=== PATIENT | male | born 1970 | race African-American/Black ===

== ENCOUNTER → 2021-05-16 08:42 | Outpatient (BNVA) | payer OTHER, SELFPAY | PROVIDERS: Visit Provider Physician Assistant ==

== ENCOUNTER → 2021-06-08 08:05 | Outpatient (BNVA) | payer OTHER, SELFPAY | PROVIDERS: Visit Provider Dietitian, Registered | DX: E66.9 Obesity, unspecified (principal) | CPT/HCPCS: 97802 ==

== ENCOUNTER → 2021-06-27 08:33 | Outpatient (BNVA) | payer OTHER, SELFPAY | PROVIDERS: Visit Provider Dietitian, Registered | DX: E66.01 Morbid (severe) obesity due to excess calories (principal); Z68.37 Body mass index [BMI] 37.0-37.9, adult | CPT/HCPCS: 97803 ==

== ENCOUNTER 2021-07-03 11:31 | Outpatient (REF) | payer OTHER, SELFPAY ==
[2021-07-03 12:24] LABS: MANUAL DIFF FLAG NO
[2021-07-03 12:33] LABS: Basophils Percent Auto 0.8 % (0-2); Eosinophils Absolute Auto 0.1 X10*3/uL (0.0-0.4); Eosinophils Percent Auto 2.8 % (0-4); Hematocrit 41.5 % (42-52); Hemoglobin 14.3 g/dl (14.0-18.0); Imm Gran Abs Auto 0.02 X10*3/uL (0.00-0.03); Imm Gran Pct Auto 0.4 % (0.0-0.4); Lymphocytes Absolute Auto 1.4 X10*3/uL (1.2-4.9); Lymphocytes Percent Auto 28.7 % (20-40); Mean Corpuscular HGB Conc 34.5 g/dl (31.0-36.0); Mean Corpuscular Hemoglobin 31.8 pg (27.0-33.0); Mean Corpuscular Volume 92.2 fL (80-98); Mean Platelet Volume 9.4 fL (9.4-12.4); Monocytes Absolute Auto 0.4 X10*3/uL (0.1-1.2); Monocytes Percent Auto 8.1 % (2-11); Neutrophils Absolute Auto 2.9 X10*3/uL (2.0-8.3); Neutrophils Percent Auto 59.2 % (45-73); Platelet Count 299 X10*3/uL (160-400); Red Cell Distribution Width 13.9 % (11.0-16.0)
[2021-07-03 12:45] LABS: Alanine Aminotransferase 36 U/L (0-40); Albumin Level 4.5 g/dL (3.5-5.0); Alkaline Phosphatase 56 U/L (39-117); Anion Gap 12 (12-20); Aspartate Amino Transferase 29 U/L (5-37); Bilirubin Total 0.4 mg/dL (0.0-1.0); Blood Urea Nitrogen 14 mg/dL (9-16); C Reactive Protein 0.46 mg/dL (< or = 0.50); Calcium 9.9 mg/dL (8.4-10.2); Carbon Dioxide 28 mmol/L (22-29); Chloride 106 mmol/L (96-108); Cholesterol 235 mg/dL; Estimated Glomerular Filt Rate > 60; Glucose Random 103 mg/dL (60-115); HDL Cholesterol 46 mg/dL; Iron 76 mcg/dL (45-160); LDL Cholesterol Calculated 164 mg/dl; Percent Iron Saturation 23 % (15-50); Potassium 4.2 mmol/L (3.3-5.1); Sodium 142 mmol/L (135-145); Total Iron Binding Capacity 331 mcg/dL (228-428); Total Protein 7.3 g/dL (6.5-8.0); Triglycerides 125 mg/dL; Unsaturated Iron Binding 255 ug/dL
[2021-07-03 13:08] LABS: Ferritin 82 ng/mL (20-250); TSH reflex Free T4 2.16 uIU/mL (0.32-4.0); Vitamin D 25-OH Total 44.5 ng/mL (>30)
[2021-07-03 13:18] LABS: Folate 13.8 ng/mL (> or = 4.0); Vitamin B12 1470 pg/mL (200-900)
[2021-07-03 13:33] LABS: Estimated Average Glucose 114 mg/dL; Hemoglobin A1c % 5.6 %
[2021-07-05 16:27] LABS: Zinc 70 mcg/dL (60-130)
[2021-07-06 10:31] LABS: Insulin Level Total 17.6 uIU/mL
[2021-07-07 10:06] LABS: Vitamin B1 9 nmol/L (8-30)
[2021-07-08 06:31] LABS: PTHI 32 pg/mL (14-64)
[2021-07-10 20:22] LABS: Vitamin A 55 mcg/dL (38-98)
== END 2021-07-03 11:32 | disposition home or self-care (01) ==
LOC: HO.LAB 11:31
PROVIDERS: PCP Nurse Practitioner Family; Visit Provider Physician Assistant
DX: Z01.818 Encounter for other preprocedural examination (principal)
CPT/HCPCS: 36415; 80053; 80061; 82306; 82607; 82728; 82746; 83036; 83525; 83540; 83970; 84425; 84443; 84590; 84630; 85025; 86140

== ENCOUNTER → 2021-07-11 08:04 | Outpatient (BNVA) | payer OTHER, SELFPAY | PROVIDERS: PCP Nurse Practitioner Family; Visit Provider Surgery ==

== ENCOUNTER → 2021-07-13 14:33 | Outpatient (BNVA) | payer OTHER, SELFPAY | PROVIDERS: PCP Nurse Practitioner Family; Referring Provider Nurse Practitioner Family; Visit Provider Surgery ==

== ENCOUNTER 2021-07-16 16:53 | Outpatient (REF) | payer OTHER, SELFPAY ==
[2021-07-17 11:53] LABS: H Pylori Breath Test Negative (Negative)
== END 2021-07-16 16:54 | disposition home or self-care (01) ==
LOC: HO.LNP 16:53
PROVIDERS: Visit Provider Physician Assistant
DX: Z01.818 Encounter for other preprocedural examination (principal); Z11.0 Encounter for screening for intestinal infectious diseases
CPT/HCPCS: 83013

== ENCOUNTER → 2021-07-18 08:03 | Outpatient (BNVA) | payer OTHER, SELFPAY | PROVIDERS: PCP Nurse Practitioner Family; Visit Provider Physician Assistant ==

== ENCOUNTER → 2021-07-31 15:35 | Outpatient (BNVA) | payer OTHER, SELFPAY | PROVIDERS: PCP Nurse Practitioner Family; Referring Provider Nurse Practitioner Family; Visit Provider Dietitian, Registered | DX: E66.9 Obesity, unspecified (principal); Z68.37 Body mass index [BMI] 37.0-37.9, adult | CPT/HCPCS: 97803 ==

== ENCOUNTER → 2021-08-17 08:12 | Outpatient (BNVA) | payer OTHER, SELFPAY | PROVIDERS: PCP Nurse Practitioner Family; Visit Provider Physician Assistant | DX: E66.9 Obesity, unspecified (principal) ==

== ENCOUNTER 2021-08-21 14:33 | Outpatient (REF) | payer OTHER, SELFPAY ==
--- NOTE | ~2021-08-21 | XR_ITS ---
EXAMINATION: XR CHEST 2 VIEWS CLINICAL INFORMATION: Obesity. COMPARISON: Chest radiographs dated 12/14/2019. TECHNIQUE: Frontal and lateral views of the chest were obtained. FINDINGS: The heart, great vessels, pulmonary vasculature and mediastinum are normal. The lungs show no focal infiltrate, effusion or pneumothorax. There is no acute osseous abnormality. XR/XR chest 2V IMPRESSION: No active cardiopulmonary disease.
--- NOTE | 2021-08-21 14:37 | ECG_ITS ---
Test Reason : obesity Blood Pressure : / mmHG Vent. Rate : 086 BPM Atrial Rate : 086 BPM P-R Int : 192 ms QRS Dur : 080 ms QT Int : 356 ms P-R-T Axes : 076 058 037 degrees QTc Int : 426 ms Normal sinus rhythm Normal ECG No previous ECGs available Referred By: Elli Diehl Electronically Signed By:ALEXA VILLEGAS MD
== END 2021-08-21 14:34 | disposition home or self-care (01) ==
LOC: HO.XRAY 14:33
PROVIDERS: PCP Nurse Practitioner Family; Visit Provider Physician Assistant
DX: Z01.818 Encounter for other preprocedural examination (principal); E66.9 Obesity, unspecified
CPT/HCPCS: 71046; 93005

== ENCOUNTER → 2021-08-24 14:35 | Outpatient (BNVA) | payer MEDICAID, SELFPAY | PROVIDERS: PCP Nurse Practitioner Family; Referring Provider Nurse Practitioner Family; Visit Provider Physician Assistant Surgical ==

== ENCOUNTER → 2021-08-31 14:33 | Outpatient (BNVA) | payer OTHER, SELFPAY | PROVIDERS: PCP Nurse Practitioner Family; Referring Provider Nurse Practitioner Family; Visit Provider Physician Assistant ==

== ENCOUNTER → 2021-09-03 16:02 | Outpatient (BNVA) | payer OTHER, SELFPAY | PROVIDERS: PCP Nurse Practitioner Family; Referring Provider Physician Assistant; Visit Provider Dietitian, Registered | DX: E66.9 Obesity, unspecified (principal); Z68.36 Body mass index [BMI] 36.0-36.9, adult | CPT/HCPCS: 97803 ==

== ENCOUNTER → 2021-09-10 08:06 | Outpatient (BNVA) | payer OTHER, SELFPAY | PROVIDERS: PCP Nurse Practitioner Family; Visit Provider Physician Assistant | DX: E66.9 Obesity, unspecified (principal); Z01.818 Encounter for other preprocedural examination ==

== ENCOUNTER → 2021-09-14 14:23 | Outpatient (BNVA) | payer OTHER, SELFPAY | PROVIDERS: PCP Nurse Practitioner Family; Referring Provider Nurse Practitioner Family; Visit Provider Physician Assistant ==

== ENCOUNTER 2021-09-18 08:25 | Outpatient (REF) | payer OTHER, SELFPAY ==
--- NOTE | ~2021-09-18 | FL_ITS ---
EXAMINATION: XR GI SERIES CLINICAL INFORMATION: Obesity COMPARISON: None TECHNIQUE: Upper GI was performed using thin and thick barium and effervescent granules FINDINGS: Esophageal motility is normal. There is gastroesophageal reflux. No hernia is seen. The stomach and duodenum are normal-appearing. No fold thickening, mass, ulcer or stricture is seen. FLUOROSCOPY TIME: 0.5 minutes DOSE AREA PRODUCT: 6 dao per centimeter squared. 19 saved fluoroscopic images. FL/FL upper GI series IMPRESSION: Gastroesophageal reflux otherwise unremarkable exam.
== END 2021-09-18 08:26 | disposition home or self-care (01) ==
LOC: HO.XRAY 08:25
PROVIDERS: Visit Provider Physician Assistant
DX: Z01.818 Encounter for other preprocedural examination (principal); E66.9 Obesity, unspecified; K21.9 Gastro-esophageal reflux disease without esophagitis
CPT/HCPCS: 74240

== ENCOUNTER → 2021-10-10 08:22 | Outpatient (BNVA) | payer OTHER, SELFPAY | PROVIDERS: PCP Nurse Practitioner Family; Visit Provider Surgery | DX: E66.9 Obesity, unspecified (principal); Z68.35 Body mass index [BMI] 35.0-35.9, adult | CPT/HCPCS: 99212 ==

== ENCOUNTER → 2021-10-29 14:27 | Outpatient (BNVA) | payer OTHER, SELFPAY | PROVIDERS: PCP Nurse Practitioner Family; Referring Provider Nurse Practitioner Family; Visit Provider Physician Assistant Surgical ==

== ENCOUNTER → 2021-11-14 14:40 | Outpatient (BNVA) | payer OTHER, SELFPAY | PROVIDERS: PCP Nurse Practitioner Family; Referring Provider Nurse Practitioner Family; Visit Provider Physician Assistant Surgical ==

== ENCOUNTER → 2021-12-05 08:32 | Outpatient (BNVA) | payer OTHER, SELFPAY | PROVIDERS: PCP Nurse Practitioner Family; Visit Provider Surgery ==

== ENCOUNTER → 2021-12-07 13:35 | Outpatient (BNVA) | payer OTHER, SELFPAY | PROVIDERS: PCP Nurse Practitioner Family; Referring Provider Nurse Practitioner Family; Visit Provider Physician Assistant ==

== ENCOUNTER → 2021-12-12 14:19 | Outpatient (BNVA) | payer OTHER, SELFPAY | PROVIDERS: PCP Nurse Practitioner Family; Referring Provider Nurse Practitioner Family; Visit Provider Physician Assistant Surgical ==

== ENCOUNTER 2021-12-13 06:26 | Day surgery (SDC) | payer OTHER, SELFPAY ==
[2021-12-07 13:34] LABS: MANUAL DIFF FLAG NO
[2021-12-07 14:39] LABS: Basophils Absolute Auto 0.1 X10*3/uL (0.0-0.2); Basophils Percent Auto 0.8 % (0-2); Eosinophils Absolute Auto 0.1 X10*3/uL (0.0-0.4); Eosinophils Percent Auto 2.2 % (0-4); Hematocrit 43.8 % (42.0-52.0); Imm Gran Abs Auto 0.01 X10*3/uL (0.00-0.03); Imm Gran Pct Auto 0.2 % (0.0-0.4); Lymphocytes Absolute Auto 1.7 X10*3/uL (1.2-4.9); Lymphocytes Percent Auto 28.8 % (20-40); Mean Corpuscular HGB Conc 34.2 g/dl (31.0-36.0); Mean Corpuscular Hemoglobin 31.1 pg (27.0-33.0); Mean Corpuscular Volume 90.9 fL (80.0-98.0); Mean Platelet Volume 9.9 fL (9.4-12.4); Monocytes Absolute Auto 0.4 X10*3/uL (0.1-1.2); Monocytes Percent Auto 7.4 % (2-11); Neutrophils Absolute Auto 3.6 x10*3/uL (2.0-8.3); Neutrophils Percent Auto 60.6 % (45-73); Platelet Count 317 X10*3/uL (160-400); Red Blood Count 4.82 X10*6/uL (4.60-5.80); Red Cell Distribution Width 13.9 % (11.0-16.0)
[2021-12-07 14:44] LABS: INTERNATIONAL NORM RATIO 1.1 (0.9-1.1); Prothrombin Time 12.9 SEC (9.9-13.0)
[2021-12-07 14:48] LABS: Estimated Average Glucose 111 mg/dL; Hemoglobin A1C 140.8467 umol/L; Hemoglobin A1c % 5.5 %
[2021-12-07 15:18] LABS: Alanine Aminotransferase 34 U/L (0-40); Albumin Level 4.7 g/dL (3.5-5.0); Alkaline Phosphatase 58 U/L (39-117); Anion Gap 14 (12-20); Aspartate Amino Transferase 37 U/L (5-37); Bilirubin Total 0.5 mg/dL (0.0-1.0); Blood Urea Nitrogen 20 mg/dL (9-16); C Reactive Protein 0.39 mg/dL (< or = 0.50); Carbon Dioxide 26 mmol/L (22-29); Chloride 104 mmol/L (96-108); Cholesterol 221 mg/dL; Estimated Glomerular Filt Rate > 60; Glucose Random 98 mg/dL (60-115); HDL Cholesterol 50 mg/dL; LDL Cholesterol Calculated 154 mg/dl; Potassium 4.5 mmol/L (3.3-5.1); Sodium 139 mmol/L (135-145); Total Protein 7.9 g/dL (6.5-8.0); Triglycerides 87 mg/dL
[2021-12-07 15:25] VITALS: BMI 35.2
[2021-12-07 15:38] LABS: Insulin 12 uU/mL (2-29); TSH reflex Free T4 1.48 uIU/mL (0.32-4.0)
--- NOTE | 2021-12-07 20:38 | MHC.SHP ---
Pre-Procedural Eval Section A Date of Service: 12/07/21 The patient is an INPATIENT: No The History & Physical has been completed within 30 days and I have reviewed it.: Yes Section B Chief Complaint: obesity Relevant Family History (Specify if Yes): Yes Relevant Social History: None Present Medications: None Medical History: No relevant PMH History of Previous Operations: No relevant previous surgery Allergies: Allergies Allergy/AdvReac Type Severity Reaction Status Date / Time cat dander Allergy Intermediate Hives Verified 12/07/21 15:22 dog dander Allergy Intermediate sneezing Verified 12/07/21 15:22 shell fish Allergy Severe swelling, Uncoded 12/07/21 15:21 hives enviromental Allergy Unknown sneezing Uncoded 12/05/21 14:45 Review of Systems Sugical H&P ROS: Negative: Constitution, Cardiovascular, Respiratory, Neurological, Psychiatric, Hem-Onc, Allergic/Immunologic, Gastrointestinal, Genitourinary, Musculoskeletal, Integumentary, Endocrine and Eyes/Ears/Nose/Throat Exam Surgical H&P Exam: Normal: HEENT, Normal: Heart, Normal: Lungs, Normal: Extremities, Normal: Abdomen, Normal: Skin and Normal: Neurological Plan Diagnosis/Plan: Unchanged I have reviewed the history and physical and performed a pertinent physical examination on my patient. No changes have occurred unless specified.
--- NOTE | 2021-12-12 10:29 | P.CONAN_ITS ---
Documented by User: Hali Shetty NP 12/12/21 10:30 HPI - Anesthesia Eval Consult details Narrative: 51yo M for Gastrectomy Sleeve,EGD,poss diaphragmatic hernia,poss ventral hernia,poss open PMFSH Active Problems Active Problems: All Active Problems (Updated 12/07/21 @ 15:28 by Marline Tracey RN) Obesity (Acute) MDD (major depressive disorder) (Acute) ADHD (Acute) Complex posttraumatic stress disorder (Acute) Pre-op evaluation (Acute) BMI 35.0-35.9,adult (Acute) History of hypothyroidism (Acute) Hx of sleep apnea (Acute) History of high cholesterol (Acute) Past Medical History Medical History Arthritis History of asthma History of depression History of herniated intervertebral disc History of high cholesterol History of hypothyroidism Hx of acute eczema Hx of sleep apnea PTSD (post-traumatic stress disorder) Family History Family History Mother Hx of glaucoma Hx of heat stroke Hypertension Father Hx of heat stroke Sister Obese Sister No problems noted. Sister Depression Thyroid condition Brother No problems noted. Brother Diabetes Brother History of hip replacement Brother Family history of prostate problems Brother No problems noted. Surgical History Surgical History History of anal fissures History of left hip replacement History of lumbar discectomy History of prostate surgery Hx of adenoidectomy Hx of cystoscopy Social History Social History Are you a primary career development manager to a significant other at home: No Do you presently have visiting nurse or other home services: No Alcohol intake: current Alcohol intake frequency: does not drink Patient Tobacco Use Status: Never used Tobacco Meds Allergies Allergy/AdvReac Type Severity Reaction Status Date / Time cat dander Allergy Intermediate Hives Verified 12/13/21 06:21 dog dander Allergy Intermediate sneezing Verified 12/13/21 06:21 shell fish Allergy Severe swelling, Uncoded 12/07/21 15:21 hives enviromental Allergy Unknown sneezing Uncoded 12/05/21 14:45 Home Medications Medication Instructions Recorded Confirmed Last Taken Type acetaminophen 500 mg tablet mg PO 05/16/21 12/05/21 Unknown History clobetasol 0.05 % topical ointment g TOPICAL BID 05/16/21 12/05/21 Unknown History dupilumab 300 mg/2 mL subcutaneous mg SUBCUT 05/16/21 12/05/21 11/12/21 History syringe escitalopram oxalate 20 mg tablet 20 mg PO DAILY 05/16/21 12/13/21 12/12/21 History pramipexole 0.125 mg tablet 0.125 mg PO DAILY 05/16/21 12/13/21 12/11/21 History albuterol sulfate 90 mcg/actuation 2 puff INHALATION Q6H PRN 12/05/21 12/13/21 Unknown History aerosol inhaler fexofenadine 180 mg tablet 180 mg PO DAILY 12/05/21 12/13/21 12/12/21 History (Mayela Allergy) fluticasone propionate 50 1 spray INTRANASAL DAILY 12/05/21 12/13/21 12/12/21 History mcg/actuation nasal spray,suspension (Flonase Allergy Relief) ketotifen fumarate 0.025 % (0.035 1 drp OPHTHALMIC (EYE) BID 12/05/21 12/13/21 12/11/21 History %) eye drops levothyroxine 100 mcg tablet 100 mcg PO DAILY 12/05/21 12/13/21 12/12/21 History (Synthroid) methylphenidate HCl 36 mg 36 mg PO DAILY 12/05/21 12/13/21 12/12/21 History tablet,extended release 24 hr (Concerta) Exam Exam Date and Time: December 12, 2021 1029 Height,Weight and Vital Signs: Height 5 ft 5 in Weight 96.162 kg Pertinent Lab Results Pertinent Lab Results: Laboratory Tests 12/07/21 12/07/21 12/07/21 13:30 13:30 13:30 WBC 6.0 RBC 4.82 Hgb 15.0 Hct 43.8 MCV 90.9 MCH 31.1 MCHC 34.2 RDW 13.9 Plt Count 317 MPV 9.9 Immature Gran % (Auto) 0.2 Neut % (Auto) 60.6 Lymph % (Auto) 28.8 [place] % (Auto) 7.4 Eos % (Auto) 2.2 Baso % (Auto) 0.8 Lymph # (Auto) 1.7 [place] # (Auto) 0.4 Eos # (Auto) 0.1 Baso # (Auto) 0.1 Abs Immat Gran (auto) 0.01 Absolute Neuts (auto) 3.6 Absolute Nucleated RBC 0.000 Nucleated RBC % (auto) 0.0 PT 12.9 INR 1.1 APTT 39.0 H Sodium 139 Potassium 4.5 Chloride 104 Carbon Dioxide 26 Anion Gap 14 BUN 20 H Creatinine 1.19 Estim Creat Clear Calc TNP Estimated GFR > 60 Random Glucose 98 Estimat Average Glucose Hemoglobin A1c % Insulin Level 12 Calcium 10.0 Total Bilirubin 0.5 AST 37 ALT 34 Alkaline Phosphatase 58 C-Reactive Protein 0.39 Total Protein 7.9 Albumin 4.7 Triglycerides 87 Cholesterol 221 LDL Cholesterol, Calc 154 HDL Cholesterol 50 TSH 1.48 Blood Type Antibody Screen 12/07/21 12/07/21 13:30 13:30 WBC RBC Hgb Hct MCV MCH MCHC RDW Plt Count MPV Immature Gran % (Auto) Neut % (Auto) Lymph % (Auto) [place] % (Auto) Eos % (Auto) Baso % (Auto) Lymph # (Auto) [place] # (Auto) Eos # (Auto) Baso # (Auto) Abs Immat Gran (auto) Absolute Neuts (auto) Absolute Nucleated RBC Nucleated RBC % (auto) PT INR APTT Sodium Potassium Chloride Carbon Dioxide Anion Gap BUN Creatinine Estim Creat Clear Calc Estimated GFR Random Glucose Estimat Average Glucose 111 Hemoglobin A1c % 5.5 Insulin Level Calcium Total Bilirubin AST ALT Alkaline Phosphatase C-Reactive Protein Total Protein Albumin Triglycerides Cholesterol LDL Cholesterol, Calc HDL Cholesterol TSH Blood Type O Positive Antibody Screen NEGATIVE Narrative Narrative: EKG 07/2021 Vent. Rate : 086 BPM ? ? Atrial Rate : 086 BPM ?? P-R Int : 192 ms? QRS Dur : 080 ms ? ? QT Int : 356 ms ? ? ? P-R-T Axes : 076 058 037 degrees ?? QTc Int : 426 ms ? Normal sinus rhythm Normal ECG No previous ECGs available Assessment and Plan Assessment Anesthesia Assessment: Chart Reviewed Documented by User: Rachel Munoz MD 12/13/21 07:30 [facility] Active Problems Active Problems: All Active Problems (Updated 12/07/21 @ 15:28 by Marline Tracey, JENNIFER) Obesity (Acute) MDD (major depressive disorder) (Acute) ADHD (Acute) Complex posttraumatic stress disorder (Acute) Pre-op evaluation (Acute) BMI 35.0-35.9,adult (Acute) History of hypothyroidism (Acute) Hx of sleep apnea (Acute). Uses CPAP machine History of high cholesterol (Acute) TMJ syndrome Past Medical History Medical History Arthritis History of asthma History of depression History of herniated intervertebral disc History of high cholesterol History of hypothyroidism Hx of acute eczema Hx of sleep apnea PTSD (post-traumatic stress disorder) Family History Family History Mother Hx of glaucoma Hx of heat stroke Hypertension Father Hx of heat stroke Sister Obese Sister No problems noted. Sister Depression Thyroid condition Brother No problems noted. Brother Diabetes Brother History of hip replacement Brother Family history of prostate problems Brother No problems noted. Family history of problems with anesthesia: No Surgical History Surgical History History of anal fissures History of left hip replacement History of lumbar discectomy History of prostate surgery Hx of adenoidectomy Hx of cystoscopy History of Problems with Anesthesia: No Social History Social History Are you a primary career development manager to a significant other at home: No Do you presently have visiting nurse or other home services: No Alcohol intake: current Alcohol intake frequency: does not drink Patient Tobacco Use Status: Never used Tobacco Meds Allergies Allergy/AdvReac Type Severity Reaction Status Date / Time cat dander Allergy Intermediate Hives Verified 12/13/21 06:21 dog dander Allergy Intermediate sneezing Verified 12/13/21 06:21 shell fish Allergy Severe swelling, Uncoded 12/07/21 15:21 hives enviromental Allergy Unknown sneezing Uncoded 12/05/21 14:45 Home Medications Medication Instructions Recorded Confirmed Last Taken Type acetaminophen 500 mg tablet mg PO 05/16/21 12/05/21 Unknown History clobetasol 0.05 % topical ointment g TOPICAL BID 05/16/21 12/05/21 Unknown History dupilumab 300 mg/2 mL subcutaneous mg SUBCUT 05/16/21 12/05/21 11/12/21 History syringe escitalopram oxalate 20 mg tablet 20 mg PO DAILY 05/16/21 12/13/21 12/12/21 History pramipexole 0.125 mg tablet 0.125 mg PO DAILY 05/16/21 12/13/21 12/11/21 History albuterol sulfate 90 mcg/actuation 2 puff INHALATION Q6H PRN 12/05/21 12/13/21 Unknown History aerosol inhaler fexofenadine 180 mg tablet 180 mg PO DAILY 12/05/21 12/13/21 12/12/21 History (Mayela Allergy) fluticasone propionate 50 1 spray INTRANASAL DAILY 12/05/21 12/13/21 12/12/21 History mcg/actuation nasal spray,suspension (Flonase Allergy Relief) ketotifen fumarate 0.025 % (0.035 1 drp OPHTHALMIC (EYE) BID 12/05/21 12/13/21 12/11/21 History %) eye drops levothyroxine 100 mcg tablet 100 mcg PO DAILY 12/05/21 12/13/21 12/12/21 History (Synthroid) methylphenidate HCl 36 mg 36 mg PO DAILY 12/05/21 12/13/21 12/12/21 History tablet,extended release 24 hr (Concerta) Exam Height,Weight and Vital Signs: Height 5 ft 5 in Weight 96.162 kg Vital Signs Temp Pulse Resp BP Pulse Ox 12/13/21 06:28 97.8 F 55 16 119/70 98 Pertinent Lab Results Pertinent Lab Results: Laboratory Tests 12/07/21 12/07/21 12/07/21 13:30 13:30 13:30 WBC 6.0 RBC 4.82 Hgb 15.0 Hct 43.8 MCV 90.9 MCH 31.1 MCHC 34.2 RDW 13.9 Plt Count 317 MPV 9.9 Immature Gran % (Auto) 0.2 Neut % (Auto) 60.6 Lymph % (Auto) 28.8 [place] % (Auto) 7.4 Eos % (Auto) 2.2 Baso % (Auto) 0.8 Lymph # (Auto) 1.7 [place] # (Auto) 0.4 Eos # (Auto) 0.1 Baso # (Auto) 0.1 Abs Immat Gran (auto) 0.01 Absolute Neuts (auto) 3.6 Absolute Nucleated RBC 0.000 Nucleated RBC % (auto) 0.0 PT 12.9 INR 1.1 APTT 39.0 H Sodium 139 Potassium 4.5 Chloride 104 Carbon Dioxide 26 Anion Gap 14 BUN 20 H Creatinine 1.19 Estim Creat Clear Calc TNP Estimated GFR > 60 Random Glucose 98 Estimat Average Glucose Hemoglobin A1c % Insulin Level 12 Calcium 10.0 Total Bilirubin 0.5 AST 37 ALT 34 Alkaline Phosphatase 58 C-Reactive Protein 0.39 Total Protein 7.9 Albumin 4.7 Triglycerides 87 Cholesterol 221 LDL Cholesterol, Calc 154 HDL Cholesterol 50 TSH 1.48 Blood Type Antibody Screen 12/07/21 12/07/21 13:30 13:30 WBC RBC Hgb Hct MCV MCH MCHC RDW Plt Count MPV Immature Gran % (Auto) Neut % (Auto) Lymph % (Auto) [place] % (Auto) Eos % (Auto) Baso % (Auto) Lymph # (Auto) [place] # (Auto) Eos # (Auto) Baso # (Auto) Abs Immat Gran (auto) Absolute Neuts (auto) Absolute Nucleated RBC Nucleated RBC % (auto) PT INR APTT Sodium Potassium Chloride Carbon Dioxide Anion Gap BUN Creatinine Estim Creat Clear Calc Estimated GFR Random Glucose Estimat Average Glucose 111 Hemoglobin A1c % 5.5 Insulin Level Calcium Total Bilirubin AST ALT Alkaline Phosphatase C-Reactive Protein Total Protein Albumin Triglycerides Cholesterol LDL Cholesterol, Calc HDL Cholesterol TSH Blood Type O Positive Antibody Screen NEGATIVE Laboratory Results - last 24 hr 12/12/21 14:05 COVID-19 ([facility]) Negative COVID-19 Clin Com See Note Airway Mallampati Class: III TM Dist: >3cm Neck ROM: Full Loose/Missing/Broken Teeth: No Heart: RRR Lungs: CTAB Other: TMJ Syndrome Assessment and Plan Assessment Anesthesia Assessment: Anesthesia Plan Discussed Final Anesthetic Review Family History of Problems with Anesthesia: No History of Problems with Anesthesia: No NPO: Yes ASA Class: III Final Preanesthetic Review: No Changes in Pt Med Stat, Meds/Allgs Chart Reviewed, Consent Obtained/Reviewed and Anes Risks/Benef Reviewed Patient Risk: Intermediate Procedure Risk: Intermediate Assessment/Block/Sedation in SS: Assess/Block/Sedation-SS Anesthetic Plan Anesthetic Plan: GA Disposition: Standard PACU and Inp. Admit - Standard Bed
[2021-12-12 14:27] LABS: COVID-19 Test Negative (Negative)
[2021-12-13] VITALS (19 sets, daily range): BP systolic 119–168; BP diastolic 70–91; PULSE 55–84; RESP 12–18; TEMP 36.1–36.7; O2SAT 91–99
[2021-12-13] MEDS: Lactated Ringers 1,000 ML 999 ML IV (07:22)
[2021-12-13] MEDS: Lactated Ringers 1,000 ML 100 ML IVCONT ×3 (07:22→20:59)
--- NOTE | 2021-12-13 08:05 | P.BOP_ITS ---
Brief Operative Note Date of Service: 12/13/21 Pre-op diagnosis: Severe obesity and comorbidities (see below) Post-op diagnosis: same Procedure: INITIAL PATIENT BMI ON PRESENTATION AT OUR OFFICE: 39.3 kg/m2 LAST BMI BEFORE SURGERY: 35 kg/m2 COMORBIDITIES: sleep apnea on CPAP, depression, anxiety, hyperlipidemia, GERD, restless leg syndrome, BPH, eczema, asthma, liver steatosis ?The patient presented to the Weight Management Program with significant obesity that was negatively impacting the patient's comorbidities as listed above.? The program is a phased program with a special focus on preoperative medical weight management to promote substantial weight loss and prepare the patients for the second phase of the program: bariatric surgery. The patient participated in an intensive weekly lifestyle ?intervention and exercise program during which the patient ?has lost between the initial office visit and the last preoperative visit 24.6lbs, or 11.27% of initial actual body weight. It was deemed appropriate for the patient to now have bariatric surgery. In light of the current Covid-19 pandemic and the well documented strong association of obesity and increased risk of worse outcomes if infected with Covid-19 (REFERENCES: https://pubmed.ncbi.nlm.nih.gov/27656788/ ,? https://pubmed.ncbi.nlm.nih.gov/11592743/ ), any delay in undergoing bariatric surgery may lead to the patient's worsening health condition and increased?risk of more severe Covid-19 disease if infected. In addition a recent?study from [facility] published in [employer] on 10/22/2021 ([email or web address]) found that, among patients with obesity, substantial weight loss achieved with surgery was associated with improved outcomes of COVID-19 infection. The findings suggest that obesity can be a modifiable risk factor for the severity of COVID- 19 infection. In addition, the patient met the BMI-criteria for bariatric surgery based on the BMI on initial presentation. The patient should not be penalized for achieving such weight loss because ?it is not sustainable long-term without surgical intervention and it was achieved in preparation for bariatric surgery ?under my direction and based on my published research ([email or web address]).[email or web address] and? https://www.soard.org/article/[email or web address](73)84608-X/pdf ) ?that a 10% preoperative weight loss improves long-term weight loss after surgery and reduces perioperative complications.? Insurance carriers such as [facility] have endorsed my recommendations ?and have included in their policies criteria to include a 10% preoperative weight loss requirement. PROCEDURE: Esophago-gastroscopy, laparoscopic sleeve gastrectomy and laparosco pic gastropexy INDICATIONS: This is a 51 year-old male who was electively scheduled for laparoscopic, possibly open sleeve gastrectomy. The risks and complications of the procedure were discussed with the patient in advance, particularly the possibility of ; pulmonary embolism; staple line leak; bleeding; GERD; cardiac, pulmonary, or renal complications; as well as long-term problems such as insufficient weight loss, vitamin deficiency, strictures, or ulcers. The patient understood all the risks, and was in agreement to proceed with surgery. DESCRIPTION OF PROCEDURE: After informed consent was obtained from the patient, the patient was given preoperative antibiotics, and was transferred to the operating room. After successful induction of general anesthesia, pneumatic compression devices were placed on both lower extremities. An upper endoscopy was performed next. The oropharynx and esophagus appeared to be within normal limits. There was no diaphragmatic hernia present consistent with the findings of the preoperative upper GI. The stomach was entered. Then after all fluid and air were suctioned and the stomach was fully decompressed, the scope was withdrawn and secured in the mid esophagus. The patient was then prepped and draped in the usual sterile manner, and abdominal access was established at the right upper quadrant with the Cameron technique. A 12 mm blunt port was inserted, and the abdomen was insufflated with CO2 to a pressure of 15 mmHg. Under direct visualization, additional ports were placed, specifically two 5 mm Versi-step ports to the left upper quadrant, and a 5 mm Versi-Step port to the right upper quadrant. 1% lidocaine plain was used to infiltrate all port sites as well as all fascia defects. There were adhesions in the abdomen involving the omentum and the left anterior abdominal wall. Those were not lysed as they did not interfere with our procedure. Following that, the patient was placed in a steep reverse Trendelenburg position. An additional 5 mm port was placed to the right flank for the Mediflex retractor that was used to retract the left lobe of the liver. The gastro-esophageal fat pad was opened with the ultrasonic device (Thunderbeat, Olympus) and the anterior esophagus and hiatus were exposed. The angle of His was opened with the ultrasonic device the fundus of the stomach from any diaphragmatic and splenic attachments. I then opened the gastrocolic ligament between the transverse colon and the greater curvature of the stomach with the ultrasonic device to enter the lesser sac and facilitate the ligation of the short gastric vessels. I started at a mid-point along the greater curvature and using the Thunderbeat, all short gastric vessels were divided all the way to the angle of His until the left adela was completely dissected at its entirety. I then divided the gastro-colic ligament distally to a distance of about 3-4 cm proximal to the esophagus. The stomach was then divided transversely with one Endo CATHI-45 purple, three CATHI-45 orange loads and three CATHI-60 articulating orange loads using the AEON stapler and loads. Every effort was made that the gastric sleeve had a tubular shape and an even caliber throughout. Once the sleeve resection was completed, the staple line of the gastric sleeve was reinforced with Hemoclips. The resected stomach was retrieved without difficulty from the Cameron port. A gastropexy was then performed in order to prevent postoperative GERD and partial gastric volvulus. Several interrupted 2.0 Surgidac sutures were placed between the sleeve's staple line and the previously divided greater omentum and gastro-colic ligament using the Endo-Stitch device. ?An upper endoscopy was performed. There was no narrowing at the GE junction. The scope was easily advanced all the way to the pylorus which was clearly visualized. There was no narrowing anywhere and the sleeve's caliber was even throughout. The sleeve's staple line was inspected and there was no evidence of ischemia, bleeding or dehiscence. At that point the gastroscope was withdrawn from the patient?s mouth while we were decompressing the bowel and the stomach from any remaining air. I looked into the lesser sac to see how the sleeve was situating and it was situating well. There was no bleeding from the staple line, spleen, or short gastric vessels. The Mediflex retractor was removed, and the undersurface of the liver was inspected and there was no bleeding. The patient was placed in supine position. I closed the fascial defect of the 12 mm port site with a figure of eight #1 Meño ysorb suture. Then 100 cc 0.25 % Marcaine plain with 10 mg of Dexamethasone were used to infiltrate the fascial closure as well as all skin incisions. At this point, the abdomen was deflated, all ports were removed under direct vision, and no bleeding was noted from any of the port sites. The skin incisions were irrigated with saline and were closed with 4-0 absorbable monofilament sutures. Steri-Strips and OpSites were used to cover all incisions. The patient was extubated and was transferred in stable condition to the recovery room for further care. I was present and performed all acevedo parts of the procedure. Ms. Diehl was the cutting table operator first. There were no residents to assist with this case. Miguel Angel Lovell MD, PhD, FACS Surgeon: Steve Lovell MD Anesthesia: GETA, local and other (TAP block) Was an Hot Mix Operator used for this Procedure?: Yes Hot Mix Operator: Elli Diehl Estimated blood loss (mL): 10 IV fluids (mL): 2,500 Urine output (mL): 0 (No Mart to record) Pathology: other (Stomach) Condition: stable Disposition: PACU
--- NOTE | 2021-12-13 08:05 | PM.PNGS ---
Subjective Subjective Date of Service: 12/14/21 Interval history: Patient has mild incisional pain, but was able to ambulate and use the incentive spirometer. He is tolerating phase 1 bariatric diet Physical Exam Vital Signs: Vital Signs: Last Vital Signs Temp 97.8 F 12/13/21 06:28 Pulse 55 12/13/21 06:28 Resp 16 12/13/21 06:28 BP 119/70 12/13/21 06:28 Pulse Ox 98 12/13/21 06:28 BMI result Body Mass Index 35.2 GI: Inspection: Yes normal to inspection, Yes incision (clean, dry and intact) and Yes obesity Extrem: Right lower extremity: normal to inspection (no calf tenderness) Left lower extremity: normal to inspection (no calf tenderness) Objective Data Active Medications Albuterol Sulfate (Albuterol Sulfate (0.083%) 2.5 Mg/3 Ml Vial.Neb) 2.5 mg INHALE ONCE PRN PRN Reason: Shortness of Breath/Wheezing Fentanyl (Fentanyl Citrate/Pf 100 Mcg/2 Ml Vial) 25 mcg IVPUSH Q5M PRN; Protocol PRN Reason: Pain, Moderate (Pain Scale 4-6 Hydromorphone HCl (Hydromorphone Hcl 0.5 Mg/0.5 Ml Syringe) 0.25 mg IVPUSH Q5M PRN; Protocol PRN Reason: Pain, Severe (Pain Scale 7-10) Lactated Ringer's (Lr) 1,000 mls @ 100 mls/hr IVCONT .Q10H ELVIS Last Admin: 12/13/21 07:22 Dose: 100 mls/hr Documented by: TK Promethazine HCl 6.25 mg/ (Sodium Chloride) 50.25 mls @ 201 mls/hr IV ONCE PRN PRN Reason: Nausea and Vomiting Ondansetron HCl (Ondansetron Hcl 4 Mg/2 Ml Vial) 4 mg IVPUSH ONCE PRN PRN Reason: Nausea and Vomiting Labs CBC & Chem 7: 12/14/21 05:43 12/14/21 05:43 Labs: Laboratory Results - last 24 hr 12/12/21 14:05 COVID-19 ([facility]) Negative COVID-19 Clin Com See Note Procedures Date of Service Date of Service: 12/14/21 Progress Note: A&P Assessment and plan (1) Obesity: Status: Acute Assessment and Plan: s/p laparoscopic sleeve gastrectomy and gastropexy Doing well Check am labs. If OK, will discharge home? (2) BMI 35.0-35.9,adult: Status: Acute (3) Hx of sleep apnea: Status: Acute (4) History of hypothyroidism: Status: Acute (5) Status post sleeve gastrectomy: Status: Acute (6) Intra-abdominal adhesions: Status: Acute (7) Steatosis, liver: Status: Acute (8) ADHD: Status: Acute (9) History of depression: Status: Acute (10) History of asthma: Status: Acute (11) Arthritis: Status: Acute (12) Hx of acute eczema: Status: Acute Fall Risk Details Current Medications: Current Medications Albuterol Sulfate (Albuterol Sulfate (0.083%) 2.5 Mg/3 Ml Vial.Neb) 2.5 mg INHALE ONCE PRN PRN Reason: Shortness of Breath/Wheezing Fentanyl (Fentanyl Citrate/Pf 100 Mcg/2 Ml Vial) 25 mcg IVPUSH Q5M PRN; Protocol PRN Reason: Pain, Moderate (Pain Scale 4-6 Hydromorphone HCl (Hydromorphone Hcl 0.5 Mg/0.5 Ml Syringe) 0.25 mg IVPUSH Q5M PRN; Protocol PRN Reason: Pain, Severe (Pain Scale 7-10) Lactated Ringer's (Lr) 1,000 mls @ 100 mls/hr IVCONT .Q10H ELVIS Last Admin: 12/13/21 07:22 Dose: 100 mls/hr Documented by: Promethazine HCl 6.25 mg/ (Sodium Chloride) 50.25 mls @ 201 mls/hr IV ONCE PRN PRN Reason: Nausea and Vomiting Ondansetron HCl (Ondansetron Hcl 4 Mg/2 Ml Vial) 4 mg IVPUSH ONCE PRN PRN Reason: Nausea and Vomiting Time Spent With Patient Time: Total time spent is greater than 50% in coordination of care (as documented) at patient's floor/unit and/or counseling patient: Time with patient: less than 15 minutes Quality Stroke Does the patient have a stroke diagnosis?: No VTE Prior VTE?: No VTE Risk Level:: Surgical - moderate VTE Device Contraindication: N/A - Device Ordered VTE Drug Contraindication: Treatment Not Indicated
--- NOTE | 2021-12-13 10:31 | P.DS_ITS ---
DS: Providers Provider Date of Service: 12/14/21 Primary care physician: Homero Stevens NP DS: Diagnosis Discharge Diagnosis (1) Obesity: Status: Acute (2) BMI 35.0-35.9,adult: Status: Acute (3) Hx of sleep apnea: Status: Acute (4) History of hypothyroidism: Status: Acute (5) Status post sleeve gastrectomy: Status: Acute (6) Intra-abdominal adhesions: Status: Acute (7) Steatosis, liver: Status: Acute (8) ADHD: Status: Acute (9) History of depression: Status: Acute (10) History of asthma: Status: Acute (11) Arthritis: Status: Acute (12) Hx of acute eczema: Status: Acute DS: Summary Hospital Course Hospital Course: ADMITTING DIAGNOSIS: morbid obesity, Hypothyroid, hyperlipidemia, sleep apnea, asthma DISCHARGE DIAGNOSIS: same, s/p laparoscopic sleeve gastrectomy PAST SURGICAL HISTORY: Left hip replacement PROCEDURE: upper endoscopy, laparoscopic sleeve gastrectomy with gastropexy DISCHARGE SUMMARY: History of Present Illness: The patient is a 51 year-old woman with a BMI of 39.26 kg/m2 and associated co- morbidities as described above. The patient had extensive work-up,lost 24.6 lbs preoperatively and was electively scheduled for laparoscopic, possible open sleeve gastrectomy and gastropexy. Risks and complications of the surgery were discussed with the patient in advance, particularly the possibility of , pulmonary embolism, anastomotic leak, bleeding, bowel injury, GERD, cardiac, renal or pulmonary complications. The patient understood all the risks and was in agreement with the surgical plan. Hospital Course: The patient underwent an uneventful laparoscopic sleeve gastrectomy with gastropexy on the day of admission. Postoperatively, the patient was transferred to the surgical floor. The patient received IV Acetaminophen and IV dilaudid for pain control. Patient was started on bariatric phase 1 diet POD #0. On postoperative day one, the patient was feeling well without nausea, vomiting, fevers, or tachycardia. The patient had some mild incisional pain and the abdomen was soft. On the morning of postoperative day one, the patient was continued on 1 ounce of water or ice every half hour. During the day, the patient did fairly well, having some incisional pain, but able to ambulate adequately and to tolerate liquids well. Since the patient is doing well, we decided that the patient was ready to be discharged. The patient was given instructions to follow-up with me next week and to call my office for any fever over 101, persistent abdominal pain, nausea, vomiting, GERD, symptoms of DVT such as calf tenderness, or leg swelling, or pulmonary embolism such as chest pain or shortness of breath. The patient was also instructed to drink 40-60 ounces of liquids per day using the 1-ounce cups. The patient had been given prescriptions for Tylenol for pain, Zofran prn for nausea, and pantoprazole and carafate previously. The patient was encouraged to ambulate and use the incentive spirometer. The patient was allowed to shower, but no baths, and encouraged to stay active at home. All of these instructions were given to the patient personally. All questions were answered and the patient understood all instructions, the instructions were also given to the patient in print. Time Spent with Patient Time attestation: Total time spent providing and/or coordinating discharge services: Discharge coordination time: Less than 30 minutes Quality: Stroke Does the patient have a stroke diagnosis?: No Physical Exam Vital Signs: Vital Signs: Last Vital Signs Temp 98.1 F 12/13/21 10:20 Pulse 65 12/13/21 10:20 Resp 12 12/13/21 10:20 BP 156/76 H 12/13/21 10:20 Pulse Ox 96 12/13/21 10:20 BMI result Body Mass Index 35.2 DS: Data Data Completed and Pending Pending studies at discharge: Pending at discharge 12/13/21 09:12 Surgical [PTH] Routine Labs on day of discharge: Laboratory Results - last 24 hr 12/12/21 14:05 COVID-19 ([facility]) Negative COVID-19 Clin Com See Note Discharge Plan Discharge Patient Disposition: Home, Self-Care Referrals: Homero Stevens NP [Primary Care Provider] - 1 Week Discharge Medications: Continued escitalopram oxalate 20 mg tablet 20 mg PO DAILY 0RF pramipexole 0.125 mg tablet 0.125 mg PO DAILY 0RF pantoprazole 40 mg tablet,delayed release (DR/EC) 40 mg PO DAILY Qty: 30 2RF sucralfate 100 mg/mL suspension 10 ml PO BID Qty: 400 2RF ondansetron HCl 4 mg tablet 4 mg PO Q12H Qty: 20 0RF fexofenadine [Mayela Allergy] 180 mg tablet 180 mg PO DAILY 0RF methylphenidate HCl [Concerta] 36 mg tablet extended release 24hr 36 mg PO DAILY 0RF albuterol sulfate 90 mcg/actuation HFA aerosol inhaler 2 puff inhalation Q6H PRN (Reason: Shortness Of Breath Or Wheezing) 0RF fluticasone propionate [Flonase Allergy Relief] 50 mcg/actuation spray,suspension 1 spray intranasal DAILY 0RF Rx Instructions: administer into each nostril ketotifen fumarate 0.025 % (0.035 %) drops 1 drp ophthalmic (eye) BID 0RF Rx Instructions: administer at least 8 hours apart Held Dupixent Syringe 300 mg/2 mL syringe subcut 0RF Hold Instructions: Discuss dosing with Dr Liliya Avelar polyethylene glycol 3350 [Miralax] 17 gram powder in packet 17 g PO DAILY Qty: 14 0RF Rx Instructions: Mix each packet with 8oz of water and do 7 packets on 12/11/21 and another 7 packets on 12/12/21 No Action levothyroxine 50 mcg tablet 1 tab PO DAILY 0RF Discharge Orders: Discharge Order (Routine); Ordered 12/14/21 Ordered By: Steve Lovell Stand Alone Forms: Patient Portal Discharge page Activity Restrictions/Additional Instructions: Take medications as instructed by MD. Last given Lexapro and Mirapex at 0915 on 12/14/2021 Discharge Date/Time: 12/14/21 13:54
[2021-12-13] MEDS: Famotidine/PF 20 MG/2 ML VIAL IVPUSH ×2 (10:50→20:59)
[2021-12-13 11:08] LABS: Hematocrit 41.4 % (42.0-52.0); Hemoglobin 13.8 g/dl (14.0-18.0)
[2021-12-13 11:39] LABS: Anion Gap 12 (12-20); Blood Urea Nitrogen 18 mg/dL (9-16); Calcium 8.6 mg/dL (8.4-10.2); Carbon Dioxide 28 mmol/L (22-29); Chloride 102 mmol/L (96-108); Creatinine Clr Calc Pharmacy 76.3; Estimated Glomerular Filt Rate > 60; Glucose Random 111 mg/dL (60-115); Potassium 4.4 mmol/L (3.3-5.1); Sodium 138 mmol/L (135-145)
[2021-12-13] MEDS: Metoclopramide HCl 10 MG/2 ML VIAL IVPUSH (13:31)
[2021-12-13] MEDS: ceFAZolin Sodium/Dextrose,Iso 2 GM/50 ML PIGGYBACK IV (13:32)
[2021-12-13] MEDS: ondansetron HCL 4 MG/2 ML VIAL IVPUSH (20:59)
[2021-12-13] MEDS: 0.9 % Sodium Chloride Flush 3 ML SYRINGE IVFLUSH (20:59)
[2021-12-14 04:00] VITALS: BP 147/71; PULSE 76; RESP 16; TEMP 36.6; O2SAT 97
[2021-12-14] MEDS: Lactated Ringers 1,000 ML 100 ML IVCONT (05:55)
[2021-12-14] MEDS: Levothyroxine Sodium 50 MCG TABLET PO (05:55)
[2021-12-14] MEDS: ondansetron HCL 4 MG/2 ML VIAL IVPUSH (05:55)
[2021-12-14 06:05] LABS: MANUAL DIFF FLAG NO
[2021-12-14 06:11] LABS: Basophils Percent Auto 0.2 % (0-2); Hematocrit 31.5 % (42.0-52.0); Hemoglobin 10.7 g/dl (14.0-18.0); Imm Gran Abs Auto 0.02 X10*3/uL (0.00-0.03); Imm Gran Pct Auto 0.2 % (0.0-0.4); Lymphocytes Absolute Auto 1.4 X10*3/uL (1.2-4.9); Mean Corpuscular Hemoglobin 30.9 pg (27.0-33.0); Mean Platelet Volume 10.1 fL (9.4-12.4); Monocytes Percent Auto 11.6 % (2-11); Neutrophils Absolute Auto 6.3 x10*3/uL (2.0-8.3); Platelet Count 272 X10*3/uL (160-400); Red Blood Count 3.46 X10*6/uL (4.60-5.80); Red Cell Distribution Width 13.8 % (11.0-16.0); White Blood Count 8.7 X10*3/uL (4.8-10.8)
[2021-12-14 06:30] LABS: Anion Gap 11 (12-20); Blood Urea Nitrogen 15 mg/dL (9-16); Carbon Dioxide 31 mmol/L (22-29); Chloride 101 mmol/L (96-108); Creatinine Clr Calc Pharmacy 83.1; Estimated Glomerular Filt Rate > 60; Glucose Random 112 mg/dL (60-115); Potassium 4.9 mmol/L (3.3-5.1); Sodium 138 mmol/L (135-145)
[2021-12-14 07:16] VITALS: BP 150/75; PULSE 84; RESP 18; TEMP 36.1; O2SAT 100
[2021-12-14] MEDS: 0.9 % Sodium Chloride Flush 3 ML SYRINGE IVFLUSH (07:25)
[2021-12-14 07:33] VITALS: O2SAT 100
--- NOTE | 2021-12-14 08:24 | MHC.CM.PN ---
EMR REVIEWED, PT ADMITTED S/P LAP SLEEVE GASTRECTOMY AND HERNIA REPAIR, CM MET W/PT WHO REPORTS HE LIVES W/ AND TWO DTRS, PT IS INDEPENDENTW/ALL CARE, PT DENIES USE OF DME AND HAS NO HOME SERVICES, PT VERIFIES PCP IS JEIMY PEREA AND HAS COMPLETED A HCP W/CM WHO NAMES HIS NEIL [phone] HIS HCA AND DTR [facility] [place] [phone], PT PROVIDED W/EDUCATION, ORIGINAL AND 2 COPIES, COPY UPLOADED TO [employer] AND PLACED IN CHART. D/C PLAN: HOME LATER TODAY NO SERVICES W/FAMILY FOR TRANSPORT [employer] X3, PT UNSURE OF DATES.
[2021-12-14] MEDS: Pramipexole Di-HCL 0.125 MG TABLET PO (09:21)
[2021-12-14] MEDS: Escitalopram Oxalate 20 MG TABLET PO (09:21)
[2021-12-14] MEDS: Famotidine/PF 20 MG/2 ML VIAL IVPUSH (09:21)
--- NOTE | 2021-12-14 13:28 | HO.POSTANES ---
Post Anesthesia Evaluation Post Anesthesia Evaluation Vital Signs: Vital Signs Temp Pulse Resp BP Pulse Ox 12/14/21 07:33 100 12/14/21 07:16 97 F 84 18 150/75 H 100 12/14/21 04:00 97.9 F 76 16 147/71 H 97 Anesthesia: General Endotracheal-GETA Mental Status: Awake Pain Control: Satisfactory Nausea/Vomiting: None Hydration: Adequate Anesthesia-Related Issues: No Anes. Related Issues
== END 2021-12-14 13:54 | disposition home or self-care (01) ==
LOC: HO.SSS 11:08 → HO.S3 14:11
PROVIDERS: Nurse Practitioner; Physician Assistant; PCP Nurse Practitioner Family; Visit Provider Surgery
PROC: (CPT 43845; principal; 2021-12-13 07:30)
DX: E66.01 Morbid (severe) obesity due to excess calories (principal); Z68.35 Body mass index [BMI] 35.0-35.9, adult; K66.0 Peritoneal adhesions (postprocedural) (postinfection); K76.0 Fatty (change of) liver, not elsewhere classified; E78.5 Hyperlipidemia, unspecified; L30.9 Dermatitis, unspecified; F32.9 Major depressive disorder, single episode, unspecified; F41.1 Generalized anxiety disorder; F90.9 Attention-deficit hyperactivity disorder, unspecified type; F43.10 Post-traumatic stress disorder, unspecified; G47.33 Obstructive sleep apnea (adult) (pediatric); G25.81 Restless legs syndrome; J45.909 Unspecified asthma, uncomplicated; M19.90 Unspecified osteoarthritis, unspecified site; N40.0 Benign prostatic hyperplasia without lower urinary tract symptoms; Z99.89 Dependence on other enabling machines and devices; Z79.51 Long term (current) use of inhaled steroids; Z79.899 Other long term (current) drug therapy; Z96.642 Presence of left artificial hip joint
CPT/HCPCS: 43775; 43659; 36415; 80048; 80053; 80061; 83036; 83525; 84443; 85014; 85018; 85025; 85610; 85730; 86140; 86850; 86900; 86901; 87635; 88307; 88342; 99024; A4649; J0131; J0690; J1100; J1170; J2250; J2405; J2550; J2765; J3010

== ENCOUNTER → 2021-12-18 14:34 | Outpatient (BNVA) | payer OTHER, SELFPAY | PROVIDERS: PCP Nurse Practitioner Family; Referring Provider Nurse Practitioner Family; Visit Provider Surgery | DX: E66.9 Obesity, unspecified (principal); Z68.33 Body mass index [BMI] 33.0-33.9, adult | CPT/HCPCS: 99212 ==

== ENCOUNTER → 2022-01-08 15:01 | Outpatient (BNVA) | payer OTHER, SELFPAY | PROVIDERS: PCP Nurse Practitioner Family; Visit Provider Physician Assistant Surgical | DX: Z13.89 Encounter for screening for other disorder (principal) ==

== ENCOUNTER → 2022-01-17 14:31 | Outpatient (BNVA) | payer OTHER, SELFPAY | PROVIDERS: PCP Nurse Practitioner Family; Referring Provider Nurse Practitioner Family; Visit Provider Physician Assistant Surgical | DX: Z13.89 Encounter for screening for other disorder (principal) ==

== ENCOUNTER → 2022-01-22 08:14 | Outpatient (BNVA) | payer OTHER, SELFPAY | PROVIDERS: PCP Nurse Practitioner Family; Visit Provider Physician Assistant Surgical | DX: E66.3 Overweight (principal); Z68.29 Body mass index [BMI] 29.0-29.9, adult | CPT/HCPCS: 99212 ==

== ENCOUNTER → 2022-01-24 14:32 | Outpatient (BNVA) | payer OTHER, SELFPAY | PROVIDERS: PCP Nurse Practitioner Family; Visit Provider Physician Assistant Surgical | DX: Z13.89 Encounter for screening for other disorder (principal) ==

== ENCOUNTER → 2022-02-06 14:47 | Outpatient (BNVA) | payer OTHER, SELFPAY | PROVIDERS: PCP Nurse Practitioner Family; Visit Provider Physician Assistant Surgical | DX: Z13.89 Encounter for screening for other disorder (principal) ==

== ENCOUNTER → 2022-02-20 14:31 | Outpatient (BNVA) | payer OTHER, SELFPAY | PROVIDERS: PCP Nurse Practitioner Family; Referring Provider Nurse Practitioner Family; Visit Provider Physician Assistant Surgical | DX: E66.3 Overweight (principal); K59.00 Constipation, unspecified; Z68.26 Body mass index [BMI] 26.0-26.9, adult | CPT/HCPCS: 99212 ==

== ENCOUNTER → 2022-03-06 15:43 | Outpatient (BNVA) | payer OTHER, SELFPAY | PROVIDERS: PCP Nurse Practitioner Family; Referring Provider Nurse Practitioner Family; Visit Provider Physician Assistant Surgical | DX: E66.3 Overweight (principal); Z68.26 Body mass index [BMI] 26.0-26.9, adult | CPT/HCPCS: 99212 ==

== ENCOUNTER → 2022-04-03 14:31 | Outpatient (BNVA) | payer OTHER, SELFPAY | PROVIDERS: PCP Nurse Practitioner Family; Visit Provider Counselor Mental Health | DX: F33.1 Major depressive disorder, recurrent, moderate (principal); F90.9 Attention-deficit hyperactivity disorder, unspecified type; Z98.84 Bariatric surgery status | CPT/HCPCS: 90791 ==

== ENCOUNTER → 2022-04-15 11:08 | Outpatient (BNVA) | payer OTHER, SELFPAY | PROVIDERS: PCP Nurse Practitioner Family; Visit Provider Counselor Mental Health | DX: F90.9 Attention-deficit hyperactivity disorder, unspecified type (principal); F33.1 Major depressive disorder, recurrent, moderate; Z98.84 Bariatric surgery status | CPT/HCPCS: 90834 ==

== ENCOUNTER → 2022-04-22 13:17 | Outpatient (BNVA) | payer OTHER, SELFPAY | PROVIDERS: PCP Nurse Practitioner Family; Visit Provider Counselor Mental Health | DX: F90.9 Attention-deficit hyperactivity disorder, unspecified type (principal); F33.1 Major depressive disorder, recurrent, moderate; Z98.84 Bariatric surgery status | CPT/HCPCS: 90834 ==

== ENCOUNTER → 2022-04-24 14:47 | Outpatient (BNVA) | payer OTHER, SELFPAY | PROVIDERS: PCP Nurse Practitioner Family; Visit Provider Physician Assistant Surgical | DX: Z98.84 Bariatric surgery status (principal) | CPT/HCPCS: 99212 ==

== ENCOUNTER → 2022-05-09 11:15 | Outpatient (BNVA) | payer OTHER, SELFPAY | PROVIDERS: PCP Nurse Practitioner Family; Visit Provider Counselor Mental Health | DX: F33.1 Major depressive disorder, recurrent, moderate (principal); F90.9 Attention-deficit hyperactivity disorder, unspecified type; Z98.84 Bariatric surgery status | CPT/HCPCS: 90834 ==

== ENCOUNTER → 2022-05-20 14:13 | Outpatient (BNVA) | payer OTHER, MEDICAID, SELFPAY | PROVIDERS: PCP Nurse Practitioner Family; Visit Provider Counselor Mental Health | DX: F90.9 Attention-deficit hyperactivity disorder, unspecified type (principal); F33.1 Major depressive disorder, recurrent, moderate; Z98.84 Bariatric surgery status | CPT/HCPCS: 90834 ==

== ENCOUNTER → 2022-06-06 13:06 | Outpatient (BNVA) | payer MEDICAID, SELFPAY | PROVIDERS: PCP Nurse Practitioner Family; Referring Provider Surgery; Visit Provider Physician Assistant Surgical | DX: E66.3 Overweight (principal); Z98.84 Bariatric surgery status | CPT/HCPCS: 99212 ==

== ENCOUNTER → 2022-06-19 12:36 | Outpatient (BNVA) | payer OTHER, SELFPAY | PROVIDERS: PCP Nurse Practitioner Family; Visit Provider Counselor Mental Health | DX: F90.9 Attention-deficit hyperactivity disorder, unspecified type (principal); F33.1 Major depressive disorder, recurrent, moderate; Z98.84 Bariatric surgery status | CPT/HCPCS: 90834 ==

== ENCOUNTER → 2022-06-26 15:52 | Outpatient (BNVA) | payer OTHER, SELFPAY | PROVIDERS: PCP Nurse Practitioner Family; Visit Provider Counselor Mental Health | DX: F90.9 Attention-deficit hyperactivity disorder, unspecified type (principal); F33.1 Major depressive disorder, recurrent, moderate; E78.00 Pure hypercholesterolemia, unspecified; Z68.35 Body mass index [BMI] 35.0-35.9, adult; Z98.84 Bariatric surgery status | CPT/HCPCS: 90834 ==

== ENCOUNTER → 2022-07-25 16:01 | Outpatient (BNVA) | payer OTHER, MEDICAID, SELFPAY | PROVIDERS: PCP Nurse Practitioner Family; Visit Provider Counselor Mental Health ==

== ENCOUNTER → 2022-07-30 14:29 | Outpatient (BNVA) | payer MEDICAID, SELFPAY | PROVIDERS: PCP Nurse Practitioner Family; Visit Provider Physician Assistant Surgical | DX: E66.3 Overweight (principal); Z98.84 Bariatric surgery status; Z68.27 Body mass index [BMI] 27.0-27.9, adult | CPT/HCPCS: 99212 ==

== ENCOUNTER 2022-08-19 10:05 | Outpatient (REF) | payer MEDICAID, SELFPAY ==
[2022-08-19 10:25] LABS: MANUAL DIFF FLAG NO
[2022-08-19 11:42] LABS: Basophils Percent Auto 0.9 % (0-2); Eosinophils Absolute Auto 0.1 X10*3/uL (0.0-0.4); Eosinophils Percent Auto 2.9 % (0-4); Hematocrit 41.1 % (42.0-52.0); Hemoglobin 13.9 g/dl (14.0-18.0); Imm Gran Abs Auto 0.01 X10*3/uL (0.00-0.03); Imm Gran Pct Auto 0.3 % (0.0-0.4); Lymphocytes Absolute Auto 1.3 X10*3/uL (1.2-4.9); Lymphocytes Percent Auto 36.2 % (20-40); Mean Corpuscular HGB Conc 33.8 g/dl (31.0-36.0); Mean Corpuscular Hemoglobin 31.2 pg (27.0-33.0); Mean Corpuscular Volume 92.4 fL (80.0-98.0); Mean Platelet Volume 9.5 fL (9.4-12.4); Monocytes Absolute Auto 0.3 X10*3/uL (0.1-1.2); Monocytes Percent Auto 8.9 % (2-11); Neutrophils Absolute Auto 1.8 x10*3/uL (2.0-8.3); Neutrophils Percent Auto 50.8 % (45-73); Platelet Count 276 X10*3/uL (160-400); Red Blood Count 4.45 X10*6/uL (4.60-5.80); Red Cell Distribution Width 13.8 % (11.0-16.0); White Blood Count 3.5 X10*3/uL (4.8-10.8)
[2022-08-19 11:53] LABS: Estimated Average Glucose 100 mg/dL; Hemoglobin A1c % 5.1 %
[2022-08-19 12:38] LABS: Ferritin 109 ng/mL (20-250); Insulin 9 uU/mL (2-29); TSH reflex Free T4 2.32 uIU/mL (0.32-4.0); Vitamin D 25-OH Total 49.2 ng/mL (>30)
[2022-08-19 12:41] LABS: Folate 13.3 ng/mL (> or = 4.0); Vitamin B12 649 pg/mL (200-900)
[2022-08-19 12:51] LABS: Alanine Aminotransferase 27 U/L (0-40); Albumin Level 4.4 g/dL (3.5-5.0); Alkaline Phosphatase 43 U/L (39-117); Anion Gap 16 (12-20); Aspartate Amino Transferase 31 U/L (5-37); Bilirubin Total 0.3 mg/dL (0.0-1.0); Blood Urea Nitrogen 17 mg/dL (9-16); C Reactive Protein 0.08 mg/dL (< or = 0.50); Calcium 9.4 mg/dL (8.4-10.2); Carbon Dioxide 25 mmol/L (22-29); Chloride 105 mmol/L (96-108); Cholesterol 203 mg/dL; Estimated Glomerular Filt Rate > 60; Glucose Random 93 mg/dL (60-115); HDL Cholesterol 61 mg/dL; Iron 66 mcg/dL (45-160); LDL Cholesterol Calculated 128 mg/dl; Percent Iron Saturation 22 % (15-50); Potassium 4.2 mmol/L (3.3-5.1); Sodium 142 mmol/L (135-145); Total Iron Binding Capacity 303 mcg/dL (228-428); Total Protein 7.1 g/dL (6.5-8.0); Triglycerides 72 mg/dL; Unsaturated Iron Binding 237 ug/dL
[2022-08-20 13:06] LABS: Calcium (PTHI) 9.6 mg/dL (8.6-10.3); PTHI 40 pg/mL (16-77)
[2022-08-22 06:04] LABS: Zinc 90 mcg/dL (60-130)
[2022-08-23 15:37] LABS: Vitamin A 54 mcg/dL (38-98)
[2022-08-26 13:33] LABS: Vitamin B1 31 nmol/L (8-30)
== END 2022-08-19 10:06 | disposition home or self-care (01) ==
LOC: HO.LAB 10:05
PROVIDERS: Visit Provider Physician Assistant Surgical
DX: E66.3 Overweight (principal); Z98.84 Bariatric surgery status
CPT/HCPCS: 36415; 80053; 80061; 82306; 82607; 82728; 82746; 83036; 83525; 83540; 83970; 84425; 84443; 84590; 84630; 85025; 86140

== ENCOUNTER → 2022-09-10 14:38 | Outpatient (BNVA) | payer MEDICAID, SELFPAY | PROVIDERS: PCP Nurse Practitioner Family; Referring Provider Nurse Practitioner Family; Visit Provider Physician Assistant Surgical | DX: E66.3 Overweight (principal); Z98.84 Bariatric surgery status; Z68.27 Body mass index [BMI] 27.0-27.9, adult | CPT/HCPCS: 99212 ==

== ENCOUNTER → 2022-09-25 14:29 | Outpatient (BNVA) | payer OTHER, MEDICAID, SELFPAY | PROVIDERS: PCP Nurse Practitioner Family; Visit Provider Counselor Mental Health | DX: F90.9 Attention-deficit hyperactivity disorder, unspecified type (principal); F33.1 Major depressive disorder, recurrent, moderate; Z98.84 Bariatric surgery status | CPT/HCPCS: 90834 ==

== ENCOUNTER → 2022-10-15 15:48 | Outpatient (BNVA) | payer OTHER, MEDICAID, SELFPAY | PROVIDERS: PCP Nurse Practitioner Family; Visit Provider Counselor Mental Health | DX: F33.1 Major depressive disorder, recurrent, moderate (principal); F90.9 Attention-deficit hyperactivity disorder, unspecified type; Z98.84 Bariatric surgery status | CPT/HCPCS: 90834 ==

== ENCOUNTER → 2022-10-30 14:59 | Outpatient (BNVA) | payer OTHER, MEDICAID, SELFPAY | PROVIDERS: PCP Nurse Practitioner Family; Visit Provider Counselor Mental Health | DX: Z13.89 Encounter for screening for other disorder (principal) ==

== ENCOUNTER → 2022-11-04 14:31 | Outpatient (BNVA) | payer MEDICAID, SELFPAY | PROVIDERS: PCP Nurse Practitioner Family; Visit Provider Physician Assistant Surgical | DX: E66.3 Overweight (principal); Z68.28 Body mass index [BMI] 28.0-28.9, adult; Z98.84 Bariatric surgery status | CPT/HCPCS: 99212 ==

== ENCOUNTER → 2022-11-13 15:25 | Outpatient (BNVA) | payer MEDICAID, SELFPAY | PROVIDERS: PCP Nurse Practitioner Family; Visit Provider Counselor Mental Health | DX: F33.1 Major depressive disorder, recurrent, moderate (principal); F90.9 Attention-deficit hyperactivity disorder, unspecified type; Z98.84 Bariatric surgery status | CPT/HCPCS: 90834 ==

== ENCOUNTER → 2022-11-27 15:29 | Outpatient (BNVA) | payer OTHER, SELFPAY | PROVIDERS: PCP Nurse Practitioner Family; Visit Provider Counselor Mental Health | DX: F90.9 Attention-deficit hyperactivity disorder, unspecified type (principal); F33.1 Major depressive disorder, recurrent, moderate; Z98.84 Bariatric surgery status | CPT/HCPCS: 90834 ==

== ENCOUNTER → 2022-12-05 14:00 | Outpatient (BNVA) | payer OTHER, SELFPAY | PROVIDERS: PCP Nurse Practitioner Family; Visit Provider Counselor Mental Health | DX: F90.9 Attention-deficit hyperactivity disorder, unspecified type (principal); F33.1 Major depressive disorder, recurrent, moderate; E66.9 Obesity, unspecified; Z68.35 Body mass index [BMI] 35.0-35.9, adult; Z86.39 Personal history of other endocrine, nutritional and metabolic disease; Z86.69 Personal history of other diseases of the nervous system and sense organs; Z90.3 Acquired absence of stomach [part of] | CPT/HCPCS: 90834 ==

== ENCOUNTER → 2022-12-20 09:51 | Outpatient (BNVA) | payer OTHER, MEDICAID, SELFPAY | PROVIDERS: PCP Nurse Practitioner Family; Visit Provider Counselor Mental Health | DX: F33.1 Major depressive disorder, recurrent, moderate (principal); F90.9 Attention-deficit hyperactivity disorder, unspecified type; Z98.84 Bariatric surgery status | CPT/HCPCS: 90834 ==

== ENCOUNTER → 2022-12-25 16:06 | Outpatient (BNVA) | payer OTHER, MEDICAID, SELFPAY | PROVIDERS: PCP Nurse Practitioner Family; Visit Provider Counselor Mental Health | DX: F33.1 Major depressive disorder, recurrent, moderate (principal); Z98.84 Bariatric surgery status | CPT/HCPCS: 90834 ==

== ENCOUNTER → 2023-01-01 15:23 | Outpatient (BNVA) | payer OTHER, MEDICAID, SELFPAY | PROVIDERS: PCP Nurse Practitioner Family; Visit Provider Counselor Mental Health | DX: F90.9 Attention-deficit hyperactivity disorder, unspecified type (principal); F33.1 Major depressive disorder, recurrent, moderate; Z98.84 Bariatric surgery status | CPT/HCPCS: 90834 ==

== ENCOUNTER → 2023-01-08 17:00 | Outpatient (BNVA) | payer OTHER, MEDICAID, SELFPAY | PROVIDERS: PCP Nurse Practitioner Family; Visit Provider Counselor Mental Health ==

== ENCOUNTER → 2023-01-15 15:19 | Outpatient (BNVA) | payer OTHER, MEDICAID, SELFPAY | PROVIDERS: PCP Nurse Practitioner Family; Visit Provider Counselor Mental Health ==

== ENCOUNTER → 2023-01-22 15:30 | Outpatient (BNVA) | payer OTHER, SELFPAY | PROVIDERS: PCP Nurse Practitioner Family; Visit Provider Counselor Mental Health ==

== ENCOUNTER → 2023-01-29 15:18 | Outpatient (BNVA) | payer OTHER, SELFPAY | PROVIDERS: PCP Nurse Practitioner Family; Referring Provider Nurse Practitioner Family; Visit Provider Counselor Mental Health ==

== ENCOUNTER → 2023-02-05 15:15 | Outpatient (BNVA) | payer OTHER, SELFPAY | PROVIDERS: PCP Nurse Practitioner Family; Visit Provider Counselor Mental Health ==

== ENCOUNTER → 2023-02-06 15:02 | Outpatient (BNVA) | payer OTHER, SELFPAY | PROVIDERS: PCP Nurse Practitioner Family; Visit Provider Physician Assistant Surgical | DX: E66.3 Overweight (principal); Z68.28 Body mass index [BMI] 28.0-28.9, adult; Z98.84 Bariatric surgery status | CPT/HCPCS: 99212 ==

== ENCOUNTER → 2023-02-19 15:17 | Outpatient (BNVA) | payer OTHER, SELFPAY | PROVIDERS: PCP Nurse Practitioner Family; Visit Provider Counselor Mental Health ==

== ENCOUNTER → 2023-02-26 15:22 | Outpatient (BNVA) | payer OTHER, SELFPAY | PROVIDERS: PCP Nurse Practitioner Family; Visit Provider Counselor Mental Health ==

== ENCOUNTER → 2023-03-13 15:40 | Outpatient (BNVA) | payer OTHER, SELFPAY | PROVIDERS: PCP Nurse Practitioner Family; Visit Provider Counselor Mental Health ==

== ENCOUNTER → 2023-04-02 15:17 | Outpatient (BNVA) | payer OTHER, SELFPAY | PROVIDERS: PCP Nurse Practitioner Family; Visit Provider Counselor Mental Health ==

== ENCOUNTER → 2023-05-13 13:02 | Outpatient (BNVA) | payer OTHER, SELFPAY | PROVIDERS: PCP Nurse Practitioner Family; Visit Provider Physician Assistant ==

== ENCOUNTER → 2023-05-16 13:00 | Outpatient (BNV) | payer OTHER, SELFPAY | PROVIDERS: Visit Provider Clinical Nurse Specialist Psychiatric/Mental Health | DX: F33.1 Major depressive disorder, recurrent, moderate (principal) | CPT/HCPCS: 90792; 99213 ==

== ENCOUNTER 2023-05-21 10:59 | Outpatient (REF) | payer OTHER, SELFPAY ==
[2023-05-21 11:18] LABS: MANUAL DIFF FLAG NO
[2023-05-21 11:56] LABS: Basophils Absolute Auto 0.1 X10*3/uL (0.0-0.2); Basophils Percent Auto 0.7 % (0-2); Eosinophils Absolute Auto 0.1 X10*3/uL (0.0-0.4); Eosinophils Percent Auto 0.7 % (0-4); Hematocrit 42.1 % (42.0-52.0); Hemoglobin 14.1 g/dl (14.0-18.0); Imm Gran Abs Auto 0.02 X10*3/uL (0.00-0.03); Imm Gran Pct Auto 0.3 % (0.0-0.4); Lymphocytes Absolute Auto 1.6 X10*3/uL (1.2-4.9); Mean Corpuscular HGB Conc 33.5 g/dl (31.0-36.0); Mean Corpuscular Hemoglobin 31.6 pg (27.0-33.0); Mean Corpuscular Volume 94.4 fL (80.0-98.0); Mean Platelet Volume 9.5 fL (9.4-12.4); Monocytes Absolute Auto 0.5 X10*3/uL (0.1-1.2); Monocytes Percent Auto 7.9 % (2-11); Neutrophils Absolute Auto 4.5 x10*3/uL (2.0-8.3); Neutrophils Percent Auto 66.4 % (45-73); Platelet Count 286 X10*3/uL (160-400); Red Blood Count 4.46 X10*6/uL (4.60-5.80); Red Cell Distribution Width 13.6 % (11.0-16.0); White Blood Count 6.7 X10*3/uL (4.8-10.8)
[2023-05-21 12:29] LABS: Alanine Aminotransferase 28 U/L (0-40); Albumin Level 4.4 g/dL (3.5-5.0); Alkaline Phosphatase 43 U/L (39-117); Anion Gap 10 (12-20); Aspartate Amino Transferase 28 U/L (5-37); Bilirubin Total 0.5 mg/dL (0.0-1.0); Blood Urea Nitrogen 12 mg/dL (9-16); Calcium 9.7 mg/dL (8.4-10.2); Carbon Dioxide 32 mmol/L (22-29); Chloride 102 mmol/L (96-108); Estimated Glomerular Filt Rate > 60; Glucose Fasting 89 mg/dL (60-99); Potassium 4.4 mmol/L (3.3-5.1); Sodium 140 mmol/L (135-145); Total Protein 7.4 g/dL (6.5-8.0)
[2023-05-21 12:45] LABS: Free T4 (Free Thyroxine) 0.97 ng/dL (0.71-1.85); Thyroid Stimulating Hormone 1.73 uIU/mL (0.32-4.0)
[2023-05-21 12:58] LABS: Folate 10.7 ng/mL (> or = 4.0); Vitamin B12 496 pg/mL (200-900)
== END 2023-05-21 11:00 | disposition home or self-care (01) ==
LOC: HO.LAB 10:59
PROVIDERS: PCP Nurse Practitioner Family; Visit Provider Clinical Nurse Specialist Psychiatric/Mental Health
DX: F33.1 Major depressive disorder, recurrent, moderate (principal)
CPT/HCPCS: 36415; 80053; 82607; 82746; 84439; 84443; 85025

== ENCOUNTER 2023-05-28 12:45 | Outpatient (RCR) | payer OTHER, SELFPAY ==
[2023-05-14 10:52] VITALS: BP 120/70; PULSE 54; TEMP 36.7
[2023-05-14 10:57] VITALS: BMI 28.3
--- NOTE | 2023-05-14 12:08 | PC.ADMIT ---
Patient is a 53 year old male who was referred to [facility] by his prescriber d/t increased sxs of depression, ADHD, and PTSD sxs. He reports marital problems and family stresses with his adult children. Patient has a history of one inpatient level of care according to Intergrative Assessment. He is alert and oriented x4. Calm and cooperative. reports passive SI, questioning why her is here and what is the purpose. Denied any plan or intent to kill himself. Reports family as his protective factor as he could never do that to them. He was given a copy of his safety plan and I reviewed his safety plan with him. Reports using marijuana daily taking a hit a day or less and drinking 1-2 beers or 1-2 Tequilla's a few times a week. Medications reconciled with patient and patient's pharmacy. Reports he was taking Focalin medication intermittently at one point however is taking daily currently.
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
--- NOTE | 2023-05-15 17:48 | HO.PHP ---
Clients case was reviewed and opened today in treatment team.
--- NOTE | 2023-05-21 14:59 | HO.PHP ---
[facility] staff contacted Gt's OP therapist, Nicolette Zarco to inform her when Gt began the program and when his discharge date is. [facility] staff stated that Gt has been actively engaged and has been processing what he needs to, to the best of his ability. [facility] staff left this in a VM and encouraged her to call back with any questions.
--- NOTE | 2023-05-23 09:20 | HO.PHP ---
PHP staff reached out to Gt due to him not showing up to program or calling. Gt did not answer the phone and a VM was left. [facility] staff is going to allow 15 minutes to see if Gt returns the call.
--- NOTE | 2023-05-23 09:35 | HO.PHP ---
[facility] staff reached out to Gt's Emergency Contact due to Gt not calling within the 15 minute window. Gt's emergency contact is his partner. Gt's partner disclosed that Gt was sleeping when she left the house this morning and voiced that she will have him call the program to let them know he is safe. [facility] staff was receptive.
--- NOTE | 2023-05-23 09:40 | HO.PHP ---
PHP staff member received a call from Gt apologizing stating that he took a tylenol PM last night and had overslept. PHP staff was receptive and assessed for any safety concerns. Gt mentioned he is safe and will be coming to the program Friday. PHP staff was receptive.
--- NOTE | 2023-05-28 13:59 | HO.PHPPROGNO ---
Subjective Subjective Date of Service: 05/28/23 Reason For Visit: PTSD Medical Problems Affecting Mental Status: No Interim History: Met with patient. Discussed with nursing. Reviewed chart. No concerns regarding labs. Patient is discharging today. Has been out of Focalin consistent with [facility]. Does notice a significant difference off Focalin. There is follow-up with community prescriber. Thankful regarding partial hospital program. Discussed stressors that led to admission to partial hospital program primarily marriage. Reports this is now in a good place and comfortable with the decision to divorce. Describes now feeling less overwhelmed, less anxious, more hopeful and has learned tools to help and move forward. Happy with current medication regimen. We will send 5-day prescription of Focalin and patient will follow-up with already established community prescriber. Medication Compliance: Yes Side effects from medications: No Attending Groups: Yes Review of Systems Acute medical concerns: No Medical Review of Systems: unchanged Review of Systems Review of Systems Yes all other systems are reviewed and are negative Mental Status Exam Mental Status Exam Narrative: Pleasant. Engaged. Well presented. Organized. Euthymic. No SI. No HI. No agitation. No psychosis. Insight and judgment fair Diagnostics Vital Signs (24Hr): BMI result Body Mass Index 28.3 Assessment & Plan Assessment & Plan (1) Major depressive disorder, recurrent, moderate: Status: Acute Code(s): F33.1 - Major depressive disorder, recurrent, moderate Assessment and Plan: Stable and ready for discharge. Benefit from partial hospital programming. Already has established community providers Patient educated on: therapeutic strategies Informed Consent: understands Reason for contiued partial hosp. stay Substantial Risk for: stable for discharge Certification I certify that partial hospital treatment is medically necessary due to the symptoms and problems resulting from the patient's mental illness and the failure to treat the patient at the partial hospital level of care would likely result in the patient requiring inpatient psychiatric care which could not be prevented at a less intensive level of care. Total time managing care of this patient today 20 minutes. Discharge Plan Discharge Attending provider: Roman Pro Additional Instructions: Gt has the same OP therapist and med provider, Weston Zarco. Gt's next scheduled appointment is on May 29, 2023 at 12 PM. Gt also has an upcoming weight management appointment on June 04, 2023. Gt lastly has a PCP appointment June 24, 2023 at 3:45 PM. Medications: Continued dexmethylphenidate 30 mg capsule,ER biphasic 50-50 30 mg PO QAM 5 Days Qty: 5 0RF levothyroxine 50 mcg tablet 50 mcg PO DAILY escitalopram oxalate 20 mg tablet 20 mg PO DAILY fexofenadine [Mayela Allergy] 180 mg tablet 180 mg PO DAILY albuterol sulfate 90 mcg/actuation HFA aerosol inhaler 2 puff inhalation Q6H PRN (Reason: Shortness Of Breath Or Wheezing) Stand Alone Forms: Patient Portal Discharge page Patient Education: ADHD in Adults (ED), Depression (ED), Post Traumatic Stress Disorder (ED) Telehealth Telehealth Location of provider rendering services: other ([place], [place]) Location of patient: other ([facility]) Patient Identification confirmed using: Name, : Yes Telehealth method: video Patient verbally consented to treatment: Yes Minutes spent on Phone/Video with Pt.: 15
--- NOTE | 2023-05-28 15:03 | HO.PHP ---
PHP staff contacted Weston Zarco and left a message asking her to call back to provide clarification around a medication Gt is stating he is out of but is aware they were working on filling it together the other day. PHP staff encouraged her to call back to provide clarification regarding if the medication was refilled.
--- NOTE | 2023-05-29 09:19 | PC.NURSE ---
Dr Victor Manuel Murrell reviewed patient's Labs on 05/28/23 completed on 05/21/23 including RBC 4.46CO2 32, GAP 10. No new orders.
== END 2023-05-28 23:59 | disposition home or self-care (01) ==
LOC: HO.PHPA 12:45
PROVIDERS: Visit Provider Psychiatry & Neurology Psychiatry
DX: F33.1 Major depressive disorder, recurrent, moderate (principal); F43.10 Post-traumatic stress disorder, unspecified; F90.9 Attention-deficit hyperactivity disorder, unspecified type
CPT/HCPCS: 90791; 90853

== ENCOUNTER → 2023-06-11 17:00 | Outpatient (BNVA) | payer OTHER, SELFPAY | PROVIDERS: PCP Nurse Practitioner Family; Visit Provider Counselor Mental Health ==

== ENCOUNTER → 2023-06-11 17:00 | Outpatient (BNVA) | payer OTHER, SELFPAY | PROVIDERS: PCP Nurse Practitioner Family; Visit Provider Counselor Mental Health ==

== ENCOUNTER 2023-06-20 11:16 | Outpatient (REF) | payer OTHER, SELFPAY ==
[2023-06-20 13:33] LABS: MANUAL DIFF FLAG NO
[2023-06-20 13:40] LABS: Eosinophils Absolute Auto 0.1 X10*3/uL (0.0-0.4); Eosinophils Percent Auto 1.5 % (0-4); Hematocrit 39.9 % (42.0-52.0); Hemoglobin 13.7 g/dl (14.0-18.0); Imm Gran Abs Auto 0.01 X10*3/uL (0.00-0.03); Imm Gran Pct Auto 0.2 % (0.0-0.4); Lymphocytes Absolute Auto 1.4 X10*3/uL (1.2-4.9); Lymphocytes Percent Auto 34.6 % (20-40); Mean Corpuscular HGB Conc 34.3 g/dl (31.0-36.0); Mean Corpuscular Hemoglobin 32.1 pg (27.0-33.0); Mean Corpuscular Volume 93.4 fL (80.0-98.0); Mean Platelet Volume 9.7 fL (9.4-12.4); Monocytes Absolute Auto 0.3 X10*3/uL (0.1-1.2); Monocytes Percent Auto 8.2 % (2-11); Neutrophils Absolute Auto 2.3 x10*3/uL (2.0-8.3); Neutrophils Percent Auto 54.5 % (45-73); Platelet Count 288 X10*3/uL (160-400); Red Blood Count 4.27 X10*6/uL (4.60-5.80); Red Cell Distribution Width 13.8 % (11.0-16.0); White Blood Count 4.1 X10*3/uL (4.8-10.8)
[2023-06-20 13:48] LABS: Appearance Urine Clear; Color Urine Yellow; Glucose Urine UA Negative (Negative); Leukocyte Esterase Urine Negative (Negative); Nitrite Urine Negative (Negative); PH 5.5 (5.0-9.0); Specific Gravity - Urine 1.025 (1.005-1.025); Urine Blood Negative (Negative); Urine Ketones Negative (Negative); Urine Protein Negative (Neg-Trace)
[2023-06-20 14:17] LABS: Alanine Aminotransferase 29 U/L (0-40); Albumin Level 4.3 g/dL (3.5-5.0); Alkaline Phosphatase 44 U/L (39-117); Anion Gap 12 (12-20); Aspartate Amino Transferase 27 U/L (5-37); Bilirubin Total 0.4 mg/dL (0.0-1.0); Blood Urea Nitrogen 21 mg/dL (9-16); Calcium 9.6 mg/dL (8.4-10.2); Carbon Dioxide 28 mmol/L (22-29); Chloride 105 mmol/L (96-108); Cholesterol 248 mg/dL (<200); Estimated Glomerular Filt Rate > 60; Glucose Fasting 92 mg/dL (60-99); HDL Cholesterol 68 mg/dL (>40); LDL Cholesterol Calculated 164 mg/dL (<100); Potassium 3.9 mmol/L (3.3-5.1); Sodium 141 mmol/L (135-145); Total Protein 7.3 g/dL (6.5-8.0); Triglycerides 81 mg/dL (<150)
[2023-06-20 14:29] LABS: Prostate Specific Antigen Scr 3.09 ng/mL (<0.05-4.0)
== END 2023-06-20 11:17 | disposition home or self-care (01) ==
LOC: HO.HMGCLDS 11:16
PROVIDERS: PCP Nurse Practitioner Family; Visit Provider Nurse Practitioner Family
DX: Z00.00 Encounter for general adult medical examination without abnormal findings (principal); Z12.5 Encounter for screening for malignant neoplasm of prostate
CPT/HCPCS: 36415; 80053; 80061; 81003; 84153; 84443; 85025

== ENCOUNTER 2023-08-07 13:38 | Outpatient (REF) | payer OTHER, SELFPAY ==
[2023-08-07 16:19] LABS: Estimated Average Glucose 97 mg/dL
[2023-08-07 16:31] LABS: C Reactive Protein < 0.10 mg/dL (< or = 0.50)
[2023-08-07 16:44] LABS: Insulin 8 uU/mL (2-29); Vitamin D 25-OH Total 49.9 ng/mL (>30)
[2023-08-11 15:08] LABS: Zinc 72 mcg/dL (60-130)
[2023-08-12 15:48] LABS: Calcium (PTHI) 9.8 mg/dL (8.6-10.3); PTHI 37 pg/mL (16-77)
[2023-08-12 23:19] LABS: Vitamin B1 15 nmol/L (8-30)
[2023-08-13 01:48] LABS: Vitamin A 59 mcg/dL (38-98)
== END 2023-08-07 13:39 | disposition home or self-care (01) ==
LOC: HO.LAB 13:38
PROVIDERS: PCP Nurse Practitioner Family; Visit Provider Physician Assistant Surgical
DX: E66.3 Overweight (principal); Z71.3 Dietary counseling and surveillance; Z98.84 Bariatric surgery status; Z79.899 Other long term (current) drug therapy
CPT/HCPCS: 36415; 82306; 83036; 83525; 83970; 84425; 84590; 84630; 86140; 99212

== ENCOUNTER 2023-08-07 13:38 | Outpatient (AMB) | payer OTHER, SELFPAY ==
--- NOTE | 2023-08-07 13:43 | A.OFFVIS_ITS ---
Intake VS Expanded 08/07/23 13:53 BP 137/82 Blood Pressure Location Rt brachial Blood Pressure Position Sitting Pulse 98 Pulse Source Pulse Oximeter Temp 97.4 F Temperature Source Tympanic Pulse Oximetry 96 Oxygen Delivery Method Room Air Height 5 ft 5.5 in Weight 175 lb BMI 28.7 Body Fat % 23.3 Body Fat Mass 40.8 Fat Free Mass 134.0 Visceral Fat Rating 12.0 Body Water % 54.9 Body Water Mass 40.8 Muscle Mass/Score 127.4 Basal Metabolic Rate/Score 1,759 Intake Visit Reasons: (OV) PO LSG 12/13/21 Allergies cat dander Allergy (Intermediate, Verified 08/07/23 13:58) Hives dog dander Allergy (Intermediate, Verified 08/07/23 13:58) sneezing shell fish Allergy (Severe, Uncoded 08/07/23 13:58) swelling, hives enviromental Allergy (Unknown, Uncoded 08/07/23 13:58) sneezing Medication List - Last Reconciled 08/07/23 by CANDIDO Castillo albuterol sulfate 90 mcg/actuation 2 puffs inhalation Q6H PRN dexmethylphenidate ER 30 mg PO QAM 5 days escitalopram oxalate 20 mg PO DAILY fexofenadine (Mayela Allergy) 180 mg PO DAILY levothyroxine 50 mcg PO DAILY HPI HPI Comments History of Present Illness Details This?is a?53?yo male who is s/p LSG 12/13/2021. Presents for 1 year 8 month post op visit. Weight at last visit on 02/06/2023 was 171.6 pounds with a BMI of 28, weight today is 175 pounds, representing a 3.4 pound weight gain with a BMI today of 28.7.? No complaints of nausea, emesis, abdominal pain or reflux, or constipation. Pt reports his mental health was not great over the summer, eating/snacking more at night. Went in for partial hospitalization. Feels okay now, better than before. Still struggles with consistent good sleep. Continues to see community therapist, would like to see Dyan again also. Present meal plan includes: 2 Celebrate 4:1 shakes per day?with 2 sc oops each in 8oz almond milk, 50 gm; - , 2-4. May substitute eggs for AM meal on weekends. 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 [facility] Medical History (Updated 05/15/23 @ 13:19 by Marline Cifunetes APRN) Restless leg syndrome Steatosis, liver PTSD (post-traumatic stress disorder) Arthritis BMI 35.0-35.9,adult Pre-op evaluation Complex posttraumatic stress disorder MDD (major depressive disorder) History of herniated intervertebral disc History of high cholesterol History of hypothyroidism History of depression Hx of acute eczema History of asthma Hx of sleep apnea Surgical History Status post sleeve gastrectomy History of anal fissures History of prostate surgery Hx of cystoscopy Hx of adenoidectomy History of lumbar discectomy History of left hip replacement Family History Mother Hx of glaucoma Hx of heat stroke Hypertension Father Hx of heat stroke Sister Obese Substance use disorder Sister No problems noted. Sister Depression Thyroid condition Brother Substance use disorder Brother Diabetes Substance use disorder Brother History of hip replacement Brother Family history of prostate problems Brother No problems noted. Social History Household Members: Spouse and Children Housing: House Are you a primary animal caregiver to a significant other at home: No Do you presently have visiting nurse or other home services: No Alcohol intake: current Alcohol intake frequency: does not drink Patient Tobacco Use Status: Never used Tobacco e-Cigarette/Vaping Use: Currently Using (sometimes ) service: No Current occupational status: employed Cognitive needs: No Hearing needs: No Vision needs: No Assessment & Plan Assessment & Plan (1) S/P laparoscopic sleeve gastrectomy: Code(s): Z98.84 - Bariatric surgery status (2) Overweight: Code(s): E66.3 - Overweight Plan Discussed that nighttime snacking is likely contributing to slow weight gain; pt knows he needs to improve this. He again discussed the difficulties in his marriage including his coming to bed late at night which wakes him up and results in nighttime eating. Pt recently had some labs done, will check vitamin levels not recently measured. Will schedule appt with [facility], pt is considering restarting EMDR again. RTC in Nov for 2 year appt. Patient is overweight and is not considered stable at this time. I spent a total of 30 minutes reviewing/updating records, examining the patient and counseling the patient on weight management as detailed above. Coding Level of Care Code Est Pt Level 4 (73225) Diagnoses S/P laparoscopic sleeve gastrectomy Z98.84 Overweight E66.3
[2023-08-07 13:53] VITALS: BP 137/82; PULSE 98; TEMP 36.3; O2SAT 96; BMI 28.7
== END 2023-08-07 14:05 | disposition home or self-care (01) ==
PROVIDERS: PCP Nurse Practitioner Family; Visit Provider Physician Assistant Surgical
DX: E66.3 Overweight (principal); Z68.28 Body mass index [BMI] 28.0-28.9, adult; Z90.3 Acquired absence of stomach [part of]; Z98.84 Bariatric surgery status
CPT/HCPCS: 99214

== ENCOUNTER → 2023-08-13 17:00 | Outpatient (BNVA) | payer OTHER, SELFPAY | PROVIDERS: PCP Nurse Practitioner Family; Visit Provider Counselor Mental Health ==

== ENCOUNTER 2023-08-27 15:31 | Outpatient (AMB) | payer OTHER, SELFPAY ==
--- NOTE | 2023-08-27 15:34 | A.OFFPC_ITS ---
Vital Signs 08/27/23 15:36 Height 5 ft 5.5 in Weight 174 lb BMI 28.5 BP 120/86 Blood Pressure Location Rt brachial Position Sitting Pulse 73 Pulse Source Pulse Oximeter Pulse Oximetry (%) 97 Oxygen Delivery Method Room Air Intake Visit Reasons: 3m follow up Allergies cat dander Allergy (Intermediate, Verified 08/27/23 15:36) Hives dog dander Allergy (Intermediate, Verified 08/27/23 15:36) sneezing shell fish Allergy (Severe, Uncoded 08/27/23 15:36) swelling, hives enviromental Allergy (Unknown, Uncoded 08/27/23 15:36) sneezing Medication List - Last Reconciled 08/27/23 by KRISTA Mccann-FELY albuterol sulfate 90 mcg/actuation 2 puffs inhalation Q6H PRN dexmethylphenidate ER 30 mg PO QAM 5 days escitalopram oxalate 20 mg PO DAILY fexofenadine (Mayela Allergy) 180 mg PO DAILY levothyroxine 50 mcg PO DAILY melatonin 5 mg PO BEDTIME venlafaxine 50 mg PO DAILY Tobacco use date assessed: 03/25/23 HPI 3m follow up HPI Details pt reports that he has a therapist, family stressors at home. Denies any SI or HI. Pt did go to a partial program, reports doing better overall. dyslipidemia: will repeat. Pt had a gastric sleeve in the past. [facility] Medical History (Updated 08/27/23 @ 16:58 by KRISTA Mccann-FELY) Restless leg syndrome Steatosis, liver PTSD (post-traumatic stress disorder) Arthritis BMI 35.0-35.9,adult Pre-op evaluation Complex posttraumatic stress disorder MDD (major depressive disorder) History of herniated intervertebral disc History of high cholesterol History of hypothyroidism History of depression Hx of acute eczema History of asthma Hx of sleep apnea Surgical History Status post sleeve gastrectomy History of anal fissures History of prostate surgery Hx of cystoscopy Hx of adenoidectomy History of lumbar discectomy History of left hip replacement Family History Mother Hx of glaucoma Hx of heat stroke Hypertension Father Hx of heat stroke Sister Obese Substance use disorder Sister No problems noted. Sister Depression Thyroid condition Brother Substance use disorder Brother Diabetes Substance use disorder Brother History of hip replacement Brother Family history of prostate problems Brother No problems noted. Social History Household Members: Spouse and Children Housing: House Are you a primary property caretaker to a significant other at home: No Do you presently have visiting nurse or other home services: No Alcohol intake: current Alcohol intake frequency: does not drink Patient Tobacco Use Status: Never used Tobacco e-Cigarette/Vaping Use: Currently Using (sometimes ) service: No Current occupational status: employed Cognitive needs: No Hearing needs: No Vision needs: No Physical exam (Primary Care) Vital Signs: Last Vital Signs Pulse 73 08/27/23 15:36 BP 120/86 08/27/23 15:36 Pulse Ox 97 08/27/23 15:36 Oxygen Delivery Method Room Air 08/27/23 15:36 BMI result Body Mass Index 28.5 Tobacco/Smoking Status: Tobacco use Status Tobacco use date assessed 03/25/23 08/27/23 15:35 Patient Tobacco Use Status Never used Tobacco 08/27/23 15:35 e-Cigarette/Vaping Use Currently Using (sometimes ) 08/27/23 15:35 Const General: cooperative Orientation/consciousness: patient oriented x3 Resp Effort & Inspection: normal respiratory effort Auscultation: clear to auscultation bilaterally Cardio Rate: regular rate Rhythm: regular rhythm Heart sounds: S1 normal heart sound present Neuro General: patient oriented x3 Psych Appearance: grossly normal Assessment and Plan Assessment & Plan (1) Dyslipidemia: Code(s): E78.5 - Hyperlipidemia, unspecified (2) Anxiety as acute reaction to exceptional stress: Code(s): F41.1 - Generalized anxiety disorder; F43.0 - Acute stress reaction Orders: Orders Complete Blood Count Auto Diff Today E78.5 - Hyperlipidemia, unspecified Comprehensive [place]. Panel Fast Today E78.5 - Hyperlipidemia, unspecified Lipid Panel Today E78.5 - Hyperlipidemia, unspecified TSH reflex Free T4 Today E78.5 - Hyperlipidemia, unspecified Coding Level of Care Code Est Pt Level 3 (28932) Diagnoses Dyslipidemia E78.5 Anxiety as acute reaction to exceptional stress F41.1; F43.0
[2023-08-27 15:36] VITALS: BP 120/86; PULSE 73; O2SAT 97; BMI 28.5
== END 2023-08-27 16:32 | disposition home or self-care (01) ==
PROVIDERS: PCP Nurse Practitioner Family; Visit Provider Nurse Practitioner Family
DX: E78.5 Hyperlipidemia, unspecified (principal); F41.1 Generalized anxiety disorder; F43.0 Acute stress reaction
CPT/HCPCS: 99213

== ENCOUNTER 2023-09-02 15:01 | Outpatient (REF) | payer OTHER, SELFPAY ==
--- NOTE | ~2023-09-02 | XR_ITS ---
EXAMINATION: XR HIP, RIGHT , AP pelvis CLINICAL INFORMATION: Pain COMPARISON: None available at the time of this dictation. TECHNIQUE: Frontal and lateral views of the hip acquired. 2 views FINDINGS: There is no evidence of acute fracture or dislocation. There are mild degenerative arthritic changes of the hip evident by sclerotic changes of the acetabular roof and narrowing of the joint space. Mild degenerative changes of the symphysis pubis. Mild degenerative changes of the SI joints. Adjacent pubic rami are intact. Surrounding soft tissues are unremarkable. XR/XR hip RT min 2V IMPRESSION: Mild degenerative arthritis. .
== END 2023-09-02 15:02 | disposition home or self-care (01) ==
LOC: HO.HMGCX 15:01
PROVIDERS: PCP Nurse Practitioner Family; Visit Provider Nurse Practitioner Family
DX: M25.551 Pain in right hip (principal)
CPT/HCPCS: 73502

== ENCOUNTER 2023-12-18 13:40 | Outpatient (AMB) | payer OTHER, SELFPAY ==
--- NOTE | 2023-12-18 13:42 | A.OFFVIS_ITS ---
Intake VS Expanded 12/18/23 13:51 BP 132/82 Blood Pressure Location Rt brachial Blood Pressure Position Sitting Pulse 87 Pulse Source Pulse Oximeter Temp 98 F Temperature Source Temporal Artery Scan Pulse Oximetry 98 Oxygen Delivery Method Room Air Height 5 ft 5.5 in Weight 182 lb 12.8 oz BMI 30.0 Body Fat % 25.6 Body Fat Mass 46.8 Fat Free Mass 136.0 Visceral Fat Rating 13.0 Body Water % 53.2 Body Water Mass 97.2 Muscle Mass/Score 129.2 Basal Metabolic Rate/Score 1,795 Intake Visit Reasons: (OV) PO LSG 12/13/21 Allergies cat dander Allergy (Intermediate, Verified 12/18/23 13:45) Hives dog dander Allergy (Intermediate, Verified 12/18/23 13:45) sneezing shell fish Allergy (Severe, Uncoded 08/27/23 15:36) swelling, hives enviromental Allergy (Unknown, Uncoded 08/27/23 15:36) sneezing Medication List - Last Reconciled 12/18/23 by CANDIDO Castillo albuterol sulfate 90 mcg/actuation 2 puffs inhalation Q6H PRN cyclobenzaprine 10 mg PO TID dexmethylphenidate ER 30 mg PO QAM 5 days escitalopram oxalate 20 mg PO DAILY fexofenadine (Mayela Allergy) 180 mg PO DAILY levothyroxine 50 mcg PO DAILY melatonin 5 mg PO BEDTIME tramadol 50 mg PO Q4-6H PRN venlafaxine 50 mg PO DAILY HPI HPI Comments History of Present Illness Details This?is a?53?yo male who is s/p LSG 12/13/2021. Presents for 2 year post op visit. Weight at last visit on 07/28/2023 was 175 pounds with a BMI of 28.7, weight today is 182.8 pounds, representing a 7.8 pound weight gain with a BMI today of 30.? No complaints of nausea, emesis, abdominal pain or reflux, or constipation. Sees a community therapist. Walking with a cane today, having right hip replacement surgery next week at [facility]. Having a lot of pain due to hip, missing a lot of days of work. Going to be out of work until probably January. Present meal plan includes: 2 Celebrate 4:1 shakes per day?with 2 sc oops each in 8oz almond milk, 50 gm -May substitute eggs for AM meal, on a w rap protein bar or yogurt around 4pm- sometimes Dinner 7 pm, 4 forks fish/4 forks cooked veg feels he is getting enough protein struggles with snacking at nighttime- chips, flaxseed cereal, ice cream bar- trying to find better choices like yogurt bars Exercise routine includes: Moving is difficult, sometimes I'm in bed all day will be doing PT postop, does have a bike at home [facility] Medical History (Updated 09/01/23 @ 16:06 by Artemio Arambula, [facility]) Restless leg syndrome Steatosis, liver PTSD (post-traumatic stress disorder) Arthritis BMI 35.0-35.9,adult Pre-op evaluation Complex posttraumatic stress disorder MDD (major depressive disorder) History of herniated intervertebral disc History of high cholesterol History of hypothyroidism History of depression Hx of acute eczema History of asthma Hx of sleep apnea Surgical History Status post total hip replacement, right Status post sleeve gastrectomy History of anal fissures History of prostate surgery Hx of cystoscopy Hx of adenoidectomy History of lumbar discectomy History of left hip replacement Family History Mother Hx of glaucoma Hx of heat stroke Hypertension Father Hx of heat stroke Sister Obese Substance use disorder Sister No problems noted. Sister Depression Thyroid condition Brother Substance use disorder Brother Diabetes Substance use disorder Brother History of hip replacement Brother Family history of prostate problems Brother No problems noted. Social History Household Members: Spouse and Children Housing: House Are you a primary cattle care worker to a significant other at home: No Do you presently have visiting nurse or other home services: No Alcohol intake: current Alcohol intake frequency: does not drink Patient Tobacco Use Status: Never used Tobacco e-Cigarette/Vaping Use: Currently Using (sometimes ) service: No Current occupational status: employed Cognitive needs: No Hearing needs: No Vision needs: No Assessment & Plan Assessment & Plan (1) Obesity: Code(s): E66.9 - Obesity, unspecified (2) S/P laparoscopic sleeve gastrectomy: Code(s): Z98.84 - Bariatric surgery status Plan No changes made to meal plan today. We discussed prioritizing getting enough protein each day to help with adequate nutrition for recovery after hip surgery. Knows he needs to cut down on snacking, especially since he will not be able to exercise to full capacity in the near future and will likely continue to gain weight if unable to change this habit. RTC 6 months. Patient is obese and is not considered stable at this time. I spent a total of 30 minutes reviewing/updating records, examining the patient and counseling the patient on weight management as detailed above. Coding Level of Care Code Est Pt Level 4 (39290) Diagnoses Obesity E66.9 S/P laparoscopic sleeve gastrectomy Z98.84
[2023-12-18 13:51] VITALS: BP 132/82; PULSE 87; TEMP 36.6; O2SAT 98
== END 2023-12-18 14:11 | disposition home or self-care (01) ==
PROVIDERS: PCP Nurse Practitioner Family; Visit Provider Physician Assistant Surgical
DX: E66.9 Obesity, unspecified (principal); Z98.84 Bariatric surgery status
CPT/HCPCS: 99214

== ENCOUNTER → 2023-12-18 13:40 | Outpatient (BNVA) | payer OTHER, SELFPAY | PROVIDERS: PCP Nurse Practitioner Family; Visit Provider Physician Assistant Surgical | DX: E66.9 Obesity, unspecified (principal); Z98.84 Bariatric surgery status; Z68.30 Body mass index [BMI] 30.0-30.9, adult | CPT/HCPCS: 99212 ==

== ENCOUNTER 2024-02-26 15:18 | Outpatient (AMB) | payer OTHER, SELFPAY ==
--- NOTE | 2024-02-26 15:21 | MHC.PC.OV ---
Vital Signs 02/26/24 15:25 Height 5 ft 5.5 in Weight 184 lb BMI 30.2 BP 136/80 Blood Pressure Location Lt brachial Position Sitting Pulse 88 Pulse Source Pulse Oximeter Pulse Oximetry (%) 98 Oxygen Delivery Method Room Air Intake Visit Reasons: 6 month fu Intake Note: enlarged prostate symptoms Allergies cat dander Allergy (Intermediate, Verified 02/26/24 15:36) Hives dog dander Allergy (Intermediate, Verified 02/26/24 15:36) sneezing shell fish Allergy (Severe, Uncoded 02/26/24 15:36) swelling, hives enviromental Allergy (Unknown, Uncoded 02/26/24 15:36) sneezing Medication List - Last Reconciled 02/26/24 by PATY Mccann albuterol sulfate 90 mcg/actuation 2 puffs inhalation Q6H PRN cyclobenzaprine 10 mg PO TID dexmethylphenidate ER 30 mg PO QAM 5 days escitalopram oxalate 20 mg PO DAILY fexofenadine (Mayela Allergy) 180 mg PO DAILY levothyroxine 50 mcg PO DAILY melatonin 5 mg PO BEDTIME venlafaxine 50 mg PO DAILY Tobacco use date assessed: 02/26/24 Dental Screening Dental Screen Date: 02/26/24 Did you have a dental visit in the last 12 months?: Yes Did you have a dental problem in the last 6 months where you did not have access to dental care?: No Was dental information given to patient?: Patient has dentist HPI 6 month fu HPI Details Hx of enlarged prostate: Pt will be seeing a urologist in the near future for this. He needs a new script for tamsulosin, which helps, will send. He reports some dribbling with urination and incomplete bladder emptying. Denies weak stream, nocturia, fevers, chills, CVA tenderness . [facility] Medical History Restless leg syndrome Steatosis, liver PTSD (post-traumatic stress disorder) Arthritis BMI 35.0-35.9,adult Pre-op evaluation Complex posttraumatic stress disorder MDD (major depressive disorder) History of herniated intervertebral disc History of high cholesterol History of hypothyroidism History of depression Hx of acute eczema History of asthma Hx of sleep apnea Surgical History Status post total hip replacement, right Status post sleeve gastrectomy History of anal fissures History of prostate surgery Hx of cystoscopy Hx of adenoidectomy History of lumbar discectomy History of left hip replacement Family History Mother Hx of glaucoma Hx of heat stroke Hypertension Father Hx of heat stroke Sister Obese Substance use disorder Sister No problems noted. Sister Depression Thyroid condition Brother Substance use disorder Brother Diabetes Substance use disorder Brother History of hip replacement Brother Family history of prostate problems Brother No problems noted. Social History Household Members: Spouse and Children Housing: House Are you a primary animal care supervisor to a significant other at home: No Do you presently have visiting nurse or other home services: No Alcohol intake: current Alcohol intake frequency: does not drink Patient Tobacco Use Status: Never used Tobacco e-Cigarette/Vaping Use: Currently Using (sometimes ) service: No Current occupational status: employed Cognitive needs: No Hearing needs: No Vision needs: No Questionnaire AUDIT C Alcohol Use Questionnaire (AUDIT-C) 1. How often do you have a drink containing alcohol?: Never 3. How often do you have six or more drinks on one occasion?: Never Total Score: 0 Score Reviewed/Action Taken: No Review of Systems Const Reports as per HPI Physical exam (Primary Care) Vital Signs: Last Vital Signs Pulse 88 02/26/24 15:25 BP 136/80 02/26/24 15:25 Pulse Ox 98 02/26/24 15:25 Oxygen Delivery Method Room Air 02/26/24 15:25 BMI result Body Mass Index 30.2 Tobacco/Smoking Status: Tobacco use Status Tobacco use date assessed 02/26/24 02/26/24 15:35 Patient Tobacco Use Status Never used Tobacco 02/26/24 15:24 e-Cigarette/Vaping Use Currently Using (sometimes ) 02/26/24 15:24 Const General: cooperative Orientation/consciousness: patient oriented x3 Resp Effort & Inspection: normal respiratory effort Auscultation: clear to auscultation bilaterally Cardio Rate: regular rate Rhythm: regular rhythm Heart sounds: S1 normal heart sound present, S2 normal heart sound present and no murmurs General: No CVA tenderness and Yes no CVA tenderness Back/Spine/Pelvis Back: no CVA tenderness and No CVA tenderness Neuro General: patient oriented x3 Psych Appearance: grossly normal Mental Status: mental status grossly normal Speech and movement: Normal speech and movement present Affect: normal affect Attitude: cooperative Thought process: Normal thought process present Thought content: Normal thought content present Insight: Good insight present (Psych) Judgement: Good judgement present (Psych) Assessment and Plan Assessment & Plan (1) Enlarged prostate: Code(s): N40.0 - Benign prostatic hyperplasia without lower urinary tract symptoms Plan: Tamsulosin sent, pt will follow up with urology Plan The patient agreed to the use of a chief medical director for this encounter. Scribed for PATY Ellison by Mee Hope chief medical director, on 02/26/2024 at 15:40 EST. Medications: New tamsulosin 0.4 mg PO BEDTIME 30 days 30 caps 2RF Coding Level of Care Code Est Pt Level 3 (10662) Diagnoses Enlarged prostate N40.0
[2024-02-26 15:25] VITALS: BP 136/80; PULSE 88; O2SAT 98; BMI 30.2
== END 2024-02-26 15:58 | disposition home or self-care (01) ==
PROVIDERS: PCP Nurse Practitioner Family; Visit Provider Nurse Practitioner Family
DX: N40.0 Benign prostatic hyperplasia without lower urinary tract symptoms (principal)
CPT/HCPCS: 99213

== ENCOUNTER → 2024-04-19 09:30 | Outpatient (BNV) | payer OTHER, SELFPAY | PROVIDERS: Visit Provider Psychiatry & Neurology Psychiatry | DX: F43.10 Post-traumatic stress disorder, unspecified (principal); F33.1 Major depressive disorder, recurrent, moderate; F41.1 Generalized anxiety disorder; F90.9 Attention-deficit hyperactivity disorder, unspecified type | CPT/HCPCS: 90792; 99213; 99214 ==

== ENCOUNTER 2024-04-27 13:08 | Outpatient (REF) | payer OTHER, SELFPAY ==
[2024-04-27 13:24] LABS: MANUAL DIFF FLAG NO
[2024-04-27 13:39] LABS: Basophils Absolute Auto 0.1 X10*3/uL (0.0-0.2); Basophils Percent Auto 0.9 % (0-2); Eosinophils Absolute Auto 0.1 X10*3/uL (0.0-0.4); Eosinophils Percent Auto 0.9 % (0-4); Hematocrit 42.5 % (42.0-52.0); Hemoglobin 14.3 g/dl (14.0-18.0); Imm Gran Abs Auto 0.02 X10*3/uL (0.00-0.03); Imm Gran Pct Auto 0.4 % (0.0-0.4); Lymphocytes Percent Auto 17.4 % (20-40); Mean Corpuscular HGB Conc 33.6 g/dl (31.0-36.0); Mean Corpuscular Hemoglobin 31.1 pg (27.0-33.0); Mean Corpuscular Volume 92.4 fL (80.0-98.0); Mean Platelet Volume 9.3 fL (9.4-12.4); Monocytes Absolute Auto 0.4 X10*3/uL (0.1-1.2); Monocytes Percent Auto 7.5 % (2-11); Neutrophils Absolute Auto 4.1 x10*3/uL (2.0-8.3); Neutrophils Percent Auto 72.9 % (45-73); Platelet Count 286 X10*3/uL (160-400); Red Cell Distribution Width 13.8 % (11.0-16.0); White Blood Count 5.6 X10*3/uL (4.8-10.8)
[2024-04-27 14:26] LABS: Alanine Aminotransferase 33 U/L (0-40); Albumin Level 4.6 g/dL (3.5-5.0); Alkaline Phosphatase 48 U/L (39-117); Anion Gap 11 (12-20); Aspartate Amino Transferase 35 U/L (5-37); Bilirubin Total 0.3 mg/dL (0.0-1.0); Blood Urea Nitrogen 17 mg/dL (9-16); Calcium 9.5 mg/dL (8.4-10.2); Carbon Dioxide 29 mmol/L (22-29); Chloride 107 mmol/L (96-108); Cholesterol 233 mg/dL (<200); Estimated Glomerular Filt Rate > 60; Glucose Fasting 108 mg/dL (60-99); HDL Cholesterol 66 mg/dL (>40); LDL Cholesterol Calculated 151 mg/dL (<100); Potassium 3.7 mmol/L (3.3-5.1); Sodium 143 mmol/L (135-145); Total Protein 7.6 g/dL (6.5-8.0); Triglycerides 82 mg/dL (<150)
[2024-04-27 14:34] LABS: Estimated Average Glucose 105 mg/dL; Hemoglobin A1c % 5.3 % (<6.0)
[2024-04-27 14:42] LABS: TSH reflex Free T4 0.91 uIU/mL (0.32-4.0); Vitamin D 25-OH Total 40.6 ng/mL (>30)
[2024-04-27 14:48] LABS: Vitamin B12 438 pg/mL (200-900)
== END 2024-04-27 13:09 | disposition home or self-care (01) ==
LOC: HO.LAB 13:08
PROVIDERS: Absent Provider Psychiatry & Neurology Psychiatry; PCP Nurse Practitioner Family; Visit Provider Physician Assistant Surgical
DX: F33.9 Major depressive disorder, recurrent, unspecified (principal)
CPT/HCPCS: 36415; 80053; 80061; 82306; 82607; 83036; 84153; 84443; 85025

== ENCOUNTER 2024-05-03 08:15 | Outpatient (RCR) | payer OTHER, SELFPAY ==
[2024-04-19 12:30] VITALS: BP 144/82; PULSE 78; RESP 12; TEMP 36.2
--- NOTE | 2024-04-19 12:32 | PC.NURSE ---
Patient is a 53 year old male. Referred by his psychiatric provider Nicolette Zarco NP for symptoms of depression, emotional dysregulation, ADHD and PTSD. 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 Patient states he wants to leave [employer] and move away from his current situation. Patient reports decreased appetite during the day but will snack during the night, denies any weight changes. Patient has a gastric sleeve from 2021 and tries to follow a strict diet. Patient reports drinking 1-2 times per week usually 1 glass of mixed drink and use of marijuana edible honey in his tea for sleep weekly. VS BP 144/82, P 78, RR 12, T-97.1. Patient has been to [facility] in past and felt it has helped and is hoping the provider can adjust medications. Patient's current mood is good , I'm glad to be here and reports has had fleeting passive SI, denies SI currently. Safety plan reviewed and copy provided. Medications reconciled with patient and reports medication compliance.
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
--- NOTE | 2024-04-22 15:10 | HO.PHP ---
Client's case has been opened and reviewed in treatment team.
--- NOTE | 2024-04-26 09:43 | HO.PHP ---
Gt called [facility] adminAlexia at about 9:40 to let staff know he was camping this weekend, and he is not home yet. He will not be in attendance to program today. He will be be here tomorrow. No safety concerns.
--- NOTE | 2024-04-27 12:51 | HO.PHPPROGNO ---
Subjective Subjective Date of Service: 04/27/24 Reason For Visit: depression Interim History: pt reports improvement in anxiety and reactivity with the buspar. tolerating the increase to 15mg bid. no sedation; struggling with issues brought up in group; has stress at [employer]; being remindeed of past trauma; no SI or Hi pt will talk to group therapists and in group about difficulties. Medication Compliance: Yes Side effects from medications: No Attending Groups: Yes Mental Status Exam Mental Status Exam Patient Appearance: Well Grooomed and Appropriate Patient Orientation: Person, Place, Time and Situation Level of Consciousness: Awake and Alert Patient Behavior: Appropriate and Talkative Mood Description: Anxious Affect Description: Anxious Patient Cognition Impaired: Yes Ability to Follow Directions: Good Speech Pattern: Rambling and Excessive Memory Description: Intact Hallucinations: None Delusions: Not Present Thought Process: Intact and Distracted Thought Content: positive for Preoccupation and positive for Loose Associations Judgement: Fair Assessment & Plan Assessment & Plan (1) PTSD (post-traumatic stress disorder): Status: Acute Code(s): F43.10 - Post-traumatic stress disorder, unspecified (2) MDD (major depressive disorder), recurrent episode: Qualifiers: Major depression episode severity: moderate Qualified Code(s): F33.1 - Major depressive disorder, recurrent, moderate Status: Acute Code(s): F33.9 - Major depressive disorder, recurrent, unspecified (3) Generalized anxiety disorder: Status: Acute Code(s): F41.1 - Generalized anxiety disorder (4) ADHD: Status: Acute Code(s): F90.9 - Attention-deficit hyperactivity disorder, unspecified type Plan contine buspar 15 mg bid - new rx sent in continue group treatment Patient educated on: diagnosis, medication risk/benefits and therapeutic strategies Informed Consent: understands and further education needed Reason for contiued partial hosp. stay Substantial Risk for: harm to self and inability to function Certification I certify that partial hospital treatment is medically necessary due to the symptoms and problems resulting from the patient's mental illness and the failure to treat the patient at the partial hospital level of care would likely result in the patient requiring inpatient psychiatric care which could not be prevented at a less intensive level of care. Total time managing care of this patient today ____ minutes. Discharge Plan Discharge Attending provider: Mena Merchant Medications: New buspirone 15 mg tablet 15 mg PO BID Qty: 30 0RF No Action levothyroxine 50 mcg tablet 50 mcg PO DAILY Qty: 90 1RF dexmethylphenidate 20 mg Capsule,Er Biphasic 50-50 20 mg PO QAM tamsulosin [Flomax] 0.4 mg capsule 0.4 mg PO BEDTIME venlafaxine 50 mg tablet 50 mg PO DAILY escitalopram oxalate 20 mg tablet 20 mg PO DAILY albuterol sulfate 90 mcg/actuation HFA aerosol inhaler 2 puff inhalation Q6H PRN (Reason: Shortness Of Breath Or Wheezing) cyclobenzaprine 10 mg tablet 10 mg PO NEEDED PRN (Reason: Pain) Stand Alone Forms: Patient Portal Discharge page Print Language: Belarusian
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
--- NOTE | 2024-04-30 09:21 | HO.PHP ---
Gt called [facility] admin, Alexia's number to say he is not coming in to program today. He will return on Friday. He stated he is safe, no safety concerns.
--- NOTE | 2024-05-03 22:43 | HO.PHPPROGNO ---
Subjective Subjective Date of Service: 05/03/24 Reason For Visit: depression Interim History: Patient seen for follow-up, anticipating discharge at the end of program today.? Reports no acute issues or concerns. Medication compliant, medications well-tolerated. Denies any adverse effects. 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 Still feeling marginalized at home by and daughters. Has been managing the stress better, Feels Buspar has been beneficial, the missing piece has been better able to get out of ruminative cycle break that loop of misery . Has been more motivated, and planning next steps He will be seeing his provider Nicolette Zarco in 2 weeks. Mood is stable.? Denies any hopelessness or SI. Denies thoughts of harming self or others at this time. Denies any aggressive ideation or HI. Denies any paranoia or AH or VH. Sleep, appetite, energy stable. Medication Compliance: Yes Side effects from medications: No Attending Groups: Yes Review of Systems Acute medical concerns: No Mental Status Exam Mental Status Exam Narrative: Alert, oriented, in no acute distress. Calm, cooperative, engaged. No psychomotor agitation or neurovegetative retardation. Eye contact maintained. Mood stable, less anxious, affect appropriate. Speech abundant, with normal rate, rhythm, volume, no latency or pressured speech. Thought process more goal-directed, coherent. Thought content related to stressors, denies helplessness and hopelessness, denies SI, intention or plan. Denies any aggressive ideation. No paranoia or delusional content elicited. No evidence of psychosis. Insight and judgment fair but adequate. Assessment & Plan Assessment & Plan (1) PTSD (post-traumatic stress disorder): Status: Acute Code(s): F43.10 - Post-traumatic stress disorder, unspecified (2) MDD (major depressive disorder), recurrent episode: Qualifiers: Major depression episode severity: moderate Qualified Code(s): F33.1 - Major depressive disorder, recurrent, moderate Status: Acute Code(s): F33.9 - Major depressive disorder, recurrent, unspecified (3) Generalized anxiety disorder: Status: Acute Code(s): F41.1 - Generalized anxiety disorder (4) ADHD: Status: Acute Code(s): F90.9 - Attention-deficit hyperactivity disorder, unspecified type Plan [facility]charge from [facility] continue Buspar 15 mg tid Continue other regular medications including Effexor,, Lexapro, dexmethylphenidate ER, melatonin, Refills sent to pharmacy Will defer further medication management to outpatient provider *Safety plan reviewed *Discharge diagnoses, treatment course, discharge plan have been reviewed with patient (including medication regime, medication management, potential side effects) as well as treatment rationale were also revisited *Discharge paperwork signed and given to patient, copy sent for scanning to chart Patient educated on: diagnosis and medication risk/benefits Certification I certify that partial hospital treatment is medically necessary due to the symptoms and problems resulting from the patient's mental illness and the failure to treat the patient at the partial hospital level of care would likely result in the patient requiring inpatient psychiatric care which could not be prevented at a less intensive level of care. Total time managing care of this patient today _30___ minutes. Discharge Plan Discharge Attending provider: Mnea Merchant Medications: Continued levothyroxine 50 mcg tablet 50 mcg PO DAILY Qty: 90 1RF tamsulosin [Flomax] 0.4 mg capsule 0.4 mg PO BEDTIME dexmethylphenidate 20 mg Capsule,Er Biphasic 50-50 20 mg PO QAM Qty: 30 0RF venlafaxine 50 mg tablet 50 mg PO DAILY escitalopram oxalate 20 mg tablet 20 mg PO DAILY albuterol sulfate 90 mcg/actuation HFA aerosol inhaler 2 puff inhalation Q6H PRN (Reason: Shortness Of Breath Or Wheezing) Changed buspirone 15 mg tablet 15 mg PO TID Qty: 45 0RF Discontinued cyclobenzaprine 10 mg tablet 10 mg PO NEEDED PRN (Reason: Pain) No Action melatonin 5 mg capsule PO .prn fexofenadine 180 mg tablet 180 mg PO Q24H Stand Alone Forms: Patient Portal Discharge page Patient Education: Depression (DC), Post Traumatic Stress Disorder (DC) Print Language: Haitian
== END 2024-05-03 23:59 | disposition home or self-care (01) ==
LOC: HO.PHPA 08:15
PROVIDERS: Visit Provider Psychiatry & Neurology Psychiatry
DX: F33.9 Major depressive disorder, recurrent, unspecified (principal); F90.9 Attention-deficit hyperactivity disorder, unspecified type; F43.10 Post-traumatic stress disorder, unspecified
CPT/HCPCS: 90791; 90853

== ENCOUNTER → 2024-05-05 17:00 | Outpatient (BNVA) | payer OTHER, SELFPAY | PROVIDERS: PCP Nurse Practitioner Family; Visit Provider Counselor Mental Health ==

== ENCOUNTER 2024-05-07 15:43 | Outpatient (AMB) | payer OTHER, SELFPAY ==
--- OUTSIDE RECORDS SUMMARY | 2024-05-07 15:44 | XMS_ITS | Continuity of Care Document ---
Author Organization [facility] ter Address [address] [place] [id number]- Care Team Providers Care Abrasive Worker Name Role Phone Ralf MICHAELS, Artemio Torres Primary Care Physician Encounter [facility] Date(s): 12/23/23 - 01/22/[address] [address] Attending Physician: Not on Staff, Attending MD Admitting Physician: Not on Staff, Admitting MD Referring Physician: Not on Staff, Referring MD Allergies, Adverse Reactions, Alerts Substance Reaction Severity Status shellfish hives breathing difficulty A ctive Bee Stings allergy tested positive Acti ve Cats sneezing itchy Active Dogs sneezing itchy Active Dust sneezing Active Grass sneezing Active Mites sneezing Active Mold sneezing Active Pollen sneezing Active Other Environmental Allergy sneezing pine tree Active Immunizations Given and Recorded Vaccine Date Status Refusal Reason influenza virus vaccine, inactivated 10/02/22 Give n influenza virus vaccine, inactivated 10/16/21 Juwan rded influenza virus vaccine, inactivated 1 10/16/20 Gi jayne influenza virus vaccine, inactivated 08/16/16 Give n influenza virus vaccine, inactivated 08/16/15 Give n influenza virus vaccine, inactivated 07/09/13 Give n influenza virus vaccine, inactivated 11/23/09 Juwan rded SARS-CoV-2 (COVID-19) mRNA BNT-162b2 vac 10/16/21 Recorded SARS-CoV-2 (COVID-19) mRNA BNT-162b2 vac 03/29/21 Recorded SARS-CoV-2 (COVID-19) mRNA BNT-162b2 vac 03/04/21 Recorded pneumococcal 23-valent vaccine 06/24/17 Recorded tetanus/diphtheria/pertussis, acel(Tdap) 05/25/14 Given tetanus/diphtheria/pertussis, acel(Tdap) 11/10/08 Recorded 1Result Comment: [facility] 10857-212-20 Medications acetaminophen 325 mg oral tablet 650 mg, By Mouth, Every 6 hours, May take OTC not to exceed 3000 mg/day, Refills 0, Maintenance, 12/24/23 7:49:00 EST, Partial fill upon patient request if the prescription is for a schedule II opioid drug. Start Date: 12/24/23 Status: Ordered Mayela 180 mg oral tablet 1 tablet = 180 mg, By Mouth, Daily, # 30 tablet, 0 Refills, Maintenance, Tablet Start Date: 07/05/12 Status: Ordered celecoxib 200 mg oral capsule = 200 mg, By Mouth, Daily, 0 Refills, Maintenance, 12/24/23 7:49:00 EST, Capsule, Partial fill uponpatient request if the prescription is for a schedule II opioid drug. Start Date: 12/24/23 Status: Ordered Clobetasol (Eqv-Temovate) 0.05% topical cream See Instructions, APPLY TOPICALLY TO THE AFFECTED AREA TWICE DAILY APPLY 2 TIMES DAILY FOR UP TO 2 WEEKS, # 60 Gm, 0 Refills, Maintenance, 08/12/22 21:45:00 EDT, [id number], 25, APPLY TOPICALLY TO THE AFFECTED AREA TWICE DAILY APPLY 2... Start Date: 08/12/22 Status: Ordered Colace sodium 100 mg oral capsule 100 mg, 1, capsule, By Mouth, 2 times a day, Refills 0, Maintenance, 10/02/22 16:41:00 EST, Partialfill upon patient request if the prescription is for a schedule II opioid drug. Start Date: 10/02/22 Status: Ordered cyclobenzaprine 10 mg oral tablet 10 mg, 1, tablet, By Mouth, 3 times a day, PRN, # 42 tablet, Refills 0, Maintenance, Spasm for spasm, 12/08/23 12:34:00 EST, Partial fill upon patient request if the prescription is for a schedule II opioid drug. Start Date: 12/08/23 Status: Ordered Eliquis 2.5 mg oral tablet 1 tablet = 2.5 mg, By Mouth, 2 times a day, # 60 tablet, 0 Refills, Maintenance, 12/24/23 7:45:00 EST, Tablet, [facility], Partial fill upon patient request if the prescription is for aschedule II opioid drug., 165.1, cm, 12/24/23 7:11:... Start Date: 12/24/23 Stop Date: 01/23/24 Status: Ordered escitalopram 20 mg oral tablet 1 tablet, By Mouth, Daily, # 90 tablet, 0 Refills, Maintenance, 05/24/22 14:54:00 EDT, [id number], 168, cm, 12/27/21 15:53:00 EST, Height, 106.5, kg, 07/06/20 9:20:00 EDT, Dry Weight Start Date: 05/24/22 Status: Ordered Flomax 0.4 mg oral capsule 0.4 mg, By Mouth, Daily, # 30 capsule, Refills 0, Tot. Refills 0, Maintenance, 12/24/23 7:46:00 EST, Route to Pharmacy Electronically, [facility], Partial fill upon patient request if the prescription is for a schedule II opioid drug., 1... Start Date: 12/24/23 Stop Date: 01/23/24 Status: Ordered Focalin XR 30 mg oral capsule, extended release TAKE 1 CAPSULE BY MOUTH EVERY DAY IN THE MORNING Start Date: 06/06/23 Status: Ordered levothyroxine 0.05 mg oral tablet 1 tablet, By Mouth, Daily, # 90 tablet, 1 Refills, Maintenance, 12/16/22 13:33:00 EST, [id number], 168, cm, 10/02/22 16:44:00 EST, Height Start Date: 12/16/22 Status: Ordered MiraLax Powder 1 pack/packet = 17 Gm, By Mouth, Daily, PRN Constipation, 0 Refills, Maintenance, 12/24/23 7:50:00 EST, Powder, Partial fill upon patient request if the prescription is for a schedule II opioid drug. Start Date: 12/24/23 Status: Ordered pantoprazole 40 mg oral delayed release tablet = 40 mg, By Mouth, Daily, 0 Refills, Maintenance, 12/24/23 7:50:00 EST, EC Tablet Start Date: 12/24/23 Status: Ordered ProAir HFA 90 mcg/inh inhalation aerosol with adapter 2, puffs, Inhalation, Every 4 hours, PRN, # 8.5 Gm, Refills 1, Tot. Refills 1, Maintenance, 12/19/16 15:25:46, Aerosol, Route to Pharmacy Electronically, [id number], [facility] [id number] Start Date: 12/19/16 Status: Ordered senna 187 mg oral tablet 1 tablet = 8.6 mg, By Mouth, Daily at bedtime, PRN as needed for constipation, 0 Refills, Maintenance, 12/24/23 7:50:00 EST, Tablet, Partial fill upon patient request if the prescription is for a schedule II opioid drug. Start Date: 12/24/23 Status: Ordered venlafaxine 50 mg oral tablet TAKE 1 TABLET BY MOUTH EVERY DAY IN THE MORNING Start Date: 12/08/23 Status: Ordered Problem List Condition Confirmation Course Effective Dates Status H ealth Status Informant Asthma Confirmed Active ADHD (attention deficit hyperactivity disorder)- by history per psych note Confirmed Active Eczema Confirmed Active GERD (gastroesophageal reflux disease) Confirmed Active Hemorrhoids Confirmed Active History of left hip replacement Confirmed Active S/P gastric sleeve procedure Confirmed Active Hyperlipidemia Confirmed Active Hypothyroidism Confirmed Active Intestinal malabsorption Confirmed Active Prostatic hypertrophy Confirmed Active Obese class I Confirmed Active Obesity (BMI 30-39.9) Confirmed Active Obstructive sleep apnea Confirmed Active Posttraumatic stress disorder Confirmed Active Restless leg syndrome Confirmed Active Social History Social History Type Response Smoking Status Never smoker entered on: 01/12/15 Sex Patient Care team information Care Team Personnel Name: Tiffanie Arzate RN Position: [facility] Nurse Member Role: Primary Care Nurse Name: Sharad Pierson RN Position: S RN Member Role: Primary Care Nurse Name: Artemio Arambula NP Position: Reference Physician Member Role: PCP Address: Address: [address] [place] [address]- Name: Raji Concepcion RN Position: [facility] RN Member Role: Primary Care Nurse Care Team Related Persons Name: FELIX HARO Address: home [address] [place] [address]
--- OUTSIDE RECORDS SUMMARY | 2024-05-07 15:45 | XMS_ITS | Continuity of Care Document ---
Author Organization [facility] Primary [facility] e [place] Address [address] [place] [address]- Care Team Providers Care Requirements Engineer Name Role Phone Kwame White Primary Care Physician Encounter [facility] Date(s): 04/02/23 - 05/02/23 [facility] [place] [address] [place] [address]- Attending Physician: Rigo French Admitting Physician: AdmRigo lundberg Referring Physician: Admtr Ar8 Allergies, Adverse Reactions, Alerts Substance Reaction Severity Status shellfish hives breathing difficulty A ctive Bee Stings allergy tested positive Acti ve Cats sneezing itchy Active Dogs sneezing itchy Active Dust sneezing Active Grass sneezing Active Mites sneezing Active Pollen sneezing Active Other Environmental Allergy sneezing pine tree Active Mold sneezing Active Immunizations Given and Recorded Vaccine Date [...] Given tetanus/diphtheria/pertussis, acel(Tdap) 11/10/08 Recorded 1Result Comment: [facility] [id number] Medications Mayela 180 mg oral tablet 1 tablet = 180 mg, By Mouth, Daily, # 30 tablet, 0 Refills, Maintenance, Tablet Start Date: 07/05/12 Status: Ordered Clobetasol (Eqv-Temovate) 0.05% topical cream See Instructions, APPLY TOPICALLY TO THE AFFECTED AREA TWICE DAILY APPLY 2 TIMES DAILY FOR UP TO 2 WEEKS, # 60 Gm, 0 Refills, Maintenance, 08/12/22 21:45:00 EDT, [facility] #[id number], 25, APPLY TOPICALLY TO THE AFFECTED AREA TWICE DAILY APPLY 2... Start Date: 08/12/22 Status: Ordered Colace sodium 100 mg oral capsule 100 mg, 1, capsule, By Mouth, 2 times a day, Refills 0, Maintenance, 10/02/22 16:41:00 EST, Partialfill upon patient request if the prescription is for a schedule II opioid drug. Start Date: 10/02/22 Status: Ordered dexmethylphenidate 5 mg oral tablet 1 tablet = 5 mg, By Mouth, 2 times a day, 0 Refills, Maintenance, 10/02/22 16:42:00 EST, Tablet, Partial fill upon patient request if the prescription is for a schedule II opioid drug. Start Date: 10/02/22 Status: Ordered escitalopram 20 mg oral tablet 1 tablet, By Mouth, Daily, # 90 tablet, 0 Refills, Maintenance, 05/24/22 14:54:00 EDT, [facility] #[id number], 168, cm, 12/27/21 15:53:00 EST, Height, 106.5, kg, 07/06/20 9:20:00 EDT, Dry Weight Start Date: 05/24/22 Status: Ordered levothyroxine 0.05 mg oral tablet 1 tablet, By Mouth, Daily, # 90 tablet, 1 Refills, Maintenance, 12/16/22 13:33:00 EST, [facility] #[id number], 168, cm, 10/02/22 16:44:00 EST, Height Start Date: 2/20/23 Status: Ordered Multivitamin 1 tablet, By Mouth, Daily in AM, 0 Refills, Maintenance, 08/29/16 11:50:58 Start Date: 08/29/16 Status: Ordered naproxen 500 mg oral tablet See Instructions, TAKE 1 TABLET BY MOUTH TWICE DAILY FOR 10 DAYS, # 20 tablet, 0 Refills, Acute, [facility] #[id number], 168, cm, 11/29/20 16:54:00 EST, Height, 106.5, kg, 07/06/20 9:20:00 EDT, Dry Weight Start Date: 02/20/21 Status: Ordered pramipexole 0.125 mg oral tablet See Instructions, TAKE 1 TABLET BY MOUTH 2 HOURS BEFORE RESTLESS LEG SYMPTOMS START, # 30 tablet, 0Refills, Maintenance, 12/25/22 13:34:00 EST, [facility] #[id number], 168, cm, 10/02/22 16:44:00 EST, Height Start Date: 12/25/22 Status: Ordered ProAir HFA 90 mcg/inh inhalation aerosol with adapter 2, puffs, Inhalation, Every 4 hours, PRN, # 8.5 Gm, Refills 1, Tot. Refills 1, Maintenance, 12/19/16 15:25:46, Aerosol, Route to Pharmacy Electronically, [id number], [facility] [id number] Start Date: 12/19/16 Status: Ordered Problem List Condition Confirmation Course [...] Hypothyroidism Confirmed Active Intestinal malabsorption Confirmed Active Obesity (BMI 30-39.9) Confirmed Active Obstructive sleep apnea Confirmed Active Posttraumatic stress disorder Confirmed Active Restless leg syndrome Confirmed Active Social History Social History Type Response Smoking Status Never smoker entered on: 01/12/15 Sex Patient Care team information Care Team Personnel Name: Tiffanie Arzate RN Position: [facility] AMB Nurse Member Role: Primary Care Nurse Name: Kwame White Position: [facility] PCO Associate Professional Member Role: PCP Address: Address: [address] [place], [place] [address] [address]- [place] Care Team Related Persons Name: FELIX HARO Address: home [address] [place] [address]
--- OUTSIDE RECORDS SUMMARY | 2024-05-07 15:45 | XMS_ITS | Continuity of Care Document ---
Author Organization [facility] Primary Car e [place] Address [address] [place] [address]- Care Team Providers Care Risk Engineer Name Role Phone Kwame White Primary Care Physician Encounter [facility] Date(s): 11/01/22 - 12/01/22 [facility] Primary [facility] [place] [address] [place] [address]- Allergies, Adverse Reactions, Alerts Substance Reaction Severity [...] Given tetanus/diphtheria/pertussis, acel(Tdap) 11/10/08 Recorded 1Result Comment: [facility] 59104-461-99 Medications Mayela 180 mg oral tablet 1 tablet = 180 mg, By Mouth, Daily, # 30 tablet, 0 Refills, Maintenance, Tablet Start Date: 07/05/12 Status: Ordered Clobetasol (Eqv-Temovate) 0.05% topical cream See Instructions, APPLY TOPICALLY TO THE AFFECTED AREA TWICE DAILY APPLY 2 TIMES DAILY FOR UP TO 2 WEEKS, # 60 Gm, 0 Refills, Maintenance, 08/12/22 21:45:00 EDT, [facility] #[id number], 25, APPLY TOPICALLY TO THE AFFECTED AREA [...] tablet, 0 Refills, Maintenance, 05/24/22 14:54:00 EDT, [facility] #[id number], 168, cm, 12/27/21 15:53:00 EST, Height, 106.5, kg, 07/06/20 9:20:00 EDT, Dry Weight Start Date: 05/24/22 Status: Ordered levothyroxine 0.05 mg oral tablet 1 tablet, By Mouth, Daily, # 90 tablet, 1 Refills, Maintenance, 08/27/22 9:13:00 EDT, [facility] #[id number], 168, cm, 06/18/22 10:21:00 EDT, Height Start Date: 08/27/22 Status: Ordered Multivitamin 1 tablet, By Mouth, Daily in AM, 0 Refills, Maintenance, 08/29/16 11:50:58 Start Date: 08/29/16 Status: Ordered naproxen 500 mg oral tablet See Instructions, TAKE 1 TABLET BY MOUTH TWICE DAILY FOR 10 DAYS, # 20 tablet, 0 Refills, Acute, [facility] #[id number], 168, cm, 11/29/20 16:54:00 EST, Height, 106.5, kg, 07/06/20 9:20:00 EDT, Dry Weight Start Date: 02/20/21 Status: Ordered pramipexole 0.125 mg oral tablet See Instructions, TAKE 1 TABLET BY MOUTH 2 HOURS BEFORE RESTLESS LEG SYMPTOMS START, # 30 tablet, 0Refills, Maintenance, 10/27/22 10:26:00 EST, [facility] #[id number], 168, cm, 10/02/22 16:44:00 EST, Height Start Date: 10/27/22 Status: Ordered ProAir HFA 90 mcg/inh inhalation aerosol with adapter 2, puffs, Inhalation, Every 4 hours, PRN, # 8.5 Gm, Refills 1, Tot. Refills 1, Maintenance, 12/19/16 15:25:46, Aerosol, Route to Pharmacy Electronically, [id number], [facility] [address] Start Date: 12/19/16 Status: Ordered Problem List [...] Team Personnel Name: Tiffanie Arzate RN [facility] AM[facility] Nurse Member Role: Primary Care Nurse Name: Kwame White Position: [facility] PCO Associate Professional Member Role: PCP Address: Address: [address] [place] [address]- Care Team Related Persons Name: POLLO APPLEMOON FELIX Address: home [address] [place] [address]
--- OUTSIDE RECORDS SUMMARY | 2024-05-07 15:45 | XMS_ITS | Continuity of Care Document ---
Author Organization [facility] Address [address] [place] [address]- Care Team Providers Care Supervisor Varnish Name Role Phone Kwame White Primary Care Physician [place] [facility] [place](s): 10/21/23 - 12/04/23 [facility] [address], [place] [address] Attending Physician: Emeterio Yanes MD Referring Physician: Sharad Birmingham MD Allergies, Adverse Reactions, Alerts Substance Reaction Severity Status shellfish hives breathing difficulty A ctive Other Environmental Allergy sneezing pine tree Active Bee Stings allergy tested positive Acti ve Mites sneezing Active Cats sneezing itchy Active Grass sneezing Active Dogs sneezing itchy Active Dust sneezing Active Mold sneezing Active Pollen sneezing Active Immunizations Given and Recorded Vaccine [...] tetanus/diphtheria/pertussis, acel(Tdap) 11/10/08 Recorded 1Result Comment: [facility] 37552-457-75 Medications Mayela 180 mg oral tablet 1 tablet = 180 mg, By Mouth, Daily, # 30 tablet, 0 Refills, Maintenance, Tablet Start Date: 07/05/12 Status: Ordered Clobetasol (Eqv-Temovate) 0.05% topical cream See Instructions, APPLY TOPICALLY TO THE AFFECTED AREA TWICE DAILY APPLY 2 TIMES DAILY FOR UP TO 2 WEEKS, # 60 Gm, 0 Refills, Maintenance, 08/12/22 21:45:00 EDT, [facility] #[id number], 25, APPLY TOPICALLY TO THE AFFECTED AREA TWICE DAILY APPLY 2... Start Date: 08/12/22 Status: Ordered Colace sodium 100 mg oral capsule 100 mg, 1, capsule, By Mouth, 2 times a day, Refills 0, Maintenance, 10/02/22 16:41:00 EST, Partialfill upon patient request if the prescription is for a schedule II opioid drug. Start Date: 10/02/22 Status: Ordered escitalopram 20 mg oral tablet TAKE 1 TABLET BY MOUTH EVERY DAY IN THE MORNING Start Date: 06/06/23 Status: Ordered escitalopram 20 mg oral tablet 1 tablet, By Mouth, Daily, # 90 tablet, 0 Refills, Maintenance, 05/24/22 14:54:00 EDT, [facility] #[id number], 168, cm, 12/27/21 15:53:00 EST, Height, 106.5, kg, 07/06/20 9:20:00 EDT, Dry Weight Start Date: 05/24/22 Status: Ordered Focalin XR 30 mg oral capsule, extended release TAKE 1 CAPSULE BY MOUTH EVERY DAY IN THE MORNING Start Date: 06/06/23 Status: Ordered levothyroxine 0.05 mg oral tablet 1 tablet, By Mouth, Daily, # 90 tablet, 1 Refills, Maintenance, 12/16/22 13:33:00 EST, [facility] #[id number], 168, cm, 10/02/22 16:44:00 EST, Height Start Date: 12/16/22 Status: Ordered Multivitamin 1 tablet, By Mouth, Daily in AM, 0 Refills, Maintenance, 08/29/16 11:50:58 Start Date: 08/29/16 Status: Ordered naproxen 500 mg oral tablet See Instructions, TAKE 1 TABLET BY MOUTH TWICE DAILY FOR 10 DAYS, # 20 tablet, 0 Refills, Acute, [facility] #[id number], 168, cm, 11/29/20 16:54:00 EST, Height, 106.5, kg, 07/06/20 9:20:00 EDT, Dry Weight Start Date: 02/20/21 Status: Ordered ProAir HFA 90 mcg/inh inhalation aerosol with adapter 2, puffs, Inhalation, Every 4 hours, PRN, # 8.5 Gm, Refills 1, Tot. Refills 1, Maintenance, 12/19/16 15:25:46, Aerosol, Route to Pharmacy Electronically, [id number], [facility] [id number] Start Date: 12/19/16 Status: Ordered venlafaxine 25 mg oral tablet TAKE 1 TABLET BY MOUTH EVERY DAY IN THE MORNING Start Date: 06/06/23 Status: Ordered Problem List Condition Confirmation Course [...] Team Personnel Name: Tiffanie Arzate RN Position: [facility] AMB Nurse Member Role: Primary Care Nurse Name: Kwame White Position: [facility] PCO Associate Professional Member Role: PCP Address: Address: [address] [place] [address] [place] [address]- Care Team Related Persons Name: FELIX HARO Address: home [address] [place] [address]
--- OUTSIDE RECORDS SUMMARY | 2024-05-07 15:45 | XMS_ITS | Continuity of Care Document ---
Author Organization [facility] Address [address] [place] [address]- Care Team Providers Care Software Requirements Engineer Name Role Phone Kwame White Primary Care Physician Encounter [facility] Date(s): 05/30/23 - 06/29/23 [facility] [address] [address] Allergies, Adverse Reactions, Alerts Substance Reaction Severity [...] Given tetanus/diphtheria/pertussis, acel(Tdap) 11/10/08 Recorded 1Result Comment: [facility] [id number] Medications Mayela 180 mg oral tablet 1 tablet = 180 mg, By Mouth, Daily, # 30 tablet, 0 Refills, Maintenance, Tablet Start Date: 07/05/12 Status: Ordered Clobetasol (Eqv-Temovate) 0.05% topical cream See Instructions, APPLY TOPICALLY TO THE AFFECTED AREA TWICE DAILY APPLY 2 TIMES DAILY FOR UP TO 2 WEEKS, # 60 Gm, 0 Refills, Maintenance, 08/12/22 21:45:00 EDT, [facility] #[id number], 25, APPLY TOPICALLY TO THE AFFECTED AREA [...] tablet, 0 Refills, Maintenance, 05/24/22 14:54:00 EDT, [facility] #[id number], 168, cm, 12/27/21 15:53:00 EST, Height, 106.5, kg, 07/06/20 9:20:00 EDT, Dry Weight Start Date: 05/24/22 Status: Ordered Focalin XR 30 mg oral capsule, extended release TAKE 1 CAPSULE BY MOUTH EVERY DAY IN THE MORNING Start Date: 06/06/23 Status: Ordered levothyroxine 0.05 mg oral tablet 1 tablet, By Mouth, Daily, # 90 tablet, 1 Refills, Maintenance, 12/16/22 13:33:00 EST, [facility] #[id number], 168, cm, 10/02/22 16:44:00 EST, Height Start Date: 12/16/22 Status: Ordered Multivitamin 1 tablet, By Mouth, Daily in AM, 0 Refills, Maintenance, 08/29/16 11:50:58 Start Date: 08/29/16 Status: Ordered naproxen 500 mg oral tablet See Instructions, TAKE 1 TABLET BY MOUTH TWICE DAILY FOR 10 DAYS, # 20 tablet, 0 Refills, Acute, [facility] #[id number], 168, cm, 11/29/20 16:54:00 EST, Height, 106.5, kg, 07/06/20 9:20:00 EDT, Dry Weight Start Date: 02/20/21 Status: Ordered pramipexole 0.125 mg oral tablet See Instructions, TAKE 1 TABLET BY MOUTH 2 HOURS BEFORE RESTLESS LEG SYMPTOMS START, # 30 tablet, 0Refills, Maintenance, 12/25/22 13:34:00 EST, [facility] #[id number], 168, cm, 10/02/22 16:44:00 EST, Height Start Date: 12/25/22 Status: Ordered ProAir HFA 90 mcg/inh inhalation aerosol with adapter 2, puffs, Inhalation, Every 4 hours, PRN, # 8.5 Gm, Refills 1, Tot. Refills 1, Maintenance, 12/19/16 15:25:46, Aerosol, Route to Pharmacy Electronically, [id number], [facility] [id number] Start Date: 12/19/16 Status: Ordered venlafaxine 25 [...] Team Personnel Name: Tiffanie Arzate RN Position: [facility] AMB Nurse Member Role: Primary Care Nurse Name: Kwame White Position: [facility] PCO Associate Professional Member Role: PCP Address: Address: [address] [place] [address] [place] [address]- Care Team Related Persons Name: FELIX HARO Address: home [address] [place] [address]
--- OUTSIDE RECORDS SUMMARY | 2024-05-07 15:45 | XMS_ITS | Continuity of Care Document ---
Author Organization [facility] Address [address] [place] [address]- Care Team Providers Care Open Cut Examiner Name Role Phone Kwame White Primary Care Physician [place] [facility] [place]23 - 11/27/[address] [address] Attending Physician: Sharad Birmingham MD Admitting Physician: Sharad Birmingham MD Referring Physician: Sharad Birmingham MD Allergies, Adverse Reactions, Alerts Substance Reaction Severity Status shellfish hives breathing difficulty A ctive Bee Stings allergy tested positive Acti ve Mites sneezing Active Other Environmental Allergy sneezing pine tree Active Cats sneezing itchy Active Grass sneezing [...] pneumococcal 23-valent vaccine 06/24/17 Recorded tetanus/diphtheria/pertussis, acel(Tdap) 7/30/14 Given tetanus/diphtheria/pertussis, acel(Tdap) 11/10/08 Recorded 1Result Comment: [facility] [id number] Medications Mayela 180 mg oral tablet 1 tablet = 180 mg, By Mouth, Daily, # 30 tablet, 0 Refills, Maintenance, Tablet Start Date: 07/05/12 Status: Ordered Clobetasol (Eqv-Temovate) 0.05% topical cream See Instructions, APPLY TOPICALLY TO THE AFFECTED AREA TWICE DAILY APPLY 2 TIMES DAILY FOR UP TO 2 WEEKS, # 60 Gm, 0 Refills, Maintenance, 08/12/22 21:45:00 EDT, [facility] #[id number], 25, APPLY TOPICALLY TO THE AFFECTED AREA [...] tablet, 0 Refills, Maintenance, 05/24/22 14:54:00 EDT, [facility] #[id number], 168, cm, 12/27/21 15:53:00 EST, Height, 106.5, kg, 07/06/20 9:20:00 EDT, Dry Weight Start Date: 05/24/22 Status: Ordered Focalin XR 30 mg oral capsule, extended release TAKE 1 CAPSULE BY MOUTH EVERY DAY IN THE MORNING Start Date: 06/06/23 Status: Ordered levothyroxine 0.05 mg oral tablet 1 tablet, By Mouth, Daily, # 90 tablet, 1 Refills, Maintenance, 12/16/22 13:33:00 EST, [facility] #[id number], 168, cm, 10/02/22 16:44:00 EST, Height Start Date: 12/16/22 Status: Ordered Multivitamin 1 tablet, By Mouth, Daily in AM, 0 Refills, Maintenance, 08/29/16 11:50:58 Start Date: 08/29/16 Status: Ordered naproxen 500 mg oral tablet See Instructions, TAKE 1 TABLET BY MOUTH TWICE DAILY FOR 10 DAYS, # 20 tablet, 0 Refills, Acute, [facility] #[id number], 168, cm, 11/29/20 16:54:00 EST, Height, 106.5, kg, 07/06/20 9:20:00 EDT, Dry Weight Start Date: 02/20/21 Status: Ordered ProAir HFA 90 mcg/inh inhalation aerosol with adapter 2, puffs, Inhalation, Every 4 hours, PRN, # 8.5 Gm, Refills 1, Tot. Refills 1, Maintenance, 12/19/16 15:25:46, Aerosol, Route to Pharmacy Electronically, [id number], [facility] [id number] Start Date: 12/19/16 Status: Ordered venlafaxine 25 [...] Team Personnel Name: Tiffanie Arzate RN Position: [facility] AMB Nurse Member Role: Primary Care Nurse Name: Kwame White Position: [facility] PCO Associate Professional Member Role: PCP Address: Address: [address] [place] [address] [place] [address]- Care Team Related Persons Name: FELIX HARO Address: home [address] [place] [address]
--- OUTSIDE RECORDS SUMMARY | 2024-05-07 15:45 | XMS_ITS | Continuity of Care Document ---
Author Organization [facility] Primary Car e [facility] Address [address] [place] [address]- Care Team Providers Care Improvement Analyst Name Role Phone Kwame White Primary Care Physician Encounter [facility] Date(s): 01/02/23 - 05/02/23 [facility] [place] [address] [place] [address]- Encounter Diagnosis Follow-up exam(Discharge Diagnosis) - 04/02/23 Hyperlipidemia(Discharge Diagnosis) - 04/02/23 Hypothyroidism(Discharge Diagnosis) - 04/02/23 ADHD (attention deficit hyperactivity disorder)- by history per psych note (Discharge Diagnosis) - 04/02/23 Obesity (BMI 30-39.9)(Discharge Diagnosis) - 04/02/23 Attending Physician: Rosita Batres MD Allergies, Adverse Reactions, Alerts Substance Reaction [...] Given tetanus/diphtheria/pertussis, acel(Tdap) 11/10/08 Recorded 1Result Comment: [facility] [id number] Medications Mayela 180 mg oral tablet 1 tablet = 180 mg, By Mouth, Daily, # 30 tablet, 0 Refills, Maintenance, Tablet Start Date: 07/05/12 Status: Ordered Clobetasol (Eqv-Temovate) 0.05% topical cream See Instructions, APPLY TOPICALLY TO THE AFFECTED AREA TWICE DAILY APPLY 2 TIMES DAILY FOR UP TO 2 WEEKS, # 60 Gm, 0 Refills, Maintenance, 08/12/22 21:45:00 EDT, [facility] #[id number], 25, APPLY TOPICALLY TO THE AFFECTED AREA [...] tablet, 0 Refills, Maintenance, 05/24/22 14:54:00 EDT, [email or web address] #[id number], 168, cm, 12/27/21 15:53:00 EST, Height, 106.5, kg, 07/06/20 9:20:00 EDT, Dry Weight Start Date: 05/24/22 Status: Ordered levothyroxine 0.05 mg oral tablet 1 tablet, By Mouth, Daily, # 90 tablet, 1 Refills, Maintenance, 12/16/22 13:33:00 EST, [email or web address] #[id number], 168, cm, 10/02/22 16:44:00 EST, Height Start Date: 12/16/22 Status: Ordered Multivitamin 1 tablet, By Mouth, Daily in AM, 0 Refills, Maintenance, 08/29/16 11:50:58 Start Date: 08/29/16 Status: Ordered naproxen 500 mg oral tablet See Instructions, TAKE 1 TABLET BY MOUTH TWICE DAILY FOR 10 DAYS, # 20 tablet, 0 Refills, Acute, [email or web address] #[id number], 168, cm, 11/29/20 16:54:00 EST, Height, 106.5, kg, 07/06/20 9:20:00 EDT, Dry Weight Start Date: 02/20/21 Status: Ordered pramipexole 0.125 mg oral tablet See Instructions, TAKE 1 TABLET BY MOUTH 2 HOURS BEFORE RESTLESS LEG SYMPTOMS START, # 30 tablet, 0Refills, Maintenance, 12/25/22 13:34:00 EST, [email or web address] #[id number], 168, cm, 10/02/22 16:44:00 EST, Height Start Date: 12/25/22 Status: Ordered ProAir HFA 90 mcg/inh inhalation aerosol with adapter 2, puffs, Inhalation, Every 4 hours, PRN, # 8.5 Gm, Refills 1, Tot. Refills 1, Maintenance, 12/19/16 15:25:46, Aerosol, Route to Pharmacy Electronically, [id number], [facility] [id number] Start Date: 12/19/16 Status: Ordered Problem List [...] Confirmed Active Restless leg syndrome Confirmed Active Diagnosis Diagnosis Type Effective Dates Health Status Clinical Service Informant Follow-up exam Discharge Diagnosis 04/02/23 Hyperlipidemia Discharge Diagnosis 04/02/23 Hypothyroidism Discharge Diagnosis 04/02/23 ADHD (attention deficit hyperactivity disorder)- by history per psych note Discharge Diagnosis 04/02/23 Obesity (BMI 30-39.9) Discharge Diagnosis 04/02/23 Social History Social History Type Response Smoking Status Never smoker entered on: 01/12/15 Sex Patient Care team information Care Team Personnel Name: Tiffanie Arzate RN Position: [facility] AMB Nurse Member Role: Primary Care Nurse Name: Kwame White Position: [facility] PCO Associate Professional Member Role: PCP Address: Address: [address] [place] [address] [place] [address]- Care Team Related Persons Name: FELIX HARO Address: home [address] [place] [address]
--- OUTSIDE RECORDS SUMMARY | 2024-05-07 15:45 | XMS_ITS | Continuity of Care Document ---
Author Organization [facility] Address [address] [place] [address]- Care Team Providers Care Pattern Carrier Name Role Phone Kwame White Primary Care Physician En[place] [facility] Date(s): 08/21/23 - 09/20/23 [facility] [address] [place] [address]- Attending Physician: Rigo French Admitting Physician: AdmtrRigo Referring Physician: Admtr, Ar8 Allergies, Adverse Reactions, Alerts Substance Reaction [...] tetanus/diphtheria/pertussis, acel(Tdap) 11/10/08 Recorded 1Result Comment: [facility] [id number] Medications Mayela 180 mg oral tablet 1 tablet = 180 mg, By Mouth, Daily, # 30 tablet, 0 Refills, Maintenance, Tablet Start Date: 07/05/12 Status: Ordered Clobetasol (Eqv-Temovate) 0.05% topical cream See Instructions, APPLY TOPICALLY TO THE AFFECTED AREA TWICE DAILY APPLY 2 TIMES DAILY FOR UP TO 2 WEEKS, # 60 Gm, 0 Refills, Maintenance, 08/12/22 21:45:00 EDT, [facility] #[id number], 25, APPLY TOPICALLY TO THE AFFECTED AREA [...] tablet, 0 Refills, Maintenance, 05/24/22 14:54:00 EDT, [facility] #[id number], 168, cm, 12/27/21 15:53:00 EST, Height, 106.5, kg, 07/06/20 9:20:00 EDT, Dry Weight Start Date: 05/24/22 Status: Ordered Focalin XR 30 mg oral capsule, extended release TAKE 1 CAPSULE BY MOUTH EVERY DAY IN THE MORNING Start Date: 06/06/23 Status: Ordered levothyroxine 0.05 mg oral tablet 1 tablet, By Mouth, Daily, # 90 tablet, 1 Refills, Maintenance, 12/16/22 13:33:00 EST, [facility] #[id number], 168, cm, 10/02/22 16:44:00 EST, Height Start Date: 12/16/22 Status: Ordered Multivitamin 1 tablet, By Mouth, Daily in AM, 0 Refills, Maintenance, 08/29/16 11:50:58 Start Date: 08/29/16 Status: Ordered naproxen 500 mg oral tablet See Instructions, TAKE 1 TABLET BY MOUTH TWICE DAILY FOR 10 DAYS, # 20 tablet, 0 Refills, Acute, [facility] #09556, 168, cm, 11/29/20 16:54:00 EST, Height, 106.5, kg, 07/06/20 9:20:00 EDT, Dry Weight Start Date: 02/20/21 Status: Ordered ProAir HFA 90 mcg/inh inhalation aerosol with adapter 2, puffs, Inhalation, Every 4 hours, PRN, # 8.5 Gm, Refills 1, Tot. Refills 1, Maintenance, 12/19/16 15:25:46, Aerosol, Route to Pharmacy Electronically, [id number], [facility] [address]247 Start Date: 12/19/16 Status: Ordered venlafaxine 25 [...] Team Personnel Name: Tiffanie Arzate RN Position: [facility] AMB Nurse Member Role: Primary Care Nurse Name: Kwame White Position: [facility] PCO Associate Professional Member Role: PCP Address: Address: [address] [place] [address] [place] [address]- Care Team Related Persons Name: FELIX HARO Address: home [address] [place] [address]
--- OUTSIDE RECORDS SUMMARY | 2024-05-07 15:45 | XMS_ITS | Continuity of Care Document ---
Author Organization [facility] Address [address] [place] [address]- Care Team Providers Care Plug Cutter Name Role Phone Kwame White Primary Care Physician Encounter [facility] Date(s): 11/01/22 - 12/01/22 [facility] [address] [place] [address]- Allergies, Adverse Reactions, Alerts Substance Reaction Severity [...] Given tetanus/diphtheria/pertussis, acel(Tdap) 11/10/08 Recorded 1Result Comment: [facility] [id number] Medications Mayela 180 mg oral tablet 1 tablet = 180 mg, By Mouth, Daily, # 30 tablet, 0 Refills, Maintenance, Tablet Start Date: 07/05/12 Status: Ordered Clobetasol (Eqv-Temovate) 0.05% topical cream See Instructions, APPLY TOPICALLY TO THE AFFECTED AREA TWICE DAILY APPLY 2 TIMES DAILY FOR UP TO 2 WEEKS, # 60 Gm, 0 Refills, Maintenance, 08/12/22 21:45:00 EDT, [facility] #[id number], 25, APPLY TOPICALLY TO THE AFFECTED AREA [...] tablet, 0 Refills, Maintenance, 05/24/22 14:54:00 EDT, [facility] #[id number], 168, cm, 12/27/21 15:53:00 EST, Height, 106.5, kg, 07/06/20 9:20:00 EDT, Dry Weight Start Date: 05/24/22 Status: Ordered levothyroxine 0.05 mg oral tablet 1 tablet, By Mouth, Daily, # 90 tablet, 1 Refills, Maintenance, 08/27/22 9:13:00 EDT, [facility] #[id number], 168, cm, 06/18/22 10:21:00 EDT, Height Start Date: 08/27/22 Status: Ordered Multivitamin 1 tablet, By Mouth, Daily in AM, 0 Refills, Maintenance, 08/29/16 11:50:58 Start Date: 08/29/16 Status: Ordered naproxen 500 mg oral tablet See Instructions, TAKE 1 TABLET BY MOUTH TWICE DAILY FOR 10 DAYS, # 20 tablet, 0 Refills, Acute, [facility] #[id number], 168, cm, 11/29/20 16:54:00 EST, Height, 106.5, kg, 07/06/20 9:20:00 EDT, Dry Weight Start Date: 02/20/21 Status: Ordered pramipexole 0.125 mg oral tablet See Instructions, TAKE 1 TABLET BY MOUTH 2 HOURS BEFORE RESTLESS LEG SYMPTOMS START, # 30 tablet, 0Refills, Maintenance, 10/27/22 10:26:00 EST, [facility] #[id number], 168, cm, 10/02/22 16:44:00 EST, Height Start Date: 10/27/22 Status: Ordered ProAir HFA 90 mcg/inh inhalation aerosol with adapter 2, puffs, Inhalation, Every 4 hours, PRN, # 8.5 Gm, Refills 1, Tot. Refills 1, Maintenance, 12/19/16 15:25:46, Aerosol, Route to Pharmacy Electronically, [id number], [id number] Start Date: 12/19/16 Status: Ordered Problem List [...] Team Personnel Name: Tiffanie Arzate RN Position: [facility] AMB Nurse Member Role: Primary Care Nurse Name: Kwame White Position: [facility] PCO Associate Professional Member Role: PCP Address: Address: [address] [place] [phone]- Care Team Related Persons Name: POLLO APPLEMOON FELIX Address: [address] [place] [address]
--- OUTSIDE RECORDS SUMMARY | 2024-05-07 15:45 | XMS_ITS | Continuity of Care Document ---
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 Offset Printing Operator Name Role Phone Ralf MICHAELS, Artemio Torres Primary Care Physician [phone] Encounter [facility] Date(s): 12/23/23 - 12/24/[address] [id number] Discharge Disposition: A-Transfer VNA/Home Health Attending Physician: Sharad Birmingham MD Admitting Physician: [...] Given tetanus/diphtheria/pertussis, acel(Tdap) 11/10/08 Recorded 1Result Comment: [facility] [place] [id number] Medications acetaminophen 325 mg oral tablet 650 [...] Gm, 0 Refills, Maintenance, 08/12/22 21:45:00 EDT, [facility] #[id number], 25, APPLY TOPICALLY TO THE AFFECTED AREA [...] opioid drug. Start Date: 12/08/23 Status: Ordered cyclobenzaprine 10 mg oral tablet 10 mg, Tablet, By Mouth, 12/24/23 9:00:00 EST Start Date: 12/24/23 Stop Date: 12/24/23 Status: Completed Eliquis 2.5 mg oral tablet 1 tablet = 2.5 mg, By Mouth, 2 times a day, # 60 tablet, 0 Refills, Maintenance, 12/24/23 7:45:00 EST, Tablet, [facility], Partial fill upon patient request if the prescription is for aschedule II opioid drug., 165.1, cm, 12/24/23 7:11:... Start Date: 12/24/23 Stop Date: 01/23/24 Status: Ordered escitalopram 20 mg oral tablet 1 tablet, By Mouth, Daily, # 90 tablet, 0 Refills, Maintenance, 05/24/22 14:54:00 EDT, [facility] #[id number], 168, cm, 12/27/21 15:53:00 EST, Height, 106.5, kg, 07/06/20 9:20:00 EDT, Dry Weight Start Date: 05/24/22 Status: Ordered Flomax 0.4 mg oral capsule 0.4 mg, By Mouth, Daily, # 30 capsule, Refills 0, Tot. Refills 0, Maintenance, 12/24/23 7:46:00 EST, Route to Pharmacy Electronically, [facility], Partial fill upon patient request if [...] tablet, 1 Refills, Maintenance, 12/16/22 13:33:00 EST, [facility] #[id number], 168, cm, 10/02/22 16:44:00 EST, Height Start Date: 12/16/22 Status: Ordered MiraLax Powder 1 pack/packet = 17 Gm, By Mouth, Daily, PRN Constipation, 0 Refills, Maintenance, 12/24/23 7:50:00 EST, Powder, Partial fill upon patient request if the prescription is for a schedule II opioid drug. Start Date: 12/24/23 Status: Ordered oxyCODONE 5 mg oral tablet See Instructions, PRN, 0.5-1 tablet By Mouth Every 3 hours, # 56 tablet, Refills 0, Tot. Refills 0,Acute 12/31/23 7:47:00 EST, Pain , Severe, 12/24/23 7:47:00 EST, Instructions Replace Required Details, Route to Pharmacy Electronically, [facility]... Start Date: 12/24/23 Stop Date: 12/31/23 Status: Ordered oxyCODONE 5 mg oral tablet 10 mg, Tablet, By Mouth, Every 3 hours for 7 days, PRN for Pain , Severe, Routine, 12/23/23 9:32:00EST, Stop date 12/30/23 9:31:00 EST Start Date: 12/23/23 Stop Date: 12/24/23 Status: Discontinued pantoprazole 40 mg oral delayed release tablet = 40 mg, By Mouth, Daily, 0 Refills, Maintenance, 12/24/23 7:50:00 EST, EC Tablet Start Date: 12/24/23 Status: Ordered ProAir HFA 90 mcg/inh inhalation aerosol with adapter 2, puffs, Inhalation, Every 4 hours, PRN, # 8.5 Gm, Refills 1, Tot. Refills 1, Maintenance, 12/19/16 15:25:46, Aerosol, Route to Pharmacy Electronically, [id number], [facility] [id number] Start Date: 12/19/16 Status: Ordered senna 187 mg oral tablet 1 tablet = 8.6 mg, By Mouth, Daily at bedtime, PRN as needed for constipation, 0 Refills, Maintenance, 12/24/23 7:50:00 EST, Tablet, Partial fill upon patient request if the prescription is for a schedule II opioid drug. Start Date: 12/24/23 Status: Ordered traMADol 50 mg oral tablet See Instructions, PRN Pain , Mild, 1-2 tablets By Mouth Every 6 hours not to exceed 400 mg/day, # 56 tablet, 0 Refills, Acute 12/31/23 7:46:00 EST, 12/24/23 7:46:00 EST, Tablet, [facility], Partial fill upon patient request if the pres... Start Date: 12/24/23 Stop Date: 12/31/23 Status: Ordered venlafaxine 50 mg oral tablet [...] Confirmed Active Restless leg syndrome Confirmed Active Results Radiology Reports * Exam Date Time Procedure Performing Provider Status 12/23/23 10:01 AM Pelvis 1 or 2 Views Germaine Gomes; Auth (Verified) Notes: (Pelvis 1 or 2 Views) Reason For Exam: Postop Prosthesis RESULT: Pelvis 1 or 2 Views AP pelvis dated December 23, 2023. Comparison films are from July 06, 2012. HISTORY: Right hip replacement. FINDINGS: A total hip arthroplasty is present on the right. Alignment is anatomic. There is a stable total hip arthroplasty on the left also in anatomic alignment. IMPRESSION: Interval placement of a right hip arthroplasty. Alignment is anatomic. Examination 954[address]. Thank you for allowing me to participate in the care of this patient. WSN: [id number] Ordering Physician: Mike Khan V Dictated By: Shubham Lira MD Dictated Date/Time: 12/23/23 11:14 a Reviewed By: Shubham Lira MD Signed By: Shubham Lira MD Signed Date/Time: 12/23/23 11:14 am Transcribed By: TAWANDA Transcribed Date/Time: 12/23/23 11:14 am Vital Signs Most recent to oldest [Reference Range]: 1 2 3 Height 165.1 cm (12/24/23 7:11 AM) 165.1 cm (12/24/23 3:58 AM) 165.1 cm (12/23/23 11:46 PM) Weight 85.3 kg (12/23/23 3:03 PM) Oxygen Saturation [94-100 %] 100 % (12/24/23 7:11 AM) 100 % (12/24/23 3:58 AM) 100 % (12/23/23 11:46 PM) Pulse Rate [55-90 bpm] 73 bpm (12/24/23 7:11 AM) 64 bpm (12/24/23 3:58 AM) 63 bpm (12/23/23 11:46 PM) Body Mass Index [18.5-24.99 kg/m2] 31.29 kg/m2 *>HHI* (12/23/23 3:03 PM) Blood Pressure [90-138/55-84 mm Hg] 144/47mm Hg *H* (12/24/23 7:11 AM) 110/60mm Hg (12/24/23 3:58 AM) 118/68mm Hg (12/23/23 11:46 PM) Respiratory Rate [16-30 br/min] 18 br/min (12/24/23 10:30 AM) 18 br/min (12/24/23 9:06 AM) 20 br/min (12/24/23 8:06 AM) Temperature [96.8-100.4 DegF] 98.8 DegF (12/24/23 7:11 AM) 98.1 DegF (12/24/23 3:58 AM) 98.2 DegF (12/23/23 11:46 PM) Mode of Delivery (Oxygen) Room air (12/24/23 7:11 AM) Room air (12/24/23 3:58 AM) Room air (12/23/23 11:46 PM) Blood pressure sites Arm, left (12/24/23 7:11 AM) Arm, left (12/24/23 3:58 AM) Arm, left (12/23/23 11:46 PM) Temperature Route Oral (12/24/23 7:11 AM) Oral (12/24/23 3:58 AM) Oral (12/23/23 11:46 PM) Dry Weight 85.3 kg (12/23/23 3:03 PM) 85.3 kg (12/23/23 6:11 AM) Social History Social History Type Response Smoking Status Never smoker entered on: 01/12/15 Sex History and physical note * Event Display: History and Physical Hospital Authored Date: [id number] * Event Display: History and Physical Hospital Authored Date: [id number] SURGICAL HISTORY AND PHYSICAL DATE: 12/23/2023 PRIMARY DIAGNOSIS: Osteoarthritis of the right hip. REASON FOR ADMISSION: The patient is being admitted for right total hip arthroplasty on 12/23/[address] Birmingham. HISTORY OF PRESENT ILLNESS: Mr. Davis is a 53-year-old gentleman, who presents today for evaluation of right sided hip pain prior to his right total hip arthroplasty with Dr. Birmingham. He has had this pain now for several months. The pain is localized in the right groin and buttock. He takes tramadol currently for discomfort, which was prescribed last by [facility] provider. He has tried ibuprofen and conservative management with no relief. His pain level is 9/10. He reports significant limitations in activities of daily living including putting on shoes and socks and going up and down stairs, usesa cane. He reports a limp. He is status post left total hip arthroplasty by Dr. Birmingham in 2011, which the patient states went very well and he is happy with results. PAST MEDICAL HISTORY: 1. Osteoarthritis of the right hip. 2. ADHD. 3. Asthma. 4. Eczema. 5. GERD. 6. Hemorrhoids. 7. History of left total hip arthroplasty. 8. Hyperlipidemia. 9. Hypothyroidism. 10. Intestinal malabsorption. 11. Obesity with a current BMI of 29.76. He underwent a gastric sleeve. 12. Obstructive sleep apnea, which he does not wear his CPAP machine. 13. Posttraumatic stress disorder. 14. Prostatic hypertrophy. 15. Restless leg syndrome. 16. Status post gastric sleeve procedure. PAST SURGICAL HISTORY: 1. Anal fissurectomy. 2. Hip arthroplasty in [address] Birmingham. 3. Lumbar diskectomy in 2007. 4. Adenoidectomy. 5. Transurethral resection of the prostate. 6. Gastric sleeve. CURRENT MEDICATIONS: 1. Mayela 180 mg tablet daily in the morning. 2. Clobetasol 0.05% topical cream as needed. 3. Cyclobenzaprine 10 mg tablet t.i.d. as needed for muscle spasms. 4. Escitalopram 20 mg tablet daily in the morning. 5. Focalin 30 mg capsule extended release, which he states he takes 15 mg, but is currently not taking as he has having insurance prior authorization issues. 6. Levothyroxine 0.05 mg tablet daily in the morning. 7. ProAir 90 mcg inhaler 2 puffs every 4 hours as needed. 8. Tramadol 50 mg tablet p.r.n. 9. Venlafaxine 50 mg tablet daily in the morning. ALLERGIES: 1. BEE STINGS. 2. CATS. 3. DOGS. 4. DUST. 5. GRASS. 6. MITES. 7. MOLD. 8. ENVIRONMENTAL. 9. PINE TREE. 10. POLLEN. 11. SHELLFISH, which causes hives and difficulty breathing. SOCIAL HISTORY: The patient is . 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 He states he has an occasional alcoholic beverages about 1-2 times a week. He denies tobacco use. He denies illicit drug use. PHYSICIAN: Patient's primary care physician is Artemio Arambula, who is a nurse practitioner. REVIEW OF SYSTEMS: The patient's 12-point review of system is negative with the exception of HPI. He does state that he has some occasional back pain. PHYSICAL EXAMINATION: VITAL SIGNS: Height is 5 feet 5 inches, weight is 185 pounds. Temperature is 96.3, blood pressure is 150/87 and pulse 78 beats per minute. GENERAL: Alert and oriented. Normal insight, affect, and grooming. SKIN: Intact without rash or lesions. Nails without clubbing or cyanosis. HEENT: Normocephalic. Conjunctivae pink. Sclerae are anicteric. NECK: Supple. Trachea midline. No lymphadenopathy. LUNGS: Clear to auscultation bilaterally. Breathing is unlabored. HEART: Regular rate and rhythm with a normal S1, S2. No murmurs, rubs or gallops appreciated. ABDOMEN: Soft, nontender with normal bowel sounds. EXTREMITIES: The patient has a negative straight leg raise test bilaterally. Right hip limited and painful range of motion with pain referred to the groin. No trochanteric tenderness. Left hip painless range of motion. No trochanteric tenderness. He has an antalgic gait that favors the right side. He has full strength and sensation distally. He is ambulating with a cane. PREOPERATIVE DIAGNOSTIC DATA: X-rays of the pelvis demonstrate end-stage osteoarthritis of the right hip. There is deee-ow-[id number] articulation, subchondral sclerosis and osteophyte formation. EKG performed at the medicine preoperative clinic showed normal sinus rhythm with a heart rate of 92. There was no significant changes found when compared to the prior EKG. LABORATORY DATA: CBC, coags and chemistries were reviewed and are satisfactory for surgery. Hemoglobin A1c was 5.6. His creatinine was 0.9 and his GFR was 102. ASSESSMENT AND PLAN: The patient has advanced osteoarthritis of the right hip and is now scheduled for right total hip arthroplasty by Dr. Birmingham on 12/23/2023. He was seen by the medicine preop clinic, who deemed him to be a low cardiovascular and a low pulmonary risk. He does have untreated SYED, so we will monitor end tidal CO2 and O2 monitoring. He states that he has used a BiPAP in the past, but he no longer uses it as he has had a large weight loss since his bariatric surgery. Per medicine, there is no absolute medical contraindications identified with proceeding with surgery. He will receive IV TXA and will be placed on Eliquis 2.5 mg b.i.d. for 30 days for DVT prophylaxis. Discharge plans will be to home with services. The patient would like to stay overnight after his surgery. He has been counseled regarding the risks and benefits of the proposed procedure. His questions have been answered and he acknowledges understanding. The patient wished to proceed with a right total hip arthroplasty with Dr. Birmingham on 12/23/2023. CONTACTS: His , Felix at [phone]. Prescription given at the time of the history and physical include Colace, pantoprazole and Celebrex. He will require prescription for pain medication and Eliquis at the time of discharge. Dictated by: Russel Burns N.P. Signing Clinician: Sharad Birmingham M.D. Dictated: 12/12/2023 08:35:30 Transcribed: 03:03:32 AM Transcribed by: DIANE/SERENA DocID: [id number] PRELIMINARY REPORT UNLESS MANUALLY/ELECTRONICALLY SIGNED Cardiology * Event Display: Cardiac Rhythm Strips Authored Date: Hospital Progress note * Raji Concepcion RN: PERFORM, SIGN, VERIFY Event Display: Progress Note Hospital Authored Date: Patient: MAC DAVIS Age: 53 years Sex: Male : 1970 Associated Diagnoses: None Author: Jamey RODRIGUEZ, Raji Findings Problem Related to Alteration in Musculoskeletal : Alteration in Musculoskeletal Func/new 12/24/2023 8:00 EST Alteration in Musculoskeletal Related to Mobility, Orthopedic Procedure, Total joint replacement, Other: R THR 12/[address] Birmingham Goals & Outcomes, Musculoskeletal Affected extremity will maintain color/motion/sensation, Pt able to perform ADL's to best of ability, Pt demonstrates precautions/exercise/ transfers per protocol, Pt will ambulate safely with assistive device, Pt will be free from complications of immobility, Pt will demonstrate ability to participate in ADL's, Pt will report acceptable level of comfort/painrelief Interventions, Musculoskeletal Monitor patients ambulation status, monitor Color/Motion/Sensation, Assist with repositioning, Encourage deep breathing & coughing exercises, Teach & Encourage use of Incentive spirometer, Teach Pt/caregiver on ADL's & adaptive equipment, Teach Pt/caregiver on exercises, Teach pt/caregiver on use of pain scale, Teach Pt/caregiver complications of immobility, Teach Pt/caregiver techniques to increase mobility, Teach Pt/caregiver on safety precautions BH Goals/Interventions, Musculoskeletal Yes Musculoskeletal, Problem Start 12/23/2023 22:21 Reviewed Plan with, Musculoskeletal Patient Patient Progression, Musculoskeletal Pt progressing according to plan . Narrative/Incidental P: Alteration in musculoskeletale I: See interventions listed above E: R THR 12/23 w/ Dr. Birmingham. +ve CMS, +ve DP. R hip aquacel. Ax1 OOB RW. Last BM 12/22. Eliquis for DVT. Oxy10 PRN. Eliquis for DVT. PT/OT cleared for home. Mart d/c'd @ 6am, DTV @ 12pm, than able jose d/c'd. . Evaluation Pt A&O x4. VSS. Medicated per DEC. R THR 12/23 w/ Dr. Birmingham. +ve CMS, +ve DP. R hip aquacel, CDI. Ax1 OOB RW. Last BM 12/22. Eliquis for DVT. Oxy10 PRN. Eliquis for DVT. PT/OT cleared for home. Mart d/c'd @ 6am, DTV @ 12pm, than able to be d/c'd. All safety maintained.. Discharge Information Case Management Discharge Plan : Case Management Discharge Plan Data 12/23/2023 15:09 EST Discharge Level of Care at Discharge Homehealth/VNA Discharge VNA/Hospice/Home Care [facility] [phone] Name of Agency #1 [facility] Comments #1 A referral was made to [facility] for home services. Someone will contact you to arrange a visit once you have been discharged home. If you do not hear from anyone, please contact the agency Rehabilitation Discharge : Rehab Discharge Index 12/23/2023 15:08 EST Comments on treatment indicated OT to address ADL's, transfers, safety, precautions, AE edu Full chart review completed Yes Hospital course PROCEDURE Pt s/p right total hip arthroplasty on 12/23/[address] Birmingham. Transfer tub/shower OT Plan Supervision 12/23/2023 15:03 EST Comments on treatment indicated 53 yo M s/p R PILI with Dr. Birmingham on 12/23/23. RLE WBAT with posterior THPs. Skilled PT for transfers, gait with RW, therex, stairs. Rec home with services Walker: distance 20-50 Distance pt will ambulate 100ft with RW Full chart review completed Yes Hospital course Hospital course Other findings see comment Plan of care PT Gait training, Transfer training, Therapeutic exercise, Functional Activities, Balance training, Neuromuscular education * Jelena Oreilly DO: PERFORM, SIGN, VERIFY Event Display: Progress Note Hospital Authored Date: Patient: MAC DAVIS Age: 53 years Sex: Male : 1970 Associated Diagnoses: None Author: Jelena Oreilly DO Block Information Procedure Date: 12/23/23 Laterality: N/A Type:spinal Injection Site: Bruising:none Redness:none Swelling:none Tenderness:none Block site: clean and dry Block Duration: Block length of time: unknown Motor Blockade: resolved Sensory Blockade: resolved Patient Satisfaction: Were you satisfied with your block/procedure? yes Would you have a block/procedure in the future? yes Patient Follow-up: None, Block Resolved * Dangelo RODRIGUEZ, Sharad Ashby: PERFORM, SIGN, VERIFY Event Display: Progress Note Hospital Authored Date: Patient: MAC DAVIS Age: 53 years Sex: Male : 1970 Associated Diagnoses: None Author: Dangelo RODRIGUEZ, Sharad Ashby Findings Problem Related to Alteration in Musculoskeletal : Alteration in Musculoskeletal Func/new 12/23/2023 18:00 EST Alteration in Musculoskeletal Related to Mobility, Orthopedic Procedure, Total joint replacement, Other: s/p R THR 12/23 Goals & Outcomes, Musculoskeletal Affected extremity will maintain color/motion/sensation, Pt able to perform ADL's to best of ability, Pt demonstrates precautions/exercise/ transfers per protocol, Pt will ambulate safely with assistive device, Pt will be free from complications of immobility, Pt will demonstrate ability to participate in ADL's, Pt will report acceptable level of comfort/painrelief Interventions, Musculoskeletal Monitor patients ambulation status, monitor Color/Motion/Sensation, Assist with repositioning, Encourage deep breathing & coughing exercises, Notify MD immediately if tissue perfusion deteriorates, Teach & Encourage use of Incentive spirometer, Teach pt/caregiver on use of pain scale, Teach Pt/caregiver complications of immobility, Teach Pt/caregiver techniques to increase mobility, Teach Pt/caregiver on safety precautions, Incision care as ordered, Assistpt out of bed keeping legs abducted at all times, Avoid extreme internal and/or external rotation, Maintain hip in abduction/neutral/slight ext. rotation, [place] Pt/caregiver to Total Hip Replacementprotocol, Instruct pt on gait training Goals/Interventions, Musculoskeletal Yes Musculoskeletal, Problem Start 12/23/2023 18:12 Reviewed Plan with, Musculoskeletal Patient Patient Progression, Musculoskeletal Plan Initiation . Nursing Data Vital Signs : VITAL SIGNS SECTION 12/23/2023 18:46 EST Temperature 98.2 DegF Temperature Route Oral Pulse Rate 79 bpm Respiratory Rate 18 br/min Systolic Blood Pressure 137 mm Hg Diastolic Blood Pressure 83 mm Hg Blood pressure sites Arm, left Mean Arterial Pressure 101 mm Hg Pulse Pressure 54 mm Hg Oxygen Saturation 100 % Mode of Delivery (Oxygen) Room air . Narrative/Incidental Pt A+Ox3, VSS. Lung sound clear, incentive spirometer encouraged, pt denies any SOB or chest pain. Abdomen s/nt/nd, +BS, LBM 12/22. Pt has a coude cath in place draining cyu, ready wipes done per protocol. Cboots on and pt to start eliquis in the AM for DVT prophylaxis. Evaluation P: Alteration in Musculoskeletal I: Interventions in care plan E: Pt OOB 1 assist with the walker, +PP, +CMS, +D/P. Ablock and ice in place. Pt given 10mg oxy forpain. Will continue to monitor pt for pain and continue to monitor CMS. Discharge Information Case Management Discharge Plan : Case Management Discharge Plan Data 12/23/2023 15:09 EST Discharge Level of Care at Discharge Homehealth/VNA Discharge VNA/Hospice/Home Care [facility] [phone] Name of Agency #1 [facility] Comments #1 A referral was made to [facility] for home services. Someone will contact you to arrange a visit once you have been discharged home. If you do not hear from anyone, please contact the agency Rehabilitation Discharge : Rehab Discharge Index 12/23/2023 15:08 EST Comments on treatment indicated OT to address ADL's, transfers, safety, precautions, AE edu Full chart review completed Yes Hospital course PROCEDURE Pt s/p right total hip arthroplasty on 12/23/[address] Birmingham. Transfer tub/shower OT Plan Supervision 12/23/2023 15:03 EST Comments on treatment indicated 53 yo M s/p R PILI with Dr. Birmingham on 12/23/23. RLE WBAT with posterior THPs. Skilled PT for transfers, gait with RW, therex, stairs. Rec home with services Walker: distance 20-50 Distance pt will ambulate 100ft with RW Full chart review completed Yes Hospital course Hospital course Other findings see comment Plan of care PT Gait training, Transfer training, Therapeutic exercise, Functional Activities, Balance training, Neuromuscular education Consult note * Mariana REY, Rob Delacruz: PERFORM Event Display: Consultation Note Authored Date: [id number] Patient: ??MAC DAVIS ? Age:??53 Years?Sex:??Male?:??1970?? Chief Complaint/Reason for Consultation Urinary retention/difficult??urinary catheter. History of Present Illness LOS: 0?? PCP: Ralf??Artemio MICHAELS Consulting Physician: Amanda Pinto NP Attending Physician: Rl??Anil FINNEGAN Reason For Consult: Urinary Retention ?? This is a 53-year-old male with a past medical history of BPH (status post TURP around 5 years ago at [facility]), now postop day 0 right hip arthroplasty??seen in consult for urinary retention and difficult??urinary catheter.?? He was under spinal sedation, and postoperatively was unable to void.?? He was bladder scanned for greater than 750 cc of urine.?? At the time of my exam, he denied any suprapubic distention, or discomfort.?? His vital signs were stable, no recent laboratory data. Review of Systems Constitutional:??No weight loss, fever, chills, weakness or fatigue. Respiratory:??No shortness of breath, cough or sputum production. Cardiovascular:??No chest pain, chest pressure or chest discomfort. No palpitations or pedal edema. Gastrointestinal:??No anorexia, nausea, vomiting or diarrhea. No abdominal pain or blood in stool. Genitourinary:??No burning micturition, hematuria, discharge,??urinary frequency or incontinence. Neurologic:??No headache, dizziness, syncope, bladder sensation loss. Objective Measurements?? Dry Weight: 85.3 kg (12/23/23) ?? Vital Signs?? Temperature: 97 DegF (12/23/23 09:00:00) Temperature Route: Temporal (12/23/23 09:00:00) Normothermic Measures: Niels rauscher (12/23/23 09:00:00) Pulse Rate: 60 bpm (12/23/23 06:11:00) Heart Rate Monitored: 60 bpm (12/23/23 11:45:00) Respiratory Rate:??14 br/min??Low (12/23/23 11:45:00) Systolic Blood Pressure: 107 mm Hg (12/23/23 11:45:00) Diastolic Blood Pressure: 64 mm Hg (12/23/23 11:45:00) Blood pressure sites: Arm, right (12/23/23 11:00:00) Mean Arterial Pressure: 108 mm Hg (12/23/23 06:11:00) Oxygen Saturation: 94 % (12/23/23 11:45:00) Mode of Delivery (Oxygen): Room air (12/23/23 10:00:00) ? Pain Scores 1 - 10 Pain Scale Score: 8 (06:11) ? Intake/Output? No Data Available ? Physical Exam Constitutional: Alert, in no distress. Mental Status: Oriented to person, place and time. Respiratory: Equal and unlabored respiratory effort. Gastrointestinal: Abdomen soft, non-tender, non-distended. Normal bowel sounds. No pulsatile mass. No hepatosplenomegaly. Genitourinary: No costovertebral angle tenderness. Assessment/Plan BPH with urinary obstruction (N40.1):?? Urinary retention (R33.9):??This is a 53-year-old male with a past medical history of BPH (status post TURP around 5 years ago at [facility]), now postop day 0 right hip arthroplasty seenin consult for urinary retention and difficult urinary catheter. Nursing unable to place catheter. He has greater than 750 cc retained. In sterile fashion, I was able to advance a 18 Lao coud?? catheter into the bladder all the way to the hub. There was immediate return of clear yellow urine. Patient tolerated the procedure well, he had no complaints post procedurally. He has a history of BPH,status post TURP as above, he has not followed up with his urologist, and is not on Flomax, nor jose alfredo steride. If clinically amenable, he should be started on Flomax 0.4 mg, and when more mobile can have a trial of void. I will place a outpatient referral to follow-up at [facility] urology. Urology will now sign off. ?? This patient was discussed with attending physician Dr. Shine. Histories Allergies Allergies ?(Active and Proposed Allergies Only) Other Environmental Allergy? (Severity: Unknown severity, Onset: Unknown) ?Reactions: pine tree, sneezing Pollen? (Severity: Unknown severity, Onset: Unknown) ?Reactions: sneezing Mold? (Severity: Unknown severity, Onset: Unknown) ?Reactions: Bee sting, sneezing Mites? (Severity: Unknown severity, Onset: Unknown) ?Reactions: sneezing Grass? (Severity: Unknown severity, Onset: Unknown) ?Reactions: sneezing Dust? (Severity: Unknown severity, Onset: Unknown) ?Reactions: sneezing Dogs? (Severity: Unknown severity, Onset: Unknown) ?Reactions: sneezing itchy Cats? (Severity: Unknown severity, Onset: Unknown) ?Reactions: sneezing itchy Bee Stings? (Severity: Unknown severity, Onset: Unknown) ?Reactions: allergy tested positive shellfish? (Severity: Unknown severity, Onset: Unknown) ?Reactions: hives breathing difficulty ? Past Medical History/Problem List Active Problems??(15) ADHD (attention deficit hyperactivity disorder)- by history per psych note Asthma Eczema GERD (gastroesophageal reflux disease) Hemorrhoids History of left hip replacement Hyperlipidemia Hypothyroidism Intestinal malabsorption Obesity (BMI 30-39.9) Obstructive sleep apnea Posttraumatic stress disorder Prostatic hypertrophy Restless leg syndrome S/P gastric sleeve procedure ? Past Surgical History Anal fissurectomy: 01/2013 Hip replacement: 06/2012 Lumbar discectomy: 2007 Adenoidectomy: 1979 TURP - Transurethral resection of prostate Gastric sleeve ? Social History Alcohol Details:??Use: Current. ??Frequency: 1-2 times per week. ??Type: Wine. Employment/School Details:??Status: Employed. Exercise Details:??Self assessment: Good condition. ??Regular exercise: Yes. ??Exercise frequency: 5-6 times/week. Home/Environment Details:??Living situation: Home/Independent. ??Lives with: Children, Spouse. Nutrition/Health Details:??Diet: Calorie restricted, Low sodium. ??Caffeine intake amount: 1 cup of coffee daily. Sexual Details:??Sexually involved in last 6 months: No. Substance Abuse Details:??Use: Current. ??Type: Marijuana. ??Previous treatment: None. Tobacco Details:??Never smoker Electronic Cigarette/Vaping Details:??Electronic Cigarette Use: 1-25 inhales/day. ??Type: Cannabinoid infused. ? Family History Mother: Arthritis; COPD; Hypertension Father: Stroke Sister: Anemia; Asthma; Depression; Hypothyroidism Brother: Cancer; Diabetes mellitus type II; Hypercholesterolemia; Lymphoma ? Medications Home Medications Albuterol (ProAir HFA 90 mcg/inh inhalation aerosol with adapter)?2?puff(s)?Inhalation?Every 4 hours?as needed?for wheezing Clobetasol Topical (Clobetasol (Eqv-Temovate) 0.05% topical cream)?See Instructions?APPLY TOPICALLY TO THE AFFECTED AREA TWICE DAILY APPLY 2 TIMES DAILY FOR UP TO 2 WEEKS Cyclobenzaprine (cyclobenzaprine 10 mg oral tablet)?10?Milligram?1?tablet?By Mouth?3 times a day?as needed?Spasm for spasm Dexmethylphenidate (Focalin XR 30 mg oral capsule, extended release)?TAKE 1 CAPSULE BY MOUTH EVERY DAY IN THE MORNING Docusate (Colace sodium 100 mg oral capsule)?100?Milligram?1?capsule?By Mouth?2 times a day Escitalopram (escitalopram 20 mg oral tablet)?1?tab(s)?By Mouth?Daily Fexofenadine (Mayela 180 mg oral tablet)?1?tab(s)?180?Milligram?By Mouth?Daily Levothyroxine (levothyroxine 0.05 mg oral tablet)?1?tab(s)?By Mouth?Daily Multivitamin?1?tab(s)?By Mouth?Daily in AM Naproxen (naproxen 500 mg oral tablet)?See Instructions?TAKE 1 TABLET BY MOUTH TWICE DAILY FOR 10 DAYS Tramadol (traMADol 50 mg oral tablet)?TAKE 1 TABLET EVERY 4 - [address] DRIVE WHILE TAKING THIS MEDICATION Venlafaxine (venlafaxine 50 mg oral tablet)?TAKE 1 TABLET BY MOUTH EVERY DAY IN THE MORNING ? Results Recent Labs No labs resulted between 12/22/2023 00:00 and 12/23/2023 13:13? Note * Raji Concepcion RN: PERFORM Event Display: Discharge/Transfer Note Hospital Authored Date: [id number] Nursing Discharge Note Entered On: 12/24/2023 13:14 EST Performed On: 12/24/2023 13:14 EST by Raji Concepcion RN Nursing Discharge Note 2 Discharge Time : 12/24/2023 13:14 EST Discharge Level of Care at Discharge : Homehealth/VNA Discharge VNA/Hospice/Home Care(v001) : [facility] [phone] Patient Left Unit Via : Wheelchair Patient Accompanied Off Unit with : Responsible adult DC Instructions Provided & Signed by Pt : Yes Patient Understands D/C Instructions : Yes Patient Instructions Discharge Signed : Yes Did Pt have Specialty Bed or Wound Vac : No Raji Concepcion RN - 12/24/2023 13:14 EST * Andie Pinto NP: PERFORM, SIGN, VERIFY Event Display: Discharge/Transfer Note Hospital Authored Date: [id number] Patient: MAC DAVIS Age: 53 years Sex: Male : 1970 Associated Diagnoses: None Author: Andie Pinto NP Discharge Summary Admission Date: 12/23/2023 Discharge Date: 12/24/2023 Admitting Diagnosis: Right hip osteoarthritis Discharge Diagnosis: Right hip osteoarthritis Final Diagnosis: Right hip osteoarthritis Procedure: Right total hip arthroplasty Surgeon: Dr. Sharad Birmingham Past Medical History: 1. Osteoarthritis of the right hip. 2. ADHD. 3. Asthma. 4. Eczema. 5. GERD. 6. Hemorrhoids. 7. History of left total hip arthroplasty. 8. Hyperlipidemia. 9. Hypothyroidism. 10. Intestinal malabsorption. 11. Obesity with a current BMI of 29.76. He underwent a gastric sleeve. 12. Obstructive sleep apnea, which he does not wear his CPAP machine. 13. Posttraumatic stress disorder. 14. Prostatic hypertrophy. 15. Restless leg syndrome. 16. Status post gastric sleeve procedure. Orthopedics: The patient is status post right total hip arthroplasty. It is anticipated that he will be discharged home today pending PT, OT clearance. The patient is doing well from a surgical standpoint. His incision is healing well. Neurovascular status is intact. Calves are supple and nontender. The patient is weight bearing as tolerated. Making good progress with Physical Therapy and Occupational therapy. Supervision with ambulation walking 30 feet, ambulating with a walker. Pain is well controlled on his current regimen, Acetaminophen 650 mg every 6 hours, Celebrex, tramadol and oxycodone 5-10 mg every 3 hours as needed . Patient is tolerating this well. He will be sent home with a pre scription for this medication. Prescription: Tramadol 50 mg tablets, take 1 to 2 tablets every 6 hours as needed for mild pain, 7 days, #56 Oxycodone 10 mg tablet, 0.5-1 tablet every 3 hours as needed for severe pain, 7 days # 56 Hospital course: Relatively uneventful medically. Patient developed postoperative urinary retention requiring Mart catheter placement by urology due to difficult insertion. Urology recommended starting patient on Flomax. Prescription for Flomax was given to the patient. Patient will be due to void prior to discharge. + bowel sounds. all morning bowel medications will be given in anticipation of a BM prior to discharge. No other issues. No calf tenderness. Current Medication List: Acetaminophen (acetaminophen 325 mg oral tablet) 650 Milligram By Mouth Every 6 hours May take OTC not to exceed 3000 mg/day Albuterol (ProAir HFA 90 mcg/inh inhalation aerosol with adapter) 2 puff(s) Inhalation Every 4 hours as needed for wheezing apixaban (Eliquis 2.5 mg oral tablet) 1 tab(s) 2.5 Milligram By Mouth 2 times a day for 30 Days Celecoxib (celecoxib 200 mg oral capsule) 200 Milligram By Mouth Daily Clobetasol Topical (Clobetasol (Eqv-Temovate) 0.05% topical cream) See Instructions APPLY TOPICALLYTO THE AFFECTED AREA TWICE DAILY APPLY 2 TIMES DAILY FOR UP TO 2 WEEKS Cyclobenzaprine (cyclobenzaprine 10 mg oral tablet) 10 Milligram 1 tablet By Mouth 3 times a day asneeded Spasm for spasm Dexmethylphenidate (Focalin XR 30 mg oral capsule, extended release) TAKE 1 CAPSULE BY MOUTH EVERY DAY IN THE MORNING Docusate (Colace sodium 100 mg oral capsule) 100 Milligram 1 capsule By Mouth 2 times a day Escitalopram (escitalopram 20 mg oral tablet) 1 tab(s) By Mouth Daily Fexofenadine (Mayela 180 mg oral tablet) 1 tab(s) 180 Milligram By Mouth Daily Levothyroxine (levothyroxine 0.05 mg oral tablet) 1 tab(s) By Mouth Daily Oxycodone (oxyCODONE 5 mg oral tablet) See Instructions as needed 0.5-1 tablet By Mouth Every 3 hours Pain , Severe Pantoprazole (pantoprazole 40 mg oral delayed release tablet) 40 Milligram By Mouth Daily Polyethylene Glycol 3350 (MiraLax Powder) 1 pack/packet 17 gram By Mouth Daily as needed Constipation Senna (senna 187 mg oral tablet) 1 tab(s) 8.6 Milligram By Mouth Daily at bedtime as needed as needed for constipation Tamsulosin (Flomax 0.4 mg oral capsule) 0.4 Milligram By Mouth Daily for 30 Days Tramadol (traMADol 50 mg oral tablet) See Instructions as needed Pain , Mild 1-2 tablets By Mouth Every 6 hours not to exceed 400 mg/day Venlafaxine (venlafaxine 50 mg oral tablet) TAKE 1 TABLET BY MOUTH EVERY DAY IN THE MORNING Allergies (Active and Proposed Allergies Only) Other Environmental Allergy (Severity: Unknown severity, Onset: Unknown) Reactions: pine tree, sneezing Pollen (Severity: Unknown severity, Onset: Unknown) Reactions: sneezing Mold (Severity: Unknown severity, Onset: Unknown) Reactions: Bee sting, sneezing Mites (Severity: Unknown severity, Onset: Unknown) Reactions: sneezing Grass (Severity: Unknown severity, Onset: Unknown) Reactions: sneezing Dust (Severity: Unknown severity, Onset: Unknown) Reactions: sneezing Dogs (Severity: Unknown severity, Onset: Unknown) Reactions: sneezing itchy Cats (Severity: Unknown severity, Onset: Unknown) Reactions: sneezing itchy Bee Stings (Severity: Unknown severity, Onset: Unknown) Reactions: allergy tested positive shellfish (Severity: Unknown severity, Onset: Unknown) Reactions: hives breathing difficulty Current Labs: BLOOD COUNT & DIFF WBC 8.6 k/mm3 () 12/24/2023 01:01 RBC 3.73 m/mm3 (Low) 12/24/2023 01:01 Hgb 11.7 Gm/dL (Low) 12/24/2023 01:01 Hct 34.3 % (Low) 12/24/2023 01:01 MCV 92.0 femtoliters () 12/24/2023 01:01 MCH 31.4 pg () 12/24/2023 01:01 MCHC 34.1 g/dL () 12/24/2023 01:01 Platelet Count 254 k/mm3 () 12/24/2023 01:01 RDW-SD 47.0 femtoliters (High) 12/24/2023 01:01 MPV 9.4 femtoliters () 12/24/2023 01:01 Nucleated RBC (Automated) 0.0 #/100 WBC'S () 12/24/2023 01:01 Abs. NRBC 0.0 k/mm3 () 12/24/2023 01:01 CHEM GENERAL Sodium 141 mmol/L () 12/24/2023 01:01 Potassium 4.3 mmol/L () 12/24/2023 01:01 Chloride 103 mmol/L () 12/24/2023 01:01 Bicarbonate Level 26 mmol/L () 12/24/2023 01:01 Anion Gap 12 () 12/24/2023 01:01 BUN 17 mg/dL () 12/24/2023 01:01 Creatinine-Blood 1.0 mg/dL () 12/24/2023 01:01 Estimated GFR Creatinine 96 ML/MIN/1.73 M2 () 12/24/2023 01:01 URINE OTHER Est Creatinine Clearance 74.31 mL/min () 12/24/2023 03:18 DVT prophylaxis Apixaban 2.5 mg po bid x 30 days Disposition: Anticipates being discharged today to home. Follow up at [facility] in 2 weeks, patient is aware of this. The patient has an Aquacel dressing in place. He may shower with it and the dressing can be discontinued on POD 14. Discharge Plan Discharge Disposition Discharge: home with VNA. Home Health Face to Face I certify that this patient is under my care and that I or an allowed non- physician practitioner working with me, had a [id number] encounter with the patient on this date: 12/24/2023. The encounter with the patient was in whole, or in part, for the following medical condition, whichis the primary reason for home health care: Osteoarthritis of right hip. Physical Therapy: Functional mobility training, Home exercise program to strengthen, increase ROM, Falls prevention training. Occupational Therapy: ADL Management, Fall prevention training, Energy conservation. Homebound due to: Inability to leave home without assistance/supervision, Inability to ambulate without assistance, Pain, decreased strength, and endurance, Unsteady gait, Impaired transfers, Inability to negotiate stairs. Physician Signature: Vinnie FINNEGAN, Sharad Concepcion RN, Raji: PERFORM Event Display: Patient Education/Instruction Authored Date: [id number] Inpatient Adult Discharge Instructions. [address] [address] Name: MAC DAVIS : 1970?? Visit: 12/23/2023 05:36?? Current Date: 12/24/2023 10:59 ?? Account: [id number]?? Inpatient Adult Discharge Instructions We would like to thank you for allowing us to assist you with your healthcare needs. The following includes patient education materials and information regarding your injury/illness. Our entire staffstrives to provide an excellent experience for our patients and their families. PLEASE ENSURE YOU FOLLOW-UP PER THE INSTRUCTIONS BELOW! ?? YOUR OPINION IS IMPORTANT TO US! Please complete the survey you may receive by mail or email. Your feedback will be used to make improvements to the healthcare experiences of our patients and their families. Surveys are administered by [employer] ?? If further treatment with your primary care physician or another doctor is recommended, it is important for you to keep the appointment. Call your primary care physician or return to the Emergency Department immediately if your condition worsens, fails to improve, or new symptoms develop. If you need to find a doctor, you can call [facility] [employer] Link for a referral at [phone] or toll free at [phone] or log in to [email or web address].. ?? [facility], in keeping with [facility] guidance, no longer requires face masks for staff, patientsor visitors in most situations. Similiar to time spent indoors at other locations, there is the chance that you were exposed to repiratory viruses during your time with us (such as flu or COVID-19). If you develop symptoms concerning for a viral respiratory infection, please seek testing (and treatment if indicated) from your medical provider or home test kit. ?? You can view and manage your care through the patient portal or by using a health care padmini of your choosing. [employer] is a website that allows you to securely view your medical information including your hospital discharge summary, office visit summaries, medications and follow-up visits. You can also request appointments, renew medications, and request access to your medical information using a health care padmini of your choosing, or just ask a question. You can enroll at [email or web address] or register during your next office visit. You have been discharged from [facility], Patient Care Unit: SW7??. If you have any questions regarding these instructions, including results of studies pending, afteryou leave, please call us and we will be happy to assist you 19/05. [facility] Your Care Team Attending Physician Sharad Birmingham MD?? Consulting Providers Sharad Birmingham MD?? Discharging Providers Andie Pinto NP Your Diagnosis BPH with urinary obstruction Osteoarthritis of right hip Urinary retention Tests Performed Below is a partial list of the tests performed during your hospitalization. You may have had other tests and procedures not included in this list. Please discuss all test results with your provider. BUN CBC Creatinine Electrolytes XR Pelvis 1 or 2 Views BUN?? CBC?? Creatinine?? Electrolytes?? Primary Care Provider Artemio Arambula NP? Discharge Vitals Temperature: 98.8 DegF Height: 165.1 cm Pulse Rate: 73 bpm Weight: 85.3 kg Respiratory Rate: 18 br/min Body Mass Index:??31.29 kg/m2??Critical Systolic Blood Pressure:??144 mm Hg??High Body surface area: 1.98 Diastolic Blood Pressure:??47 mm Hg??Low ?? Oxygen Saturation: 100 % ?? Studies Pending All studies ordered during this hospital stay have been completed unless listed below. Please discuss all pending results with your provider listed above in these instructions. ?? BUN?? CBC?? Creatinine?? Electrolytes?? What to do next Instructions From Your Doctor ?? Orders?? Unit Discharge Criteria Met, ??12/24/23 7:54:00 EST?? Prescriptions??, ??12/24/23 7:54:00 EST?? You Need to Schedule the Following Appointments Follow Up with??[facility] When:??Within Within two weeks Why: PLEASE KEEP SCHEDUELED Where: [address] [place] [address] [address] [place] [address]- Discharge Medications MAC DAVIS :1970 Visit Date:12/23/2023 Medications: Please continue your medications until treatment is completed or stopped by your provider. Medications not listed below should be discontinued. Discuss any questions related to medications with your provider. What How Much When Instructions Next Dose New Acetaminophen (acetaminophen 325 mg oral tablet) 650 Milligram Oral Every 6 hours May take OTC not to exceed 3000 mg/ day ?? 12/24 @ 12pm, 6pm New apixaban (Eliquis 2.5 mg oral tablet) 1 tab(s) Oral Twice a day Duration: 30 Days Pickup at [place] [address] 12/24 @ 9pm New Celecoxib (celecoxib 200 mg oral capsule) 200 Milligram Oral Daily @ 9am New Oxycodone (oxyCODONE 5 mg oral tablet) See instructions 0.5-1 tablet ??By Mouth Every 3 hours, As needed for Pain , Severe ?? Pickup at [facility] @ 1:30pm ?? *DO NOT TAKE WITH TRAMADOL wait 2hrs between doses New Pantoprazole (pantoprazole 40 mg oral delayed release tablet) 40 Milligram Oral Daily @ 9am New Polyethylene Glycol 3350 (MiraLax Powder) 17 gram Oral Daily as needed for Constipation @ 9am New Senna (senna 187 mg oral tablet) 1 tab(s) Oral Daily at Bedtime as needed for as needed for constipation 12/24 @ 9pm New Tamsulosin (Flomax 0.4 mg oral capsule) 0.4 Milligram Oral Daily Duration: 30 Days Pickup at [place] [address] @ 9am Changed Tramadol (traMADol 50 mg oral tablet) See instructions 1-2 tablets By Mouth Every 6 hours not to exceed 400 mg/ day, As needed for Pain , Mild ?? Pickup at [place] [address] 12/24 as needed for pain ?? *DO NOT TAKE WITH OXYCODONE wait 2hrs between doses Unchanged Albuterol (ProAir HFA 90 mcg/ inh inhalation aerosol with adapter) 2 puff(s) Inhalation Every 4 hours as needed for for wheezing per home regiment Unchanged Clobetasol Topical (Clobetasol (Eqv-Temovate) 0.05% topical cream) See instructions APPLY TOPICALLY TO THE AFFECTED AREA TWICE DAILY APPLY 2 TIMES DAILY FOR UP TO 2 WEEKS ?? per home regiment Unchanged Cyclobenzaprine (cyclobenzaprine 10 mg oral tablet) 1 tab(s) Oral 3 times a day as needed for Spasm for spasm per home regiment Unchanged Dexmethylphenidate (Focalin XR 30 mg oral capsule, extended release) TAKE 1 CAPSULE BY MOUTH EVERY DAY IN THE MORNING ?? per home regiment Unchanged Docusate (Colace sodium 100 mg oral capsule) 1 capsule Oral Twice a day per home regiment Unchanged Escitalopram (escitalopram 20 mg oral tablet) 1 tab(s) Oral Daily per home regiment Unchanged Fexofenadine (Mayela 180 mg oral tablet) 1 tab(s) Oral Daily per home regiment Unchanged Levothyroxine (levothyroxine 0.05 mg oral tablet) 1 tab(s) Oral Daily per home regiment Unchanged Venlafaxine (venlafaxine 50 mg oral tablet) TAKE 1 TABLET BY MOUTH EVERY DAY IN THE MORNING ?? per home regiment Pharmacy Information [facility]: [address] [place], [place] [id number] [phone] ?? What How Much When Comments Stop Taking Multivitamin 1 tab(s) Oral Daily in the morning no longer taking Stop Taking Naproxen (naproxen 500 mg oral tablet) See instructions TAKE 1 TABLET BY MOUTH TWICE DAILY FOR 10 DAYS ?? no longer taking Prescription Given During Visit Oxycodone (oxyCODONE 5 mg oral tablet) - , # 56 tablet, 0 Refills, 0.5-1 tablet ??By Mouth Every 3 hours, [facility], [address] [place] [phone]?? Tamsulosin (Flomax 0.4 mg oral capsule) - 0.4 mg, By Mouth, Daily, # 30 capsule, 0 Refills, [facility] [address] [phone]?? Tramadol (traMADol 50 mg oral tablet) - , # 56 tablet, 0 Refills, 1-2 tablets By Mouth Every 6 hours not to exceed 400 mg/day, [facility] [address] [address] [id number]?? apixaban (Eliquis 2.5 mg oral tablet) - 1 tablet = 2.5 mg, By Mouth, 2 times a day, # 60 tablet, 0 Refills, [facility] [address] [address] [phone]?? Laboratory Results Below is a partial list of the most recent Laboratory test results done prior to this discharge. You may have had other tests and procedures not included in this list. Please discuss all test resultswith your provider. Est Creatinine Clearance - 74.31 mL/min (12/24/2023) 127[address] (12/23/2023) ? ?Surgical Pathology - Patient Name: MAC DAVIS
Lab
Patient : 1970 (Age: 53)
Collection Date: 12/23/2023
Accession Date: 12/23/2023
Sign Out Date: 12/24/2023

Tissue Source:
1:RIGHT TOTAL HIP FEMORAL HEAD

Final Diagno sis:
Femoral head, right, arthroplasty:
- Bone and articular cartilage with degenerative and reactive changes, in keeping with osteoarthritis (degenerative joint disease); gross examination only.

Primary Pathologist:TRISH MCNAIR M.D.
electronically signed out by: TRISH MCNAIR M.D. / [facility]

Clinical History:
Osteoarthritis right hip

Gross Description:
Labeled right total hip- femoral head . Received in formalin is a 4.9 x 4.8 x 4.7 cm femoral head head with up to 1.2 cm of attached femoral neck. Also received in the same container is a 4.2 x 3.5 x 1.2 cm aggregate of yellow-mishra red bone reamings. The femoral head margin of transection is smooth. The articular surface ranges from pink-red, granular to white-pink, glistening. Scant presumptive eburnation is identified; minimal pitting is present. Osteophytes are identified. Sectioning reveals yellow-red, trabecular cut surfaces. The articular cartilage rangesfrom focally absent up to 0.3 cm in thickness. No sections are submitted. [place] only. ()*

Phone #: [phone], On-Call Pathologist: [id number] BUN (12/24/2023) ???BUN - 17 mg/dL CBC (12/24/2023) ???WBC - 8.6 k/mm3???RBC - 3.73 m/mm3???Hgb - 11.7 Gm/dL???Hct - 34.3 %???MCV - 92.0 femtoliters???MCH - 31.4 pg???MCHC - 34.1 g/dL???Platelet Count - 254 k/mm3???RDW-SD - 47.0 femtoliters???MPV - 9.4 femtoliters???Nucleated RBC (Automated) - 0.0 #/100 WBC'S???Abs. NRBC - 0.0 k/mm3 Creatinine (12/24/2023) ???Creatinine-Blood - 1.0 mg/dL???Estimated GFR Creatinine - 96 ML/MIN/1.73 M2 Electrolytes (12/24/2023) ???Sodium - 141 mmol/L???Potassium - 4.3 mmol/L???Chloride - 103 mmol/L???Bicarbonate Level - 26 mmol/L???Anion Gap - 12 Allergies (NKA means No Known Allergies) Bee Stings??(allergy tested positive) Cats??(sneezing itchy) Dogs??(sneezing itchy) Dust??(sneezing) Grass??(sneezing) Mites??(sneezing) Mold??(sneezing) Other Environmental Allergy??(sneezing, pine tree) Pollen??(sneezing) shellfish??(hives breathing difficulty) Problems Active Problems??(24) ADHD (attention deficit hyperactivity disorder)- by history per psych note?? anal fissure repaired?? Asthma?? back spasm?? broken left arm?? discectomy L4/L5 Marcy?? dislocated right shoulder?? Eczema?? elevated problem without diagnosis of HTN?? GERD (gastroesophageal reflux disease)?? Hemorrhoids?? History of left hip replacement?? Hyperlipidemia?? Hypothyroidism?? Intestinal malabsorption?? left hip replacement?? left MCL strain?? Obese class I?? Obesity (BMI 30-39.9)?? Obstructive sleep apnea?? Posttraumatic stress disorder?? Prostatic hypertrophy?? Restless leg syndrome?? S/P gastric sleeve procedure?? Education Materials Below is the list of Educational Leaflet Providered with your Discharge Instructions. [employer] Patient Education - What Is Hip Replacement??? Valuables and Belongings I fully understand and agree that [facility] accepts no responsibility for all my personal property including clothing, toilet articles, radios, jewelry, dentures, hearing aids, rings, money, or any other property that is in my possession or is brought to me after admission. I understand certain valuables may be placed in a hospital safe for a short period of time. I understand that the hospital is not liable for loss or damage due to accident, fire, or other natural occurrence while said property is in the safe. I accept full responsibility for any personal property that I keep with me, and will not hold the hospital responsible in case of loss or disappearance. I acknowledge that i have been encouraged to send valuables and belongings home. ?? Review of Valuable and Belonging List: With patient Date for Pt to Sign Valuables/Belongings: 12/23/23 15:16:00 ?? Other Discharge Information ? Case Management Discharge Plan?? Discharge Plan?? Discharge Agency Information?? Discharge Level of Care at Discharge: Homehealth/VNA Name of Agency #1: [facility] Discharge Rx Program: Discharge Prescription Program Service Comments #1: A referral was made to [facility] for home services. Someone will contact you to arrange a visit once you have been discharged home. If you do not hear from anyone, please contact the agency Discharge VNA/Hospice/Home Care: [facility] [phone] ? Pulmonary Rehab Status?? Pulmonary Rehab Discharge Status?? Respiratory Rate: 18 br/min ? Common Emergency Awareness Tips IS IT A STROKE? Act FAST and Check for these signs: FACE Does the face look uneven? ARM Does one arm drift down? SPEECH Does their speech sound strange? TIME Call at any sign of stroke ?? Heart Attack Signs Chest discomfort: Most heart attacks involve discomfort in the center of the chest and lasts more than a few minutes, or goes away and comes back. It can feel like uncomfortable pressure, squeezing, fullness or pain. Discomfort in upper body: Symptoms can include pain or discomfort in one or both arms, back, neck, jaw or stomach. Shortness of breath: With or without discomfort. Other signs: Breaking out in a cold sweat, nausea, or lightheaded. Remember, MINUTES DO MATTER. If you experience any of these heart attack warning signs, call to get immediate medical attention! ?? Smoking can increase your chances of developing chronic health problems and can cause harmful effects to other family members in your house. If you smoke, you are strongly encouraged to quit. Please call [facility] [employer] [facility] at [phone] or [phone]) or log in to [email or web address] for referrals to smoking cessation programs. ?? 775 Suicide & Crisis Lifeline is available 19/05 if you or someone you know needs to find a reason to keep living. By calling 764 you'll be connected to a skilled, trained counselor at a crisis center in your area. INPATIENT DISCHARGE INSTRUCTIONS SIGNATURE PAGE MAC DAVIS Location:[facility] Registration Date and Time:12/23/2023 05:36 EST Primary Care Physician: Artemio Arambula NP, Attending Physician: Vinnie FINNEGAN, Sharad Chowdhury, I MAC DAVIS, have received the above patient education materials/instructions and have verbalized understanding. If ambulance or transport services are being used I further acknowledge being given a choice of service. ?? If you need to contact me, please call me at this number: . Patient/Pe Teacher Name: Patient/Pe Teacher Signature: Relationship to Patient: Witness Name/Signature: Date: * Raji Concepcion RN: PERFORM Event Display: Patient Education Leaflets Authored Date: [id number] What Is Hip Replacement? ?? What Is Hip Replacement? - Video Watch how hip replacement surgery is used to relieve pain and restore normal function within the damaged hip joint. To view the video go to this web address: [email or web address] Or, scan this QR code with your smart phone ?? [facility] ?? Patient Care team information Care Team Personnel Name: Tiffanie Arzate RN Position: [facility] AMB Nurse Member Role: Primary Care Nurse Name: Sharad Pierson RN Position: S RN Member Role: Primary Care Nurse Name: Artemio Arambula NP Position: Reference Physician Member Role: PCP Address: Address: [address] [place] [address] Name: Raji Concepcion RN Position: S RN Member Role: Primary Care Nurse Care Team Related Persons Name: FELIX HARO Address: [place] [address]
--- OUTSIDE RECORDS SUMMARY | 2024-05-07 15:45 | XMS_ITS | Continuity of Care Document ---
Author Organization [facility] Address [address] [place] [address]- Care Team Providers Care Lug Breaker And Wire Puller Name Role Phone Kwame White Primary Care Physician [place] [facility] [place]/06/23 - 07/06/23 [facility] [address] [place] [address]- Attending Physician: Rigo French Admitting Physician: AdmtrRigo [...] Given tetanus/diphtheria/pertussis, acel(Tdap) 11/10/08 Recorded 1Result Comment: [facility] [id number] Medications Mayela 180 mg oral tablet 1 tablet = 180 mg, By Mouth, Daily, # 30 tablet, 0 Refills, Maintenance, Tablet Start Date: 07/05/12 Status: Ordered Clobetasol (Eqv-Temovate) 0.05% topical cream See Instructions, APPLY TOPICALLY TO THE AFFECTED AREA TWICE DAILY APPLY 2 TIMES DAILY FOR UP TO 2 WEEKS, # 60 Gm, 0 Refills, Maintenance, 08/12/22 21:45:00 EDT, [facility] #[id number], 25, APPLY TOPICALLY TO THE AFFECTED AREA [...] tablet, 0 Refills, Maintenance, 05/24/22 14:54:00 EDT, [facility] #[id number], 168, cm, 12/27/21 15:53:00 EST, Height, 106.5, kg, 07/06/20 9:20:00 EDT, Dry Weight Start Date: 05/24/22 Status: Ordered Focalin XR 30 mg oral capsule, extended release TAKE 1 CAPSULE BY MOUTH EVERY DAY IN THE MORNING Start Date: 06/06/23 Status: Ordered levothyroxine 0.05 mg oral tablet 1 tablet, By Mouth, Daily, # 90 tablet, 1 Refills, Maintenance, 12/16/22 13:33:00 EST, [facility] #[id number], 168, cm, 10/02/22 16:44:00 EST, Height Start Date: 12/16/22 Status: Ordered Multivitamin 1 tablet, By Mouth, Daily in AM, 0 Refills, Maintenance, 08/29/16 11:50:58 Start Date: 08/29/16 Status: Ordered naproxen 500 mg oral tablet See Instructions, TAKE 1 TABLET BY MOUTH TWICE DAILY FOR 10 DAYS, # 20 tablet, 0 Refills, Acute, [facility] #[id number], 168, cm, 11/29/20 16:54:00 EST, Height, 106.5, kg, 07/06/20 9:20:00 EDT, Dry Weight Start Date: 02/20/21 Status: Ordered pramipexole 0.125 mg oral tablet See Instructions, TAKE 1 TABLET BY MOUTH 2 HOURS BEFORE RESTLESS LEG SYMPTOMS START, # 30 tablet, 0Refills, Maintenance, 12/25/22 13:34:00 EST, [facility] #[id number], 168, cm, 10/02/22 16:44:00 EST, Height Start Date: 12/25/22 Status: Ordered ProAir HFA 90 mcg/inh inhalation aerosol with adapter 2, puffs, Inhalation, Every 4 hours, PRN, # 8.5 Gm, Refills 1, Tot. Refills 1, Maintenance, 12/19/16 15:25:46, Aerosol, Route to Pharmacy Electronically, [id number], [facility]1968 Start Date: 12/19/16 Status: Ordered venlafaxine 25 [...] Team Personnel Name: Tiffanie Arzate RN Position: [facility] AMB Nurse Member Role: Primary Care Nurse Name: Kwame White Position: [facility] PCO Associate Professional Member Role: PCP Address: Address: [address] [place] [address] [place] [address]- [place] Care Team Related Persons Name: FELIX HARO Address: home [address] [place] [address]
[2024-05-07 15:46] VITALS: BP 140/80; PULSE 98; TEMP 36.7; O2SAT 98
--- NOTE | 2024-05-07 15:46 | AM.OFFWIN_ITS ---
Intake Vital Signs 05/07/24 15:46 Height 5 ft 5.5 in BP 140/80 H Blood Pressure Location Rt brachial Position Sitting Pulse 98 Pulse Source Pulse Oximeter Temp 98.1 F Temp Source Temporal Artery Scan Pulse Oximetry (%) 98 Intake Visit Reasons: EP ?shingles Intake Note: patient is here for shingles for 1 month Patient Tobacco Use Status: Never used Tobacco Allergies cat dander Allergy (Intermediate, Verified 05/07/24 15:46) Hives dog dander Allergy (Intermediate, Verified 05/07/24 15:46) sneezing shell fish Allergy (Severe, Uncoded 02/26/24 15:36) swelling, hives enviromental Allergy (Unknown, Uncoded 02/26/24 15:36) sneezing Do you need a note to return to daycare/school/sports/work: No HPI EP ?shingles HPI Details This note is constructed using voice recognition software. While every effort has been made to ensure accuracy, increment manager errors may have been included. 54 y.o. male presents with concerns for shingles for the past month. He reports the area to be on his left shoulder and travelling over to his left upper chest. He denies discharge, itch, pain. He also reports a history of eczema. No fever, chills, joint pain. [facility] Medical History Restless leg syndrome Steatosis, liver PTSD (post-traumatic stress disorder) Arthritis BMI 35.0-35.9,adult Pre-op evaluation Complex posttraumatic stress disorder MDD (major depressive disorder) History of herniated intervertebral disc History of high cholesterol History of hypothyroidism History of depression Hx of acute eczema History of asthma Hx of sleep apnea Surgical History Status post total hip replacement, right Status post sleeve gastrectomy History of anal fissures History of prostate surgery Hx of cystoscopy Hx of adenoidectomy History of lumbar discectomy History of left hip replacement Family History Mother Hx of glaucoma Hx of heat stroke Hypertension Father Hx of heat stroke Sister Obese Substance use disorder Sister No problems noted. Sister Depression Thyroid condition Brother Substance use disorder Brother Diabetes Substance use disorder Brother History of hip replacement Brother Family history of prostate problems Brother No problems noted. Social History Household Members: Spouse and Children Housing: House Are you a primary healthcare network pricing consultant to a significant other at home: No Do you presently have visiting nurse or other home services: No Alcohol intake: current Alcohol intake frequency: does not drink Patient Tobacco Use Status: Never used Tobacco e-Cigarette/Vaping Use: Currently Using (sometimes ) service: No Current occupational status: employed Cognitive needs: No Hearing needs: No Vision needs: No Review of Systems Const All systems reviewed & are unremarkable except as noted in HPI and below Physical Exam Vital Signs: Last Vital Signs Temp 98.1 F 05/07/24 15:46 Pulse 98 05/07/24 15:46 BP 140/80 H 05/07/24 15:46 Pulse Ox 98 05/07/24 15:46 Const General: cooperative, healthy appearing, comfortable, no acute distress and alert Orientation/consciousness: patient oriented x3 Limitations: no limitations Skin Other: Closed comedones to left shoulder over the top of the shoulder, into the chest covering multiple dermatomes, without erythema, warmth, discharge. General skin exam: no rashes or lesions noted, elasticity normal and turgor norm al Neuro General: patient oriented x3 Psych Appearance: grossly normal Mental Status: mental status grossly normal Speech and movement: Normal speech and movement present Affect: normal affect Assessment & Plan Assessment & Plan (1) Acne vulgaris: Code(s): L70.0 - Acne vulgaris Plan: Advised uflk-skp-mlospot hydrogen peroxide cream topical acne ointment. Advised hygiene of the area. Advised not to pop lesions. Does not appear to be infectious etiology, acne related, or shingles related based on physical examination. Advised follow-up with any additional symptoms worsening or new concerns. Plan See above for full details and plan. Coding Level of Care Code Est Pt Level 3 (73427) Diagnoses Acne vulgaris L70.0
--- OUTSIDE RECORDS SUMMARY | 2024-05-07 15:46 | XMS_ITS | Continuity of Care Document ---
Author Organization [facility] Address [address] [place] [address]- Care Team Providers Care Sports Leadership Instructor Name Role Phone Ralf MICHAELS, Artemio Torres Primary Care Physician [phone] Encounter [facility] Date(s): 12/08/23 - 01/07/24 [facility] [address] [place] [address]- Attending Physician: Rigo French Admitting Physician: AdmRigo lundberg Referring Physician: AdmtrRigo Allergies, Adverse Reactions, Alerts Substance Reaction Severity [...] Given tetanus/diphtheria/pertussis, acel(Tdap) 11/10/08 Recorded 1Result Comment: [facility] [place] 2[place] 84373-551-96 Medications acetaminophen 325 mg oral tablet 650 [...] Gm, 0 Refills, Maintenance, 08/12/22 21:45:00 EDT, [facility], 25, APPLY TOPICALLY TO THE AFFECTED AREA [...] 0 Refills, Maintenance, 12/24/23 7:45:00 EST, Tablet, [facility] 3, Partial fill upon patient request if the prescription is for aschedule II opioid drug., 165.1, cm, 12/24/23 7:11:... Start Date: 12/24/23 Stop Date: 01/23/24 Status: Ordered escitalopram 20 mg oral tablet 1 tablet, By Mouth, Daily, # 90 tablet, 0 Refills, Maintenance, 05/24/22 14:54:00 EDT[facility], 168, cm, 12/27/21 15:53:00 EST, Height, 106.5, kg, 07/06/20 9:20:00 EDT, Dry Weight Start Date: 05/24/22 Status: Ordered Flomax 0.4 mg oral capsule 0.4 mg, By Mouth, Daily, # 30 capsule, Refills 0, Tot. Refills 0, Maintenance, 12/24/23 7:46:00 EST, Route to Pharmacy Electronically, [facility] 3, Partial fill upon patient request if [...] tablet, 1 Refills, Maintenance, 12/16/22 13:33:00 EST, [facility] #06506, 168, cm, 10/02/22 16:44:00 EST, Height Start [...] 12/19/16 15:25:46, Aerosol, Route to Pharmacy Electronically, [id number], [facility] [address] Start Date: 12/19/16 Status: Ordered senna 187 [...] Team Personnel Name: Tiffanie Arzate RN Position: [facility] Nurse Member Role: Primary Care Nurse Name: Sharad Pierson RN Position: S RN Member Role: Primary Care Nurse Name: Artemio Arambula NP Position: Reference Physician Member Role: PCP Address: Address: [address] [place] [address]- Name: Raji Concepcion RN Position: [facility] RN Member Role: Primary Care Nurse Care Team Related Persons Name: FELIX HARO Address: home [address] [place] [address]
--- OUTSIDE RECORDS SUMMARY | 2024-05-07 15:46 | XMS_ITS | Continuity of Care Document ---
Author Organization [facility] Address [address] [place] [address]- Care Team Providers Care Buccaro Name Role Phone Ralf MICHAELS, Artemio Torres Primary Care Physician Encounter 12/25/23 - 12/31/23 [facility] [address] [place] [address]- Discharge Disposition: GOALS MET Allergies, Adverse Reactions, Alerts Substance Reaction Severity [...] Given tetanus/diphtheria/pertussis, acel(Tdap) 11/10/08 Recorded 1Result Comment: [facility] [id number] Medications acetaminophen 325 mg oral tablet 650 [...] Gm, 0 Refills, Maintenance, 08/12/22 21:45:00 EDT, [facility] #[id number], 25, APPLY TOPICALLY TO THE AFFECTED AREA [...] 0 Refills, Maintenance, 12/24/23 7:45:00 EST, Tablet, [facility] 3, Partial fill upon patient request if the prescription is for aschedule II opioid drug., 165.1, cm, 12/24/23 7:11:... Start Date: 12/24/23 Stop Date: 01/23/24 Status: Ordered escitalopram 20 mg oral tablet 1 tablet, By Mouth, Daily, # 90 tablet, 0 Refills, Maintenance, 05/24/22 14:54:00 EDT, [facility] #08526, 168, cm, 12/27/21 15:53:00 EST, Height, 106.5, kg, 07/06/20 9:20:00 EDT, Dry Weight Start Date: 05/24/22 Status: Ordered Flomax 0.4 mg oral capsule 0.4 mg, By Mouth, Daily, # 30 capsule, Refills 0, Tot. Refills 0, Maintenance, 12/24/23 7:46:00 EST, Route to Pharmacy Electronically, [facility], Partial fill upon patient request if [...] tablet, 1 Refills, Maintenance, 12/16/22 13:33:00 EST, [facility] #45923, 168, cm, 10/02/22 16:44:00 EST, Height Start [...] 12/19/16 15:25:46, Aerosol, Route to Pharmacy Electronically, [id number], [facility] [address] Start Date: 12/19/16 Status: Ordered senna 187 [...] Team Personnel Name: Tiffanie Arzate RN Position: [facility] AMB Nurse Member Role: Primary Care Nurse Name: Sharad Pierson RN Position: S RN Member Role: Primary Care Nurse Name: Artemio Arambula NP Position: Reference Physician Member Role: PCP Address: Address: [address] [place] [address]- Name: Raji Concepcion RN Position: S RN Member Role: Primary Care Nurse Care Team Related Persons Name: FELIX HARO Address: home [address] [place] [address]
--- OUTSIDE RECORDS SUMMARY | 2024-05-07 15:46 | XMS_ITS | Continuity of Care Document ---
Author Organization [facility] Address [address] [place] [address]- Care Team Providers Care Salesman/Owner Name Role Phone Ralf MICHAELS, Artemio Torres Primary Care Physician [facility]counter [facility] Date(s): 12/08/23 - 12/15/23 [facility] [address] [place], [place] [address] Attending Physician: Josse Duval DO Referring Physician: Vinnie FINNEGAN, Sharad Chowdhury Allergies, Adverse Reactions, Alerts Substance Reaction Severity [...] Given tetanus/diphtheria/pertussis, acel(Tdap) 11/10/08 Recorded 1Result Comment: [facility] [id number] Medications Mayela 180 mg oral tablet 1 tablet = 180 mg, By Mouth, Daily, # 30 tablet, 0 Refills, Maintenance, Tablet Start Date: 07/05/12 Status: Ordered Clobetasol (Eqv-Temovate) 0.05% topical cream See Instructions, APPLY TOPICALLY TO THE AFFECTED AREA TWICE DAILY APPLY 2 TIMES DAILY FOR UP TO 2 WEEKS, # 60 Gm, 0 Refills, Maintenance, 08/12/22 21:45:00 EDT, [facility] #32733, 25, APPLY TOPICALLY TO THE AFFECTED AREA [...] opioid drug. Start Date: 12/08/23 Status: Ordered escitalopram 20 mg oral tablet TAKE 1 TABLET BY MOUTH EVERY DAY IN THE MORNING Start Date: 06/06/23 Status: Ordered escitalopram 20 mg oral tablet 1 tablet, By Mouth, Daily, # 90 tablet, 0 Refills, Maintenance, 05/24/22 14:54:00 EDT, [facility] #[id number], 168, cm, 12/27/21 15:53:00 EST, Height, 106.5, kg, 07/06/20 9:20:00 EDT, Dry Weight Start Date: 05/24/22 Status: Ordered Focalin XR 30 mg oral capsule, extended release TAKE 1 CAPSULE BY MOUTH EVERY DAY IN THE MORNING Start Date: 06/06/23 Status: Ordered levothyroxine 0.05 mg oral tablet 1 tablet, By Mouth, Daily, # 90 tablet, 1 Refills, Maintenance, 12/16/22 13:33:00 EST, [facility] #90056, 168, cm, 10/02/22 16:44:00 EST, Height Start Date: 12/16/22 Status: Ordered Multivitamin 1 tablet, By Mouth, Daily in AM, 0 Refills, Maintenance, 08/29/16 11:50:58 Start Date: 08/29/16 Status: Ordered naproxen 500 mg oral tablet See Instructions, TAKE 1 TABLET BY MOUTH TWICE DAILY FOR 10 DAYS, # 20 tablet, 0 Refills, Acute, [facility] #47953, 168, cm, 11/29/20 16:54:00 EST, Height, 106.5, kg, 07/06/20 9:20:00 EDT, Dry Weight Start Date: 02/20/21 Status: Ordered ProAir HFA 90 mcg/inh inhalation aerosol with adapter 2, puffs, Inhalation, Every 4 hours, PRN, # 8.5 Gm, Refills 1, Tot. Refills 1, Maintenance, 12/19/16 15:25:46, Aerosol, Route to Pharmacy Electronically, [id number], [facility] [address] Start Date: 12/19/16 Status: Ordered traMADol 50 mg oral tablet TAKE 1 TABLET EVERY 4 - [address]IVE WHILE TAKING THIS MEDICATION Start Date: 12/08/23 Status: Ordered venlafaxine 50 mg oral tablet [...] malabsorption Confirmed Active Prostatic hypertrophy Confirmed Active Obesity (BMI 30-39.9) Confirmed Active Obstructive sleep apnea Confirmed Active Posttraumatic stress disorder Confirmed Active Restless leg syndrome Confirmed Active Procedures Procedure Date Related Diagnosis Body Site Status TURP - Transurethral resecti on of prostate 1 Completed 1per pt Vital Signs Most recent to oldest [Reference Range]: 1 Height 168 cm (12/08/23 12:13 PM) Weight 84.0 kg (12/08/23 12:13 PM) Oxygen Saturation [94-100 %] 100 % (12/08/23 12:13 PM) Pulse Rate [55-90 bpm] 94 bpm *H* (12/08/23 12:13 PM) Body Mass Index [18.5-24.99 kg/m2] 29.76 kg/m2 *H* (12/08/23 12:13 PM) Blood Pressure [90-138/55-84 mm Hg] 144/ 87mm Hg *H* (12/08/23 12:13 PM) Respiratory Rate [16-30 br/min] 18 br/mi n (12/08/23 12:13 PM) Blood pressure sites Arm, left (12/08/23 12:13 PM) Weight Obtained Via Standing scale (12/08/23 12:13 PM) Social History Social History Type Response Smoking Status Never smoker entered on: 01/12/15 Sex EKG study * Event Display: ECG 12-Lead Authored Date: Please click on pdf link to open report * Event Display: ECG 12-Lead Authored Date: Ventricular Rate: 92 BPM Atrial Rate: 92 BPM P-R Interval: 176 ms QRS Duration: 78 ms Q-T Interval: 342 ms QTC Calculation(Bazett): 422 ms P [place]: 65 degrees R [place]: 42 degrees T [place]: 27 degrees Normal sinus rhythm Normal ECG When compared with ECG of 01-JUN-2012 14:42, No significant change was found Confirmed by ANDREA ELLIOTT ([id number]) on 12/08/2023 6:37:57 PM Davis: ANDREA ELLIOTT Patient Care team information Care Team Personnel Name: Tiffanie Arzate RN Position: S AMB Nurse Member Role: Primary Care Nurse Name: Artemio Arambula NP Position: Reference Physician Member Role: PCP Address: Address: [address] [place] [address]- Care Team Related Persons Name: FELIX HARO Address: home [address] [place] [address]
--- OUTSIDE RECORDS SUMMARY | 2024-05-07 15:47 | XMS_ITS | Continuity of Care Document ---
Author Organization [facility] Address [address] [place] [address]- Care Team Providers Care Pourer Name Role Phone Ralf MICHAELS, Artemio Torres Primary Care Physician [phone] [facility]counter [facility] Date(s): 12/08/23 - 01/07/[address] [address]- Attending Physician: Admtr, Ar8 Admitting Physician: AdmtrFrancisco8 Referring Physician: Admtr, Ar8 Allergies, Adverse Reactions, [...] Given tetanus/diphtheria/pertussis, acel(Tdap) 11/10/08 Recorded 1Result Comment: [facility] 17808-281-62 Medications acetaminophen 325 mg oral tablet 650 [...] Gm, 0 Refills, Maintenance, 08/12/22 21:45:00 EDT, [facility] #[id number], 25, APPLY TOPICALLY TO THE AFFECTED AREA [...] 0 Refills, Maintenance, 12/24/23 7:45:00 EST, Tablet, [facility] 3, Partial fill upon patient request if the prescription is for aschedule II opioid drug., 165.1, cm, 12/24/23 7:11:... Start Date: 12/24/23 Stop Date: 01/23/24 Status: Ordered escitalopram 20 mg oral tablet 1 tablet, By Mouth, Daily, # 90 tablet, 0 Refills, Maintenance, 05/24/22 14:54:00 EDT, [facility], 168, cm, 12/27/21 15:53:00 EST, Height, 106.5, kg, 07/06/20 9:20:00 EDT, Dry Weight Start Date: 05/24/22 Status: Ordered Flomax 0.4 mg oral capsule 0.4 mg, By Mouth, Daily, # 30 capsule, Refills 0, Tot. Refills 0, Maintenance, 12/24/23 7:46:00 EST, Route to Pharmacy Electronically, [facility] 3, Partial fill upon patient request if [...] tablet, 1 Refills, Maintenance, 12/16/22 13:33:00 EST, [facility] #62760, 168, cm, 10/02/22 16:44:00 EST, Height Start [...] 12/19/16 15:25:46, Aerosol, Route to Pharmacy Electronically, [id number], [facility] 54477 Start Date: 12/19/16 Status: Ordered senna 187 [...] Team Personnel Name: Tiffanie Arzate RN Position: [facility] Nurse Member Role: Primary Care Nurse Name: Sharad Pierson RN Position: S RN Member Role: Primary Care Nurse Name: Artemio Arambula NP Position: Reference Physician Member Role: PCP Address: Address: [address] [place] [address]- Name: Raji Concepcion RN Position: [facility] RN Member Role: Primary Care Nurse Care Team Related Persons Name: FELIX HARO Address: home [address] [place] [address]
--- OUTSIDE RECORDS SUMMARY | 2024-05-07 15:47 | XMS_ITS | Continuity of Care Document ---
Author Organization [facility] ter Address [address] [place] [id number]- Care Team Providers Care Compositor Apprentice Name Role Phone Kwame White Primary Care Physician [place] [facility] [place] - 11/23/[address] [address] Attending Physician: Sharad Birmingham MD Admitting Physician: Sharad Birmingham MD Allergies, Adverse Reactions, [...] Given tetanus/diphtheria/pertussis, acel(Tdap) 11/10/08 Recorded 1Result Comment: [facility] [id number] Medications Mayela 180 mg oral tablet 1 tablet = 180 mg, By Mouth, Daily, # 30 tablet, 0 Refills, Maintenance, Tablet Start Date: 07/05/12 Status: Ordered Clobetasol (Eqv-Temovate) 0.05% topical cream See Instructions, APPLY TOPICALLY TO THE AFFECTED AREA TWICE DAILY APPLY 2 TIMES DAILY FOR UP TO 2 WEEKS, # 60 Gm, 0 Refills, Maintenance, 08/12/22 21:45:00 EDT, [facility] #[id number], 25, APPLY TOPICALLY TO THE AFFECTED AREA [...] tablet, 0 Refills, Maintenance, 05/24/22 14:54:00 EDT, [facility] #[id number], 168, cm, 12/27/21 15:53:00 EST, Height, 106.5, kg, 07/06/20 9:20:00 EDT, Dry Weight Start Date: 05/24/22 Status: Ordered Focalin XR 30 mg oral capsule, extended release TAKE 1 CAPSULE BY MOUTH EVERY DAY IN THE MORNING Start Date: 06/06/23 Status: Ordered levothyroxine 0.05 mg oral tablet 1 tablet, By Mouth, Daily, # 90 tablet, 1 Refills, Maintenance, 12/16/22 13:33:00 EST, [facility] #[id number], 168, cm, 10/02/22 16:44:00 EST, Height Start Date: 12/16/22 Status: Ordered Multivitamin 1 tablet, By Mouth, Daily in AM, 0 Refills, Maintenance, 11/03/16 11:50:58 Start Date: 08/29/16 Status: Ordered naproxen 500 mg oral tablet See Instructions, TAKE 1 TABLET BY MOUTH TWICE DAILY FOR 10 DAYS, # 20 tablet, 0 Refills, Acute, [facility] #[id number], 168, cm, 11/29/20 16:54:00 EST, Height, 106.5, kg, 07/06/20 9:20:00 EDT, Dry Weight Start Date: 02/20/21 Status: Ordered ProAir HFA 90 mcg/inh inhalation aerosol with adapter 2, puffs, Inhalation, Every 4 hours, PRN, # 8.5 Gm, Refills 1, Tot. Refills 1, Maintenance, 12/19/16 15:25:46, Aerosol, Route to Pharmacy Electronically, [id number], [id number] Start Date: 12/19/16 Status: Ordered venlafaxine 25 [...] Team Personnel Name: Tiffanie Arzate RN Position: [facility] AMB Nurse Member Role: Primary Care Nurse Name: Kwame White Position: [facility] PCO Associate Professional Member Role: PCP Address: Address: [address] [place] [address] [place] [address]- Care Team Related Persons Name: FELIX HARO Address: home [address] [place] [address]
== END 2024-05-07 16:07 | disposition home or self-care (01) ==
PROVIDERS: PCP Nurse Practitioner Family; Visit Provider Registered Nurse
DX: L70.0 Acne vulgaris (principal)
CPT/HCPCS: 99213

== ENCOUNTER → 2024-05-17 09:19 | Outpatient (BNVA) | payer OTHER, SELFPAY | PROVIDERS: PCP Nurse Practitioner Family; Visit Provider Counselor Mental Health ==

== ENCOUNTER 2024-06-02 13:30 | Outpatient (AMB) | payer OTHER, SELFPAY ==
--- NOTE | 2024-06-02 13:33 | A.OFFVIS_ITS ---
VS Expanded 06/02/24 13:44 BP 140/73 H Blood Pressure Location Rt brachial Blood Pressure Position Sitting Pulse 88 Pulse Source Pulse Oximeter Temp 96.1 F L Temperature Source Tympanic Pulse Oximetry 96 Oxygen Delivery Method Room Air Height 5 ft 5.5 in Weight 180 lb BMI 29.5 Body Fat % 24.0 Body Fat Mass 43.2 Fat Free Mass 136.6 Visceral Fat Rating 12.0 Body Water % 54.7 Body Water Mass 98.4 Muscle Mass/Score 129.8 Basal Metabolic Rate/Score 1,797 Intake Visit Reasons: OV PO LSG 12/13/21 Allergies cat dander Allergy (Intermediate, Verified 06/02/24 13:42) Hives dog dander Allergy (Intermediate, Verified 06/02/24 13:42) sneezing shell fish Allergy (Severe, Uncoded 06/02/24 13:42) swelling, hives enviromental Allergy (Unknown, Uncoded 06/02/24 13:42) sneezing Medication List - Last Reconciled 06/02/24 by CANDIDO Castillo albuterol sulfate 90 mcg/actuation 2 puffs inhalation Q6H PRN buspirone 15 mg PO TID dexmethylphenidate ER 20 mg PO QAM escitalopram oxalate 20 mg PO DAILY fexofenadine 180 mg PO Q24H levothyroxine 50 mcg PO DAILY melatonin mg PO .prn tamsulosin (Flomax) 0.4 mg PO BEDTIME venlafaxine 50 mg PO DAILY HPI Comments Details: This?is a?54?yo female who is s/p LSG 12/13/2021. Presents for 2.5 year post op visit. Weight at last visit on 12/18/2023 was 182.8 pounds with a BMI of 30, weight today is 180 pounds, representing a 2.8 pound weight loss with a BMI today of 29.5.? No complaints of nausea, emesis, abdominal pain or reflux, or constipation. Had a hip replacement in November, feeling pretty good, has gone back to the gym. Spent some time in partial hospitalization program for his mental health this summer. Was found to have elevated PSA levels, having this followed up, having MRI and biopsy planned. Continues in family therapy. Has excess fat of chest tissue, this is more bothersome to him recently. Gets rashes in skin folds and a lot of skin irritation. Present meal plan includes: 2 Celebrate 4:1 shakes per day?with 2 scoops each in 8oz almond milk, 50 gm -May substitute eggs for AM meal, on a wrap protein bar or yogurt around 4pm- sometimes Dinner 7 pm, 4 forks fish/4 forks veg, having a small portion of starch feels he is getting enough protein continues to struggle with snacking at nighttime- chips, flaxseed cereal, Lactaid ice cream, Yasso protein ice cream bar, tries to use sugar free popsicles My diet fluctuates- sometimes I don't eat at all Exercise routine includes: getting back to gym with daughter PFSH Medical History Restless leg syndrome Steatosis, liver PTSD (post-traumatic stress disorder) Arthritis BMI 35.0-35.9,adult Pre-op evaluation Complex posttraumatic stress disorder MDD (major depressive disorder) History of herniated intervertebral disc History of high cholesterol History of hypothyroidism History of depression Hx of acute eczema History of asthma Hx of sleep apnea Surgical History (Reviewed 06/02/24 @ 13:46 by Fatemeh Kelly [facility]) Status post total hip replacement, right Status post sleeve gastrectomy History of anal fissures History of prostate surgery Hx of cystoscopy Hx of adenoidectomy History of lumbar discectomy History of left hip replacement Family History (Reviewed 06/02/24 @ 13:46 by Fatemeh Kelly [facility]) Mother Hx of glaucoma Hx of heat stroke Hypertension Father Hx of heat stroke Sister Obese Substance use disorder Sister No problems noted. Sister Depression Thyroid condition Brother Substance use disorder Brother Diabetes Substance use disorder Brother History of hip replacement Brother Family history of prostate problems Brother No problems noted. Social History Household Members: Spouse and Children Housing: House Are you a primary housekeeper child care to a significant other at home: No Do you presently have visiting nurse or other home services: No Alcohol intake: current Alcohol intake frequency: does not drink Patient Tobacco Use Status: Never used Tobacco e-Cigarette/Vaping Use: Currently Using service: No Current occupational status: employed Cognitive needs: No Hearing needs: No Vision needs: No Assessment & Plan Assessment & Plan (1) Overweight: Code(s): E66.3 - Overweight Category: Medical (2) S/P laparoscopic sleeve gastrectomy: Code(s): Z98.84 - Bariatric surgery status Category: Surgical (3) Excess skin: Code(s): L98.7 - Excessive and redundant skin and subcutaneous tissue Category: Medical Plan Discussed that patient is doing well despite having difficulty with being as active as usual after surgery. Lost weight during this time, emphasized progress over perfection, the ability to choose a healthy treat if it is high in protein, having a plan for meals and exercise that is sustainable. Will continue to increase activity as he recovers from surgery. Will submit a referral to Dr. Augustin's office for consult for excess skin of chest. RTC 6 months. I spent a total of 30 minutes reviewing/updating records, examining the patient and counseling the patient on weight management as detailed above.
[2024-06-02 13:44] VITALS: BP 140/73; PULSE 88; TEMP 35.6; O2SAT 96; BMI 29.5
== END 2024-06-02 14:04 | disposition home or self-care (01) ==
PROVIDERS: PCP Nurse Practitioner Family; Visit Provider Physician Assistant Surgical
DX: E66.3 Overweight (principal); Z68.29 Body mass index [BMI] 29.0-29.9, adult; Z98.84 Bariatric surgery status; L98.7 Excessive and redundant skin and subcutaneous tissue
CPT/HCPCS: 99214

== ENCOUNTER → 2024-06-02 13:30 | Outpatient (BNVA) | payer OTHER, SELFPAY | PROVIDERS: PCP Nurse Practitioner Family; Visit Provider Physician Assistant Surgical | DX: E66.9 Obesity, unspecified (principal); L98.7 Excessive and redundant skin and subcutaneous tissue; Z98.84 Bariatric surgery status; Z68.29 Body mass index [BMI] 29.0-29.9, adult | CPT/HCPCS: 99212 ==

== ENCOUNTER 2024-06-23 11:54 | Outpatient (AMB) | payer OTHER, SELFPAY ==
[2024-06-23 11:56] VITALS: BP 128/70; PULSE 113; O2SAT 98; BMI 29.9
--- NOTE | 2024-06-23 11:56 | MHC.OFFWIV ---
Intake Vital Signs 06/23/24 11:56 Height 5 ft 5.5 in Weight 182 lb 8 oz BMI 29.9 BP 128/70 Blood Pressure Location Lt brachial Position Sitting Pulse 113 H Pulse Source Pulse Oximeter Pulse Oximetry (%) 98 Oxygen Delivery Method Room Air Intake Visit Reasons: EP- going on 5 days without sleep Intake Note: Pt presents to the office today for c/o no sleep x5 days. Pt states he had a procedure done 06/14/24 at [facility] for kidney stones and since then hasn't been able to sleep. Pt states he only gets about 2-3 hours of good sleep in one day. Patient Tobacco Use Status: Never used Tobacco Allergies cat dander Allergy (Intermediate, Verified 06/23/24 11:56) Hives dog dander Allergy (Intermediate, Verified 06/23/24 11:56) sneezing shell fish Allergy (Severe, Uncoded 06/23/24 11:56) swelling, hives enviromental Allergy (Unknown, Uncoded 06/23/24 11:56) sneezing HPI EP- going on 5 days without sleep HPI Details This note is constructed using voice recognition software. While every effort has been made to ensure accuracy, supervisor tunnel heading errors may have been included. The patient is a 54 year old male who presents to the clinic today with insomnia for the past 5 days. He notes he was recently treated at the hospital, and admitted, where his medications sertraline was suddenly stopped. He was there for several days, and then he was discharge. Treatment was 4 kidney stone where he had a stent placed. When he was discharged home, he restarted his medication. He then this developed some difficulty sleeping, where he is able to fall asleep but it takes several hours, and then he is unable to stay asleep. He does have a history of sleep apnea, however that had improved after gastric sleeve, and he had repeat sleep study showing his resolution of sleep apnea. He has since gained additional weight, and has some snoring when he is sleeping, however this is more long-term compared to the acute concerns yesterday. He reports that he is trying Tylenol p.m., melatonin, sleepy time tea, avoidance of caffeine, reduced screen time, and is very in tune with sleep hygiene measures. He has had no additional changes in his medications. He does remain on treatment for ADHD, which he is tolerating the medication well. [facility] Medical History Restless leg syndrome Steatosis, liver PTSD (post-traumatic stress disorder) Arthritis BMI 35.0-35.9,adult Pre-op evaluation Complex posttraumatic stress disorder MDD (major depressive disorder) History of herniated intervertebral disc History of high cholesterol History of hypothyroidism History of depression Hx of acute eczema History of asthma Hx of sleep apnea Surgical History Status post total hip replacement, right Status post sleeve gastrectomy History of anal fissures History of prostate surgery Hx of cystoscopy Hx of adenoidectomy History of lumbar discectomy History of left hip replacement Family History Mother Hx of glaucoma Hx of heat stroke Hypertension Father Hx of heat stroke Sister Obese Substance use disorder Sister No problems noted. Sister Depression Thyroid condition Brother Substance use disorder Brother Diabetes Substance use disorder Brother History of hip replacement Brother Family history of prostate problems Brother No problems noted. Social History Household Members: Spouse and Children Housing: House Are you a primary managed care provider to a significant other at home: No Do you presently have visiting nurse or other home services: No Alcohol intake: current Alcohol intake frequency: does not drink Patient Tobacco Use Status: Never used Tobacco e-Cigarette/Vaping Use: Currently Using service: No Current occupational status: employed Cognitive needs: No Hearing needs: No Vision needs: No Review of Systems Const All systems reviewed & are unremarkable except as noted in HPI and below Physical Exam Vital Signs: Last Vital Signs Pulse 113 H 06/23/24 11:56 BP 128/70 06/23/24 11:56 Pulse Ox 98 06/23/24 11:56 Oxygen Delivery Method Room Air 06/23/24 11:56 BMI result Body Mass Index 29.9 Const General: cooperative, healthy appearing, comfortable, no acute distress and alert Orientation/consciousness: patient oriented x3 Limitations: no limitations Resp Effort & Inspection: normal respiratory effort and able to speak in complete sentences Auscultation: clear to auscultation bilaterally Cardio Jugular venous distension: no JVD Palpation: normal PMI Rate: regular rate Heart sounds: S1 normal heart sound present, S2 normal heart sound present, no click, no gallops, no murmurs and no rubs Skin General skin exam: no rashes or lesions noted, elasticity normal and turgor normal Neuro General: patient oriented x3 Psych Appearance: grossly normal Mental Status: mental status grossly normal Speech and movement: Normal speech and movement present Affect: normal affect Assessment & Plan Assessment & Plan (1) Insomnia: Code(s): G47.00 - Insomnia, unspecified Qualifiers: Insomnia type: unspecified Qualified Code(s): G47.00 - Insomnia, unspecified Plan: May be multifactorial including recent hospital stay with change in sleep hygiene from hospital to home, coupled with sudden stop of SSRI, and then sudden restart of SSRI. Advised patient to continue with his at-home measures, we will add hydroxyzine p.r.n. for sleep. Advised patient to follow up with PCP as he may benefit from a repeat sleep study if the symptoms persist, especially in setting of weight gain and increased snoring. Plan See above for full details and plan. Medications: New hydroxyzine HCl 1 to 2 tablets orally bedtime PRN; 7 days 14 tabs 0RF insomnia Coding Level of Care Code Est Pt Level 3 (79515) Diagnoses Insomnia, unspecified type G47.00 Insomnia type: unspecified
--- OUTSIDE RECORDS SUMMARY | 2024-06-23 11:56 | XMS_ITS | Continuity of Care Document ---
Author Organization [facility] ter Address [address] [place] [id number]- Care Team Providers Care E Commerce Retailer Name Role Phone Ralf MICHAELS, Artemio Torres Primary Care Physician [phone] Encounter 06/09/24 - 06/10/[address] [address] Attending Physician: Not on Staff, Attending MD Referring Physician: Not on Staff, Referring [...] Given tetanus/diphtheria/pertussis, acel(Tdap) 11/10/08 Recorded 1Result Comment: [facility] [id number] Medications acetaminophen 325 mg oral tablet 650 [...] Gm, 0 Refills, Maintenance, 08/12/22 21:45:00 EDT, [facility] #[id number], 25, APPLY TOPICALLY TO THE AFFECTED AREA [...] 0 Refills, Maintenance, 12/24/23 7:45:00 EST, Tablet, [facility], Partial fill upon patient request if the prescription is for aschedule II opioid drug., 165.1, cm, 12/24/23 7:11:... Start Date: 12/24/23 Stop Date: 01/23/24 Status: Ordered escitalopram 20 mg oral tablet 1 tablet, By Mouth, Daily, # 90 tablet, 0 Refills, Maintenance, 05/24/22 14:54:00 EDT, [facility] #[id number], 168, cm, 12/27/21 15:53:00 EST, Height, 106.5, kg, 07/06/20 9:20:00 EDT, Dry Weight Start Date: 05/24/22 Status: Ordered Flomax 0.4 mg oral capsule 0.4 mg, By Mouth, Daily, # 30 capsule, Refills 0, Tot. Refills 0, Maintenance, 12/24/23 7:46:00 EST, Route to Pharmacy Electronically, [facility], Partial fill upon patient request [...] tablet, 1 Refills, Maintenance, 12/16/22 13:33:00 EST, [facility] #[id number], 168, cm, 10/02/22 16:44:00 EST, Height Start [...] 12/19/16 15:25:46, Aerosol, Route to Pharmacy Electronically, [id number], [facility] [id number] Start Date: 12/19/16 Status: Ordered senna 187 [...] Exam Date Time Procedure Performing Provider Status 06/09/24 10:58 AM MR Prostate W+W/O Co ntrast 3D Reformat Auth (Verified) Notes: (MR Prostate W+W/O Contrast 3D Reformat) Reason For Exam: Elevated prostate specific antigen [PSA];Elevated prostate specific antigen [PSA] RESULT: MR Prostate W+W/O Contrast 3D Reformat [facility] VISIT NUMBER :[id number] Patient Name: Mac Davis Date of : 1970 Date of Exam: 06-09-2024 Referring Physician: Darron Baker [facility], [address] [facility], [address] [place] [address] Exam: MR Prostate (C-/C+) with 3D reformat CPT 89014, 385[address] Room Description: [address] MR Prostate (C-/C+) with 3D reformat CPT 59961, 10281 REASON FOR EXAM: Male aged 54 years diagnosed with elevated PSA. TECHNIQUE: Noncontrast and contrast-enhanced multiparametric MRI of the prostate gland was performed utilizing a body matrix coil and PROSTATE PROTOCOL. Dynamic pre- and postcontrast imaging was utilized. 17 cc of intravenous Dotarem contrast was administered. High resolution axial, sagittal, and coronal FSE T2, axial FSE T1, axial DWI, axial pre and multiphase dynamic postcontrast 3D FSPGR T1 pulse sequences were performed. Postprocessing on an independent workstation included creation of a 3D rotational prostate segmentation volume analysis, 3D lesion analysis, subtraction images, multiplanar reformatted images, wash-in and wash-out maps as well as computer aided detection (CAD) HospicelinkD software. Findings are reported using Prostate Imaging Reporting and Data System (PI-RADS) version 2.1. COMPARISON: None available. FINDINGS: The prostate is enlarged and measures 5.6 x 4.4 x 4.9 cm. 3D processing calculated prostate volume is 51.2 cc. PERIPHERAL ZONE: There are no areas of T1 hyperintensity to suggest the presence of hemorrhage. There is no evidence of clinically significant prostate cancer in the peripheral zone. TRANSITION ZONE: The transition zone is heterogeneous and contains well-defined nodules yielding the organized chaos appearance of benign prostatic hyperplasia. A hypertrophied median lobe protrudes into the bladder lumen. There is no evidence of clinically significant prostate cancer in the transition zone. PROSTATE CAPSULE: No evidence of capsular invasion. SEMINAL VESICLES: Normal. LYMPH NODES: No enlarged pelvic or inguinal lymph nodes. VESSELS: Major pelvic vessels demonstrate normal enhancement. URINARY BLADDER: Trabeculated urinary bladder wall, otherwise unremarkable. PELVIS: No free fluid. COLON AND RECTUM: Mild diverticulosis of the sigmoid colon without evidence of acute diverticulitis. BONES: No suspicious osseous lesion. Status post bilateral total hip arthroplasty with artifacts obscuring the adjacent bones. ADDITIONAL FINDINGS: Fat-containing small left inguinal hernia. IMPRESSION: 1. No multiparametric MRI evidence of clinically significant prostate cancer. PI-RADS v2.1 Category 2: Low (Clinically significant cancer is unlikely to be present). 2. No evidence of adenopathy, capsule, or seminal vesicle invasion. No suspicious osseous lesion. 3. 3D processing calculated prostate volume is 51.2 cc. REFERENCE: PI-RADS Version 2.1 Assessment Categories: Category 1: Very low - Clinically significant cancer is highly unlikely. Category 2: Low - Clinically significant cancer is unlikely. Category 3: Intermediate - Clinically significant cancer is equivocal. Category 4: High - Clinically significant cancer is likely. Category 5: Very High - Clinically significant cancer is highly likely. PI-RADS Version 2.1 Definition of Clinically Significant Cancer: Tumor with a [place] score of 7 or more (either 4 + 3 or 3 + 4 with a prominent [place] 4 com?ponent) and/or volume greater than 0.5 cm3 and/or extraprostatic extension. Electronically Signed By: Collin Malhotra MD Dictated By: Not on Staff , LUTHER FINNEGAN Dictated Date/Time: 06/09/24 3:53 pm Reviewed By: Not on Staff , LUTHER FINNEGAN Signed By: Not on Staff , LUTHER FINNEGAN Signed Date/Time: 06/09/24 3:53 pm Transcribed By: CONCHIS Transcribed Date/Time: 06/09/24 3:53 pm Social History Social History Type Response Smoking Status Never smoker entered on: 01/12/15 Sex Patient Care team information Care Team Personnel Name: Tiffanie Arzate RN Position: [facility] Nurse Member Role: Primary Care Nurse Name: Sharad Pierson RN Position: [facility] RN Member Role: Primary Care Nurse Name: Artemio Arambula NP Position: Reference Physician Member Role: PCP Address: Address: [address] [place] [phone]- Name: Raji Concepcion RN Position: [facility] RN Member Role: Primary Care Nurse Care Team Related Persons Name: FELIX HARO Address: home [address] [place] [address]
== END 2024-06-23 12:39 | disposition home or self-care (01) ==
PROVIDERS: PCP Nurse Practitioner Family; Visit Provider Registered Nurse
DX: G47.00 Insomnia, unspecified (principal)
CPT/HCPCS: 99213

== ENCOUNTER 2024-08-05 13:10 | Outpatient (AMB) | payer OTHER, SELFPAY ==
[2024-08-05 13:10] VITALS: BP 120/80; PULSE 83; O2SAT 99; BMI 30.9
--- NOTE | 2024-08-05 13:10 | MHC.PC.OV ---
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 Required: No Accompanied by: Self / Same As Patient Allergies cat dander Allergy (Intermediate, Verified 08/05/24 13:11) Hives dog dander Allergy (Intermediate, Verified 08/05/24 13:11) sneezing shell fish Allergy (Severe, Uncoded 06/23/24 11:56) swelling, hives enviromental Allergy (Unknown, Uncoded 06/23/24 11:56) sneezing Medication List - Last Reconciled 08/05/24 by PATY Mccann albuterol sulfate 90 mcg/actuation 2 puffs inhalation Q6H PRN buspirone 15 mg PO TID dexmethylphenidate ER 20 mg PO QAM dupilumab (Dupixent) mg subcut escitalopram oxalate 20 mg PO DAILY fexofenadine 180 mg PO Q24H hydroxyzine HCl 1 to 2 tablets orally bedtime PRN; 7 days levothyroxine 50 mcg PO DAILY melatonin 5 mg PO .prn tamsulosin (Flomax) 0.4 mg PO BEDTIME venlafaxine 50 mg PO DAILY Tobacco use date assessed: 02/26/24 Dental Screening Dental Screen Date: 02/26/24 HPI ANNUAL PE HPI Details Pt is here for a PE. Will order labs. PSA is up to date. Colon screen is up to date according to pt, will try to track documents down. Pt is following up with urology and dermatology. He is also seeing a therapist and a psychiatrist. A lot of stressors at home, denies any si or hi PFSH Medical History BPH (benign prostatic hyperplasia) Restless leg syndrome Steatosis, liver PTSD (post-traumatic stress disorder) Arthritis BMI 35.0-35.9,adult Pre-op evaluation Complex posttraumatic stress disorder MDD (major depressive disorder) History of herniated intervertebral disc History of high cholesterol History of hypothyroidism History of depression Hx of acute eczema History of asthma Hx of sleep apnea Surgical History Status post total hip replacement, right Status post sleeve gastrectomy History of anal fissures History of prostate surgery Hx of cystoscopy Hx of adenoidectomy History of lumbar discectomy History of left hip replacement Family History Mother Hx of glaucoma Hx of heat stroke Hypertension Father Hx of heat stroke Sister Obese Substance use disorder Sister No problems noted. Sister Depression Thyroid condition Brother Substance use disorder Brother Diabetes Substance use disorder Brother History of hip replacement Brother Family history of prostate problems Brother No problems noted. Social History Household Members: Spouse and Children Housing: House Are you a primary care professionals to a significant other at home: No Do you presently have visiting nurse or other home services: No Alcohol intake: current Alcohol intake frequency: does not drink Patient Tobacco Use Status: Never used Tobacco e-Cigarette/Vaping Use: Currently Using service: No Current occupational status: employed Cognitive needs: No Hearing needs: No Vision needs: No Questionnaire PHQ-9 Over the last 2 weeks, how often have you been bothered by any of the following problems? 62745 - PHQ-9 Billing: Patient declined-do not bill Source: Developed by Drs. Eh Lopez, Rena Otero, Frank Russell and colleagues, with an educational dale from [employer]. Thrive Questionnaire Date Thrive assessed: 08/05/24 I am a: Patient What is your living situation today?: I have a steady place to live Within the past 12 months, did the food you bought not last and you didn't have the money to get more?: Never true Within the past 12 months, did you worry whether your food would run out before you got money to buy more?: Never true Do you have trouble paying for medicines?: No Do you have trouble getting transportation to medical appointments?: No Do you have trouble paying your heating and electricity bill?: No Do you have trouble taking care of your child, family member or friend?: No Do you have trouble with day-to-day activities such as bathing, preparing meals, shopping, managing finances, etc.?: No Are you currently unemployed and looking for a job?: No Are you interested in more education?: No Please select the resources that you would like help with: None Currently or been in a relationship where the following occur: No concerns reported THRIVE Score: 0 SADIQ-7 AMB Questionnaire SADIQ-7 Date SADIQ - 7 assessed: 08/05/24 Source: Developed by Drs. Eh Lopez, Rena Otero, Frank Russell and colleagues, with an educational dale from [employer]. SADIQ-7 Assessment Billing SADIQ-7 Assessment Tool: pt declined-do not bill Review of Systems Const Denies chills and Denies fever(s) Eyes Denies blurry vision ENT Denies vertigo, Denies dizziness and Denies sore throat Card Denies chest pain at rest, Denies chest pain with activity, Denies diaphoresis, Denies dyspnea and Denies dyspnea on exertion Resp Denies cough, Denies dyspnea, Denies dyspnea on exertion and Denies wheezing GI Denies abdominal pain, Denies melena, Denies hematochezia, Denies constipation, Denies diarrhea and Denies loose stools Denies hematuria Musc Denies numbness and Denies tingling Skin/Breast Denies lesions Neuro Denies vertigo, Denies dizziness, Denies numbness and Denies tingling Psych Denies anxiety, Denies depression, Denies homicidal ideation, Denies suicidal ideation and Denies other (substance abuse) Aller/Immun Denies wheezing Physical exam (Primary Care) Vital Signs: Last Vital Signs Pulse 83 08/05/24 13:10 BP 120/80 08/05/24 13:10 Pulse Ox 99 08/05/24 13:10 BMI result Body Mass Index 30.9 Tobacco/Smoking Status: Tobacco use Status Tobacco use date assessed 02/26/24 08/05/24 13:14 Patient Tobacco Use Status Never used Tobacco 08/05/24 13:14 e-Cigarette/Vaping Use Currently Using 08/05/24 13:14 Thrive Assessment: Date of Thrive Assessment Date Thrive assessed 08/05/24 08/05/24 13:14 Currently or been in a relationship where the following occur: No concerns reported Const General: cooperative Nutritional Appearance: well nourished Orientation/consciousness: patient oriented x3 HENMT Head: Yes normal to inspection, Yes normocephalic and Yes atraumatic Ears: TM's normal bilaterally Eyes General: appearance normal, both eyes and all related structures Alignment and Position: alignment normal and position normal Neck Other: small singular palpable node to right posterior cervical region Neck: Yes normal visual inspection and Yes supple Resp Effort & Inspection: normal respiratory effort Auscultation: clear to auscultation bilaterally Cardio Rate: regular rate Rhythm: regular rhythm Heart sounds: S1 normal heart sound present, S2 normal heart sound present and no murmurs GI Palpation (GI): Soft to palpation and nontender Auscultation: normal bowel sounds Male General Exam: Yes normal external exam Penis: normal penis Scrotum: scrotum normal, testes descended bilaterally and no inguinal hernias Testes: no testicular mass Skin Rashes: no rashes Neuro General: patient oriented x3, moves all extremities, no focal motor deficits and deep tendon reflexes 2+ bilaterally Romberg Test: Negative Psych Appearance: grossly normal Mental Status: mental status grossly normal Speech and movement: Normal speech and movement present Affect: normal affect Attitude: cooperative Thought process: Normal thought process present Thought content: Normal thought content present Insight: Good insight present (Psych) Judgement: Good judgement present (Psych) Coding Level of Care Code Est Pt Prev Care 40-64y(75561) Diagnoses Physical exam Z00.00 Screening PSA (prostate specific antigen) Z12.5 Assessment & Plan Assessment & Plan (1) Physical exam: Code(s): Z00.00 - Encounter for general adult medical examination without abnormal findings Category: Medical Plan: Labs ordered (2) Screening PSA (prostate specific antigen): Code(s): Z12.5 - Encounter for screening for malignant neoplasm of prostate Category: Medical Plan The patient agreed to the use of a medical lab technologist for this encounter. Scribed for PATY Ellison by claire Adan scribe, on 08/05/2024 at 13:30 EST. Orders: Orders Complete Blood Count Auto Diff Today Z00.00 - Encounter for general adult medical examination without abnormal findings TSH reflex Free T4 Today Z00.00 - Encounter for general adult medical examination without abnormal findings UA CC w/rflx Micro + Cult Today Z00.00 - Encounter for general adult medical examination without abnormal findings Lipid Panel Today Z00.00 - Encounter for general adult medical examination without abnormal findings Comprehensive [place]. Panel Fast Today Z00.00 - Encounter for general adult medical examination without abnormal findings
== END 2024-08-05 13:55 | disposition home or self-care (01) ==
LOC: HO.HMCC 13:10
PROVIDERS: PCP Nurse Practitioner Family; Visit Provider Nurse Practitioner Family
DX: Z00.00 Encounter for general adult medical examination without abnormal findings (principal); Z12.5 Encounter for screening for malignant neoplasm of prostate

== ENCOUNTER → 2024-08-05 13:10 | Outpatient (BNVA) | payer OTHER, SELFPAY | PROVIDERS: PCP Nurse Practitioner Family; Visit Provider Nurse Practitioner Family | DX: Z00.00 Encounter for general adult medical examination without abnormal findings (principal) | CPT/HCPCS: 99396 ==

== ENCOUNTER 2024-08-12 12:16 | Outpatient (REF) | payer OTHER, SELFPAY ==
[2024-08-12 13:21] LABS: MANUAL DIFF FLAG NO
[2024-08-12 13:37] LABS: Basophils Percent Auto 0.7 % (0-2); Eosinophils Percent Auto 0.7 % (0-4); Hematocrit 40.8 % (42.0-52.0); Hemoglobin 13.9 g/dl (14.0-18.0); Imm Gran Abs Auto 0.01 X10*3/uL (0.00-0.03); Imm Gran Pct Auto 0.2 % (0.0-0.4); Lymphocytes Percent Auto 21.9 % (20-40); Mean Corpuscular HGB Conc 34.1 g/dl (31.0-36.0); Mean Corpuscular Hemoglobin 32.1 pg (27.0-33.0); Mean Corpuscular Volume 94.2 fL (80.0-98.0); Mean Platelet Volume 9.3 fL (9.4-12.4); Monocytes Absolute Auto 0.3 X10*3/uL (0.1-1.2); Monocytes Percent Auto 7.7 % (2-11); Neutrophils Absolute Auto 3.1 x10*3/uL (2.0-8.3); Neutrophils Percent Auto 68.8 % (45-73); Platelet Count 320 X10*3/uL (160-400); Red Blood Count 4.33 X10*6/uL (4.60-5.80); Red Cell Distribution Width 14.3 % (11.0-16.0); White Blood Count 4.4 X10*3/uL (4.8-10.8)
[2024-08-12 14:09] LABS: Alanine Aminotransferase 19 U/L (0-40); Albumin Level 4.4 g/dL (3.5-5.0); Alkaline Phosphatase 47 U/L (39-117); Anion Gap 10 (12-20); Aspartate Amino Transferase 23 U/L (5-37); Bilirubin Total 0.6 mg/dL (0.0-1.0); Blood Urea Nitrogen 12 mg/dL (9-16); Calcium 9.6 mg/dL (8.4-10.2); Carbon Dioxide 29 mmol/L (22-29); Chloride 106 mmol/L (96-108); Cholesterol 252 mg/dL (<200); Estimated Glomerular Filt Rate > 60; Glucose Fasting 97 mg/dL (60-99); HDL Cholesterol 69 mg/dL (>40); LDL Cholesterol Calculated 169 mg/dL (<100); Potassium 4.1 mmol/L (3.3-5.1); Sodium 141 mmol/L (135-145); Total Protein 7.4 g/dL (6.5-8.0); Triglycerides 72 mg/dL (<150)
[2024-08-12 14:24] LABS: TSH reflex Free T4 1.53 uIU/mL (0.32-4.0)
[2024-08-12 16:28] LABS: Appearance Urine Clear; Color Urine Yellow; Glucose Urine UA Negative (Negative); Leukocyte Esterase Urine Negative (Negative); Nitrite Urine Negative (Negative); Urine Blood Negative (Negative); Urine Ketones Negative (Negative); Urine Protein Negative (Neg-Trace)
== END 2024-08-12 12:17 | disposition home or self-care (01) ==
LOC: HO.HMGCLDS 12:16
PROVIDERS: PCP Nurse Practitioner Family; Visit Provider Nurse Practitioner Family
DX: Z00.00 Encounter for general adult medical examination without abnormal findings (principal); E78.5 Hyperlipidemia, unspecified
CPT/HCPCS: 36415; 80053; 80061; 81003; 84443; 85025

== ENCOUNTER → 2024-09-22 09:45 | Outpatient (BNV) | payer OTHER, SELFPAY | PROVIDERS: Visit Provider Psychiatry & Neurology Psychiatry | DX: F33.1 Major depressive disorder, recurrent, moderate (principal); F41.1 Generalized anxiety disorder; F43.10 Post-traumatic stress disorder, unspecified | CPT/HCPCS: 99213; 99214; 99499 ==

== ENCOUNTER 2024-09-27 09:15 | Outpatient (REF) | payer OTHER, SELFPAY ==
[2024-09-27 09:37] LABS: MANUAL DIFF FLAG NO
[2024-09-27 10:50] LABS: Basophils Percent Auto 0.8 % (0-2); Eosinophils Absolute Auto 0.1 X10*3/uL (0.0-0.4); Eosinophils Percent Auto 1.8 % (0-4); Hematocrit 41.7 % (42.0-52.0); Hemoglobin 13.9 g/dl (14.0-18.0); Imm Gran Abs Auto 0.01 X10*3/uL (0.00-0.03); Imm Gran Pct Auto 0.2 % (0.0-0.4); Lymphocytes Absolute Auto 1.6 X10*3/uL (1.2-4.9); Lymphocytes Percent Auto 31.5 % (20-40); Mean Corpuscular HGB Conc 33.3 g/dl (31.0-36.0); Mean Corpuscular Hemoglobin 31.3 pg (27.0-33.0); Mean Corpuscular Volume 93.9 fL (80.0-98.0); Mean Platelet Volume 9.6 fL (9.4-12.4); Monocytes Absolute Auto 0.5 X10*3/uL (0.1-1.2); Monocytes Percent Auto 9.6 % (2-11); Neutrophils Absolute Auto 2.8 x10*3/uL (2.0-8.3); Neutrophils Percent Auto 56.1 % (45-73); Platelet Count 295 X10*3/uL (160-400); Red Blood Count 4.44 X10*6/uL (4.60-5.80); Red Cell Distribution Width 13.6 % (11.0-16.0)
[2024-09-27 11:08] LABS: Estimated Average Glucose 105 mg/dL; Hemoglobin A1C 121.2317 umol/L; Hemoglobin A1c % 5.3 % (<6.0); Total Hemoglobin (HGBA1C) 3537.3585 umol/L
[2024-09-27 11:29] LABS: Erythrocyte Sedimentation Rate 6 MM/HR (0-15)
[2024-09-27 11:30] LABS: Anion Gap 12 (12-20); Blood Urea Nitrogen 17 mg/dL (9-16); C Reactive Protein < 0.10 mg/dL (< or = 0.50); Calcium 9.7 mg/dL (8.4-10.2); Carbon Dioxide 31 mmol/L (22-29); Chloride 105 mmol/L (96-108); Estimated Glomerular Filt Rate > 60; Glucose Fasting 97 mg/dL (60-99); Iron 60 mcg/dL (45-160); Percent Iron Saturation 19 % (15-50); Potassium 3.7 mmol/L (3.3-5.1); Sodium 144 mmol/L (135-145); Total Iron Binding Capacity 315 mcg/dL (228-428); Unsaturated Iron Binding 255 ug/dL
[2024-09-27 11:44] LABS: HBS Num1 2.67 mIU/mL (0-7.99); HBc Num1 0.09 S/CO (0.00-0.79); HBsAGNum1 0.48 S/CO (0.00-0.99); HIV AB/AG Nonreactive (Nonreactive); HIV Num 1 0.05 S/CO (0.00-0.99); Hepatitis B Core Antibody Nonreactive (Nonreactive); Hepatitis B Surface Antigen Negative (Negative); ~HepC Num1 0.13 S/CO (0.00-0.79); ~Hepatitis B Surface Antibody NONREACTIVE (Nonreactive); ~Hepatitis C Antibody Nonreactive (Nonreactive)
[2024-09-27 11:49] LABS: Syphilis Screen Nonreactive (Nonreactive)
[2024-09-27 11:52] LABS: Ferritin 69 ng/mL (20-250); Vitamin D 25-OH Total 38.2 ng/mL (>30)
[2024-09-27 11:58] LABS: Folate 12.8 ng/mL (> or = 4.0); Vitamin B12 509 pg/mL (200-900)
== END 2024-09-27 09:16 | disposition home or self-care (01) ==
LOC: HO.LAB 09:15
PROVIDERS: PCP Nurse Practitioner Family; Visit Provider Psychiatry & Neurology Psychiatry
DX: F33.1 Major depressive disorder, recurrent, moderate (principal); F41.1 Generalized anxiety disorder
CPT/HCPCS: 36415; 80048; 82306; 82607; 82728; 82746; 83036; 83540; 85025; 85652; 86140; 86704; 86706; 86780; 86803; 87340; 87389

== ENCOUNTER 2024-10-04 08:15 | Outpatient (RCR) | payer OTHER, SELFPAY ==
[2024-09-14 11:59] VITALS: BMI 29.6
[2024-09-14 12:00] VITALS: BP 120/70; PULSE 60; TEMP 37.1
--- NOTE | 2024-09-14 13:01 | PC.ADMIT ---
Patient is a 54 year old male who was referred to [facility] by his prescriber who is also his therapist d/t increased anxiety and depression. Stresses include marital issues, issues with his children, work related issues, and a medical complication that he experienced in May 2024. Patient reports he was being treated for kidney stones in May 2024. Stated he almost . Had a near experience . Stated they gave him too much IV medication. Reports he lost consciousness and had a seizure. They overdosed me. Patient reports this was a traumatic experience for him. 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 Patient reports he was on a paid suspension and stated, now I don't know what I am on. I think I am on a TREVER. Stated he has an assistant district attorney involved. Last time he worked was about a month ago. Patient reports he was going to marital counseling with his however did not find that effective. Patient also reports he has a skin condition that affects his head. A type of atopic dermatitis that also causes him stress. Patient is alert and oriented x4. calm and cooperative. He presented with depressed mood and tearful affect at times when talking about his marriage. Stated he feels lonely and has no motivation to do anything. He denied SI, no HI. He was given a copy of his safety plan if needed. medications reconciled with patient and patient's pharmacy. He stated he is taking medications as prescribed and is having difficulty refilling his Focalin from his prescriber. Stated he has not had this medication in 3 days. Patient reports he has one drink of alcohol 2-3 nights a week and uses Marijuana nightly taking a few vape puffs of a gummy.
--- NOTE | 2024-09-16 15:46 | HO.PHP ---
Pt's case has been opened and reviewed in team.
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
--- NOTE | 2024-09-21 15:15 | HO.PHP ---
[facility] staff member reached out to Gt due to him not showing for program. Gt disclosed that he contacted Alexia to inform her that he will not be in attendance to program today due to not sleeping last night. Gt explored if [facility] staff member could encourage Dr. Merchant to place his order for his sleep medication. [facility] staff member noted that she will relay the message. [facility] staff member assessed for safety. Gt reported no concerns around SI, plan or intent and will be in attendance to program tomorrow.
--- NOTE | 2024-09-22 15:25 | HO.PHP ---
Client's case has been opened and reviewed in team
--- NOTE | 2024-09-22 21:43 | P.PNPSP_ITS ---
Subjective Subjective Date of Service: 09/22/24 Reason For Visit: PTSD,ADHD Interim History: Patient seen for following up. I've been doing so much. Staying busy but feels he is not seeing the gains for the amount of time and effort he is putting in. He reportss his mood is good, not depressed, perhaps a little on edge . He is still managing with stressors in the home, family dynamics are strained and difficult to navigate. He still feels bothered and ganged up on by his family whom he feels do not appreciate his efforts. Tries to keep to himself and isolates, although is very talkative and engaged at the program. At baseline he can be somewhat disinhibited and overly detailed. He reports he has not been getting as good sleep and is not sure why. He did start back on his stimulant medication and I propose it could be a higher dose now than he needs. He believes the timeline correlates with starting back on the Focalin and these recent issues. He is agreeable to lowering the dose. For now will order as 10 mg XR, but will consider whether 15 mg may be more affective than 10 mg, without overactivating effects of 20 mg dose. We also discussed initiating a low dose mood stabilizer that may help him better tolerate a stimulant and help with frustration tolerance and impulsiveness. He denies any SI, HI, AH, VH. Medication Compliance: Yes Side effects from medications: Yes Attending Groups: Yes Review of Systems Acute medical concerns: No Mental Status Exam Mental Status Exam Narrative: Alert, oriented, in no acute distress. Calm, cooperative, engaged. No psychomotor agitation or neurovegetative retardation. Eye contact maintained. Mood anxious, affect variable, no noted lability or irritability. Speech abundant, with normal rate, rhythm, volume, no latency or pressured speech. Thought process scattered, somewhat expansive but otherwise coherent. Thought content related to stressors, overactivated, denies SI, intention, urge or plan. Denies any aggressive ideation. No paranoia or delusional content elicited. No evidence of psychosis. Insight and judgment fair but adequate. Diagnostics Vital Signs (24Hr): BMI result Body Mass Index 29.6 Assessment & Plan Assessment & Plan (1) MDD (major depressive disorder), recurrent episode: Qualifiers: Major depression episode severity: moderate Qualified Code(s): F33.1 - Major depressive disorder, recurrent, moderate Status: Acute Code(s): F33.9 - Major depressive disorder, recurrent, unspecified (2) Generalized anxiety disorder: Status: Acute Code(s): F41.1 - Generalized anxiety disorder (3) PTSD (post-traumatic stress disorder): Status: Acute Code(s): F43.10 - Post-traumatic stress disorder, unspecified Plan start Abilify 2 mg qd lower Focalin XR to 10 mg qam continue buspirone 15 mg TID will refill venlafaxine IR 50 mg tabs and plan to taper off continue escitalopram 20 mg qd continue other regular medications?- continue tamsulosin in AM (avoid overlap w prazosin) Continue to monitor as per protocol Patient educated on: diagnosis and medication risk/benefits Informed Consent: understands Reason for contiued partial hosp. stay Substantial Risk for: inability to function and med/psych decompensation Certification I certify that partial hospital treatment is medically necessary due to the symptoms and problems resulting from the patient's mental illness and the failure to treat the patient at the partial hospital level of care would likely result in the patient requiring inpatient psychiatric care which could not be prevented at a less intensive level of care. Total time managing care of this patient today __30__ minutes. Discharge Plan Discharge Attending provider: Mena Merchant Medications: New venlafaxine 50 mg tablet 50 mg PO DAILY Qty: 20 0RF buspirone 15 mg tablet 15 mg PO TID Qty: 30 0RF prazosin 1 mg capsule 1 mg PO BEDTIME Qty: 20 0RF dexmethylphenidate [Focalin XR] 10 mg capsule,ER biphasic 50-50 10 mg PO QAM Qty: 14 0RF Rx Instructions: Partial Fill upon patient request. aripiprazole 2 mg tablet 2 mg PO BEDTIME Qty: 14 0RF Continued dexmethylphenidate [Focalin XR] 20 mg Capsule,Er Biphasic 50-50 20 mg PO DAILY Qty: 14 0RF Rx Instructions: Last filled 08/11/24. No Action tamsulosin [Flomax] 0.4 mg capsule 0.4 mg PO BEDTIME Qty: 90 1RF Rx Instructions: Last filled 09/07/24 fexofenadine 180 mg tablet 180 mg PO Q24H Qty: 90 1RF Rx Instructions: Last filled 07/07/24. 90 day supply. levothyroxine 50 mcg tablet 50 mcg PO DAILY Qty: 90 1RF Rx Instructions: Last filled 08/05/24 atorvastatin 20 mg tablet 20 mg PO BEDTIME Qty: 90 0RF hydroxyzine HCl 25 mg tablet 25 mg PO BEDTIME PRN (Reason: insomnia) Rx Instructions: Last filled 08/23/24. melatonin 5 mg capsule 5 mg PO BEDTIME PRN (Reason: Insomnia) Rx Instructions: Last filled 07/01/24 3 month supply. Dupixent Pen 300 mg/2 mL pen injector 300 mg subcut Q2W Rx Instructions: Every two weeks. Last filled 09/06/24. buspirone [BuSpar] 10 mg Tablet 10 mg PO TID venlafaxine 75 mg Tablet Extended Release 24hr 75 mg PO DAILY Rx Instructions: Last filled 09/01/24. clindamycin phosphate 1 % gel 1 appl topical BID PRN (Reason: infected area.) Rx Instructions: Apply to scalp x 2 weeks then break for a weak then repeat as needed. clobetasol 0.05 % ointment 1 appl topical BID Rx Instructions: APPLY TO AFFECTED AREAS ON SCALP TWICE DAILY FOR TWO WEEKS, BREAK ONE WEEK, REPEAT NEEDED. Last filled 08/30/24 hydrocortisone 2.5 % ointment 1 appl topical BID Rx Instructions: APPLY TO THE FACE TWICE DAILY FOR ONE WEEK, BREAK FOR ONE WEEK, REPEAT NEEDED. Last filled 08/30/24 hydroxyzine HCl 10 mg Tablet 10 mg PO BID PRN (Reason: Anxiety) Rx Instructions: Last filled 08/23/24. 3 month supply. escitalopram oxalate 20 mg tablet 20 mg PO DAILY Rx Instructions: Last filled 07/08/24. 90 day supply. albuterol sulfate 90 mcg/actuation HFA aerosol inhaler 2 puff inhalation Q4H PRN (Reason: Shortness Of Breath Or Wheezing) Stand Alone Forms: Patient Portal Discharge page Print Language: Italian
[2024-09-28 10:00] VITALS: BP 110/72
[2024-09-28 13:26] VITALS: BP 130/88
--- NOTE | 2024-09-28 22:40 | HO.PHPPROGNO ---
Subjective Subjective Date of Service: 09/28/24 Reason For Visit: PTSD,ADHD Interim History: Patient seen, still excitable, anxious and talkative. Yesterday was a good day he feels the med changes are showing signs of improvement. He did note getting hyped up, rambunctious in the AM after fasting and having his lab work done. He had taken the stimulant on an empty stomach that morning and unsurprisingly was probably causing some overactivation. Today he was sure to eat and no longer has that jitteriness, but is feeling a little more emotional today. Has a lot to do with home life and what's going on with his daughter. He continues to engage in therapy with his marriage counselor but his stopped coming a while ago, and so his daughter has been coming and they are supposed to be working on family therapy but mostly we are just playing board games and hanging out with the therapist. He says he is trying to improve their relationship but often feels sabotaged by his , and his daughter will automatically take their mom's side. 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 He is anxious about discharge and feels he needs more time I'm just starting to feel better . He is optimistic the medications are helping and is hoping that this time he wont have to leave before his medications are in place. He has been taking prazosin 1 mg QHS and continues AM tamsulosin. Denies any adverse effects, lightheadness or dizziness. I've gotten some sleep, no nightmares , perhaps there's still room for improvement. Anxiety has dropped off from a 10 in severity to a baseline of 4 or 5. Will get set of vitals to see where BP is at. He has not taken his AM tamsulosin so will check now and again at the end of the day. Medication Compliance: Yes Side effects from medications: No Attending Groups: Yes Review of Systems Acute medical concerns: No Mental Status Exam Mental Status Exam Narrative: Alert, oriented, in no acute distress. Calm, cooperative, engaged, animated. Good eye contact. Mood anxious, overwhelmed, affect variable, reactive, no lability. Speech abundant, with normal rate, rhythm, volume, no latency or pressured speech. Thought process scattered, somewhat expansive but otherwise coherent. Thought content related to stressors, overactivated, denies SI, intention, urge or plan. Denies any aggressive ideation. No paranoia or delusional content elicited. No evidence of psychosis. Insight and judgment fair but adequate. Diagnostics Vital Signs (24Hr): Vital Signs - 24 hr 09/28/24 10:00 09/28/24 13:26 Blood Pressure 110/72 130/88 BMI result Body Mass Index 29.6 Assessment & Plan Assessment & Plan (1) MDD (major depressive disorder), recurrent episode: Qualifiers: Major depression episode severity: moderate Qualified Code(s): F33.1 - Major depressive disorder, recurrent, moderate Status: Acute Code(s): F33.9 - Major depressive disorder, recurrent, unspecified (2) Generalized anxiety disorder: Status: Acute Code(s): F41.1 - Generalized anxiety disorder (3) PTSD (post-traumatic stress disorder): Status: Acute Code(s): F43.10 - Post-traumatic stress disorder, unspecified Plan increase titration of Abilify to 3 mg tonight and 4 mg tomorrow (as tolerated) continue Focalin XR 10 mg qam (15 mg may end up being a more therapeutic dose which he may better tolerate once mood stabilizer in place) continue titration of buspirone toward 15 mg TID (currently up to ) continue escitalopram 20 mg qd decrease venlafaxine 25 mg (1/2 of IR 50 mg tabs) and plan to taper off in next week or 2 continue other regular medications?- continue tamsulosin in AM (pt aware to avoid overlap w HS prazosin) VS checked today AM: 110/72 (prazosin last night, but before AM tamsulosin); rechecked again after lunch: 130/88 (after tamsulosin) continue prazosin 1 mg QHS (patient tends toward normal/high BP, should tolerate incr to 2 mg if needed sleep/nightmares Pending routine lab work done today Continue to monitor as per protocol Patient educated on: diagnosis and medication risk/benefits Informed Consent: understands Reason for contiued partial hosp. stay Substantial Risk for: inability to function, rapid decompensation and med/psych decompensation Certification I certify that partial hospital treatment is medically necessary due to the symptoms and problems resulting from the patient's mental illness and the failure to treat the patient at the partial hospital level of care would likely result in the patient requiring inpatient psychiatric care which could not be prevented at a less intensive level of care. Total time managing care of this patient today _30___ minutes. Discharge Plan Discharge Attending provider: Mena Merchant Medications: New venlafaxine 50 mg tablet 50 mg PO DAILY Qty: 20 0RF prazosin 1 mg capsule 1 mg PO BEDTIME Qty: 20 0RF dexmethylphenidate [Focalin XR] 10 mg capsule,ER biphasic 50-50 10 mg PO QAM Qty: 14 0RF Rx Instructions: Partial Fill upon patient request. aripiprazole 2 mg tablet 2 mg PO BEDTIME Qty: 14 0RF aripiprazole 5 mg tablet 5 mg PO BEDTIME Qty: 14 0RF Continued tamsulosin [Flomax] 0.4 mg capsule 0.4 mg PO BEDTIME Qty: 90 1RF Rx Instructions: Last filled 09/07/24 fexofenadine 180 mg tablet 180 mg PO Q24H Qty: 90 1RF Rx Instructions: Last filled 07/07/24. 90 day supply. atorvastatin 20 mg tablet 20 mg PO BEDTIME Qty: 90 0RF dexmethylphenidate [Focalin XR] 20 mg Capsule,Er Biphasic 50-50 20 mg PO DAILY Qty: 14 0RF Rx Instructions: Last filled 08/11/24. buspirone 15 mg tablet 15 mg PO TID Qty: 90 0RF escitalopram oxalate 20 mg tablet 20 mg PO DAILY Rx Instructions: Last filled 07/08/24. 90 day supply. albuterol sulfate 90 mcg/actuation HFA aerosol inhaler 2 puff inhalation Q4H PRN (Reason: Shortness Of Breath Or Wheezing) Discontinued hydroxyzine HCl 25 mg tablet 25 mg PO BEDTIME PRN (Reason: insomnia) Rx Instructions: Last filled 08/23/24. buspirone [BuSpar] 10 mg Tablet 10 mg PO TID venlafaxine 75 mg Tablet Extended Release 24hr 75 mg PO DAILY Rx Instructions: Last filled 09/01/24. clindamycin phosphate 1 % gel 1 appl topical BID PRN (Reason: infected area.) Rx Instructions: Apply to scalp x 2 weeks then break for a weak then repeat as needed. hydroxyzine HCl 10 mg Tablet 10 mg PO BID PRN (Reason: Anxiety) Rx Instructions: Last filled 08/23/24. 3 month supply. No Action levothyroxine 50 mcg tablet 50 mcg PO DAILY Qty: 90 1RF Rx Instructions: Last filled 08/05/24 melatonin 5 mg capsule 5 mg PO BEDTIME PRN (Reason: Insomnia) Rx Instructions: Last filled 07/01/24 3 month supply. Dupixent Pen 300 mg/2 mL pen injector 300 mg subcut Q2W Rx Instructions: Every two weeks. Last filled 09/06/24. clobetasol 0.05 % ointment 1 appl topical BID Rx Instructions: APPLY TO AFFECTED AREAS ON SCALP TWICE DAILY FOR TWO WEEKS, BREAK ONE WEEK, REPEAT NEEDED. Last filled 08/30/24 hydrocortisone 2.5 % ointment 1 appl topical BID Rx Instructions: APPLY TO THE FACE TWICE DAILY FOR ONE WEEK, BREAK FOR ONE WEEK, REPEAT NEEDED. Last filled 08/30/24 Stand Alone Forms: Patient Portal Discharge page Print Language: Spanish
--- NOTE | 2024-09-30 16:48 | HO.PHP ---
A referral for OP med provider services was faxed to [facility] today.
[2024-10-01 11:38] VITALS: BP 112/82
--- NOTE | 2024-10-01 23:35 | HO.PHPPROGNO ---
Subjective Subjective Date of Service: 09/30/24 Reason For Visit: PTSD,ADHD Interim History: Patient presents as hyperverbal and activated. Went to gym twice this week to work out. Worked out last night. Feeling energized. Notes feeling fine but after taking his 10am meds he feels cranked . Says he still remains on ABilify 2 mg because he forgot to increase the dose. It causes him some sedation at night and has been helpful with falling asleep more easily. WHen asked if he has lowered the dose of venlafaxine 50 mg by half (25 mg) he thinks he has been forgetting and suspects he has been taking a whole tablet. He then remembers he brought in his pill organizer. Pulls out a tablet of venlafaxine from the case and thinks he forgot to take it today. He splits and throws half in his mouth. He then inspects the other tablets left in his case and sees he has other venlafaxine tablets in both AM and PM slots as well as half tablets. It seems when he moved his dose from PM to AM he did not remove the tablets he already put in PM slots. He also added 1/2 tablets and it seems he has been taking 2 1/2 tablets (125 mg/d) rather than 25 mg, which may be attributing to being more hyperactive, talkative and impulsive for the past 2 days. We discuss cutting back the Lexapro to 10 mg as well and taking ABilify 5 mg in split dose, along with prazosin 1 mg. SLeep continues at 4-6 hours (says he usually doesnt get more than 4 or 5 hrs). Will continue to work on his night regime. Medication Compliance: No (as noted above) Side effects from medications: Yes Attending Groups: Yes Review of Systems Acute medical concerns: No Mental Status Exam Mental Status Exam Narrative: Mood good anxious, affect elevated, highly reactive. Speech abundant, mildly pressured, more difficult to redirect than usual. Thought process scattered, expansive. Thought content related to stressors, overactivated, denies SI, intention, urge or plan. Denies any aggressive ideation. No paranoia or delusional content elicited. Insight and judgment fair but adequate. Diagnostics Vital Signs (24Hr): BMI result Body Mass Index 29.6 Assessment & Plan Assessment & Plan (1) MDD (major depressive disorder), recurrent episode: Qualifiers: Major depression episode severity: moderate Qualified Code(s): F33.1 - Major depressive disorder, recurrent, moderate Status: Acute Code(s): F33.9 - Major depressive disorder, recurrent, unspecified (2) Generalized anxiety disorder: Status: Acute Code(s): F41.1 - Generalized anxiety disorder (3) PTSD (post-traumatic stress disorder): Status: Acute Code(s): F43.10 - Post-traumatic stress disorder, unspecified Plan decrease escitalopram for now to 10 mg qd (until mood stabilizer in place - ie.pt less activated) decrease venlafaxine 25 mg (1/2 of IR 50 mg tabs) and plan to taper off in next week or 2 increase titration of Abilify to 5 mg tonight (may consider Trileptal or quetiapine if patient continues to be overactivated/hypomanic) continue Focalin XR at 10 mg qam (decreased from his regular dose of 20 mg) for now continue buspirone at 15mg/10 mg/10 mg) - will consider further titration if warranted, if not may return to 10 mg TID continue prazosin 1 mg QHS (patient tends toward normal/high BP, should tolerate incr to 2 mg if needed sleep/nightmares continue other regular medications?- continue tamsulosin in AM (pt aware to avoid overlap w HS prazosin)) Reviewed routine lab work Continue to monitor Patient educated on: diagnosis, medication risk/benefits and medical condition Informed Consent: understands Reason for contiued partial hosp. stay Substantial Risk for: rapid decompensation and med/psych decompensation Certification I certify that partial hospital treatment is medically necessary due to the symptoms and problems resulting from the patient's mental illness and the failure to treat the patient at the partial hospital level of care would likely result in the patient requiring inpatient psychiatric care which could not be prevented at a less intensive level of care. Total time managing care of this patient today ___30_ minutes. Discharge Plan Discharge Attending provider: Mena Merchant Medications: New venlafaxine 50 mg tablet 50 mg PO DAILY Qty: 20 0RF prazosin 1 mg capsule 1 mg PO BEDTIME Qty: 20 0RF dexmethylphenidate [Focalin XR] 10 mg capsule,ER biphasic 50-50 10 mg PO QAM Qty: 14 0RF Rx Instructions: Partial Fill upon patient request. aripiprazole 2 mg tablet 2 mg PO BEDTIME Qty: 14 0RF aripiprazole 5 mg tablet 5 mg PO BEDTIME Qty: 14 0RF Continued tamsulosin [Flomax] 0.4 mg capsule 0.4 mg PO BEDTIME Qty: 90 1RF Rx Instructions: Last filled 09/07/24 fexofenadine 180 mg tablet 180 mg PO Q24H Qty: 90 1RF Rx Instructions: Last filled 07/07/24. 90 day supply. atorvastatin 20 mg tablet 20 mg PO BEDTIME Qty: 90 0RF dexmethylphenidate [Focalin XR] 20 mg Capsule,Er Biphasic 50-50 20 mg PO DAILY Qty: 14 0RF Rx Instructions: Last filled 08/11/24. buspirone 15 mg tablet 15 mg PO TID Qty: 90 0RF escitalopram oxalate 20 mg tablet 20 mg PO DAILY Rx Instructions: Last filled 07/08/24. 90 day supply. albuterol sulfate 90 mcg/actuation HFA aerosol inhaler 2 puff inhalation Q4H PRN (Reason: Shortness Of Breath Or Wheezing) Discontinued hydroxyzine HCl 25 mg tablet 25 mg PO BEDTIME PRN (Reason: insomnia) Rx Instructions: Last filled 08/23/24. buspirone [BuSpar] 10 mg Tablet 10 mg PO TID venlafaxine 75 mg Tablet Extended Release 24hr 75 mg PO DAILY Rx Instructions: Last filled 09/01/24. clindamycin phosphate 1 % gel 1 appl topical BID PRN (Reason: infected area.) Rx Instructions: Apply to scalp x 2 weeks then break for a weak then repeat as needed. hydroxyzine HCl 10 mg Tablet 10 mg PO BID PRN (Reason: Anxiety) Rx Instructions: Last filled 08/23/24. 3 month supply. No Action levothyroxine 50 mcg tablet 50 mcg PO DAILY Qty: 90 1RF Rx Instructions: Last filled 08/05/24 melatonin 5 mg capsule 5 mg PO BEDTIME PRN (Reason: Insomnia) Rx Instructions: Last filled 07/01/24 3 month supply. Dupixent Pen 300 mg/2 mL pen injector 300 mg subcut Q2W Rx Instructions: Every two weeks. Last filled 09/06/24. clobetasol 0.05 % ointment 1 appl topical BID Rx Instructions: APPLY TO AFFECTED AREAS ON SCALP TWICE DAILY FOR TWO WEEKS, BREAK ONE WEEK, REPEAT NEEDED. Last filled 08/30/24 hydrocortisone 2.5 % ointment 1 appl topical BID Rx Instructions: APPLY TO THE FACE TWICE DAILY FOR ONE WEEK, BREAK FOR ONE WEEK, REPEAT NEEDED. Last filled 08/30/24 Stand Alone Forms: Patient Portal Discharge page Print Language: Costa Rican
--- NOTE | 2024-10-02 23:59 | P.EN_ITS ---
Event Note Date of Service: 10/01/24 Event Note: Reached out to [facility] to check in. He followed through with med changes, was calmer today. He was careful to take only half doses of the antidepressant. Denies any adverse effects. WIll plan to taper off venlafaxine this weekend since it may still be contributing to increased energy in afternoon, although also likely that he is undertreated on 10 mg of Focalin XR (previous dose was 20 mg, which was lowered due to concerns for being overactivating, although in hi ndsight it was likely due to unintentionally taking extra doses of his antidepressants) He will continue on only Lexparo along with other medications. He continues on tamsulosin in AM and prazosin 1 mg at night. Says he is sleeping well, although he is still only sleeping 4-5 hours. Will consider prn trazodone or quetiapine. or prazosin if BP still on high side next week Time Spent With Patient Time: Total time managing care of this patient today _15___ minutes.
--- NOTE | 2024-10-04 20:05 | P.PNPSP_ITS ---
Subjective Subjective Date of Service: 10/04/24 Reason For Visit: PTSD,ADHD Diagnostics Vital Signs (24Hr): BMI result Body Mass Index 29.6 Assessment & Plan Certification I certify that partial hospital treatment is medically necessary due to the symptoms and problems resulting from the patient's mental illness and the failure to treat the patient at the partial hospital level of care would likely result in the patient requiring inpatient psychiatric care which could not be prevented at a less intensive level of care. Total time managing care of this patient today ____ minutes. Discharge Plan Discharge Attending provider: Mena Merchant Medications: New prazosin 1 mg capsule 1 mg PO BEDTIME Qty: 20 0RF aripiprazole 5 mg tablet 5 mg PO BEDTIME Qty: 14 0RF buspirone 10 mg tablet 10 mg PO TID Qty: 45 0RF dexmethylphenidate [Focalin XR] 15 mg capsule,ER biphasic 50-50 15 mg PO QAM Qty: 14 0RF Rx Instructions: Partial Fill upon patient request. escitalopram oxalate 10 mg tablet 10 mg PO DAILY Qty: 15 0RF oxcarbazepine 300 mg tablet 300 mg PO .QHS Qty: 30 0RF Continued fexofenadine 180 mg tablet 180 mg PO Q24H Qty: 90 1RF Rx Instructions: Last filled 07/07/24. 90 day supply. levothyroxine 50 mcg tablet 50 mcg PO DAILY Qty: 90 1RF Rx Instructions: Last filled 08/05/24 atorvastatin 20 mg tablet 20 mg PO BEDTIME Qty: 90 0RF melatonin 5 mg capsule 5 mg PO BEDTIME PRN (Reason: Insomnia) Rx Instructions: Last filled 07/01/24 3 month supply. Dupixent Pen 300 mg/2 mL pen injector 300 mg subcut Q2W Rx Instructions: Every two weeks. Last filled 09/06/24. clobetasol 0.05 % ointment 1 appl topical BID Rx Instructions: APPLY TO AFFECTED AREAS ON SCALP TWICE DAILY FOR TWO WEEKS, BREAK ONE WEEK, REPEAT NEEDED. Last filled 08/30/24 hydrocortisone 2.5 % ointment 1 appl topical BID Rx Instructions: APPLY TO THE FACE TWICE DAILY FOR ONE WEEK, BREAK FOR ONE WEEK, REPEAT NEEDED. Last filled 08/30/24 albuterol sulfate 90 mcg/actuation HFA aerosol inhaler 2 puff inhalation Q4H PRN (Reason: Shortness Of Breath Or Wheezing) Changed tamsulosin [Flomax] 0.4 mg capsule 0.4 mg PO QAM Qty: 90 1RF Rx Instructions: Last filled 09/07/24 Discontinued hydroxyzine HCl 25 mg tablet 25 mg PO BEDTIME PRN (Reason: insomnia) Rx Instructions: Last filled 08/23/24. buspirone [BuSpar] 10 mg Tablet 10 mg PO TID venlafaxine 75 mg Tablet Extended Release 24hr 75 mg PO DAILY Rx Instructions: Last filled 09/01/24. clindamycin phosphate 1 % gel 1 appl topical BID PRN (Reason: infected area.) Rx Instructions: Apply to scalp x 2 weeks then break for a weak then repeat as needed. hydroxyzine HCl 10 mg Tablet 10 mg PO BID PRN (Reason: Anxiety) Rx Instructions: Last filled 08/23/24. 3 month supply. dexmethylphenidate [Focalin XR] 20 mg Capsule,Er Biphasic 50-50 20 mg PO DAILY Rx Instructions: Last filled 08/11/24. escitalopram oxalate 20 mg tablet 20 mg PO DAILY Rx Instructions: Last filled 07/08/24. 90 day supply. Stand Alone Forms: Patient Portal Discharge page Patient Education: Mood Disorders (DC), ADHD in Adults (DC), Generalized Anxiety Disorder (ED) Print Language: Somali
--- NOTE | 2024-10-05 16:26 | HO.PHP ---
Gt's new OP appts with [facility] have been received and provided to [facility]. The appts are as follows: OP therapy intake with Panfilo Carbajal at 10 am in person at [address] [place] [address] . OP Med Provider appt- virtual, on at 11 am with Sendy Gorman. ([facility])
== END 2024-10-04 23:59 | disposition home or self-care (01) ==
LOC: HO.PHPA 08:15
PROVIDERS: Visit Provider Psychiatry & Neurology Psychiatry
DX: F33.1 Major depressive disorder, recurrent, moderate (principal); F41.1 Generalized anxiety disorder; F43.10 Post-traumatic stress disorder, unspecified; Z79.899 Other long term (current) drug therapy
CPT/HCPCS: 90791; 90853

== ENCOUNTER → 2024-11-04 08:30 | Outpatient (BNV) | payer OTHER, SELFPAY | PROVIDERS: Visit Provider Psychiatry & Neurology Psychiatry | DX: F34.89 Other specified persistent mood disorders (principal); F90.2 Attention-deficit hyperactivity disorder, combined type; F41.1 Generalized anxiety disorder; F43.12 Post-traumatic stress disorder, chronic | CPT/HCPCS: 90792 ==

== ENCOUNTER 2024-11-12 08:15 | Outpatient (RCR) | payer OTHER, SELFPAY ==
[2024-11-01 13:26] VITALS: BP 124/76; PULSE 80; TEMP 37.3
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
--- NOTE | 2024-11-04 14:52 | HO.PHP ---
Client's case has been opened and reviewed in team.
--- NOTE | 2024-11-05 11:16 | HO.PHP ---
Gt was not scheduled for program today due to having a prior engagement (another appointment). Gt will be in attendance to program on Friday.
--- NOTE | 2024-11-12 20:18 | HO.PHPPROGNO ---
Subjective Subjective Date of Service: 11/12/24 Reason For Visit: MDD,PTSD Mental Status Exam Mental Status Exam Narrative: Alert, oriented, in no acute distress. Calm, cooperative, engaged, animated. Good eye contact. Mood anxious, overwhelmed, affect variable, reactive, no lability. Speech abundant, with normal rate, rhythm, volume, no latency or pressured speech. Thought process scattered, somewhat expansive but otherwise coherent. Thought content related to stressors, overactivated, denies SI, intention, urge or plan. Denies any aggressive ideation. No paranoia or delusional content elicited. No evidence of psychosis. Insight and judgment fair but adequate. Assessment & Plan Assessment & Plan (1) Other specified persistent mood disorders: Status: Acute Code(s): F34.89 - Other specified persistent mood disorders Assessment and Plan: MDD with mood dysregulation/reactivity (2/t trauma, ADHD) r/o Bipolar spectrum disorder (vs cyclothymia + SADIQ + ICD) (2) ADHD (attention deficit hyperactivity disorder), combined type: Status: Acute Code(s): F90.2 - Attention-deficit hyperactivity disorder, combined type Assessment and Plan: hyperactive/impulsive type > inattentive type r/o other impulse disorders (3) Generalized anxiety disorder: Status: Acute Code(s): F41.1 - Generalized anxiety disorder (4) Chronic post-traumatic stress disorder (PTSD): Status: Acute Code(s): F43.12 - Post-traumatic stress disorder, chronic Assessment and Plan: r/o complex PTSD r/o other characterological features Plan [facility]charge from [facility] continue oxcarbazapine 300 mg BID continue guanfacine ER 1 mg qam continue Focalin XR at 15 mg qam continue Lexapro 10 mg qd continue buspirone 10 mg TID continue prazosin 1 mg qhs continue aripiprazole 5 mg qhs continue other regular medications:? melatonin 5 mg qhs levothyroxine 50 mcg qd atorvastatin 20 mg qhs fexofenadine 180 mg qd clobetasol BID Dupixent 300 mg subq [id number] albuterol inhaler Routine lab work ordered as indicated EKG, routine for baseline QTc for medication considerations as indicated Will defer further medication management to outpatient provider Patient educated on: diagnosis and medication risk/benefits Informed Consent: understands Reason for contiued partial hosp. stay Substantial Risk for: stable for discharge Certification I certify that partial hospital treatment is medically necessary due to the symptoms and problems resulting from the patient's mental illness and the failure to treat the patient at the partial hospital level of care would likely result in the patient requiring inpatient psychiatric care which could not be prevented at a less intensive level of care. Total time managing care of this patient today _30___ minutes. Discharge Plan Discharge Attending provider: Mena Merchant Medications: New guanfacine 1 mg tablet extended release 24 hr 1 mg PO DAILY Qty: 30 0RF Rx Instructions: daily in AM dexmethylphenidate [Focalin XR] 15 mg capsule,ER biphasic 50-50 15 mg PO QAM Qty: 30 0RF Rx Instructions: Partial Fill upon patient request. Continued fexofenadine 180 mg tablet 180 mg PO Q24H Qty: 90 1RF Rx Instructions: Last filled 07/07/24. 90 day supply. levothyroxine 50 mcg tablet 50 mcg PO DAILY Qty: 90 1RF Rx Instructions: Last filled 08/05/24 atorvastatin 20 mg tablet 20 mg PO BEDTIME Qty: 90 0RF melatonin 5 mg capsule 5 mg PO BEDTIME PRN (Reason: Insomnia) Rx Instructions: Last filled 07/01/24 3 month supply. Dupixent Pen 300 mg/2 mL pen injector 300 mg subcut Q2W Rx Instructions: Every two weeks. Last filled 09/06/24. clobetasol 0.05 % ointment 1 appl topical BID Rx Instructions: APPLY TO AFFECTED AREAS ON SCALP TWICE DAILY FOR TWO WEEKS, BREAK ONE WEEK, REPEAT NEEDED. Last filled 08/30/24 hydrocortisone 2.5 % ointment 1 appl topical BID Rx Instructions: APPLY TO THE FACE TWICE DAILY FOR ONE WEEK, BREAK FOR ONE WEEK, REPEAT NEEDED. Last filled 08/30/24 aripiprazole 5 mg tablet 5 mg PO BEDTIME Qty: 14 0RF prazosin 1 mg capsule 1 mg PO BEDTIME Qty: 30 0RF buspirone 10 mg tablet 10 mg PO TID 90 Days Qty: 270 0RF escitalopram oxalate 10 mg tablet 10 mg PO DAILY Qty: 30 0RF albuterol sulfate 90 mcg/actuation HFA aerosol inhaler 2 puff inhalation Q4H PRN (Reason: Shortness Of Breath Or Wheezing) Changed oxcarbazepine 300 mg tablet 300 mg PO BID Qty: 60 0RF Discontinued tamsulosin [Flomax] 0.4 mg capsule 0.4 mg PO QAM Qty: 90 1RF Rx Instructions: Last filled 09/07/24 dexmethylphenidate [Focalin XR] 20 mg Capsule,Er Biphasic 50-50 20 mg PO DAILY Rx Instructions: Last filled 10/18/24 Stand Alone Forms: Patient Portal Discharge page Patient Education: Mood Disorders (DC), ADHD in Adolescents (DC) Print Language: Vietnamese
== END 2024-11-12 23:59 | disposition home or self-care (01) ==
LOC: HO.PHPA 08:15
PROVIDERS: Visit Provider Psychiatry & Neurology Psychiatry
DX: F34.89 Other specified persistent mood disorders (principal); F90.2 Attention-deficit hyperactivity disorder, combined type; F41.1 Generalized anxiety disorder; F43.12 Post-traumatic stress disorder, chronic; Z79.899 Other long term (current) drug therapy
CPT/HCPCS: 90791; 90853

== ENCOUNTER 2024-11-22 10:07 | Outpatient (REF) | payer OTHER, SELFPAY ==
[2024-11-22 10:34] LABS: MANUAL DIFF FLAG NO
[2024-11-22 10:44] LABS: Basophils Absolute Auto 0.1 X10*3/uL (0.0-0.2); Basophils Percent Auto 1.1 % (0-2); Eosinophils Absolute Auto 0.1 X10*3/uL (0.0-0.4); Eosinophils Percent Auto 2.2 % (0-4); Hematocrit 41.9 % (42.0-52.0); Hemoglobin 14.2 g/dl (14.0-18.0); Imm Gran Abs Auto 0.01 X10*3/uL (0.00-0.03); Imm Gran Pct Auto 0.2 % (0.0-0.4); Lymphocytes Absolute Auto 1.3 X10*3/uL (1.2-4.9); Lymphocytes Percent Auto 28.1 % (20-40); Mean Corpuscular HGB Conc 33.9 g/dl (31.0-36.0); Mean Corpuscular Hemoglobin 31.8 pg (27.0-33.0); Mean Corpuscular Volume 93.7 fL (80.0-98.0); Mean Platelet Volume 9.4 fL (9.4-12.4); Monocytes Absolute Auto 0.4 X10*3/uL (0.1-1.2); Monocytes Percent Auto 8.8 % (2-11); Neutrophils Absolute Auto 2.7 x10*3/uL (2.0-8.3); Neutrophils Percent Auto 59.6 % (45-73); Platelet Count 275 X10*3/uL (160-400); Red Blood Count 4.47 X10*6/uL (4.60-5.80); White Blood Count 4.6 X10*3/uL (4.8-10.8)
[2024-11-22 11:45] LABS: Alanine Aminotransferase 44 U/L (0-40); Albumin Level 4.3 g/dL (3.5-5.0); Alkaline Phosphatase 49 U/L (39-117); Anion Gap 8 (12-20); Aspartate Amino Transferase 35 U/L (5-37); Bilirubin Total 0.3 mg/dL (0.0-1.0); Blood Urea Nitrogen 15 mg/dL (9-16); Calcium 8.9 mg/dL (8.4-10.2); Carbon Dioxide 30 mmol/L (22-29); Chloride 108 mmol/L (96-108); Cholesterol 174 mg/dL (<200); Estimated Glomerular Filt Rate > 60; Ferritin 37 ng/mL (20-250); Glucose Fasting 98 mg/dL (60-99); HDL Cholesterol 61 mg/dL (>40); Iron 54 mcg/dL (45-160); LDL Cholesterol Calculated 92 mg/dL (<100); Percent Iron Saturation 18 % (15-50); Potassium 4.3 mmol/L (3.3-5.1); Sodium 142 mmol/L (135-145); TSH reflex Free T4 1.57 uIU/mL (0.32-4.0); Total Iron Binding Capacity 303 mcg/dL (228-428); Total Protein 7.4 g/dL (6.5-8.0); Triglycerides 109 mg/dL (<150); Unsaturated Iron Binding 249 ug/dL
[2024-11-22 11:52] LABS: Folate 11.5 ng/mL (> or = 4.0); Vitamin B12 404 pg/mL (200-900)
--- OUTSIDE RECORDS SUMMARY | 2024-11-22 14:42 | XMS_ITS | Encounter Summary ---
Author Organization [facility] Address [address] [place] [address] Care Team Providers Care Treater Name Role Phone Shweta Todd MD Primary Care Provider [phone] Reason for Visit * Reason Comments Medication Refill Encounter Details Date Type Department Care Team (Late st Contact Info) Description 12/02/2016 Refill [facility] Urologic Surgery [place] [address] [address] [facility] [address] [place] [address] Shmuel Link MD [address] [place] [phone] Benign prostatic hyperplasia (BPH) with urinary urgency Social History Tobacco Use Types Packs/Day Years Used Date Smoking Tobacco: Never Alcohol Use Standard Drinks/Week Comments No 0 (1 standard drink = 0.6 oz pur e alcohol) Sex and Gender Information Value Date Recorded Sex Assigned at Not on file Gender Identity Not on file Sexual Orientation Not on file documented as of this encounter Miscellaneous Notes * Telephone Encounter - Kathie Moreira RN - 12/03/2016 6:53 AM EST Please refill documented in this encounter Plan of Treatment Not on file documented as of this encounter Visit Diagnoses Diagnosis Benign prostatic hyperplasia (BPH) with urinary urgency documented in this encounter Care Teams Treater Relationship Specialty Start Date End Date Shweta Todd MD [address] [facility] [address] [place] [address] PCP - General Internal Medicine 11/13/16 documented as of this encounter
--- OUTSIDE RECORDS SUMMARY | 2024-11-22 14:43 | XMS_ITS | Clinical Summary ---
Author Organization [facility] Address [address] [place] [address] Care Team Providers Care Material Clerk Name Role Phone Shweta Todd MD Primary Care Provider [phone] Allergies No known active allergies Medications Medication Sig Dispensed Refills Start Date End Date Status buPROPion (WELLBUTRIN XL) 150 MG 24 hr tablet TK 1 T PO Q 24 H TO TK WITH 300 MG T 2 11/14/2016 Active buPROPion (WELLBUTRIN XL) 300 MG 24 hr tablet TK 1 T PO D 0 09/27/2016 Active escitalopram (LEXAPRO) 20 MG tablet TK 1 T PO D 3 10/29/2016 Active gabapentin (NEURONTIN) 300 MG capsule TK 3 CS PO D HS 3 10/29/2016 Activ e levothyroxine (SYNTHROID, LEVOTHROID) 50 MCG tablet TK 1 T PO D 7 10/22/2016 Active piroxicam (FELDENE) 10 MG capsule TK 2 C PO D. 1 09/02/2016 Active tacrolimus (PROTOPIC) 0.1 % ointment NIGEL EXT AA BID 6 09/20/2016 Active topiramate (TOPAMAX) 25 MG tablet TK 1 T PO BID 3 11/24/2016 Active ranitidine (ZANTAC) 150 MG tablet Take 150 mg by mouth 2 (two) times a day. Active PROAIR HFA 108 (90 Base) MCG/ACT inhaler INL 2 PFS PO Q 4 H PRF WHZ 1 12/19/2016 Active citalopram (CeleXA) 40 MG tablet TK 1 T PO D 3 12/17/2016 Active tamsulosin (FLOMAX) 0.4 MG capsuleIndications:Chago ign prostatic hyperplasia (BPH) with urinary urgency,Medication refill TAKE 1 CAPSULE(0.4 MG) BY MOUTH DAILY 90 capsule 12/22/2018 Active Active Problems No known active problems Family History Medical History Relation Name Comments No Known Problems Brother 1 4 Throat cancer Brother 2 1 No Known Problems Daughter 4 Cancer Father Stroke Father Stroke Mother No Known Problems Sister 3 Relation Name Status Comments Brother 1 4 Alive Brother 2 1 Daughter 4 Alive Father Mother Alive Sister 3 Alive Social History Tobacco Use Types Packs/Day Years Used Date Smoking Tobacco: Never Alcohol Use Standard Drinks/Week Comments No 0 (1 standard drink = 0.6 oz pur e alcohol) Sex and Gender Information Value Date Recorded Sex Assigned at Not on file Gender Identity Not on file Sexual Orientation Not on file Last Filed Vital Signs Vital Sign Reading Time Taken Comments Blood Pressure - - Pulse - - Temperature - - Respiratory Rate - - Oxygen Saturation - - Inhaled Oxygen Concentration - - Weight 95.3 kg (210 lb) 12/30/2016 3:06 PM EST Height 167.6 cm (5' 6 ) 12/30/2016 3:06 PM EST Body Mass Index 33.89 12/30/2016 3:06 PM EST Plan of Treatment Health Maintenance Due Date Last Done Comments Hepatitis C Virus Screening 1970 HIV Screening 1983 DTaP/Tdap/Td Vaccines (1 - Tdap) 1989 Hepatitis B Vaccines (1 of 3 - 19+ 3-dose series) 1989 Colonoscopy 2015 Pneumococcal Vaccines 50+ (1 of 1 - PCV) 2020 Zoster (Shingles) Vaccine (1 of 2) 2020 Influenza Vaccine 05/27/2024 COVID-19 Vaccine (1 - 2023-2 5 season) 2024 Pneumococcal Vaccine: Pediat elizabeth (0-5 Years) and At-Risk Patients (6 to 49 Years) Aged Out No longer eligible b ased on patient's age to complete this topic Care Teams Material Clerk Relationship Specialty Start Date End Date Shweta Todd MD [address] [place] [address] PCP - General Internal Medicine 11/13/16
--- OUTSIDE RECORDS SUMMARY | 2024-11-22 14:43 | XMS_ITS | Clinical Summary ---
Author Organization [employer] Address [address] [facility] [address] [facility] [address] [place] [address] Care Team Providers Care Nut And Bolt Assembler Name Role Phone Unavailable Primary Care Provider Unavailabl e Social History Tobacco Use Types Packs/Day Years Used Date Smoking Tobacco: Never Assessed Sex and Gender Information Value Date Recorded Sex Assigned at Male 02/25/2023 1:25 PM EDT Legal Sex Male 2:35 PM EDT Gender Identity Male 02/21/2023 2:38 PM EDT Sexual Orientation Don't know 02/25/2023 1: 26 PM EDT Plan of Treatment Health Maintenance Due Date Last Done Comments CT Colonography 1970 Colonoscopy 1970 Colorectal Cancer Screening 1970 Depression Screening 1970 FIT DNA/Cologuard 1970 FIT 1970 FOBT 1970 HIV Screening 1970 Lipid Panel 1970 SDOH Screening 1970 Sigmoidoscopy 1970 Alcohol/Substance Use Screening 1982 Tobacco Screening 1982 Hepatitis C Screening 1988 Hepatitis B Vaccines (1 of 3 - 19+ 3-dose series) 1989 Pneumococcal Vaccine: Pediatrics (0 to 5 Years) and At-Risk Patients (6 to 64 Years) (2 of 2 - PCV) 06/24/2018 06/24/2017 Zoster Vaccines (1 of 2) 2020 DTaP/Tdap/Td Vaccines (3 - Td or Tdap) 05/25/2024 05/25/2014, 11/10/2008 COVID-19 Vaccine ( season) 2024 12/07/2022, 10/16/2021, 03/29/2021, Additional history exists Influenza Vaccine (#1) 2024 2, 10/16/2021, 10/16/2021, Additional history exists RSV Patients and Patients Aged 60 years or older (1 - 1-dose 75+ series) 2045 HIB Vaccines Aged Out No longer eligi ble based on patient's age to complete this topic HPV Vaccines Aged Out No longer eligi ble based on patient's age to complete this topic Hepatitis A Vaccines Aged Out No long er eligible based on patient's age to complete this topic IPV Vaccines Aged Out No longer eligi ble based on patient's age to complete this topic Meningococcal Vaccine Aged Out No donte al eligible based on patient's age to complete this topic RSV under 20 months Aged Out No longe r eligible based on patient's age to complete this topic Rotavirus Vaccines Aged Out No longer eligible based on patient's age to complete this topic Insurance STANDARD
--- OUTSIDE RECORDS SUMMARY | 2024-11-22 14:43 | XMS_ITS | Clinical Summary ---
[facility] Organization [facility] Address [address] [place] [phone] Care Team Providers Care Packing Room Worker Name Role Phone Samuel Gomez MD Primary Care Provider [phone] Surgical History Surgery Date Site/Laterality Comments BACK SURGERY PROCEDURE: HISTORICAL BACK SURGERY OTHER SURGICAL HISTORY PROCEDURE: [place] ADENOIDECTOMY PRIMARY <AGE 12 Medical History Medical History Date Comments Hypothyroidism 11/11/2008 DX:Hypothyroidis m Eczema 11/10/2008 DX:Eczema Depression 11/10/2008 DX:Depression Chronic back pain 11/23/2009 DX:Chronic jarrell k pain Asthma 11/10/2008 DX:Asthma SYED (obstructive sleep apnea) 08/25/2017 DX :SYED (obstructive sleep apnea) Hyperlipidemia 05/27/2017 DX:Hyperlipidemi a Family History Medical History Relation Name Comments Other: prediabetes Brother 1 Arthritis Brother 2 hip replacement No Known Problems Brother 3 Alcohol/Drug Brother 4 Stroke Father Hypertension Mother glaucoma, CVA Depression Sister 1 Depression Sister 2 Depression Sister 3 Relation Name Status Comments Brother 1 Alive Brother 2 Alive Brother 3 Alive Brother 4 Father Mother Alive Sister 1 Alive Sister 2 Alive Sister 3 Alive Social History Tobacco Use Types Packs/Day Years Used Date Smoking Tobacco: Never Smokeless Tobacco: Never Alcohol Use Standard Drinks/Week Comments Yes 0 (1 standard drink = 0.6 oz pur e alcohol) Sex and Gender Information Value Date Recorded Sex Assigned at Not on file Gender Identity Not on file Sexual Orientation Not on file Obstetrics History Plan of Treatment Health Maintenance Due Date Last Done Comments Hepatitis B Vaccines (1 of 3 - 19+ 3-dose series) 1989 Pneumococcal Vaccine: Pediatrics (0 to 5 Years) and At-Risk Patients (6 to 64 Years) (2 of 2 - PCV) 06/24/2018 06/24/2017 Zoster Vaccines (1 of 2) 2020 Cholesterol Screening (Lipid Panel) 09/25/2022 Colorectal Cancer Screening: Colonoscopy 09/25/2022 Depression Screening 09/25/2022 HIV Screening 09/25/2022 Hepatitis C Screening 09/25/2022 Social Influencers of Health Screening 09/25/2022 COVID-19 Vaccine (1 - 2023-2 5 season) 2024 Influenza Vaccine (#1) 2024 7, 11/23/2009 DTaP,Tdap,and Td Vaccines (3 - Td or Tdap) 04/18/2028 04/18/2018, 11/10/2008 HIB Vaccines Aged Out No longer eligi [...] on patient's age to complete this topic MMR Vaccines Aged Out No longer eligi ble based on patient's age to complete this topic Meningococcal ACWY Vaccine Aged Out N o longer eligible based on patient's age to complete this topic RSV Immunization Patients Under 20 months Aged Out No longer eligible b ased on patient's age to complete this topic Varicella Vaccines Aged Out No longer eligible based on patient's age to complete this topic Care Teams Packing Room Worker Relationship Specialty Start Date End Date Samuel Gomez MD [address] [place] [address] PCP - General Internal Medicine 04/25/17
[2024-11-23 12:58] LABS: Hematocrit 42.3 % (38.5-50.0); Hemoglobin 14.3 g/dL (13.2-17.1); MCH 31.7 pg (27.0-33.0); MCV 93.8 fL (80.0-100.0); RBC 4.51 Million/uL (4.20-5.80); RDW 13.5 % (11.0-15.0)
== END 2024-11-22 10:08 | disposition home or self-care (01) ==
LOC: HO.LAB 10:07
PROVIDERS: PCP Nurse Practitioner Family; Visit Provider Nurse Practitioner Family
DX: D64.9 Anemia, unspecified (principal); E78.5 Hyperlipidemia, unspecified; Z00.00 Encounter for general adult medical examination without abnormal findings
CPT/HCPCS: 36415; 80053; 80061; 82607; 82728; 82746; 83020; 83540; 84443; 85014; 85018; 85025; 85041; 88311

== ENCOUNTER 2024-11-25 12:40 | Outpatient (AMB) | payer OTHER, SELFPAY ==
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
--- OUTSIDE RECORDS SUMMARY | 2024-11-25 16:28 | XMS_ITS | Clinical Summary ---
Author Organization [employer] Address [address] [place] [address] Care Team Providers Care Material Checker Name Role Phone Unavailable Primary Care Provider [...] - 19+ 3-dose series) 1989 Pneumococcal Vaccine: 50+ Years (2 of 2 - PCV) 06/24/2018 06/24/2017 Zoster Vaccines (1 of 2) 2020 DTaP/Tdap/Td Vaccines (3 - Td or Tdap) 05/25/2024 05/25/2014, 11/10/2008 COVID-19 Vaccine ( season) 2024 12/07/2022, 10/16/2021, 03/29/2021, Additional history exists Influenza Vaccine (#1) 2024 , 10/16/2021, 10/16/2021, Additional history exists RSV Patients [...] patient's age to complete this topic Insurance [facility] STANDARD
--- OUTSIDE RECORDS SUMMARY | 2024-11-25 16:28 | XMS_ITS | Clinical Summary ---
Author Organization [facility] Address [address] [place] [address] Care Team Providers Care Grain Shipper Name Role Phone Shweta Todd MD Primary Care Provider [phone] Allergies No known active allergies Medications Medication [...] age to complete this topic Care Teams Grain Shipper Relationship Specialty Start Date End Date Shweta Todd MD [address] [place] [address] PCP - General Internal Medicine 11/13/16
--- OUTSIDE RECORDS SUMMARY | 2024-11-25 16:28 | XMS_ITS | Encounter Summary ---
Author Organization [facility] Address [address] [place] [address] Care Team Providers Care Optimization Consultant Name Role Phone Shweta Todd MD Primary Care Provider [phone] Reason for Visit * Reason Comments Medication Refill Encounter Details Date Type Department Care Team (Late st Contact Info) Description 12/02/2016 Refill [facility] Urologic Surgery [place] [address] [facility] [address] [place] [address] Shmuel Link MD [address] [place] [id number] Benign prostatic hyperplasia (BPH) with urinary urgency [...] urgency documented in this encounter Care Teams Optimization Consultant Relationship Specialty Start Date End Date Shweta Todd MD [address] [facility] [address] [place] [address] PCP - General Internal Medicine 11/13/16 documented as of this encounter
--- OUTSIDE RECORDS SUMMARY | 2024-11-25 16:28 | XMS_ITS | Clinical Summary ---
Author Organization [facility] Address [address] [place] [phone] Care Team Providers Care Welcome Wagon Host/Hostess Name Role Phone Samuel Gomez MD Primary Care Provider [phone] Surgical History Surgery Date Site/Laterality Comments BACK SURGERY PROCEDURE: HISTORICAL BACK SURGERY OTHER SURGICAL HISTORY PROCEDURE: [place] ADENOIDECTOMY PRIMARY <AGE 12 Medical History Medical [...] age to complete this topic Care Teams Welcome Wagon Host/Hostess Relationship Specialty Start Date End Date Samuel Gomez MD [address] [place] [id number] PCP - General Internal Medicine 04/25/17
== END 2024-11-25 13:38 | disposition home or self-care (01) ==
LOC: HO.HBST 12:40
PROVIDERS: PCP Nurse Practitioner Family; Visit Provider Counselor Mental Health
DX: F90.9 Attention-deficit hyperactivity disorder, unspecified type (principal); F33.1 Major depressive disorder, recurrent, moderate; Z98.84 Bariatric surgery status
CPT/HCPCS: 90791

== ENCOUNTER → 2024-11-25 12:40 | Outpatient (BNVA) | payer OTHER, SELFPAY | PROVIDERS: PCP Nurse Practitioner Family; Visit Provider Counselor Mental Health ==

== ENCOUNTER 2024-11-29 13:13 | Outpatient (AMB) | payer OTHER, SELFPAY ==
--- NOTE | 2024-11-29 12:35 | A.OFFVIS_ITS ---
VS Expanded 11/29/24 12:37 Height 5 ft 6 in Weight 199 lb BMI 32.1 Intake Visit Reasons: TV PO LSG 12/13/21 Allergies cat dander Allergy (Intermediate, Verified 08/05/24 13:11) Hives dog dander Allergy (Intermediate, Verified 08/05/24 13:11) sneezing shell fish Allergy (Severe, Uncoded 06/23/24 11:56) swelling, hives enviromental Allergy (Unknown, Uncoded 06/23/24 11:56) sneezing Medication List - Last Reconciled 11/29/24 by CANDIDO Castillo albuterol sulfate 90 mcg/actuation 2 puffs inhalation Q4H PRN aripiprazole 5 mg PO BEDTIME atorvastatin 20 mg PO BEDTIME buspirone 10 mg PO TID 90 days clobetasol 0.05% 1 appl topical BID dexmethylphenidate ER (Focalin XR) 15 mg PO QAM dupilumab (Dupixent) 300 mg subcut Q2W escitalopram oxalate 10 mg PO DAILY fexofenadine 180 mg PO Q24H guanfacine ER 1 mg PO DAILY hydrocortisone 2.5% 1 appl topical BID levothyroxine 50 mcg PO DAILY melatonin 5 mg PO BEDTIME PRN oxcarbazepine 300 mg PO BID prazosin 1 mg PO BEDTIME HPI Comments Details: This?is a?54?yo male who is s/p LSG 12/13/2021. Presents for 3 year post op visit. Weight at last visit on 06/02/2024 was 180 pounds with a BMI of 29.5, current weight 199lbs.? No complaints of nausea, emesis, abdominal pain or reflux, or constipation. Pt reports a near experience after kidney stone, treated at [facility], thinks he was dosed with too much fentanyl. He is now struggling with sleep, only 2 hours/night. I snack all night. I'm not getting as many shakes as I used to. Feels very hungry at nighttime. Had another stay for partial hospitalization, released 11/12. Is also supposed to go to [place] soon to help care for his mom with dementia. Has excess fat of chest tissue, this is more bothersome to him recently. Gets rashes in skin folds and a lot of skin irritation. Pt saw Dr. [place]'s office for consult. Present meal plan includes: 2 Celebrate 4:1 shakes per day?with 2 scoops each in 8oz almond milk, 50 gm -May substitute eggs for AM meal, on a wrap protein bar or yogurt around 4pm- sometimes Dinner 7 pm, 4 forks fish/4 forks veg, having a small portion of starch feels he is getting enough protein continues to struggle with snacking at nighttime- chips, flaxseed cereal, Lactaid ice cream, Yasso protein ice cream bar, tries to use sugar free popsicles My diet fluctuates- sometimes I don't eat at all Exercise routine includes: previously was getting back to gym with daughter [facility] Medical History (Updated 11/22/24 @ 11:55 by PATY Mccann) Hyperpigmented skin lesion H/O nephrolithotomy with removal of calculi History of concussion Kidney stone BPH (benign prostatic hyperplasia) Restless leg syndrome Steatosis, liver PTSD (post-traumatic stress disorder) Arthritis BMI 35.0-35.9,adult Pre-op evaluation Complex posttraumatic stress disorder MDD (major depressive disorder) History of herniated intervertebral disc History of high cholesterol History of hypothyroidism History of depression Hx of acute eczema History of asthma Hx of sleep apnea Surgical History Status post total hip replacement, right Status post sleeve gastrectomy History of anal fissures History of prostate surgery Hx of cystoscopy Hx of adenoidectomy History of lumbar discectomy History of left hip replacement Family History Mother Hx of glaucoma Hx of heat stroke Hypertension Father Hx of heat stroke Sister Obese Substance use disorder Sister No problems noted. Sister Depression Thyroid condition Brother Substance use disorder Brother Diabetes Substance use disorder Brother History of hip replacement Brother Family history of prostate problems Brother No problems noted. Social History Household Members: Spouse and Family Household Members Other:: Gt lives with his 3 daughters and the spouse he is from Housing: House Are you a primary director of health care marketing to a significant other at home: No Do you presently have visiting nurse or other home services: No Alcohol intake: current Alcohol intake frequency: does not drink Comment: Gt's discharge date has been extended from 09/30/24 to 10/04/24. Patient Tobacco Use Status: Never used Tobacco e-Cigarette/Vaping Use: Currently Using service: No Current occupational status: employed Cognitive needs: No Hearing needs: No Vision needs: No Telehealth Telehealth Telehealth Platform: Telephone Location of provider rendering services: other Location of patient: address on file Patient Identification confirmed using: Name, : Yes Telehealth method: voice only Patient verbally consented to treatment: Yes Patient verbally consented to billing insurance company: Yes Patient informed of any privacy concerns related to visit: Yes Minutes spent on Phone/Video with Pt.: 16 Assessment & Plan Assessment & Plan (1) S/P laparoscopic sleeve gastrectomy: Code(s): Z98.84 - Bariatric surgery status Category: Surgical (2) Obesity: Code(s): E66.9 - Obesity, unspecified Category: Medical Plan Pt is interested in GLP1 agonists. He will call his insurance company to find out which drug might be covered. Reviewed all contraindications to GLP1s and pt denies any history or family history. Recent labs reviewed. Has another appt with Perla scheduled for later this month. Next visit in 6mo. I spent a total of 30 minutes reviewing/updating records, examining the patient and counseling the patient on weight management as detailed above.
[2024-11-29 12:37] VITALS: BMI 32.1
--- OUTSIDE RECORDS SUMMARY | 2024-11-29 14:30 | XMS_ITS | Clinical Summary ---
Author Organization [employer] Address [address] [facility] [address] [place] [address] Care Team Providers Care Check Writer Salesperson Name Role Phone Unavailable Primary Care Provider [...] patient's age to complete this topic Insurance [facility]
--- OUTSIDE RECORDS SUMMARY | 2024-11-29 14:30 | XMS_ITS | Encounter Summary ---
Author Organization [facility] Address [address] [place] [address] Care Team Providers Care Commutator Undercutter Name Role Phone Shweta Todd MD Primary Care Provider [phone] Reason for Visit * Reason Comments Medication Refill Encounter Details Date Type Department Care Team (Late st Contact Info) Description 12/02/2016 Refill [facility] Urologic Surgery [place] [address] [facility] [address] [place] [address] Shmuel Link MD [address] [place] [address] Benign prostatic hyperplasia (BPH) with urinary urgency [...] urgency documented in this encounter Care Teams Commutator Undercutter Relationship Specialty Start Date End Date Shweta Todd MD [address] [facility] [address] [place] [address] PCP - General Internal Medicine 11/13/16 documented as of this encounter
--- OUTSIDE RECORDS SUMMARY | 2024-11-29 14:30 | XMS_ITS | Clinical Summary ---
Author Organization [facility] Address [address] [place] [address] Care Team Providers Care Cartoon Artist Name Role Phone Shweta Todd MD Primary Care Provider [phone] Allergies No known active allergies Medications Medication [...] age to complete this topic Care Teams Cartoon Artist Relationship Specialty Start Date End Date Shweta Todd MD [address] [place] [address] PCP - General Internal Medicine 11/13/16
--- OUTSIDE RECORDS SUMMARY | 2024-11-29 14:30 | XMS_ITS | Clinical Summary ---
[facility] Address [address] [place] [phone] Care Team Providers Care Digital Performance Analyst Name Role Phone Samuel Gomez MD Primary Care Provider [phone] Surgical History Surgery Date Site/Laterality Comments BACK SURGERY PROCEDURE: HISTORICAL BACK SURGERY OTHER SURGICAL HISTORY PROCEDURE: [place] ADENOIDECTOMY PRIMARY <AGE 12 Medical History Medical [...] age to complete this topic Care Teams Digital Performance Analyst Relationship Specialty Start Date End Date Samuel Gomez MD [address] [place] [address] PCP - General Internal Medicine 04/25/17
== END 2024-11-29 13:13 | disposition home or self-care (01) ==
LOC: HO.HBS 13:13
PROVIDERS: PCP Nurse Practitioner Family; Visit Provider Physician Assistant Surgical
DX: E66.811 Obesity, class 1 (principal); Z68.32 Body mass index [BMI] 32.0-32.9, adult; Z90.3 Acquired absence of stomach [part of]; Z98.84 Bariatric surgery status
CPT/HCPCS: 99214; G2211

== ENCOUNTER 2024-12-22 11:23 | Outpatient (REF) | payer OTHER, SELFPAY ==
--- NOTE | ~2024-12-22 | US_ITS ---
CLINICAL HISTORY: R74.8 - Abnormal levels of other serum enzymes US abdomen complete Comparison: None Findings: The visualized pancreas is normal. The aorta and inferior vena cava are normal caliber. The liver is normal in size and echotexture. There is no intrahepatic bile duct dilatation. The common duct is 5 mm in diameter. The gallbladder is normal. There is no sonographic Huggins sign. The main portal vein is antegrade. The right kidney is 10.5 cm in length. The left kidney is 10.9 cm in length. The spleen is normal. No ascites. IMPRESSION: 1. Normal complete abdominal ultrasound. This document has been electronically signed by: Miguelangel Garza MD on 12/23/2024 06:32:13
--- OUTSIDE RECORDS SUMMARY | 2024-12-22 14:18 | XMS_ITS | Clinical Summary ---
Author Organization [employer] Address [address] [facility] 7[address] [place] [address] Care Team Providers Care Home Care Manager Rn Name Role Phone Unavailable Primary Care Provider [...] patient's age to complete this topic Insurance [facility] STANDARD
--- OUTSIDE RECORDS SUMMARY | 2024-12-22 14:18 | XMS_ITS | Clinical Summary ---
Author Organization [facility] Address [id number] [place] [id number] Care Team Providers Care Motion Graphics Artist Name Role Phone Samuel Gomez MD Primary Care Provider [phone] Surgical History Surgery Date Site/Laterality Comments BACK SURGERY PROCEDURE: HISTORICAL BACK SURGERY OTHER SURGICAL HISTORY PROCEDURE: [place] ADENOIDECTOMY PRIMARY <AGE 12 Medical History Medical History Date Comments Hypothyroidism 11/11/2008 DX:Hypothyroidis m Eczema 11/10/2008 DX:Eczema Depression 11/10/2008 DX:Depression Chronic back pain 11/23/2009 DX:Chronic jarrell k pain Asthma 11/10/2008 DX:Asthma SYED (obstructive sleep apnea) 08/25/2017 DX :SEYD (obstructive sleep apnea) Hyperlipidemia 05/27/2017 DX:Hyperlipidemi a [...] Recorded Sex Assigned at Not on file Legal Sex Male 4:08 PM EST Gender Identity Not on file Sexual Orientation Not on file Obstetrics History Plan of Treatment Health Maintenance Due Date Last Done Comments Hepatitis B Vaccines (1 of 3 - 19+ 3-dose series) 1989 Pneumococcal Vaccine: 50+ Years (2 of 2 - PCV) 06/24/2018 06/24/2017 Pneumococcal Vaccine: Pediatrics (0 to 5 Years) [...] patient's age to complete this topic Meningococcal B Vacine Aged Out No lo nger eligible based on patient's age to complete this topic RSV Immunization Patients Under 20 months Aged Out No longer eligible b ased on patient's age to complete this topic Varicella Vaccines Aged Out No longer eligible based on patient's age to complete this topic Care Teams Motion Graphics Artist Relationship Specialty Start Date End Date Samuel Gomez MD [address] [place] [id number] PCP - General Internal Medicine 04/25/17
--- OUTSIDE RECORDS SUMMARY | 2024-12-22 14:18 | XMS_ITS | Encounter Summary ---
Author Organization [facility] Address [address] [place] [address] Care Team Providers Care Civil Defense Director Name Role Phone Shweta Todd MD Primary Care Provider [phone] Reason for Visit * Reason Comments Medication Refill Encounter Details Date Type Department Care Team (Late st Contact Info) Description 12/02/2016 Refill [facility] Urologic Surgery [place] [address] [facility] [address] [place] [address] Shmuel Link MD [address] [place] [address] Benign prostatic hyperplasia (BPH) with urinary urgency [...] urgency documented in this encounter Care Teams Civil Defense Director Relationship Specialty Start Date End Date Shweta Todd MD [address] [facility] [address] [place] [address] PCP - General Internal Medicine 11/13/16 documented as of this encounter
--- OUTSIDE RECORDS SUMMARY | 2024-12-22 14:19 | XMS_ITS | Clinical Summary ---
Author Organization [facility] Address [address] [place] [address] Care Team Providers Care Primer Inserting Machine Adjuster Name Role Phone Shweta Todd MD Primary Care Provider [phone] Allergies No known active allergies Medications Medication [...] age to complete this topic Care Teams Primer Inserting Machine Adjuster Relationship Specialty Start Date End Date Shweta Todd MD [address] [place] [address] PCP - General Internal Medicine 11/13/16
== END 2024-12-22 11:24 | disposition home or self-care (01) ==
LOC: HO.US 11:23
PROVIDERS: PCP Nurse Practitioner Family; Visit Provider Nurse Practitioner Family
DX: R74.8 Abnormal levels of other serum enzymes (principal)
CPT/HCPCS: 76700

== ENCOUNTER → 2024-12-22 11:24 | Outpatient (BNV) | payer OTHER, SELFPAY | PROVIDERS: PCP Nurse Practitioner Family; Visit Provider Radiology Vascular & Interventional Radiology | DX: R74.8 Abnormal levels of other serum enzymes (principal) | CPT/HCPCS: 76700 ==

== ENCOUNTER 2024-12-23 07:30 | Outpatient (AMB) | payer OTHER, SELFPAY ==
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
--- OUTSIDE RECORDS SUMMARY | 2024-12-23 07:33 | XMS_ITS | Clinical Summary ---
Author Organization [facility] Address [address] [place] [address] Care Team Providers Care Lineman Apprentice Name Role Phone Samuel Gomez MD Primary Care Provider [phone] Surgical History Surgery Date Site/Laterality Comments BACK SURGERY PROCEDURE: HISTORICAL BACK SURGERY OTHER SURGICAL HISTORY PROCEDURE: [place] ADENOIDECTOMY PRIMARY <AGE 12 Medical History Medical [...] age to complete this topic Care Teams Lineman Apprentice Relationship Specialty Start Date End Date Samuel Gomez MD [address] [place] [id number] PCP - General Internal Medicine 04/25/17
--- OUTSIDE RECORDS SUMMARY | 2024-12-23 07:33 | XMS_ITS | Encounter Summary ---
Author Organization [facility] Address [address] [place] [address] Care Team Providers Care Terrapin Fisher Name Role Phone Shweta Todd MD Primary Care Provider [phone] Reason for Visit * Reason Comments Medication Refill Encounter Details Date Type Department Care Team (Late st Contact Info) Description 12/02/2016 Refill [facility] Urologic Surgery [place] [address] [facility] [address] [place] [address] Shmuel Link MD [address] [place] [id number] Benign prostatic hyperplasia (BPH) with urinary urgency [...] urgency documented in this encounter Care Teams Terrapin Fisher Relationship Specialty Start Date End Date Shweta Todd MD [address] [facility] [address] [place] [address] PCP - General Internal Medicine 11/13/16 documented as of this encounter
--- OUTSIDE RECORDS SUMMARY | 2024-12-23 07:33 | XMS_ITS | Clinical Summary ---
Author Organization [facility] Address [address] [place] [address] Care Team Providers Care Prefinish Operator Name Role Phone Shweta Todd MD Primary Care Provider [phone] Allergies No known active allergies Medications Medication [...] age to complete this topic Care Teams Prefinish Operator Relationship Specialty Start Date End Date Shweta Todd MD [address] [place] [address] PCP - General Internal Medicine 11/13/16
--- OUTSIDE RECORDS SUMMARY | 2024-12-23 07:33 | XMS_ITS | Clinical Summary ---
Author Organization [employer] Address [address] [facility] [address] [place] [address] Care Team Providers Care Almond Huller Name Role Phone Unavailable Primary Care Provider [...] patient's age to complete this topic Insurance [facility] STANDARD
== END 2024-12-23 07:50 | disposition home or self-care (01) ==
PROVIDERS: PCP Nurse Practitioner Family; Visit Provider Nurse Practitioner Family
DX: F43.12 Post-traumatic stress disorder, chronic (principal); F34.89 Other specified persistent mood disorders; Z56.6 Other physical and mental strain related to work

== ENCOUNTER → 2024-12-23 07:30 | Outpatient (BNVA) | payer OTHER, SELFPAY | PROVIDERS: PCP Nurse Practitioner Family; Visit Provider Nurse Practitioner Family ==

== ENCOUNTER 2024-12-24 09:06 | Outpatient (AMB) | payer OTHER, SELFPAY ==
--- NOTE | 2024-12-24 09:06 | A.OFFWM_ITS ---
Intake Intake Visit Reasons: (OV) PO LSG 12/13/21 Allergies cat dander Allergy (Intermediate, Verified 12/24/24 10:30) Hives dog dander Allergy (Intermediate, Verified 12/24/24 10:30) sneezing shell fish Allergy (Severe, Uncoded 12/23/24 07:34) swelling, hives enviromental Allergy (Unknown, Uncoded 12/23/24 07:34) sneezing PFSH Medical History (Updated 12/26/24 @ 13:28 by KRISTA Mccann-) Nightmare disorder Hyperpigmented skin lesion H/O nephrolithotomy with removal of calculi History of concussion Kidney stone BPH (benign prostatic hyperplasia) Restless leg syndrome Steatosis, liver PTSD (post-traumatic stress disorder) Arthritis BMI 35.0-35.9,adult Pre-op evaluation Complex posttraumatic stress disorder MDD (major depressive disorder) History of herniated intervertebral disc History of high cholesterol History of hypothyroidism History of depression Hx of acute eczema History of asthma Hx of sleep apnea Surgical History Status post total hip replacement, right Status post sleeve gastrectomy History of anal fissures History of prostate surgery Hx of cystoscopy Hx of adenoidectomy History of lumbar discectomy History of left hip replacement Family History Mother Hx of glaucoma Hx of heat stroke Hypertension Father Hx of heat stroke Sister Obese Substance use disorder Sister No problems noted. Sister Depression Thyroid condition Brother Substance use disorder Brother Diabetes Substance use disorder Brother History of hip replacement Brother Family history of prostate problems Brother No problems noted. Social History Household Members: Spouse and Family Household Members Other:: Gt lives with his 3 daughters and the spouse he is from Housing: House Are you a primary youth career specialist to a significant other at home: No Do you presently have visiting nurse or other home services: No Alcohol intake: current Alcohol intake frequency: does not drink Comment: Gt's discharge date has been extended from 09/30/24 to 10/04/24. Patient Tobacco Use Status: Never used Tobacco e-Cigarette/Vaping Use: Currently Using service: No Current occupational status: employed Cognitive needs: No Hearing needs: No Vision needs: No Behavioral Health Assessment Weight Management Therapy Therapy Notes Details Subjective: PT reports he has been excercising more and started Zepbound, however hasn't noticed major changes in appetite yet. On the other hand, there is tension at home whic is a big source of stress for him and a MH trigger. PT also reports he has not been able to meet with a prescriber and has been Off focalin and guanfacine a few days ago. His PCP will continue prescribing other MH meeds nut not these 2. On a positive note PT shared about his recent trip to [facility] to visit his mom and reconnect with family. Objective: PT presents for a second visit for support post-op. Discussed funtioning and ongoing challenges obtaining psych. meds, also stressdull events at home impacting him. CBT-based interventions used. We identified triggers and his responses Psychoeducation provided around behavioral activation for weight-loss journey. Worked on cognitive challenging to focus on problem solving while identifying the things under/out of his control. Supported with coping strategies for Sx of stres/anxiety. PT was Provided information of outpatient psychiatrist services at [facility], and other 2 prescriber in the area for him to try to set up a sooner visit. Assessment/Response: * Mental status: Anxious. * Risk reported/identified: None PT was open and active in session. He reported a good functioning, however already experiencing cognitive issues as he has been off of ADHD medicine, and scare of relapses. Assessment & Plan Assessment & Plan (1) Chronic post-traumatic stress disorder (PTSD): Code(s): F43.12 - Post-traumatic stress disorder, chronic (2) Other specified persistent mood disorders: Code(s): F34.89 - Other specified persistent mood disorders (3) Work-related stress: Code(s): Z56.6 - Other physical and mental strain related to work Plan F/up in 3 weeks. Next padmini: 01/11/2025 at 10am, Telehealth. Medications: Discontinued tirzepatide (weight loss) for 4 weeks Discontinued Reason: Doctor's Order 2.5 mg (0.5 mL) subcut QWEEK 4 weeks 2 m L 0RF tirzepatide Discontinued Reason: Doctor's Order 5 mg (0.5 mL) subcut QWEEK 2 mL 0RF Coding Level of Care Code Established Pt Tele Psytx >53 mins (51769) Patient Type Established Diagnoses Chronic post-traumatic stress disorder (PTSD) F43.12 Other specified persistent mood disorders F34.89 Work-related stress Z56.6 Time Spent (min) 60
--- OUTSIDE RECORDS SUMMARY | 2024-12-24 09:40 | XMS_ITS | Encounter Summary ---
Author Organization [facility] Address [address] [place] [address] Care Team Providers Care Anode Crew Supervisor Name Role Phone Shweta Todd MD Primary Care Provider [phone] Reason for Visit * Reason Comments Medication Refill Encounter Details Date Type Department Care Team (Late st Contact Info) Description 12/02/2016 Refill [facility] Urologic Surgery [place] [address] [facility] [address] [place] [address] Shmuel Link MD [address] [place] [phone] Benign prostatic hyperplasia (BPH) with urinary urgency [...] urgency documented in this encounter Care Teams Anode Crew Supervisor Relationship Specialty Start Date End Date Shweta Todd MD [address] [facility] [address] [place] [address] PCP - General Internal Medicine 11/13/16 documented as of this encounter
--- OUTSIDE RECORDS SUMMARY | 2024-12-24 09:40 | XMS_ITS | Clinical Summary ---
Author Organization [employer] Address [address] [facility] 7t [place] [address] Care Team Providers Care Residential Care Officer Name Role Phone Unavailable Primary Care Provider [...] patient's age to complete this topic Insurance [facility] STANDARD
--- OUTSIDE RECORDS SUMMARY | 2024-12-24 09:40 | XMS_ITS | Clinical Summary ---
Author Organization [facility] Address [address] [place] [address] Care Team Providers Care Weaving Loom Operator Name Role Phone Shweta Todd MD Primary Care Provider [phone] Allergies No known active allergies Medications Medication [...] age to complete this topic Care Teams Weaving Loom Operator Relationship Specialty Start Date End Date Shweta Todd MD [address] [place] [address] PCP - General Internal Medicine 11/13/16
--- OUTSIDE RECORDS SUMMARY | 2024-12-24 09:40 | XMS_ITS | Clinical Summary ---
Author Organization [facility] Address [address] [place] [id number] Care Team Providers Care Personal Care Home Administrator Name Role Phone Samuel Gomez MD Primary Care Provider [phone] Surgical History Surgery Date Site/Laterality Comments BACK SURGERY PROCEDURE: HISTORICAL BACK SURGERY OTHER SURGICAL HISTORY PROCEDURE: [place] ADENOIDECTOMY PRIMARY <AGE 12 Medical History Medical [...] age to complete this topic Care Teams Personal Care Home Administrator Relationship Specialty Start Date End Date Samuel Gomez MD [address] [place] [address] PCP - General Internal Medicine 04/25/17
== END 2024-12-24 10:27 | disposition home or self-care (01) ==
PROVIDERS: PCP Nurse Practitioner Family; Visit Provider Counselor Mental Health
DX: F43.12 Post-traumatic stress disorder, chronic (principal); F34.89 Other specified persistent mood disorders; Z56.6 Other physical and mental strain related to work
CPT/HCPCS: 90837

== ENCOUNTER → 2024-12-24 09:06 | Outpatient (BNVA) | payer OTHER, SELFPAY | PROVIDERS: PCP Nurse Practitioner Family; Visit Provider Counselor Mental Health ==

== ENCOUNTER 2025-01-11 10:07 | Outpatient (AMB) | payer OTHER, SELFPAY ==
--- NOTE | 2025-01-11 10:00 | A.OFFWM_ITS ---
Intake Intake Visit Reasons: VIDEO PO LSG 12/13/21 Allergies cat dander Allergy (Intermediate, Verified 12/24/24 10:30) Hives dog dander Allergy (Intermediate, Verified 12/24/24 10:30) sneezing shell fish Allergy (Severe, Uncoded 12/23/24 07:34) swelling, hives enviromental Allergy (Unknown, Uncoded 12/23/24 07:34) sneezing PFSH Medical History (Updated 12/26/24 @ 13:28 by KRISTA Mccann-) Nightmare disorder Hyperpigmented skin lesion H/O nephrolithotomy with removal of calculi History of concussion Kidney stone BPH (benign prostatic hyperplasia) Restless leg syndrome Steatosis, liver PTSD (post-traumatic stress disorder) Arthritis BMI 35.0-35.9,adult Pre-op evaluation Complex posttraumatic stress disorder MDD (major depressive disorder) History of herniated intervertebral disc History of high cholesterol History of hypothyroidism History of depression Hx of acute eczema History of asthma Hx of sleep apnea Surgical History Status post total hip replacement, right Status post sleeve gastrectomy History of anal fissures History of prostate surgery Hx of cystoscopy Hx of adenoidectomy History of lumbar discectomy History of left hip replacement Family History Mother Hx of glaucoma Hx of heat stroke Hypertension Father Hx of heat stroke Sister Obese Substance use disorder Sister No problems noted. Sister Depression Thyroid condition Brother Substance use disorder Brother Diabetes Substance use disorder Brother History of hip replacement Brother Family history of prostate problems Brother No problems noted. Social History Household Members: Spouse and Family Household Members Other:: Gt lives with his 3 daughters and the spouse he is from Housing: House Are you a primary workforce investment act career manager to a significant other at home: No Do you presently have visiting nurse or other home services: No Alcohol intake: current Alcohol intake frequency: does not drink Comment: Gt's discharge date has been extended from 09/30/24 to 10/04/24. Patient Tobacco Use Status: Never used Tobacco e-Cigarette/Vaping Use: Currently Using service: No Current occupational status: employed Cognitive needs: No Hearing needs: No Vision needs: No Behavioral Health Assessment Weight Management Therapy Therapy Notes Details Subjective: The patient reports feeling unmotivated, flat, and anhedonic over the past week since restarting his ADHD medication. He has been struggling with these feelings since resuming the medication about 10 days ago. The patient previously met with his former provider, Rufus Daniels, at [facility] in [place], [place]. Additionally, the patient is feeling stressed about his mother's health and has plans to return to [place] to support her. Objective: The patient presents for a follow-up visit via Telehealth. We processed his current functioning and explored the boundary issues he reported. We discussed how these issues may be impacting his emotional well- being and daily life. A behavioral activation plan was proposed to help address his motivation and mood. The provider emailed the patient a worksheet outlining this technique for further self-help. CBT and CPT approach were used in today's session. Assessment/Response: * Mental status: The patient appears anxious, stressed, and emotionally low, with reported feelings of anhedonia. * Risk reported/identified: No immediate risks or safety concerns were identified during this session. Assessment & Plan Assessment & Plan (1) Chronic post-traumatic stress disorder (PTSD): Code(s): F43.12 - Post-traumatic stress disorder, chronic (2) Other specified persistent mood disorders: Code(s): F34.89 - Other specified persistent mood disorders (3) Work-related stress: Code(s): Z56.6 - Other physical and mental strain related to work Plan The provider sent the patient therapeutic resources via email, including materials on behavioral activation and a daily journal to support emotional regulation and track progress. The patient is encouraged to engage with these resources and use the journal to monitor his mood and activities. Next padmini: 01/28/2025 at 9am, In person visit. Telehealth Telehealth Telehealth Platform: [employer] Location of provider rendering services: other Location of patient: address on file Patient Identification confirmed using: Name, : Yes Telehealth method: video Patient verbally consented to treatment: Yes Patient verbally consented to billing insurance company: Yes Patient informed of any privacy concerns related to visit: Yes Minutes spent on Phone/Video with Pt.: 60 Coding Level of Care Code Established Pt Tele Psytx >53 mins (32398) Patient Type Established Diagnoses Chronic post-traumatic stress disorder (PTSD) F43.12 Other specified persistent mood disorders F34.89 Work-related stress Z56.6 Time Spent (min) 60
--- OUTSIDE RECORDS SUMMARY | 2025-01-11 11:32 | XMS_ITS | Clinical Summary ---
Author Organization [email or web address] Address [address] [facility] [address] [place] [address] Care Team Providers Care Senior Librarian Name Role Phone Unavailable Primary Care Provider [...] patient's age to complete this topic Insurance [facility] STANDARD
--- OUTSIDE RECORDS SUMMARY | 2025-01-11 11:32 | XMS_ITS | Encounter Summary ---
Author Organization [facility] Address [address] [place] [address] Care Team Providers Care Expedition Supervisor Name Role Phone Shweta Todd MD Primary Care Provider [phone] Reason for Visit * Reason Comments Medication Refill Encounter Details Date Type Department Care Team (Late st Contact Info) Description 12/02/2016 Refill [facility] Urologic Surgery [place] [address] [place] [address] Shmuel Link MD [address] [place] [id number] Benign prostatic hyperplasia (BPH) with urinary urgency [...] urgency documented in this encounter Care Teams Expedition Supervisor Relationship Specialty Start Date End Date Shweta Todd MD [address] [facility] [address] [place] [address] PCP - General Internal Medicine 11/13/16 documented as of this encounter
--- OUTSIDE RECORDS SUMMARY | 2025-01-11 11:33 | XMS_ITS | Clinical Summary ---
Author Organization [facility] Address [address] [place] [phone] Care Team Providers Care Professor Of Food Biochemistry Name Role Phone Samuel Gomez MD Primary Care Provider [phone] Surgical History Surgery Date Site/Laterality Comments BACK SURGERY PROCEDURE: HISTORICAL BACK SURGERY OTHER SURGICAL HISTORY PROCEDURE: [place] ADENOIDECTOMY PRIMARY <AGE 12 Medical History Medical [...] age to complete this topic Care Teams Professor Of Food Biochemistry Relationship Specialty Start Date End Date Samuel Gomez MD [address] [place] [address] PCP - General Internal Medicine 04/25/17
--- OUTSIDE RECORDS SUMMARY | 2025-01-11 11:33 | XMS_ITS | Clinical Summary ---
Author Organization [facility] Address [address] [place] [address] Care Team Providers Care Class 1 Owner Operator Name Role Phone Shweta Todd MD Primary Care Provider [phone] Allergies No known active allergies Medications Medication [...] age to complete this topic Care Teams Class 1 Owner Operator Relationship Specialty Start Date End Date Shweta Todd MD [address] [place] [address] PCP - General Internal Medicine 11/13/16
== END 2025-01-11 11:13 | disposition home or self-care (01) ==
LOC: HO.HBST 10:07
PROVIDERS: PCP Nurse Practitioner Family; Visit Provider Counselor Mental Health
DX: F43.12 Post-traumatic stress disorder, chronic (principal); F34.89 Other specified persistent mood disorders; Z56.6 Other physical and mental strain related to work
CPT/HCPCS: 90837

== ENCOUNTER → 2025-01-11 10:07 | Outpatient (BNVA) | payer OTHER, SELFPAY | PROVIDERS: PCP Nurse Practitioner Family; Visit Provider Counselor Mental Health ==

== ENCOUNTER 2025-01-28 09:11 | Outpatient (AMB) | payer OTHER, SELFPAY ==
--- NOTE | 2025-01-28 09:11 | A.OFFWM_ITS ---
Intake Intake Visit Reasons: OV PO LSG 12/13/21 Allergies cat dander Allergy (Intermediate, Verified 01/28/25 10:11) Hives dog dander Allergy (Intermediate, Verified 01/28/25 10:11) sneezing shell fish Allergy (Severe, Uncoded 01/28/25 10:11) swelling, hives enviromental Allergy (Unknown, Uncoded 01/28/25 10:11) sneezing PFSH Medical History (Updated 12/26/24 @ 13:28 by TROY MccannP-) Nightmare disorder Hyperpigmented skin lesion H/O nephrolithotomy with removal of calculi History of concussion Kidney stone BPH (benign prostatic hyperplasia) Restless leg syndrome Steatosis, liver PTSD (post-traumatic stress disorder) Arthritis BMI 35.0-35.9,adult Pre-op evaluation Complex posttraumatic stress disorder MDD (major depressive disorder) History of herniated intervertebral disc History of high cholesterol History of hypothyroidism History of depression Hx of acute eczema History of asthma Hx of sleep apnea Surgical History Status post total hip replacement, right Status post sleeve gastrectomy History of anal fissures History of prostate surgery Hx of cystoscopy Hx of adenoidectomy History of lumbar discectomy History of left hip replacement Family History Mother Hx of glaucoma Hx of heat stroke Hypertension Father Hx of heat stroke Sister Obese Substance use disorder Sister No problems noted. Sister Depression Thyroid condition Brother Substance use disorder Brother Diabetes Substance use disorder Brother History of hip replacement Brother Family history of prostate problems Brother No problems noted. Social History Household Members: Spouse and Family Household Members Other:: Gt lives with his 3 daughters and the spouse he is from Housing: House Are you a primary career resource technician to a significant other at home: No Do you presently have visiting nurse or other home services: No Alcohol intake: current Alcohol intake frequency: does not drink Comment: Gt's discharge date has been extended from 09/30/24 to 10/04/24. Patient Tobacco Use Status: Never used Tobacco e-Cigarette/Vaping Use: Currently Using service: No Current occupational status: employed Cognitive needs: No Hearing needs: No Vision needs: No Behavioral Health Assessment Weight Management Therapy Therapy Notes Details Subjective: Patient reports experiencing symptoms of anhedonia, persistent sleep disturbances, and frequent nightmares. He shares that the nightmares and poor sleep quality are likely linked to a traumatic hospital incident last year, which has created a negative association between sleep and fear of dying. He reports being able to fall asleep but wakes up 3?4 times per night, leading to fatigue and low energy during the day. Patient has a history of bariatric surgery and acknowledges that current mental health challenges are negatively affecting his ability to maintain weight-loss efforts. Objective: Patient presents for a follow-up behavioral health visit in person. * Discussed current psychosocial functioning, emotional needs, and medication r esponse. * Reviewed local/community resources to explore alternatives for ongoing behavioral health care. * Reflected on therapeutic progress and expressed that current services may not be meeting his clinical needs. * Explored presenting symptoms and contributing factors, including a sense of purposelessness, emotional disconnection from his , and lack of clarity around personal goals. * Identified how unresolved psychological stress is impacting motivation, energy, and his post-surgical weight-loss maintenance. * Brainstormed alternative strategies to integrate mental health care into his recovery and lifestyle management. Assessment/Response: * Mental Status: Patient alert and oriented to person, place, and time. Mood is low, affect restricted. Speech normal in rate and volume. Thought process coherent. No psychotic symptoms noted. * Risk Identified: No current suicidal ideation, intent, or plan. No self-harm b ehaviors reported. Denies homicidal ideation. Assessment & Plan Assessment & Plan (1) Chronic post-traumatic stress disorder (PTSD): Code(s): F43.12 - Post-traumatic stress disorder, chronic (2) Other specified persistent mood disorders: Code(s): F34.89 - Other specified persistent mood disorders (3) Work-related stress: Code(s): Z56.6 - Other physical and mental strain related to work Plan - Advised patient to discuss with psychiatric medication provider the possibility of continuing care at the current location, rather than transitioning providers, due to comfort and consistency. - Recommended that patient speak with current therapist about the option of undergoing psychological testing (as advertised on therapist?s website) to formally evaluate ADHD and support future medication management. -Encourage patient to continue exploring goals, reconnecting with meaningful values, and integrating mental health support into his long-term bariatric care plan. Follow-up in 3 weeks. Next padmini: 02/17/2025 Medications: Discontinued Zepbound Discontinued Reason: Doctor's Order 5 mg (0.5 mL) subcut QWEEK 2 mL 0RF NS Coding Level of Care Code Established Pt Psytx 45 mins (85934) Patient Type Established Diagnoses Chronic post-traumatic stress disorder (PTSD) F43.12 Other specified persistent mood disorders F34.89 Work-related stress Z56.6 Time Spent (min) 50
--- OUTSIDE RECORDS SUMMARY | 2025-01-28 09:53 | XMS_ITS | Encounter Summary ---
Author Organization [facility] Address [address] [place] [address] Care Team Providers Care Automotive Services Manager Name Role Phone Shweta Todd MD Primary Care Provider [phone] Reason for Visit * Reason Comments Medication Refill Encounter Details Date Type Department Care Team (Late st Contact Info) Description 12/02/2016 Refill [facility] [place] [address] [place] [address] Shmuel Link MD [address] [place] [id number] Benign prostatic hyperplasia (BPH) with urinary urgency [...] urgency documented in this encounter Care Teams Automotive Services Manager Relationship Specialty Start Date End Date Shweta Todd MD [address] [facility] [address] [place] [address] PCP - General Internal Medicine 11/13/16 documented as of this encounter
--- OUTSIDE RECORDS SUMMARY | 2025-01-28 09:53 | XMS_ITS | Clinical Summary ---
Author Organization [employer] Address [address] [facility] [address] [place] [address] Care Team Providers Care Marketing Planner Name Role Phone Unavailable Primary Care Provider [...] patient's age to complete this topic Insurance [facility] STANDARD
--- OUTSIDE RECORDS SUMMARY | 2025-01-28 09:53 | XMS_ITS | Clinical Summary ---
Author Organization [facility] Address [address] [place] [address] Care Team Providers Care Frit Burner Name Role Phone Shweta Todd MD Primary Care Provider [phone] Allergies No known active allergies Medications Medication [...] age to complete this topic Care Teams Frit Burner Relationship Specialty Start Date End Date Shweta Todd MD [address] [place] [address] PCP - General Internal Medicine 11/13/16
--- OUTSIDE RECORDS SUMMARY | 2025-01-28 09:53 | XMS_ITS | Clinical Summary ---
Author Organization [facility] Address [address] [place] [phone] Care Team Providers Care Car Pincher Name Role Phone Samuel Gomez MD Primary Care Provider [phone] Surgical History Surgery Date Site/Laterality Comments BACK SURGERY PROCEDURE: HISTORICAL BACK SURGERY OTHER SURGICAL HISTORY PROCEDURE: [place] ADENOIDECTOMY PRIMARY <AGE 12 Medical History Medical [...] age to complete this topic Care Teams Car Pincher Relationship Specialty Start Date End Date Samuel Gomez MD [address] [place] [address] PCP - General Internal Medicine 04/25/17
== END 2025-01-28 10:11 | disposition home or self-care (01) ==
LOC: HO.HBST 09:11
PROVIDERS: PCP Nurse Practitioner Family; Visit Provider Counselor Mental Health
DX: F43.12 Post-traumatic stress disorder, chronic (principal); F34.89 Other specified persistent mood disorders; Z56.6 Other physical and mental strain related to work
CPT/HCPCS: 90834

== ENCOUNTER 2025-02-17 12:32 | Outpatient (AMB) | payer OTHER, SELFPAY ==
--- NOTE | 2025-02-17 12:05 | A.OFFWM_ITS ---
Intake Intake Visit Reasons: VIDEO PO LSG 12/13/21 Allergies cat dander Allergy (Intermediate, Verified 01/28/25 10:11) Hives dog dander Allergy (Intermediate, Verified 01/28/25 10:11) sneezing shell fish Allergy (Severe, Uncoded 01/28/25 10:11) swelling, hives enviromental Allergy (Unknown, Uncoded 01/28/25 10:11) sneezing PFSH Medical History (Updated 12/26/24 @ 13:28 by KRISTA Mccann-) Nightmare disorder Hyperpigmented skin lesion H/O nephrolithotomy with removal of calculi History of concussion Kidney stone BPH (benign prostatic hyperplasia) Restless leg syndrome Steatosis, liver PTSD (post-traumatic stress disorder) Arthritis BMI 35.0-35.9,adult Pre-op evaluation Complex posttraumatic stress disorder MDD (major depressive disorder) History of herniated intervertebral disc History of high cholesterol History of hypothyroidism History of depression Hx of acute eczema History of asthma Hx of sleep apnea Surgical History Status post total hip replacement, right Status post sleeve gastrectomy History of anal fissures History of prostate surgery Hx of cystoscopy Hx of adenoidectomy History of lumbar discectomy History of left hip replacement Family History Mother Hx of glaucoma Hx of heat stroke Hypertension Father Hx of heat stroke Sister Obese Substance use disorder Sister No problems noted. Sister Depression Thyroid condition Brother Substance use disorder Brother Diabetes Substance use disorder Brother History of hip replacement Brother Family history of prostate problems Brother No problems noted. Social History Household Members: Spouse and Family Household Members Other:: Gt lives with his 3 daughters and the spouse he is from Housing: House Are you a primary resident care associate to a significant other at home: No Do you presently have visiting nurse or other home services: No Alcohol intake: current Alcohol intake frequency: does not drink Comment: Gt's discharge date has been extended from 09/30/24 to 10/04/24. Patient Tobacco Use Status: Never used Tobacco e-Cigarette/Vaping Use: Currently Using service: No Current occupational status: employed Cognitive needs: No Hearing needs: No Vision needs: No Behavioral Health Assessment Weight Management Therapy Therapy Notes Details Subjective: Patient reports that he met with his prescriber (Nicolette) on Friday and several medication adjustments were made: * Trileptal reduced from 600 mg to 300 mg once daily * Dexmethylphenidate (Focalin) 25 mg in the morning * Guanfacine 1 mg in the morning * Buspirone 10 mg three times daily * Prazosin 1 mg at bedtime * Abilify 5 mg at bedtime Patient expresses concern about feeling emotionally ?flat? and disconnected from himself. He reports low motivation and a lack of purpose, stating a desire to regain a sense of hope and meaning in life. He is also seeking more structure and a productive use of his free time. Objective: Patient presents for a follow-up behavioral health session via Telehealth. * Reviewed changes in psychiatric medications and discussed patient?s subjective response to new regimen. * Explored current functioning, emotional state, and emerging needs. * Utilized Behavioral Activation strategies to begin increasing engagement in daily activities that align with values and long-term goals. * Integrated Cognitive Processing Therapy (CPT) to explore grief and unresolved emotions related to role loss (e.g., father, , provider) and the resulting impact on self-identity and hope. * Engaged in reframing discussions to help patient identify areas of control and agency. Assessment/Response: * Mental Status: Patient appeared anhedonic, with low affect and minimal spontaneous speech; thought process coherent; insight and judgment intact. * Risk Identified: No suicidal or homicidal ideation; no self-harm or harm to others reported. Assessment & Plan Assessment & Plan (1) Chronic post-traumatic stress disorder (PTSD): Code(s): F43.12 - Post-traumatic stress disorder, chronic (2) Other specified persistent mood disorders: Code(s): F34.89 - Other specified persistent mood disorders (3) Work-related stress: Code(s): Z56.6 - Other physical and mental strain related to work Plan - Continue CPT to process grief, identity shifts, and existential distress. - Encourage structured daily planning and continued behavioral activation. - Reminded to discuss with OP therapist about Psych testing. - Next appointment scheduled for 03/03/2025 at 9:00 AM via Telehealth. Telehealth Telehealth [facility]health [facility] Location of provider rendering services: other Location of patient: address on file Patient Identification confirmed using: Name, : Yes Telehealth method: video Patient verbally consented to treatment: Yes Patient verbally consented to billing insurance company: Yes Patient informed of any privacy concerns related to visit: Yes Minutes spent on Phone/Video with Pt.: 55 Coding Level of Care Code Established Pt Tele Psytx >53 mins (91096) Patient Type Established Diagnoses Chronic post-traumatic stress disorder (PTSD) F43.12 Other specified persistent mood disorders F34.89 Work-related stress Z56.6 Time Spent (min) 55
--- OUTSIDE RECORDS SUMMARY | 2025-02-17 14:46 | XMS_ITS | Clinical Summary ---
Author Organization [facility] Address [address] [place] [id number] Care Team Providers Care Core Dipper Name Role Phone Samuel Gomez MD Primary Care Provider [phone] Surgical History Surgery Date Site/Laterality Comments BACK SURGERY PROCEDURE: HISTORICAL BACK SURGERY OTHER SURGICAL HISTORY PROCEDURE: [place] ADENOIDECTOMY PRIMARY <AGE 12 Medical History Medical [...] - 2023-2 5 season) 2024 Influenza Vaccine (Season Ended) 2025 08/25/2017, 11/23/2009 DTaP,Tdap,and Td Vaccines (3 - Td [...] age to complete this topic Meningococcal B Vaccine Aged Out No l onger eligible based on patient's age to complete this topic RSV Immunization Patients Under 20 months Aged Out No longer eligible b ased on patient's age to complete this topic Varicella Vaccines Aged Out No longer eligible based on patient's age to complete this topic Care Teams Core Dipper Relationship Specialty Start Date End Date Samuel Gomez MD [address] [place] [address] PCP - General Internal Medicine 04/25/17
--- OUTSIDE RECORDS SUMMARY | 2025-02-17 14:46 | XMS_ITS | Encounter Summary ---
Author Organization [facility] Address [address] [place] [address] Care Team Providers Care Radiology Physician Assistant Name Role Phone Shweta Todd MD Primary Care Provider [phone] Reason for Visit * Reason Comments Medication Refill Encounter Details Date Type Department Care Team (Late st Contact Info) Description 12/02/2016 Refill [facility] Urologic Surgery [place] [address] [facility] [address] [place] [address] Shmuel Link MD [address] [place] [id number] Benign prostatic hyperplasia (BPH) with urinary urgency Social History Tobacco Use Types Packs/Day Years Used Date Smoking Tobacco: Never Alcohol Use Standard Drinks/Week Comments No 0 (1 standard drink = 0.6 oz pur e alcohol) Sex and Gender Information Value Date Recorded Sex Assigned at Not on file Legal Sex Male 2:50 PM EST Gender Identity Not on file [...] urgency documented in this encounter Care Teams Radiology Physician Assistant Relationship Specialty Start Date End Date Shweta Todd MD [address] [facility] [address] [place] [address] PCP - General Internal Medicine 11/13/16 documented as of this encounter
--- OUTSIDE RECORDS SUMMARY | 2025-02-17 14:46 | XMS_ITS | Clinical Summary ---
Author Organization [facility] Address [address] [place] [address] Care Team Providers Care Pelota Maker Name Role Phone Shweta Todd MD Primary Care Provider [phone] Allergies No known active allergies Medications buPROPion (WELLBUTRIN XL) 150 MG 24 hr [...] 3 CS PO D HS 3 10/29/2016 Active levothyroxine (SYNTHROID, LEVOTHROID) 50 MCG tablet TK [...] 3 12/17/2016 Active tamsulosin (FLOMAX) 0.4 MG capsuleIndication s:Benign prostatic hyperplasia (BPH) with urinary urgency,Medicatio n refill TAKE 1 CAPSULE(0. 4 MG) BY MOUTH DAILY 90 capsule 12/22/2018 [...] (1 of 3 - 19+ 3-dose series) 04/26 Colonoscopy 2015 Pneumococcal Vaccines 50+ (1 of 1 - PCV) 2020 Zoster (Shingles) Vaccine (1 of 2) 2020 Influenza Vaccine 05/27/2024 COVID-19 Vaccine ( - 2023-25 season) 2024 Insurance [facility] Care Teams Pelota Maker Relationship Specialty Start Date End Date Shweta Todd MD [address] [facility] [address] [place] [address] PCP - General Internal Medicine 11/13/16
--- OUTSIDE RECORDS SUMMARY | 2025-02-17 14:46 | XMS_ITS | Clinical Summary ---
Author Organization [employer] Address [address] [facility] 7t [place] [address] Care Team Providers Care Job Superintendent Name Role Phone Unavailable Primary Care Provider [...] topic Meningococcal Vaccine Aged Out No donte la eligible based on patient's age to complete this topic RSV under 20 months Aged Out No longe r eligible based on patient's age to complete this topic Rotavirus Vaccines Aged Out No longer eligible based on patient's age to complete this topic Insurance [facility] ST[facility]
== END 2025-02-17 13:06 | disposition home or self-care (01) ==
LOC: HO.HBST 12:32
PROVIDERS: PCP Nurse Practitioner Family; Visit Provider Counselor Mental Health
DX: F43.12 Post-traumatic stress disorder, chronic (principal); F34.89 Other specified persistent mood disorders; Z56.6 Other physical and mental strain related to work
CPT/HCPCS: 90837

== ENCOUNTER → 2025-02-17 12:32 | Outpatient (BNVA) | payer OTHER, SELFPAY | PROVIDERS: PCP Nurse Practitioner Family; Visit Provider Counselor Mental Health ==

== ENCOUNTER 2025-03-03 09:15 | Outpatient (AMB) | payer OTHER, SELFPAY ==
--- NOTE | 2025-03-03 09:10 | A.OFFWM_ITS ---
Intake Intake Visit Reasons: VIDEO PO LSG 12/13/21 Allergies cat dander Allergy (Intermediate, Verified 04/21/25 10:30) Hives dog dander Allergy (Intermediate, Verified 04/21/25 10:30) sneezing shell fish Allergy (Severe, Uncoded 04/21/25 10:30) swelling, hives enviromental Allergy (Unknown, Uncoded 04/21/25 10:30) sneezing PFSH Medical History (Updated 04/26/25 @ 07:16 by Artemio Arambula, [facility]) Snoring Hypogonadism in male Nightmare disorder Hyperpigmented skin lesion H/O nephrolithotomy with removal of calculi History of concussion Kidney stone BPH (benign prostatic hyperplasia) Restless leg syndrome Steatosis, liver PTSD (post-traumatic stress disorder) Arthritis BMI 35.0-35.9,adult Pre-op evaluation Complex posttraumatic stress disorder MDD (major depressive disorder) History of herniated intervertebral disc History of high cholesterol History of hypothyroidism History of depression Hx of acute eczema History of asthma Hx of sleep apnea Surgical History Status post total hip replacement, right Status post sleeve gastrectomy History of anal fissures History of prostate surgery Hx of cystoscopy Hx of adenoidectomy History of lumbar discectomy History of left hip replacement Family History Mother Hx of glaucoma Hx of heat stroke Hypertension Father Hx of heat stroke Sister Obese Substance use disorder Sister No problems noted. Sister Depression Thyroid condition Brother Substance use disorder Brother Diabetes Substance use disorder Brother History of hip replacement Brother Family history of prostate problems Brother No problems noted. Social History Household Members: Spouse and Family Household Members Other:: Gt lives with his 3 daughters and the spouse he is from Housing: House Are you a primary family day carer to a significant other at home: No Do you presently have visiting nurse or other home services: No Alcohol intake: current Alcohol intake frequency: does not drink Comment: Gt's discharge date has been extended from 09/30/24 to 10/04/24. Patient Tobacco Use Status: Never used Tobacco e-Cigarette/Vaping Use: Currently Using service: No Current occupational status: employed Cognitive needs: No Hearing needs: No Vision needs: No Behavioral Health Assessment Weight Management Therapy Therapy Notes Details Subjective: The patient reports feeling off his usual routine and is having a hard time emotionally. He describes low energy, decreased motivation, and difficulty staying focused, which are interfering with his daily functioning. He denies any current safety concerns but acknowledges an overall decline in emotional well- being. Objective: The patient attended a follow-up visit via Telehealth. He appeared fatigued but was cooperative and engaged. We discussed current functioning, challenges, and emotional needs. Cognitive Processing Therapy (CPT) techniques were implemented to help the patient identify and reframe unhelpful thoughts. We also introduced psychoeducation on sustainable happiness using reading materials as a way to promote emotional resilience and support ongoing personal growth. Assessment/Response: * Mental status: Mood: depressed, affect: flat/congruent; alert and oriented x3. Thought process logical, no psychosis. * Risk reported/identified: None. The patient is experiencing symptoms consistent with low mood, including anhedonia, low motivation, and reduced concentration, contributing to moderate functional impairment. He demonstrated insight and a willingness to engage in therapeutic work. Assessment & Plan Assessment & Plan (1) Chronic post-traumatic stress disorder (PTSD): Code(s): F43.12 - Post-traumatic stress disorder, chronic (2) Other specified persistent mood disorders: Code(s): F34.89 - Other specified persistent mood disorders Plan Continue sessions every 2-3 weeks to address mood symptoms and reinforce coping strategies using CPT and behavioral activation. Encourage re-establishing structure and routine to improve functioning. Patient will continue reading and reflecting on material related to building sustained happiness. Next appointment: 03/16/2025. Telehealth Telehealth Telehealth Platform: [employer] Location of provider rendering services: other (Home office. [place], [place]) Location of patient: address on file Patient Identification confirmed using: Name, : Yes Telehealth method: video Patient verbally consented to treatment: Yes Patient verbally consented to billing insurance company: Yes Patient informed of any privacy concerns related to visit: Yes Minutes spent on Phone/Video with Pt.: 50 Coding Level of Care Code Established Pt Tele Psytx 45 mins (64302) Patient Type Established Diagnoses Chronic post-traumatic stress disorder (PTSD) F43.12 Other specified persistent mood disorders F34.89 Time Spent (min) 50
--- OUTSIDE RECORDS SUMMARY | 2025-03-03 09:50 | XMS_ITS | Clinical Summary ---
Author Organization [facility] Address [address] [facility] 7t [place] [address] Care Team Providers Care Test Department Helper Name Role Phone Unavailable Primary Care Provider [...] patient's age to complete this topic Insurance [facility] [employer]
--- OUTSIDE RECORDS SUMMARY | 2025-03-03 09:50 | XMS_ITS | Encounter Summary ---
Author Organization [facility] Address [address] [place] [address] Care Team Providers Care Cop Breaker Name Role Phone Shweta Todd MD Primary Care Provider [phone] Reason for Visit * Reason Comments Medication Refill Encounter Details Date Type Department Care Team (Late st Contact Info) Description 12/02/2016 Refill [facility] Urologic Surgery [place] [address] [facility] [address] [place] [address] Shmuel Link MD [address] [place] [phone] Benign prostatic hyperplasia (BPH) with urinary urgency [...] urgency documented in this encounter Care Teams Cop Breaker Relationship Specialty Start Date End Date Shweta Todd MD [address] [facility] [address] [place] [address] PCP - General Internal Medicine 11/13/16 documented as of this encounter
--- OUTSIDE RECORDS SUMMARY | 2025-03-03 09:50 | XMS_ITS | Clinical Summary ---
Author Organization [facility] Address [address] [place] [id number] Care Team Providers Care Business Solutions Architect Name Role Phone Samuel Gomez MD Primary Care Provider [phone] Surgical History Surgery Date Site/Laterality Comments BACK SURGERY PROCEDURE: HISTORICAL BACK SURGERY OTHER SURGICAL HISTORY PROCEDURE: ID ADENOIDECTOMY PRIMARY <AGE 12 Medical History Medical [...] age to complete this topic Care Teams Business Solutions Architect Relationship Specialty Start Date End Date Samuel Gomez MD [address] [place] [address] PCP - General Internal Medicine 04/25/17
--- OUTSIDE RECORDS SUMMARY | 2025-03-03 09:50 | XMS_ITS | Clinical Summary ---
Author Organization [facility] Address [address] [place] [address] Care Team Providers Care Cheese Cutter Name Role Phone Shweta Todd MD Primary Care Provider [phone] Allergies No known active allergies Medications buPROPion [...] Zoster (Shingles) Vaccine (1 of 2) 2020 COVID-19 Vaccine (1 - 2023- season) 2024 Influenza Vaccine 05/27/2025 Insurance [facility] Care Teams Cheese Cutter Relationship Specialty Start Date End Date Shweta Todd MD [address] [facility] [address] [place] [address] PCP - General Internal Medicine 11/13/16
== END 2025-03-03 10:09 | disposition home or self-care (01) ==
LOC: HO.HBST 09:15
PROVIDERS: PCP Nurse Practitioner Family; Visit Provider Counselor Mental Health
DX: F43.12 Post-traumatic stress disorder, chronic (principal); F34.89 Other specified persistent mood disorders
CPT/HCPCS: 90834

== ENCOUNTER → 2025-03-03 09:15 | Outpatient (BNVA) | payer OTHER, SELFPAY | PROVIDERS: PCP Nurse Practitioner Family; Visit Provider Counselor Mental Health ==

== ENCOUNTER 2025-03-16 10:21 | Outpatient (AMB) | payer OTHER, SELFPAY ==
--- NOTE | 2025-03-16 10:10 | A.OFFWM_ITS ---
Intake Intake Visit Reasons: VIDEO PO LSG 12/13/21 Allergies cat dander Allergy (Intermediate, Verified 01/28/25 10:11) Hives dog dander Allergy (Intermediate, Verified 01/28/25 10:11) sneezing shell fish Allergy (Severe, Uncoded 01/28/25 10:11) swelling, hives enviromental Allergy (Unknown, Uncoded 01/28/25 10:11) sneezing PFSH Medical History (Updated 03/15/25 @ 07:52 by KRISTA Mccann-) Hypogonadism in male Nightmare disorder Hyperpigmented skin lesion H/O nephrolithotomy with removal of calculi History of concussion Kidney stone BPH (benign prostatic hyperplasia) Restless leg syndrome Steatosis, liver PTSD (post-traumatic stress disorder) Arthritis BMI 35.0-35.9,adult Pre-op evaluation Complex posttraumatic stress disorder MDD (major depressive disorder) History of herniated intervertebral disc History of high cholesterol History of hypothyroidism History of depression Hx of acute eczema History of asthma Hx of sleep apnea Surgical History Status post total hip replacement, right Status post sleeve gastrectomy History of anal fissures History of prostate surgery Hx of cystoscopy Hx of adenoidectomy History of lumbar discectomy History of left hip replacement Family History Mother Hx of glaucoma Hx of heat stroke Hypertension Father Hx of heat stroke Sister Obese Substance use disorder Sister No problems noted. Sister Depression Thyroid condition Brother Substance use disorder Brother Diabetes Substance use disorder Brother History of hip replacement Brother Family history of prostate problems Brother No problems noted. Social History Household Members: Spouse and Family Household Members Other:: Gt lives with his 3 daughters and the spouse he is from Housing: House Are you a primary intensive care anaesthetist to a significant other at home: No Do you presently have visiting nurse or other home services: No Alcohol intake: current Alcohol intake frequency: does not drink Comment: Gt's discharge date has been extended from 09/30/24 to 10/04/24. Patient Tobacco Use Status: Never used Tobacco e-Cigarette/Vaping Use: Currently Using service: No Current occupational status: employed Cognitive needs: No Hearing needs: No Vision needs: No Behavioral Health Assessment Weight Management Therapy Therapy Notes Details Subjective: The patient reports feeling worried and stressed due to his mother?s recent hospitalization over the weekend. Although her condition has stabilized, she remains in recovery and is experiencing a gradual decline related to dementia. The patient met with his prescriber, and his medications were adjusted. He reports that the changes have been helpful, particularly in improving his energy levels. Med updates: [id number], D/C Melatonin 5mg 2x at bedtime as needed- Same, no changes Escitalopram 10mg 1 at day - No changes. Aripiprazole 5mg 1 at bedtime - No changes. Guafacine XR 1mg in the morning - No changes Buspirone 10mg 3 times at day -no changes. Focalin XR 15mg 2 at day - Decreased to 10mg - 1-22 at day - during the week he does 2 for 20mg and on weekends 1 at day for 10mg. Oxcarbazepine, decreased from 300mg x day, then 300 1 x day, and now is at 150 mg 1 at night. Objective: PT presenta for a f/up visit via Telehealth. . Provided emotional support and normalization of stress response related to caregiver role. Utilized CBT techniques to identify and challenge worry-based thoughts. Reinforced coping strategies and encouraged use of medication as prescribed. Discussed importance of self-care and maintaining routine during family stress. Assessment/Response: * Mental status: sad, but not depressed. he was alert, oriented x3. Good functioning. * Risk reported/identified: None. Assessment & Plan Assessment & Plan (1) Chronic post-traumatic stress disorder (PTSD): Code(s): F43.12 - Post-traumatic stress disorder, chronic (2) Other specified persistent mood disorders: Code(s): F34.89 - Other specified persistent mood disorders (3) Work-related stress: Code(s): Z56.6 - Other physical and mental strain related to work Plan - Encourage structured daily planning and continued behavioral activation. - F/up in 2 weeks. Next appointment scheduled for 04/01/25 at 9am, OV Telehealth Telehealth Telehealth Platform: [facility] Location of provider rendering services: other Location of patient: address on file Patient Identification confirmed using: Name, : Yes Telehealth method: video Patient verbally consented to treatment: Yes Patient verbally consented to billing insurance company: Yes Patient informed of any privacy concerns related to visit: Yes Minutes spent on Phone/Video with Pt.: 55 Coding Level of Care Code Established Pt Tele Psytx >53 mins (11665) Patient Type Established Diagnoses Chronic post-traumatic stress disorder (PTSD) F43.12 Other specified persistent mood disorders F34.89 Work-related stress Z56.6 Time Spent (min) 55
--- OUTSIDE RECORDS SUMMARY | 2025-03-16 11:50 | XMS_ITS | Clinical Summary ---
Author Organization [facility] Address [address] [place] [address] Care Team Providers Care Regenerator Operator Name Role Phone Shweta Todd MD Primary Care Provider [phone] Allergies No known active allergies Medications buPROPion [...] 2023- season) 2024 Influenza Vaccine 05/27/2025 Insurance [facility] Care Teams Regenerator Operator Relationship Specialty Start Date End Date Shweta Todd MD [address] [facility] [address] [place] [address] PCP - General Internal Medicine 11/13/16
--- OUTSIDE RECORDS SUMMARY | 2025-03-16 11:50 | XMS_ITS | Clinical Summary ---
Author Organization [employer] Address [address] [facility] 7t [place] [address] Care Team Providers Care Video Game Creator Name Role Phone Unavailable Primary Care Provider [...] Panel 1970 SDOH Screening 1970 Sigmoidoscopy 1970 Disability Screening 1970 Alcohol/Substance Use Screening 1982 Tobacco Screening [...]
--- OUTSIDE RECORDS SUMMARY | 2025-03-16 11:50 | XMS_ITS | Encounter Summary ---
Author Organization [facility] [place] [facility] Address [address] [place] [address] Care Team Providers Care Body Former Name Role Phone Shweta Todd MD Primary Care Provider [phone] Reason for Visit * Reason Comments Medication Refill Encounter Details Date Type Department Care Team (Late st Contact Info) Description 12/02/2016 Refill [facility] Urologic Surgery [place] [address] [facility] [address] [place] [address] Shmuel Link MD [address] [place] [phone] Benign prostatic hyperplasia (BPH) with urinary urgency [...] urgency documented in this encounter Care Teams Body Former Relationship Specialty Start Date End Date Shweta Todd MD [address] [facility] [address] [place] [address] PCP - General Internal Medicine 11/13/16 documented as of this encounter
--- OUTSIDE RECORDS SUMMARY | 2025-03-16 11:50 | XMS_ITS | Clinical Summary ---
Author Organization [facility] Address [address] [place] [id number] Care Team Providers Care Mechanical Engineering Officer Name Role Phone Samuel Gomez MD Primary Care Provider [phone] Surgical History Surgery Date Site/Laterality Comments BACK [...] age to complete this topic Care Teams Mechanical Engineering Officer Relationship Specialty Start Date End Date Samuel Gomez MD [address] [place] [address] PCP - General Internal Medicine 04/25/17
== END 2025-03-16 11:28 | disposition home or self-care (01) ==
LOC: HO.HBST 10:21
PROVIDERS: PCP Nurse Practitioner Family; Visit Provider Counselor Mental Health
DX: F43.12 Post-traumatic stress disorder, chronic (principal); F34.89 Other specified persistent mood disorders; Z56.6 Other physical and mental strain related to work
CPT/HCPCS: 90837

== ENCOUNTER → 2025-03-16 10:21 | Outpatient (BNVA) | payer OTHER, SELFPAY | PROVIDERS: PCP Nurse Practitioner Family; Visit Provider Counselor Mental Health ==

== ENCOUNTER 2025-04-01 09:12 | Outpatient (AMB) | payer OTHER, SELFPAY ==
--- NOTE | 2025-04-01 09:15 | A.OFFWM_ITS ---
Intake Intake Visit Reasons: OV PO LSG 12/13/21 Allergies cat dander Allergy (Intermediate, Verified 05/30/25 16:06) Hives dog dander Allergy (Intermediate, Verified 05/30/25 16:06) sneezing shell fish Allergy (Severe, Uncoded 04/21/25 10:30) swelling, hives enviromental Allergy (Unknown, Uncoded 04/21/25 10:30) sneezing PFSH Medical History (Updated 04/26/25 @ 07:16 by Artemio Arambula, [facility]) Snoring Hypogonadism in male Nightmare disorder Hyperpigmented skin lesion H/O nephrolithotomy with removal of calculi History of concussion Kidney stone BPH (benign prostatic hyperplasia) Restless leg syndrome Steatosis, liver PTSD (post-traumatic stress disorder) Arthritis BMI 35.0-35.9,adult Pre-op evaluation Complex posttraumatic stress disorder MDD (major depressive disorder) History of herniated intervertebral disc History of high cholesterol History of hypothyroidism History of depression Hx of acute eczema History of asthma Hx of sleep apnea Surgical History Status post total hip replacement, right Status post sleeve gastrectomy History of anal fissures History of prostate surgery Hx of cystoscopy Hx of adenoidectomy History of lumbar discectomy History of left hip replacement Family History Mother Hx of glaucoma Hx of heat stroke Hypertension Father Hx of heat stroke Sister Obese Substance use disorder Sister No problems noted. Sister Depression Thyroid condition Brother Substance use disorder Brother Diabetes Substance use disorder Brother History of hip replacement Brother Family history of prostate problems Brother No problems noted. Social History Household Members: Spouse and Family Household Members Other:: Gt lives with his 3 daughters and the spouse he is from Housing: House Are you a primary personal care service provider to a significant other at home: No Do you presently have visiting nurse or other home services: No Alcohol intake: current Alcohol intake frequency: does not drink Comment: Gt's discharge date has been extended from 09/30/24 to 10/04/24. Patient Tobacco Use Status: Never used Tobacco e-Cigarette/Vaping Use: Currently Using service: No Current occupational status: employed Cognitive needs: No Hearing needs: No Vision needs: No Behavioral Health Assessment Weight Management Therapy Therapy Notes Details Subjective: Patient reports not feeling depressed but describes his mood as emotionally numb, stating he doesn't feel the internal motor or drive to engage. He reports discontinuing prazosin and took his last dose of oxcarbazepine yesterday. Denies acute distress or suicidal ideation but acknowledges feeling detached. Patient is seeking ways to re-engage with activities and better understand patterns related to mood and identity. Objective: Patient presented in person for a post-operative behavioral health follow-up. He was alert, oriented x4, cooperative, and engaged throughout the session. Interventions during session: * Cognitive Processing Therapy (CPT): Patient explored and processed early life experiences that contributed to core beliefs, identity development, and personality patterns. * Therapist assisted patient in identifying natural, non-pharmacological strategies (e.g., hobbies, physical activity, creative outlets) to boost mood and increase daily engagement. * Discussed the emotional impact of medication changes and importance of monitoring mood stability during the transition off oxcarbazepine and prazosin. Assessment/Response: * Mental status: The patient presented as alert and oriented to person, place, time, and situation. His mood was described as emotionally numb, with a restricted but congruent affect. Thought processes were logical, coherent, and goal-directed, with no evidence of thought disorder. Speech was normal in rate, tone, and volume. Insight and judgment appeared fair. * Risk reported/identified: None. Assessment & Plan Assessment & Plan (1) Chronic post-traumatic stress disorder (PTSD): Code(s): F43.12 - Post-traumatic stress disorder, chronic (2) Other specified persistent mood disorders: Code(s): F34.89 - Other specified persistent mood disorders (3) Work-related stress: Code(s): Z56.6 - Other physical and mental strain related to work Plan Encourage engagement in meaningful, mood-supportive activities outside of session. * Follow-up session scheduled in 3 weeks on 04/18/25. Coding Level of Care Code Established Pt Psytx >53 mins (11565) Patient Type Established Diagnoses Chronic post-traumatic stress disorder (PTSD) F43.12 Other specified persistent mood disorders F34.89 Work-related stress Z56.6 Time Spent (min) 60
--- OUTSIDE RECORDS SUMMARY | 2025-04-01 09:41 | XMS_ITS | Encounter Summary ---
Author Organization [facility] Address [address] [place] [address] Care Team Providers Care Buncher Operator Name Role Phone Shweta Todd MD Primary Care Provider [phone] Reason for Visit * Reason Comments Medication Refill Encounter Details Date Type Department Care Team (Late st Contact Info) Description 12/02/2016 Refill [facility] Urologic Surgery [place] [address] [facility] [address] [place] [address] Shmuel Link MD [address] [place] [phone] Benign prostatic hyperplasia (BPH) with urinary urgency [...] urgency documented in this encounter Care Teams Buncher Operator Relationship Specialty Start Date End Date Shweta Todd MD [address] [facility] [address] [place] [address] PCP - General Internal Medicine 11/13/16 documented as of this encounter
== END 2025-04-04 13:14 | disposition home or self-care (01) ==
LOC: HO.HBST 09:12
PROVIDERS: PCP Nurse Practitioner Family; Visit Provider Counselor Mental Health
DX: F43.12 Post-traumatic stress disorder, chronic (principal); F34.89 Other specified persistent mood disorders; Z56.6 Other physical and mental strain related to work
CPT/HCPCS: 90837

== ENCOUNTER → 2025-04-01 09:12 | Outpatient (BNVA) | payer OTHER, SELFPAY | PROVIDERS: PCP Nurse Practitioner Family; Visit Provider Counselor Mental Health ==

== ENCOUNTER 2025-04-20 06:55 | Outpatient (AMB) | payer OTHER, SELFPAY ==
--- NOTE | 2025-04-20 07:27 | MHC.PC.OV ---
Intake Visit Reasons: Discuss fatigue, testosterone Allergies cat dander Allergy (Intermediate, Verified 04/20/25 07:28) Hives dog dander Allergy (Intermediate, Verified 04/20/25 07:28) sneezing shell fish Allergy (Severe, Uncoded 04/20/25 07:28) swelling, hives enviromental Allergy (Unknown, Uncoded 04/20/25 07:28) sneezing Medication List - Last Reconciled 04/20/25 by Artemio Arambula [facility] albuterol sulfate 90 mcg/actuation 2 puffs inhalation Q4H PRN aripiprazole 5 mg PO BEDTIME atorvastatin 20 mg PO BEDTIME buspirone 10 mg PO TID 90 days clobetasol 0.05% 1 appl topical BID dexmethylphenidate ER (Focalin XR) 15 mg PO QAM dupilumab (Dupixent) 300 mg subcut Q2W escitalopram oxalate 10 mg PO DAILY fexofenadine 180 mg PO Q24H hydrocortisone 2.5% 1 appl topical BID levothyroxine 50 mcg PO DAILY melatonin 5 mg PO BEDTIME PRN prazosin 1 mg PO BEDTIME Zepbound (tirzepatide (weight loss)) 12.5 mg (0.5 mL) subcut QWEEK NS Tobacco use date assessed: 02/26/24 Dental Screening Dental Screen Date: 02/26/24 HPI Discuss fatigue, testosterone HPI Details History of Present Illness The patient is a 54-year-old male presenting with excessive fatigue. He reports experiencing this fatigue for the last month, which may be related to recent medication changes managed by his psychiatrist. His sleep cycle is irregular, with episodes of being awake in the middle of the night, and there is a consideration of sleep apnea as a contributing factor. The patient has a history of hypothyroidism and is currently on levothyroxine therapy. He denies experiencing chest pain, shortness of breath, severe depression lately, nausea, or vomiting. He is also on Zepbound, which has significantly reduced his appetite. Recently, the patient spent three weeks in [place] caring for his mother, which he suspects may have contributed to his fatigue due to potential jet lag. Review of Systems - General: Reports excessive fatigue for the past month. - Cardiovascular: Denies chest pain. - Respiratory: Denies shortness of breath. - Gastrointestinal: Denies nausea and vomiting. Plan The plan includes obtaining laboratory tests to evaluate the cause of the patient's fatigue. These tests will include thyroid function tests, a complete blood count, and testosterone levels. The patient will continue his current medications, including levothyroxine and Zepbound, and will monitor for any changes in symptoms. Further evaluation of potential sleep apnea will be considered based on the results of the initial lab work. Follow-up will be scheduled to review lab results and adjust the management plan as necessary. Discussion Notes I discussed with the patient the potential causes of his fatigue, including the possibility of sleep apnea and the need to evaluate his thyroid function and testosterone levels. We agreed to proceed with lab work to gather more information before making any changes to his current treatment regimen. I also advised him to continue monitoring his symptoms and to follow up once the lab results are available. Patient Instructions - Continue taking your current medications as prescribed. - Monitor your symptoms and note any changes. - Follow up with the clinic once your lab results are available. [facility] Medical History Hypogonadism in male Nightmare disorder Hyperpigmented skin lesion H/O nephrolithotomy with removal of calculi History of concussion Kidney stone BPH (benign prostatic hyperplasia) Restless leg syndrome Steatosis, liver PTSD (post-traumatic stress disorder) Arthritis BMI 35.0-35.9,adult Pre-op evaluation Complex posttraumatic stress disorder MDD (major depressive disorder) History of herniated intervertebral disc History of high cholesterol History of hypothyroidism History of depression Hx of acute eczema History of asthma Hx of sleep apnea Surgical History Status post total hip replacement, right Status post sleeve gastrectomy History of anal fissures History of prostate surgery Hx of cystoscopy Hx of adenoidectomy History of lumbar discectomy History of left hip replacement Family History Mother Hx of glaucoma Hx of heat stroke Hypertension Father Hx of heat stroke Sister Obese Substance use disorder Sister No problems noted. Sister Depression Thyroid condition Brother Substance use disorder Brother Diabetes Substance use disorder Brother History of hip replacement Brother Family history of prostate problems Brother No problems noted. Social History (Reviewed 04/20/25 @ 07:37 by [facility] Household Members: Spouse and Family Household Members Other:: Gt lives with his 3 daughters and the spouse he is from Housing: House Are you a primary animal caretaker to a significant other at home: No Do you presently have visiting nurse or other home services: No Alcohol intake: current Alcohol intake frequency: does not drink Comment: Gt's discharge date has been extended from 09/30/24 to 10/04/24. Patient Tobacco Use Status: Never used Tobacco e-Cigarette/Vaping Use: Currently Using service: No Current occupational status: employed Cognitive needs: No Hearing needs: No Vision needs: No Questionnaire Thrive Questionnaire Date Thrive assessed: 08/05/24 SADIQ-7 AMB Questionnaire SADIQ-7 Date SADIQ - 7 assessed: 08/05/24 Source: Developed by Drs. Eh Lopez, Rena Otero, Frank Russell and colleagues, with an educational dale from [employer]. Physical exam (Primary Care) Tobacco/Smoking Status: Tobacco use Status Tobacco use date assessed 02/26/24 08/05/24 13:14 Patient Tobacco Use Status Never used Tobacco 11/01/24 13:29 e-Cigarette/Vaping Use Currently Using 08/05/24 13:14 Thrive Assessment: Date of Thrive Assessment Date Thrive assessed 08/05/24 08/05/24 13:14 Telehealth Telehealth Telehealth Platform: [employer] Location of provider rendering services: practice address Location of patient: address on file Patient Identification confirmed using: Name, : Yes Telehealth method: video Patient verbally consented to treatment: Yes Patient verbally consented to billing insurance company: Yes Patient informed of any privacy concerns related to visit: Yes Minutes spent on Phone/Video with Pt.: 12 Coding Level of Care Code Tele Est Pt Level 3 (56427) Diagnoses Fatigue R53.83 Hx of sleep apnea Z86.69 Assessment & Plan Assessment & Plan (1) Fatigue: Code(s): R53.83 - Other fatigue Category: Medical (2) Hx of sleep apnea: Code(s): Z86.69 - Personal history of other diseases of the nervous system and sense organs Category: Medical Plan . Orders: Orders Complete Blood Count Auto Diff Today R53.83 - Other fatigue TSH reflex Free T4 Today R53.83 - Other fatigue UA CC w/rflx Micro + Cult Today R53.83 - Other fatigue Testosterone, Free/Total Today R53.83 - Other fatigue Tick-borne Disease Molecular Today R53.83 - Other fatigue ANSLEY Reflex Titer and Pattern Today R53.83 - Other fatigue Comprehensive Met. Panel Today R53.83 - Other fatigue Lyme IgG/IgM w/reflex to WB Today R53.83 - Other fatigue Referrals Sleep Medicine Referral R53.83 - Other fatigue, Z86.69 - Personal history of other diseases of the nervous system and sense organs
== END 2025-04-20 09:06 | disposition home or self-care (01) ==
LOC: HO.HMCC 06:55
PROVIDERS: PCP Nurse Practitioner Family; Visit Provider Nurse Practitioner Family
DX: R53.83 Other fatigue (principal); Z86.69 Personal history of other diseases of the nervous system and sense organs

== ENCOUNTER → 2025-04-20 06:55 | Outpatient (BNVA) | payer OTHER, SELFPAY | PROVIDERS: PCP Nurse Practitioner Family; Visit Provider Nurse Practitioner Family | DX: Z13.89 Encounter for screening for other disorder (principal) ==

== ENCOUNTER 2025-04-21 10:24 | Outpatient (REF) | payer OTHER, SELFPAY ==
[2025-04-21 17:51] LABS: MANUAL DIFF FLAG NO
[2025-04-21 17:52] LABS: Appearance Urine Clear; Color Urine Yellow; Glucose Urine UA Negative (Negative); Leukocyte Esterase Urine Negative (Negative); Nitrite Urine Negative (Negative); Specific Gravity - Urine >= 1.030 (1.005-1.025); Urine Blood Negative (Negative); Urine Ketones Trace mg/dL (Negative); Urine Protein Trace mg/dL (Neg-Trace)
[2025-04-21 18:02] LABS: Basophils Percent Auto 0.8 % (0-2); Eosinophils Absolute Auto 0.1 X10*3/uL (0.0-0.4); Eosinophils Percent Auto 1.4 % (0-4); Hematocrit 42.9 % (42.0-52.0); Hemoglobin 14.3 g/dl (14.0-18.0); Imm Gran Abs Auto 0.01 X10*3/uL (0.00-0.03); Imm Gran Pct Auto 0.2 % (0.0-0.4); Lymphocytes Absolute Auto 1.2 X10*3/uL (1.2-4.9); Lymphocytes Percent Auto 24.3 % (20-40); Mean Corpuscular HGB Conc 33.3 g/dl (31.0-36.0); Mean Corpuscular Hemoglobin 30.9 pg (27.0-33.0); Mean Corpuscular Volume 92.7 fL (80.0-98.0); Mean Platelet Volume 9.5 fL (9.4-12.4); Monocytes Absolute Auto 0.4 X10*3/uL (0.1-1.2); Monocytes Percent Auto 7.6 % (2-11); Neutrophils Absolute Auto 3.2 x10*3/uL (2.0-8.3); Neutrophils Percent Auto 65.7 % (45-73); Platelet Count 275 X10*3/uL (160-400); Red Blood Count 4.63 X10*6/uL (4.60-5.80); Red Cell Distribution Width 14.2 % (11.0-16.0); White Blood Count 4.9 X10*3/uL (4.8-10.8)
[2025-04-21 18:19] LABS: Alanine Aminotransferase 25 U/L (0-40); Albumin Level 4.8 g/dL (3.5-5.0); Alkaline Phosphatase 49 U/L (39-117); Anion Gap 10 (12-20); Aspartate Amino Transferase 37 U/L (5-37); Bilirubin Total 0.6 mg/dL (0.0-1.0); Blood Urea Nitrogen 15 mg/dL (9-16); Calcium 9.4 mg/dL (8.4-10.2); Carbon Dioxide 30 mmol/L (22-29); Chloride 106 mmol/L (96-108); Estimated Glomerular Filt Rate > 60; Glucose Random 82 mg/dL (60-115); Sodium 142 mmol/L (135-145); Total Protein 7.6 g/dL (6.5-8.0)
[2025-04-21 18:38] LABS: TSH reflex Free T4 1.91 uIU/mL (0.32-4.0)
[2025-04-22 12:02] LABS: Lyme Abs Screen <0.90 index
[2025-04-22 22:24] LABS: A. Phagocytphilium DNA,RT-PCR NOT DETECTED (NOT DETECTED); Babesia Microti DNA, RT-PCR NOT DETECTED (NOT DETECTED); Borrelia Miyamotoi,DNA RT-PCR NOT DETECTED (NOT DETECTED); E.Chaffeensis DNA RT-PCR NOT DETECTED (NOT DETECTED); Lyme(Borrelia ssp)DNA RT-PCR NOT DETECTED (NOT DETECTED)
[2025-04-26 07:03] LABS: ANA Pattern 2 Nuclear, Homogeneous; Anti Nuclear Antibody Pattern Nuclear, Nucleolar; Anti Nuclear Antibody Screen POSITIVE (NEGATIVE)
[2025-04-26 13:54] LABS: Testosterone, Free 54.6 pg/mL (35.0-155.0); Testosterone, Total 451 ng/dL (250-1100)
== END 2025-04-21 10:25 | disposition home or self-care (01) ==
LOC: HO.HKASLDS 10:24
PROVIDERS: PCP Nurse Practitioner Family; Visit Provider Psychiatry & Neurology Neurology
DX: G47.39 Other sleep apnea (principal); R53.82 Chronic fatigue, unspecified; R06.83 Snoring; G47.00 Insomnia, unspecified; F51.5 Nightmare disorder; Z79.899 Other long term (current) drug therapy; Z91.198 Patient's noncompliance with other medical treatment and regimen for other reason
CPT/HCPCS: 36415; 80053; 81003; 84402; 84403; 84443; 85025; 86038; 86039; 86617; 86618; 87468; 87469; 87478; 87484; 87798; 99202

== ENCOUNTER 2025-04-21 10:24 | Outpatient (AMB) | payer OTHER, SELFPAY ==
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
[2025-04-21 10:28] VITALS: BP 140/84; PULSE 95; O2SAT 98; BMI 32.1
--- OUTSIDE RECORDS SUMMARY | 2025-04-21 12:05 | XMS_ITS | Encounter Summary ---
Author Organization [facility] Address [address] [place] [address] Care Team Providers Care Alignment Technician Name Role Phone Shweta Todd MD Primary Care Provider [phone] Reason for Visit * Reason Comments Medication Refill Encounter Details Date Type Department Care Team (Late st Contact Info) Description 12/02/2016 Refill [facility] Urologic Surgery [place] [address] [place] [address] Shmuel Link MD [address] [place] [id number] Benign prostatic hyperplasia (BPH) with urinary urgency [...] urgency documented in this encounter Care Teams Alignment Technician Relationship Specialty Start Date End Date Shweta Todd MD [address] [facility] [address] [place] [address] PCP - General Internal Medicine 11/13/16 documented as of this encounter
== END 2025-04-21 11:06 | disposition home or self-care (01) ==
LOC: HO.HSMS 10:24
PROVIDERS: PCP Nurse Practitioner Family; Visit Provider Psychiatry & Neurology Neurology
DX: Z86.69 Personal history of other diseases of the nervous system and sense organs (principal); R06.83 Snoring; R53.83 Other fatigue
CPT/HCPCS: 99204; G2211

== ENCOUNTER 2025-05-30 15:00 | Outpatient (AMB) | payer OTHER, SELFPAY ==
--- OUTSIDE RECORDS SUMMARY | 2025-05-30 15:05 | XMS_ITS | Encounter Summary ---
Author Organization [facility] Address [address] [place] [address] Care Team Providers Care Bargeman Name Role Phone Shweta Todd MD Primary Care Provider [phone] Reason for Visit * Reason Comments Medication Refill Encounter Details Date Type Department Care Team (Late st Contact Info) Description 12/02/2016 Refill [facility] Urologic Surgery [place] [address] [facility] [facility] [address] [place] [address] Shmuel Link MD [address] [place] [phone] Benign prostatic hyperplasia (BPH) with urinary urgency [...] urgency documented in this encounter Care Teams Bargeman Relationship Specialty Start Date End Date Shweta Todd MD [address] [facility] [address] [place] [address] PCP - General Internal Medicine 11/13/16 documented as of this encounter
--- OUTSIDE RECORDS SUMMARY | 2025-05-30 15:05 | XMS_ITS | Clinical Summary ---
[facility] Address [address] [place] [id number] Care Team Providers Care Patcher Helper Name Role Phone Samuel Gomez MD Primary Care Provider [phone] Surgical History Surgery Date Site/Laterality Comments BACK SURGERY PROCEDURE: HISTORICAL BACK SURGERY OTHER SURGICAL HISTORY PROCEDURE: [place] ADENOIDECTOMY PRIMARY <AGE 12 Medical History Medical [...] Panel) 09/25/2022 Colorectal Cancer Screening: Colonoscopy 09/25/2022 HIV Screening 09/25/2022 Hepatitis C Screening 09/25/2022 Social Influencers of Health Screening 09/25/2022 COVID-19 Vaccine (1 - 2023-2 5 season) 2024 Depression Screening 10/27/2024 Influenza Vaccine (#1) 2025 7, 11/23/2009 DTaP,Tdap,and Td Vaccines (3 - [...] age to complete this topic Care Teams Patcher Helper Relationship Specialty Start Date End Date Samuel Gomez MD [address] [place] [address] PCP - General Internal Medicine 04/25/17
--- OUTSIDE RECORDS SUMMARY | 2025-05-30 15:05 | XMS_ITS | Encounter Summary ---
Author Organization [facility] Address [address] [place] [phone] Phone Care Team Providers Care Embedded Firmware Engineer Name Role Phone Artemio Arambula NP Primary Care Provider + Reason for Visit * Reason Onset Date Comments Gynecomastia Denial 12/30/2024 Encounter Details Date Type Department Care Team (Late st Contact Info) Description 12/30/2024 Telephone [facility] Plastic Surgery [address] [place] [address] Haroldo Arellano MD [address] [place] [phone] [email or web address] Gynecomastia Denial Social History Tobacco Use Types Packs/Day Years Used Date Smoking Tobacco: Never Smokeless Tobacco: Never Alcohol Use Standard Drinks/Week Comments Yes 0 (1 standard drink = 0.6 oz pur e alcohol) Education Answer Date Recorded Are you interested in more education? Not on april e 06/11/2024 Are you concerned about learning? Not on file 06/11/2024 No 06/11/2024 No 06/11/2024 Digital Access Answer Date Recorded No 06/11/2024 No 06/11/2024 Reliable internet access at home? Not on file 06/11/2024 Device with a working camera? Not on file Sex and Gender Information Value Date Recorded Sex Assigned at Not on file Legal Sex Male 6:01 PM EST Gender Identity Not on file Sexual Orientation Not on file documented as of this encounter Progress Notes * Darshana Durant - 05/26/2025 9:42 AM EDT Pt saw Helena 05/25: Helena stated he has new insurance and is wondering if we could resubmit to seeif they will cover it now. LVM for pt - our system still listed [employer] as his insurance. It looks like maybe it was changedfrom [employer] [facility] to [employer] NON [facility]. Both still fall under [employer] which means the medical criteria is all the same. Asked pt if they were able to review the email I sent back in December with the denial letter attached so they could discuss it with their weight management surgeon and see if any additional letter and/or imaging could be ordered to help support our case. Waiting forest fire control officer back to discuss further. * Darshana Durant - 04/15/2025 1:53 PM EDT Patient called in - wanted to r/s the April appt w/ Helena due to his insurance changing to [employer] likely in April. Pt aware to call office once it is active so we can update it in the system. For now, all set w/ new appt date of 05/23 with Helena. Once the [employer] plan is active we can also look into resubmitted PA for surgery to see the outcome of it. * Darshana Durant - 01/06/2025 12:14 PM EDT Spoke with pt to discuss denial letter & cosmetic option. Pt understood and agreed. They explain that their weight management surgeon has been very involved with this for them so they'd like to speak with them to see if they would be able/willing to help fight this denial. Advised that imaging and tests would be required. Advised per , we do often see cases of gynecomastia patients getting denied, then getting all these tests in hopes they overturn the denial, just for it to get denied again. Advised to pt at the end of the day it is up to him how he'd like to proceed but I did want to warn him even going through all these extra steps does not guarantee an approval. Pt understood and asked for kramer quote and denial letter to be sent to him so he can think it over and talk it over with surgeon. He will follow-up with office. Emailed pt: I???ve attached here the kramer quote for if you were to decide to go the cosmetic route for surgery rather than through insurance. This quote shows you the breakdown of surgeon???s fee, anesthesia fee, and the hospital facility fee. We accept [place], credit/debit card & [employer] asforms of payment (or a combination of those). We do not require any deposit; payment would just be due in full at your pre-op appointment which we would schedule to happen about 2 weeks prior to yoursurgery date which is currently 09/27/25. Please note, this kramer quote is individual to our office,so if your insurance ends up approving surgery, what gets billed to them by the hospital will not be the same pricing as what you are seeing here. I???ve also attached the denial from [employer] so that you can share it with your doctor and discuss with them how to go about getting these items completed so we can submit an appeal. Per [place],we have until June 27 to submit the appeal, then it can take about 30 days for them to reviewit and come to a decision. Of course, I would say it would be beneficial to try and submit this sooner rather than later, but I know it can take some time to get a mammogram, etc. so I wanted you to know the timeframe we are working with. Keep me posted and again let me know if any questions come up! It looks like we are seeing you for a follow-up here in the office on 04/18/25 @ 3:00pm anyways, so you and I could always touch base then too. * Darshana Durant - 01/04/2025 8:50 AM EDT Per conversation with in office - pt will not likely meet criteria for approval. States doing extra imaging and tests may end up costing pt more than the surgery itself oop. Advised we do not proceed any further with appealing denial. Will inform pt of this and offer oop option. * Darshana Durant - 12/30/2024 8:53 AM EST Received a denial from [facility] for gynecomastia surgery. Denied because pt must have: - excessive breast tissue negative for any cysts or tumors, confirmed by imaging. And ONE of the following must be true: - normal estrogen levels or result of normal testicular ultrasound showing no concern for cancer. - pain/discomfort despite use of medications or breakdown of skin under breasts . - endocrine abnormality. , do you believe that pt meets any of the above? Is there pain/discomfort? Are you able/willing to order a mammogram should pt wish to pursue an appeal to insurance? Please advise. documented in this encounter Plan of Treatment Not on file documented as of this encounter Visit Diagnoses Not on filedocumented in this encounter Care Teams Embedded Firmware Engineer Relationship Specialty Start Date End Date Artemio Arambula NP [address] [facility] [place] [address] [email or web address] PCP - General Nurse Practitioner 12/28/24 documented as of this encounter Additional Source Comments The information contained in this document represents components of the legal health record. It is not the complete legal health record.[facility]
--- OUTSIDE RECORDS SUMMARY | 2025-05-30 15:05 | XMS_ITS | Clinical Summary ---
Author Organization [facility] [employer] Address [address] [facility] [address] [place] [address] Care Team Providers Care Town Administrator Name Role Phone Unavailable Primary Care Provider [...] 03/29/2021, Additional history exists Influenza Vaccine (#1) 2025 , 10/16/2021, 10/16/2021, Additional history exists RSV [...]
[2025-05-30 16:01] VITALS: BP 140/82; PULSE 76; TEMP 36.8; O2SAT 99; BMI 32.6
--- NOTE | 2025-05-30 16:01 | AM.OFFWIN_ITS ---
Intake Vital Signs 05/30/25 16:01 Height 5 ft 5.5 in Weight 199 lb 2 oz BMI 32.6 BP 140/82 H Blood Pressure Location Rt brachial Position Sitting Pulse 76 Pulse Source Pulse Oximeter Temp 98.2 F Temp Source Oral Pulse Oximetry (%) 99 Oxygen Delivery Method Room Air Intake Visit Reasons: EP-no energy, cough, phlegm, dizziness Patient Tobacco Use Status: Never used Tobacco Blow Pit Helper Required: No Allergies cat dander Allergy (Intermediate, Verified 05/30/25 16:06) Hives dog dander Allergy (Intermediate, Verified 05/30/25 16:06) sneezing shell fish Allergy (Severe, Uncoded 04/21/25 10:30) swelling, hives enviromental Allergy (Unknown, Uncoded 04/21/25 10:30) sneezing Do you need a note to return to daycare/school/sports/work: No HPI HPI Comments History of Present Illness Details History of Present Illness - The patient is a 55-year-old male pres enting with symptoms of sinusitis, lethargy, and back pain. - Three weeks ago, the patient began exp eriencing significant lethargy, requiring him to return to bed shortly after waking. - Approximately one to one and a half we eks ago, he developed severe back pain, reminiscent of a previous kidney stone episode. - About a week ago, he noticed nasal doron inage, which progressed to coughing up green phlegm three to four days ago. - The patient reports dizziness and ligh theadedness, particularly when bending over, which he associates with sinus infection symptoms. - He has been using nasal rinses, Mucine x, and eucalyptus steam rooms to alleviate symptoms, with variable success. - The patient denies any history of smok ing. - She denies fever or chills, CP, SOB, c ough, abd pain, n/v/d, dizziness or weakness. Physical Exam General: Cooperative, healthy appearing, comfortable, no acute distress and well developed Head: Normal to inspection Ears: Hearing grossly normal bilaterally. No tragus or mastoid tenderness noted. Auditory canals clear bilaterally. TM's normal, not bulging. No fluid noted. Nose: Normal external nose present. Moist mucosa. Turbinates normal bilaterally, not boggy. Face and sinus: Tenderness to palpation of the frontal and maxillary sinuses bilaterally. Neck: Normal visual inspection and Yes full ROM. No lymphadenopathy noted. Respiratory: Normal respiratory effort and able to speak in complete sentences. Clear to auscultation bilaterally Cardiovascular: Regular rate and rhythm. Normal S1 and S2 GI: Normal to inspection. Soft to palpation and nontender, nondistended. No guarding noted. Skin: No rashes or lesions noted [facility] Medical History (Updated 04/26/25 @ 07:16 by Artemio Arambula, [facility]) Snoring Hypogonadism in male Nightmare disorder Hyperpigmented skin lesion H/O nephrolithotomy with removal of calculi History of concussion Kidney stone BPH (benign prostatic hyperplasia) Restless leg syndrome Steatosis, liver PTSD (post-traumatic stress disorder) Arthritis BMI 35.0-35.9,adult Pre-op evaluation Complex posttraumatic stress disorder MDD (major depressive disorder) History of herniated intervertebral disc History of high cholesterol History of hypothyroidism History of depression Hx of acute eczema History of asthma Hx of sleep apnea Surgical History Status post total hip replacement, right Status post sleeve gastrectomy History of anal fissures History of prostate surgery Hx of cystoscopy Hx of adenoidectomy History of lumbar discectomy History of left hip replacement Family History Mother Hx of glaucoma Hx of heat stroke Hypertension Father Hx of heat stroke Sister Obese Substance use disorder Sister No problems noted. Sister Depression Thyroid condition Brother Substance use disorder Brother Diabetes Substance use disorder Brother History of hip replacement Brother Family history of prostate problems Brother No problems noted. Social History Household Members: Spouse and Family Household Members Other:: Gt lives with his 3 daughters and the spouse he is from Housing: House Are you a primary wound care nurse to a significant other at home: No Do you presently have visiting nurse or other home services: No Alcohol intake: current Alcohol intake frequency: does not drink Comment: Gt's discharge date has been extended from 09/30/24 to 10/04/24. Patient Tobacco Use Status: Never used Tobacco e-Cigarette/Vaping Use: Currently Using service: No Current occupational status: employed Cognitive needs: No Hearing needs: No Vision needs: No Review of Systems Const All systems reviewed & are unremarkable except as noted in HPI and below Physical Exam Vital Signs: Last Vital Signs Temp 98.2 F 05/30/25 16:01 Pulse 76 05/30/25 16:01 BP 140/82 H 05/30/25 16:01 Pulse Ox 99 05/30/25 16:01 Oxygen Delivery Method Room Air 05/30/25 16:01 BMI result Body Mass Index 32.6 Assessment & Plan Assessment & Plan (1) Sinus congestion: Code(s): R09.81 - Nasal congestion Plan Most likely sinusitis vs URI vs viral illness vs allergic rhinitis Plan - steam showers - tylenol or motrin as needed - Augmentin BID for 10 days - Flonase daily - Cetirizine-d daily - follow up with PCP Medications: New fluticasone propionate 50 mcg/actuation administer into each nostril 1 spray intranasal Q12H 16 grams 0RF amoxicillin-pot clavulanate 875-125 mg 1 tab PO Q12H 14 tabs 0RF cetirizine-pseudoephedrine 5-120 mg ER 1 tab PO BID 14 tabs 0RF 7 days Coding Level of Care Code Est Pt Level 3 (75194) Diagnoses Sinus congestion R09.81
== END 2025-05-30 16:36 | disposition home or self-care (01) ==
PROVIDERS: PCP Nurse Practitioner Family; Visit Provider Physician Assistant Medical
DX: R09.81 Nasal congestion (principal)

== ENCOUNTER → 2025-05-30 15:00 | Outpatient (BNVA) | payer OTHER, SELFPAY | PROVIDERS: PCP Nurse Practitioner Family; Visit Provider Physician Assistant Medical | DX: R09.81 Nasal congestion (principal) | CPT/HCPCS: 99212 ==

== ENCOUNTER 2025-06-07 11:14 | Outpatient (AMB) | payer OTHER, SELFPAY ==
--- NOTE | 2025-06-07 11:07 | A.OFFVIS_ITS ---
VS Expanded 06/07/25 11:09 Height 5 ft 5.5 in Weight 194 lb BMI 31.8 Intake Visit Reasons: (TV) PO LSG 12/13/21 Allergies cat dander Allergy (Intermediate, Verified 05/30/25 16:06) Hives dog dander Allergy (Intermediate, Verified 05/30/25 16:06) sneezing shell fish Allergy (Severe, Uncoded 04/21/25 10:30) swelling, hives enviromental Allergy (Unknown, Uncoded 04/21/25 10:30) sneezing Medication List - Last Reconciled 06/07/25 by CANDIDO Castillo albuterol sulfate 90 mcg/actuation 2 puffs inhalation Q4H PRN aripiprazole 5 mg PO DAILY atorvastatin 20 mg PO BEDTIME buspirone 10 mg PO TID 90 days dexmethylphenidate ER 20 mg PO QAM dupilumab (Dupixent) 300 mg subcut Q2W escitalopram oxalate 10 mg PO DAILY fexofenadine 180 mg PO Q24H fluticasone propionate 50 mcg/actuation 1 spray intranasal Q12H guanfacine ER 1 mg PO QAM levothyroxine 50 mcg PO DAILY melatonin 5 mg PO BEDTIME PRN prazosin 1 mg PO BEDTIME tirzepatide (weight loss) (Zepbound) 15 mg (0.5 mL) subcut QWEEK HPI Comments Details: This?is a?55?yo M who is s/p LSG 12/13/2021. Presents for 3.5 year post op visit. Weight loss of 5lb since last OV. No complaints of nausea, emesis, abdominal pain or reflux, or constipation. Pt reports minimal appetite. Has an appt for another sleep study coming up. Present meal plan includes: 2 Celebrate 4:1 shakes per day?with 2 scoops each in 8oz almond milk, 50 gm -May substitute eggs for AM meal, on a wrap protein bar or yogurt around 4pm- sometimes Dinner 7 pm, 4 forks fish/4 forks veg, having a small portion of starch tries to have a shake in AM, shake or yogurt for lunch, protein and starch with veg at night I have to force myself to eat- no desire to eat - night snacking is gone Exercise routine includes: getting back to gym 2-3x/week [facility] Medical History (Updated 06/06/25 @ 11:54 by Sierra Hansen RN) Snoring Hypogonadism in male Nightmare disorder Hyperpigmented skin lesion H/O nephrolithotomy with removal of calculi History of concussion Kidney stone BPH (benign prostatic hyperplasia) Restless leg syndrome Steatosis, liver PTSD (post-traumatic stress disorder) Arthritis BMI 35.0-35.9,adult Pre-op evaluation Complex posttraumatic stress disorder MDD (major depressive disorder) History of herniated intervertebral disc History of high cholesterol History of hypothyroidism History of depression Hx of acute eczema History of asthma Hx of sleep apnea Surgical History Status post total hip replacement, right Status post sleeve gastrectomy History of anal fissures History of prostate surgery Hx of cystoscopy Hx of adenoidectomy History of lumbar discectomy History of left hip replacement Family History Mother Hx of glaucoma Hx of heat stroke Hypertension Father Hx of heat stroke Sister Obese Substance use disorder Sister No problems noted. Sister Depression Thyroid condition Brother Substance use disorder Brother Diabetes Substance use disorder Brother History of hip replacement Brother Family history of prostate problems Brother No problems noted. Social History Household Members: Spouse and Family Household Members Other:: Gt lives with his 3 daughters and the spouse he is from Housing: House Are you a primary managed care manager to a significant other at home: No Do you presently have visiting nurse or other home services: No Alcohol intake: current Alcohol intake frequency: does not drink Comment: Gt's discharge date has been extended from 09/30/24 to 10/04/24. Patient Tobacco Use Status: Never used Tobacco e-Cigarette/Vaping Use: Currently Using service: No Current occupational status: employed Cognitive needs: No Hearing needs: No Vision needs: No Telehealth Telehealth Telehealth Platform: Telephone Location of provider rendering services: practice address Location of patient: address on file Patient Identification confirmed using: Name, : Yes Telehealth method: voice only Patient verbally consented to treatment: Yes Patient verbally consented to billing insurance company: Yes Patient informed of any privacy concerns related to visit: Yes Minutes spent on Phone/Video with Pt.: 16 Assessment & Plan Assessment & Plan (1) Obesity: Code(s): E66.9 - Obesity, unspecified Category: Medical (2) S/P laparoscopic sleeve gastrectomy: Code(s): Z98.84 - Bariatric surgery status Category: Surgical Plan Plans to increase exercise. Encouraged pt to take MVI daily as he is not consistent with Celebrate shakes. He will continue to communicate with me via text for Zepbound refills. RTC 6mo.
[2025-06-07 11:09] VITALS: BMI 31.8
--- OUTSIDE RECORDS SUMMARY | 2025-06-07 12:22 | XMS_ITS | Clinical Summary ---
Author Organization [facility] [facility] [employer] Address [address] [place] [address] Care Team Providers Care Stratigraphy Teacher Name Role Phone Unavailable Primary Care Provider [...]
--- OUTSIDE RECORDS SUMMARY | 2025-06-07 12:22 | XMS_ITS | Clinical Summary ---
Author Organization [facility] Address [address] [place] [phone] Phone Care Team Providers Care Learning Program Manager Name Role Phone Artemio Arambula NP Primary Care Provider + Allergies Active Allergy Reactions Criticality Noted Date Comments Methylphenidate Mental Status Change 12/04/2007 Medications albuterol 90 mcg/actuation inhaler ALBUTEROL SULFATE HFA AERS 7 Active fexofenadine (OUMAR) 180 MG tablet OUMAR 180 MG TABS 6 Active DUPIXENT PEN 300 mg/2 mL subcutaneous pen Inject 600 mg under the skin. 5 Active escitalopram oxalate (LEXAPRO) 10 MG tablet Active guanFACINE (INTUNIV) 1 mg Tb24 Take 1 mg by mouth every morning. Active fluticasone propionate (FLONASE NASL) FLONASE 50 MCG/ACT SUSP 8 Active levothyroxine (SYNTHROID) 125 MCG tablet 7 Active melatonin 5 mg Tab 5 Active mometasone-dimeth icone 0.1-5 % Crea 4 Active prazosin (MINIPRESS) 1 MG capsule Take 1 mg by mouth nightly at bedtime. Active tirzepatide, weight loss, (ZEPBOUND) 12.5 mg/0.5 mL subcutaneous pen Inject 12.5 mg under the skin every 7 days. Active Encounters Date Type Department Care Team Description 05/25/2025 10:00 AM EDT Office Visit [facility] Plastic Surgery [address] [place] [address] Helena Forte PA-C Gynecomastia, male (Primary Dx) 04/15/2025 Telephone [facility] [address] [place] [address] Helena Forte PA-C from Last 3 Months Family History Medical History Relation Comments Cancer Father Hypertension Mother Stroke Mother Relation Status Comments Father Mother Alive Social History Tobacco Use Types Packs/Day Years Used Date Smoking Tobacco: Never Smokeless Tobacco: Never Tobacco Cessation:Counseling Given: Not Answered Alcohol Use Standard Drinks/Week Comments Yes 0 [...] Sign Reading Time Taken Comments Blood Pressure 115/63 05/25/2025 10:25 AM EDT Pulse 70 05/25/2025 10:25 AM EDT Temperature - - Respiratory Rate - - Oxygen Saturation - - Inhaled Oxygen Concentration - - Weight 88.7 kg (195 lb 9.6 oz) 05/25/2025 10:25 AM EDT Height 166.4 cm (5' 5.5 ) 05/25/2025 10:25 AM ED T Body Mass Index 32.05 05/25/2025 10:25 AM EDT Plan of Treatment Health Maintenance Due Date Last Done Comments Adult Td,Tdap Booster 1970 LIPID PANEL 1970 TSH LEVEL 1970 DEPRESSION SCREENING 1982 HEPATITIS C SCREENING 1988 HIV ONE-TIME SCREENING (18-6 5 YEARS) 1988 SCREENING FOR DIABETES 2005 COLOGUARD 2015 COLONOSCOPY 2015 COLORECTAL CANCER SCREENING 2015 FIT TEST 2015 FOBT 2015 SIGMOIDOSCOPY 2015 VIRTUAL COLONOSCOPY 2015 PNEUMOCOCCAL VACCINES (50+ y ears) (1 of 1 - PCV) 2020 ZOSTER VACCINES (1 of 2) 2020 COVID-19 VACCINE (1 - 2023-2 5 season) 2024 SMOKING STATUS SCREENING (On ce After 26 Yrs) Completed 07/12/2024 HEPATITIS A VACCINES Aged Out No long er eligible based on patient's age to complete this topic HIB VACCINES Aged Out No longer eligi ble based on patient's age to complete this topic MENINGOCOCCAL VACCINES (ACWY) Aged Out No longer eligible based on patient's age to complete this topic MENINGOCOCCAL VACCINES (B) Aged Out N o longer eligible based on patient's age to complete this topic Medical Devices Not on file Insurance [facility] NON NSPG PCP SILVER CLARITY CONNECTORCARE [facility] NON NSPG PCP SILVER CLARITY CONNECTORCARE [employer] NON NSPG PCP SILVER CLARITY CONNECTORCARE [employer] NON NSPG PCP SILVER CLARITY CONNECTORCARE [employer] NON NSPG PCP SILVER CLARITY CONNECTORCARE [employer] NON NSPG [facility]CP [facility] Care Teams Learning Program Manager Relationship Specialty Start Date End Date Artemio Arambula NP [address] [place] [address] PCP - General Nurse Practitioner 12/28/24 Additional Source Comments The information contained in this document represents components of the legal health record. It is not the complete legal health record.[facility]
--- OUTSIDE RECORDS SUMMARY | 2025-06-07 12:22 | XMS_ITS | Clinical Summary ---
Author Organization [facility] Address [address] [place] [address] Care Team Providers Care Lithographic Stripper Name Role Phone Samuel Gomez MD Primary Care Provider [phone] Surgical History Surgery Date Site/Laterality Comments BACK SURGERY PROCEDURE: HISTORICAL BACK SURGERY OTHER SURGICAL HISTORY PROCEDURE: [place] ADENOIDECTOMY PRIMARY <AGE 12 Medical History Medical [...] age to complete this topic Care Teams Lithographic Stripper Relationship Specialty Start Date End Date Samuel Gomez MD [address] [place] [address] PCP - General Internal Medicine 04/25/17
--- OUTSIDE RECORDS SUMMARY | 2025-06-07 12:22 | XMS_ITS | Encounter Summary ---
Author Organization [facility] Address [address] [place] [address] Care Team Providers Care Dipper And Drier Name Role Phone Shweta Todd MD Primary Care Provider [phone] Reason for Visit * Reason Comments Medication Refill Encounter Details Date Type Department Care Team (Late st Contact Info) Description 12/02/2016 Refill [facility] U[facility] Surgery [place] [address] [place] [address] Shmuel Link MD [address] [place] [phone] Benign prostatic hyperplasia (BPH) with urinary urgency [...] Miscellaneous Notes * Telephone Encounter - Kathie Moriera RN - 12/03/2016 6:53 AM EST Please refill documented in this encounter Plan of Treatment Not on file documented as of this encounter Visit Diagnoses Diagnosis Benign prostatic hyperplasia (BPH) with urinary urgency documented in this encounter Care Teams Dipper And Drier Relationship Specialty Start Date End Date Shweta Todd MD [address] [facility] [address] [place] [address] PCP - General Internal Medicine 11/13/16 documented as of this encounter
== END 2025-06-07 11:33 | disposition home or self-care (01) ==
LOC: HO.HBS 11:14
PROVIDERS: Visit Provider Physician Assistant Surgical
DX: E66.9 Obesity, unspecified (principal); Z98.84 Bariatric surgery status
CPT/HCPCS: 99214

== ENCOUNTER 2025-06-13 09:23 | Outpatient (REF) | payer OTHER, SELFPAY ==
--- NOTE | 2025-06-13 09:30 | ECG_ITS ---
Test Reason : CHECK QTC Blood Pressure : */* mmHG Vent. Rate : 68 BPM Atrial Rate : 68 BPM P-R Int : 208 ms QRS Dur : 86 ms QT Int : 382 ms P-R-T Axes : 71 51 29 degrees QTcB Int : 406 ms Normal sinus rhythm Normal ECG When compared with ECG of 21-Aug-2021 14:41, No significant change was found Referred By: Mena Merchant Electronically Signed By: ZHENG RAMSEY MD
[2025-06-13 09:41] LABS: MANUAL DIFF FLAG NO
--- OUTSIDE RECORDS SUMMARY | 2025-06-13 09:57 | XMS_ITS | Encounter Summary ---
Author Organization [facility] Address [address] [place] [address] Care Team Providers Care Cardboard Inserter Name Role Phone Shweta Todd MD Primary Care Provider [phone] Reason for Visit * Reason Comments Medication Refill Encounter Details Date Type Department Care Team (Late st Contact Info) Description 12/02/2016 Refill [facility] Urologic Surgery [place] [address] [facility] [address] [place] [address] Shmuel Link MD [address] [place] [phone] Benign prostatic hyperplasia (BPH) with urinary urgency [...] urgency documented in this encounter Care Teams Cardboard Inserter Relationship Specialty Start Date End Date Shweta Todd MD [address] [facility] [address] [place] [address] PCP - General Internal Medicine 11/13/16 documented as of this encounter
--- OUTSIDE RECORDS SUMMARY | 2025-06-13 09:57 | XMS_ITS | Clinical Summary ---
Author Organization [employer] [facility] [employer] Address [address] [facility] [address] [place] [address] Care Team Providers Care Tonal Regulator Name Role Phone Unavailable Primary Care Provider [...]
--- OUTSIDE RECORDS SUMMARY | 2025-06-13 09:57 | XMS_ITS | Clinical Summary ---
Author Organization [facility] Address [address] [place] [phone] Care Team Providers Care Finishing Range Operator Name Role Phone Samuel Gomez MD Primary Care Provider [phone] Surgical History Surgery Date Site/Laterality Comments BACK [...] age to complete this topic Care Teams Finishing Range Operator Relationship Specialty Start Date End Date Samuel Gomez MD [address] [place] [address] PCP - General Internal Medicine 04/25/17
--- OUTSIDE RECORDS SUMMARY | 2025-06-13 09:57 | XMS_ITS | Clinical Summary ---
Author Organization [facility] Address [address] [facility] [address] [place] [address] Phone Care Team Providers Care Director Medicare Sales Name Role Phone Artemio Arambula NP Primary [...] Description 05/25/2025 10:00 AM EDT Office Visit [facility] Plastic Surgery [address] [place] [address] Helena Forte PA-C Gynecomastia, male (Primary Dx) 04/15/2025 Telephone [facility] Surgery [address] [place] [address] Helena Forte PA-C from Last 3 Months [...] topic Medical Devices Not on file Insurance [employer] NON NSPG PCP [facility] PCP SILVER CL[employer]ITY CONNE[employer]ARE [employer] NON NSPG PCP S[place]VER [employer]ITY [employer] NON NSPG PCP S[place] NON NSPG PCP [facility] [employer] NON NSPG PCP [facility] Care Teams Director Medicare Sales Relationship Specialty Start Date End Date Artemio Arambula NP [address] [facility] [place] [address] PCP - General Nurse Practitioner 12/28/24 Additional Source Comments The information contained in this document represents components of the legal health record. It is not the complete legal health record.[facility]
[2025-06-13 10:12] LABS: Hematocrit 41.5 % (42.0-52.0); Hemoglobin 14.3 g/dl (14.0-18.0); Imm Gran Abs Auto 0.01 X10*3/uL (0.00-0.03); Imm Gran Pct Auto 0.2 % (0.0-0.4); Lymphocytes Absolute Auto 1.7 X10*3/uL (1.2-4.9); Mean Corpuscular HGB Conc 34.5 g/dl (31.0-36.0); Mean Corpuscular Hemoglobin 31.1 pg (27.0-33.0); Mean Corpuscular Volume 90.2 fL (80.0-98.0); NRBC Abs Auto 0.000 X10*3/uL (0.0-0.012); NRBC Pct Auto 0.0 /100WBC (0.0-0.2); Platelet Count 278 X10*3/uL (160-400); Red Blood Count 4.60 X10*6/uL (4.60-5.80); White Blood Count 5.3 X10*3/uL (4.8-10.8)
[2025-06-13 10:26] LABS: Hemoglobin A1C 118.5378 umol/L; Total Hemoglobin (HGBA1C) 3672.2235 umol/L
[2025-06-13 11:05] LABS: Parathyroid Hormone Intact 55.3 pg/mL (8.7-77.1)
[2025-06-13 11:32] LABS: Folate 13.5 ng/mL (> or = 4.0); Vitamin B12 702 pg/mL (200-900)
[2025-06-13 12:53] LABS: Alanine Aminotransferase 32 U/L (0-40); Albumin Level 4.8 g/dL (3.5-5.0); Alkaline Phosphatase 55 U/L (39-117); Anion Gap 12 (12-20); Aspartate Amino Transferase 34 U/L (5-37); Blood Urea Nitrogen 17 mg/dL (9-16); Calcium 9.5 mg/dL (8.4-10.2); Carbon Dioxide 26 mmol/L (22-29); Chloride 107 mmol/L (96-108); Cholesterol 143 mg/dL (<200); Estimated Glomerular Filt Rate > 60; HDL Cholesterol 46 mg/dL (>40); Iron 102 mcg/dL (45-160); Magnesium 2.2 mg/dL (1.6-2.6); Percent Iron Saturation 33 % (15-50); Potassium 3.8 mmol/L (3.3-5.1); Sodium 141 mmol/L (135-145); Total Iron Binding Capacity 310 mcg/dL (228-428); Total Protein 7.6 g/dL (6.5-8.0); Triglycerides 88 mg/dL (<150); Unsaturated Iron Binding 208 ug/dL
[2025-06-13 13:00] LABS: Uric Acid 6.3 mg/dL (3.4-7.0)
[2025-06-13 13:06] LABS: Free T4 (Free Thyroxine) 1.15 ng/dL (0.71-1.85); Thyroid Stimulating Hormone 3.28 uIU/mL (0.32-4.0)
[2025-06-17 15:17] LABS: ANA Pattern 3 Nuclear, Homogeneous; ANA Titer 3 1:80 titer; Anti Nuclear Antibody Pattern Nuclear, Speckled; Anti Nuclear Antibody Screen POSITIVE (NEGATIVE); Anti Nuclear Antibody Titer 1:80 titer
== END 2025-06-13 09:24 | disposition home or self-care (01) ==
LOC: HO.LAB 09:23
PROVIDERS: PCP Nurse Practitioner Family; Visit Provider Psychiatry & Neurology Psychiatry
DX: Z01.84 Encounter for antibody response examination (principal); F31.9 Bipolar disorder, unspecified; F41.1 Generalized anxiety disorder
CPT/HCPCS: 36415; 80053; 80061; 82306; 82550; 82607; 82746; 83036; 83090; 83540; 83735; 83970; 84100; 84425; 84439; 84443; 84550; 85025; 85652; 86038; 86039; 86140; 86431; 93005

== ENCOUNTER → 2025-06-13 09:30 | Outpatient (BNV) | payer OTHER, SELFPAY | PROVIDERS: PCP Nurse Practitioner Family; Visit Provider Internal Medicine Cardiovascular Disease | DX: Z13.6 Encounter for screening for cardiovascular disorders (principal) | CPT/HCPCS: 93010 ==

== ENCOUNTER 2025-06-15 11:15 | Outpatient (RCR) | payer OTHER, SELFPAY ==
[2025-06-06 11:55] VITALS: BMI 31.4
[2025-06-06 11:57] VITALS: BP 108/68; PULSE 60; TEMP 36.6
--- NOTE | 2025-06-06 12:57 | PC.ADMIT ---
Patient is a 55 year old male who self referred to [facility] as he reports he has been to [facility] in the past and finds it helpful. Patient struggling with sxs of depression and reports feeling stuck in his life. Reports difficulty getting out of bed and decreased energy to do things for the past month. Patient reports he lost his job in March and has no more income coming in. Reports he has been living off money from the [employer] which is running out. Reports feelings of hopelessness and helplessness. Patient also reports he would like to go to marriage counseling again with his however she is not interested in doing this at this time. Patient thinking about divorce however does not know how he is going to afford this. Patient is alert and oriented x4. He is calm and cooperative. He presented with depressed mood and anxious affect. He denied SI, no HI. He was given a copy of his safety plan if needed. Patient's medications updated with patient and patient's pharmacy. He reports taking medications as prescribed. He reports he stopped using Marijuana three weeks ago as it was not helping his symptoms and believes it is not good for his health.
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
--- NOTE | 2025-06-09 09:11 | PC.NURSE ---
Gt reports he is not feeling well, feeling groggy. Stated he has been feeling this way for the past month. Stated he thinks it is the Zepbound. 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 Stated he slept most of the day when he came home from group yesterday. Patient stated he has not had any medication changes with the exception of increases of Zepbound every month. I recommended he call his doctor and discuss his chronic fatigue for the past month and explore if the medication is causing this as he is not able to tolerate this side effect.
--- NOTE | 2025-06-09 15:18 | HO.PHP ---
Client's case was reviewed and opened in teams.
--- NOTE | 2025-06-15 12:14 | P.PNPSP_ITS ---
Subjective Subjective Date of Service: 06/14/25 Reason For Visit: depression,anxiety Diagnostics Vital Signs (24Hr): BMI result Body Mass Index 31.4 Assessment & Plan Certification I certify that partial hospital treatment is medically necessary due to the symptoms and problems resulting from the patient's mental illness and the failure to treat the patient at the partial hospital level of care would likely result in the patient requiring inpatient psychiatric care which could not be prevented at a less intensive level of care. Total time managing care of this patient today ____ minutes. Discharge Plan Discharge Attending provider: Mena Merchant Medications: Continued fexofenadine 180 mg tablet 180 mg PO Q24H Qty: 90 1RF Rx Instructions: Last filled 03/27/25 #30. levothyroxine 50 mcg tablet 50 mcg PO DAILY Qty: 90 1RF atorvastatin 20 mg tablet 20 mg PO BEDTIME Qty: 90 1RF Zepbound 15 mg/0.5 mL pen injector 15 mg subcut QWEEK Qty: 2 0RF melatonin 5 mg capsule 5 mg PO BEDTIME PRN (Reason: Insomnia) Dupixent Pen 300 mg/2 mL pen injector 300 mg subcut Q2W Patient Comments: Last filled in December 2024, Pharmacy states inactive. Patient stated he is taking. Rx Instructions: Every two weeks. Last filled in December 2024, Pharmacy states inactive. Patient stated he is taking. dexmethylphenidate 20 mg capsule,ER biphasic 50-50 20 mg PO QAM Qty: 30 0RF prazosin 1 mg capsule 1 mg PO BEDTIME Qty: 90 0RF buspirone 10 mg tablet 10 mg PO TID 90 Days Qty: 270 0RF escitalopram oxalate 10 mg tablet 10 mg PO DAILY Qty: 90 0RF guanfacine 1 mg tablet extended release 24 hr 1 mg PO QAM Qty: 90 0RF albuterol sulfate 90 mcg/actuation HFA aerosol inhaler 2 puff inhalation Q4H PRN (Reason: Shortness Of Breath Or Wheezing) fluticasone propionate 50 mcg/actuation spray,suspension 1 spray intranasal Q12H Qty: 16 0RF Rx Instructions: administer into each nostril Changed aripiprazole 5 mg tablet 5 mg PO DAILY Qty: 90 0RF Rx Instructions: Patient takes at bedtime. Stand Alone Forms: Patient Portal Discharge page Patient Education: ADHD in Adults (ED), ADHD in Adults (DC), Depression (DC), Anxiety (ED) Print Language: Singaporean
--- NOTE | 2025-06-15 12:15 | PM.EVENT ---
Event Note Date of Service: 06/14/25 Time Spent With Patient Time: Total time managing care of this patient today ____ minutes.
--- NOTE | 2025-06-16 08:50 | PC.NURSE ---
Dr. Merchant is aware of lab results including BUN 17, Creat 1.12, C-reactive protein 335. No further instructions.
== END 2025-06-15 23:59 | disposition home or self-care (01) ==
LOC: HO.PHPA 11:15
PROVIDERS: Visit Provider Psychiatry & Neurology Psychiatry
DX: F32.9 Major depressive disorder, single episode, unspecified (principal); F90.2 Attention-deficit hyperactivity disorder, combined type; F41.1 Generalized anxiety disorder; F43.12 Post-traumatic stress disorder, chronic; Z79.899 Other long term (current) drug therapy
CPT/HCPCS: 90791; 90853

== ENCOUNTER 2025-06-21 14:00 | Outpatient (AMB) | payer OTHER, SELFPAY ==
[2025-06-21 14:12] VITALS: BP 110/66; PULSE 59; O2SAT 100; BMI 32.1
--- NOTE | 2025-06-21 14:12 | MHC.OFFVIS ---
Vital Signs 06/21/25 14:12 Height 5 ft 5.5 in Weight 196 lb 2 oz BMI 32.1 BP 110/66 Blood Pressure Location Rt brachial Position Sitting Pulse 59 Pulse Source Pulse Oximeter Pulse Oximetry (%) 100 Oxygen Delivery Method Room Air Intake Visit Reasons: 2 mo follow up Intake Note: Patient presents follow up SYED. PSG requested from [facility]. Patient unsure who he has DME. Accompanied by: Self / Same As Patient Allergies cat dander Allergy (Intermediate, Verified 06/21/25 14:14) Hives dog dander Allergy (Intermediate, Verified 06/21/25 14:14) sneezing shell fish Allergy (Severe, Uncoded 04/21/25 10:30) swelling, hives enviromental Allergy (Unknown, Uncoded 04/21/25 10:30) sneezing HPI Comments Details: 55y/o male with ADHD depression, PTSD comes for evaluation of sleep problems, nightmares, insomnia, fatigue. 11/2024 HST / SYED [facility], he continues to be non-compliant and is interested in [facility] transplant therapy. Started zepound will reduce to 12.5mg subcut, as he is extremely fatigued. Goes to bed at 11pm and wakes up at 2-3 am every morning and goes back to sleep at 4am then falls back asleep. He denies taking naps during the day. He is unemployed right now and looking for work. He was on Prazosin for his PTSD and sleeps much better. He reports child foster trauma, [email or web address] for sleep specialties. Prior to that he had a diagnosis of sleep apnea and was not compliant, he failed cpap use. He lost 70lb and stopped CPAP. He regained 35 lbs since then. Mood has been stable recently. He was admitted to [facility] for kidney stones and overdoses in surgery, he had seizure like activity. He was stressed and calls it a near experience. His sleep has been affected since then. he talks to a therapist 2 times a month. He is also anxious about his mom's dementia diagnosis and his future. [facility] Medical History Snoring Hypogonadism in male Nightmare disorder Hyperpigmented skin lesion H/O nephrolithotomy with removal of calculi History of concussion Kidney stone BPH (benign prostatic hyperplasia) Restless leg syndrome Steatosis, liver PTSD (post-traumatic stress disorder) Arthritis BMI 35.0-35.9,adult Pre-op evaluation Complex posttraumatic stress disorder MDD (major depressive disorder) History of herniated intervertebral disc History of high cholesterol History of hypothyroidism History of depression Hx of acute eczema History of asthma Hx of sleep apnea Surgical History Status post total hip replacement, right Status post sleeve gastrectomy History of anal fissures History of prostate surgery Hx of cystoscopy Hx of adenoidectomy History of lumbar discectomy History of left hip replacement Family History Mother Hx of glaucoma Hx of heat stroke Hypertension Father Hx of heat stroke Sister Obese Substance use disorder Sister No problems noted. Sister Depression Thyroid condition Brother Substance use disorder Brother Diabetes Substance use disorder Brother History of hip replacement Brother Family history of prostate problems Brother No problems noted. Social History Household Members: Spouse and Family Household Members Other:: Gt lives with his 3 daughters and the spouse he is from Housing: House Are you a primary career services director to a significant other at home: No Do you presently have visiting nurse or other home services: No Alcohol intake: current Alcohol intake frequency: does not drink Comment: Gt's discharge date has been extended from 09/30/24 to 10/04/24. Patient Tobacco Use Status: Never used Tobacco e-Cigarette/Vaping Use: Currently Using service: No Current occupational status: employed Cognitive needs: No Hearing needs: No Vision needs: No Physical Exam Vital Signs: Last Vital Signs Pulse 59 06/21/25 14:12 BP 110/66 06/21/25 14:12 Pulse Ox 100 06/21/25 14:12 Oxygen Delivery Method Room Air 06/21/25 14:12 BMI result Body Mass Index 32.1 Const General: cooperative, healthy appearing, comfortable and anxious Nutritional Appearance: average body habitus Orientation/consciousness: patient oriented x3 HEENT Face and sinus: Yes face symmetric Eyes Pupils: Equal, round and reactive pupils present Neck Neck: Yes full ROM Resp Effort & Inspection: normal respiratory effort and able to speak in complete sentences Neuro General: patient oriented x3 and moves all extremities Cranial nerves: Yes Facial sensation intact/muscles of mastication intact, Yes Equal, round and reactive pupils present, Yes Normal accommodation reflex present, Yes Normal facial strength present, Yes Midline tongue present, Yes Ability to bilaterally rotate head present and Yes Ability to bilaterally elevate shoulders present Cognition (Neuro): normal cognition Gait exam (Neuro): Normal gait present Motor exam (neuro): 5/5 motor strength present throughout and Normal motor muscle tone present throughout Psych Appearance: well kempt Thought process: Normal thought process present Thought content: Normal thought content present Results Reviewed Results Reviewed: normal renal u/s Assessment & Plan Assessment & Plan (1) Hx of sleep apnea: Code(s): Z86.69 - Personal history of other diseases of the nervous system and sense organs Category: Medical (2) PTSD (post-traumatic stress disorder): Code(s): F43.10 - Post-traumatic stress disorder, unspecified Category: Medical (3) MDD (major depressive disorder), recurrent episode: Code(s): F33.9 - Major depressive disorder, recurrent, unspecified Category: Medical Qualifiers: Major depression episode severity: moderate Qualified Code(s): F33.1 - Major depressive disorder, recurrent, moderate (4) Snoring: Code(s): R06.83 - Snoring Category: Medical (5) Fatigue: Code(s): R53.83 - Other fatigue Category: Medical Qualifiers: Fatigue type: other Qualified Code(s): R53.83 - Other fatigue Plan Home sleep study to reevaluate reviewed labs F/u psyhcotherapy Orders: Orders RT home sleep study Today G47.19 - Other hypersomnia Referrals Ear/Nose/Throat Referral G47.30 - Sleep apnea, unspecified, G47.33 - Obstructive sleep apnea (adult) (pediatric) Medications: New melatonin 5 mg PO BEDTIME PRN 90 caps 0RF Insomnia MDD 5mg F33.1 - Major depressive disorder, recurrent, moderate, F43.10 - Post-traumatic stress disorder, unspecified, Z86.69 - Personal history of other diseases of the nervous system and sense organs Discontinued tirzepatide (weight loss) (Zepbound) Discontinued Reason: Doctor's Order 15 mg (0.5 mL) subcut QWEEK 2 mL 0RF Patient Instructions: Sleep Hygiene provided: set a scheduled bedtime and wake time to help regulate the circadian rhythm and balance the release of pituitary hormones. Sleep in a dark room, temperatures below 68 degrees, and no devices n bed. Limit caffeinated products 6 hours prior to bed, and limit fluids 2-4 hours prior to bed. Gentle night yoga, diffusing essential oils, and playing soft music can be relaxing. Coding Level of Care Code Est Pt Level 4 (96430) Diagnoses Hx of sleep apnea Z86.69 PTSD (post-traumatic stress disorder) F43.10 Moderate episode of recurrent major depressive disorder F33.1 Major depression episode severity: moderate Snoring R06.83 Other fatigue R53.83 Fatigue type: other
--- OUTSIDE RECORDS SUMMARY | 2025-06-21 14:57 | XMS_ITS | Clinical Summary ---
[facility] Address [address] [place] [id number] Care Team Providers Care Rougher Helper Name Role Phone Samuel Gomez MD Primary Care Provider [phone] Surgical History Surgery Date Site/Laterality Comments BACK SURGERY PROCEDURE: HISTORICAL BACK SURGERY OTHER SURGICAL HISTORY PROCEDURE: [place] ADENOIDECTOMY PRIMARY <AGE 12 Medical History Medical [...] age to complete this topic Care Teams Rougher Helper Relationship Specialty Start Date End Date Samuel Gomez MD [address] [place] [address] PCP - General Internal Medicine 04/25/17
--- OUTSIDE RECORDS SUMMARY | 2025-06-21 14:57 | XMS_ITS | Encounter Summary ---
Author Organization [facility] Address [address] [place] [address] Care Team Providers Care Grocery Team Member Name Role Phone Shweta Todd MD Primary Care Provider [phone] Reason for Visit * Reason Comments Medication Refill Encounter Details Date Type Department Care Team (Late st Contact Info) Description 12/02/2016 Refill [facility] Urologic Surgery [place] [address] [facility] [address] [place] [address] Shmuel Link MD [address] [place] [phone] Benign prostatic hyperplasia (BPH) with urinary urgency [...] urgency documented in this encounter Care Teams Grocery Team Member Relationship Specialty Start Date End Date Shweta Todd MD [address] [facility] [address] [place] [address] PCP - General Internal Medicine 11/13/16 documented as of this encounter
--- OUTSIDE RECORDS SUMMARY | 2025-06-21 14:57 | XMS_ITS | Clinical Summary ---
Author Organization [employer] Address [address] [facility] [address] [place] [address] Care Team Providers Care Credit Compliance Officer Name Role Phone Unavailable Primary Care [...]
--- OUTSIDE RECORDS SUMMARY | 2025-06-21 14:58 | XMS_ITS | Clinical Summary ---
Author Organization [facility] Address [address] [place] [address] Care Team Providers Care Car Unloader Helper Name Role Phone Shweta Todd MD Primary Care Provider [phone] Allergies No known active allergies Medications buPROPion [...] 2023- season) 2024 Influenza Vaccine 05/27/2025 Insurance [facility] Care Teams Car Unloader Helper Relationship Specialty Start Date End Date Shweta Todd MD [address] [facility] [address] [place] [address] PCP - General Internal Medicine 11/13/16
--- OUTSIDE RECORDS SUMMARY | 2025-06-21 14:58 | XMS_ITS | Clinical Summary ---
Author Organization [facility] Address [address] [facility] [address] [place] [phone] Phone Care Team Providers Care Dog Handler Or Trainer Name Role Phone Artemio Arambula NP Primary [...] Description 05/25/2025 10:00 AM EDT Office Visit [facility] Plastic Surgery [address] [place] [address] Helena Forte PA-C Gynecomastia, male (Primary Dx) 04/15/2025 Telephone [facility]astic Surgery [address] [place] [address] Helena Forte PA-C from Last 3 Months [...] topic Medical Devices Not on file Insurance [place] NON NSPG PCP SILVER CLARITY [facility] PCP SILVER CL[employer]ITY CONNE[employer]ARE [employer] NON NSPG PCP SILVER CL[employer]ITY CONNE[employer]ARE [employer] NON NSPG PCP SILVER CLARITY CONNE[employer]ARE [employer] NON NSPG PCP SILVER CLARITY [facility] NON NSPG PCP [facility] Care Teams Dog Handler Or Trainer Relationship Specialty Start Date End Date Artemio Arambula NP [address] [facility] [place] [address] PCP - General Nurse Practitioner 12/28/24 Additional Source Comments The information contained in this document represents components of the legal health record. It is not the complete legal health record.[facility]
== END 2025-06-21 14:42 | disposition home or self-care (01) ==
LOC: HO.HSMS 14:01
PROVIDERS: PCP Nurse Practitioner Family; Visit Provider Physician Assistant Medical
DX: Z86.69 Personal history of other diseases of the nervous system and sense organs (principal); F43.10 Post-traumatic stress disorder, unspecified; F33.1 Major depressive disorder, recurrent, moderate; R06.83 Snoring; R53.83 Other fatigue
CPT/HCPCS: 99214

== ENCOUNTER → 2025-06-21 14:00 | Outpatient (BNVA) | payer OTHER, SELFPAY | PROVIDERS: PCP Nurse Practitioner Family; Visit Provider Physician Assistant Medical | DX: F33.1 Major depressive disorder, recurrent, moderate (principal); F43.10 Post-traumatic stress disorder, unspecified; Z86.69 Personal history of other diseases of the nervous system and sense organs | CPT/HCPCS: 99212 ==

== ENCOUNTER 2025-08-09 15:06 | Outpatient (AMB) | payer OTHER, SELFPAY ==
--- NOTE | 2025-08-09 15:08 | A.OFFPC_ITS ---
Vital Signs 08/09/25 15:09 Height 5 ft 5.5 in Weight 205 lb BMI 33.6 BP 114/70 Blood Pressure Location Lt brachial Position Sitting Pulse 75 Pulse Source Pulse Oximeter Pulse Oximetry (%) 99 Oxygen Delivery Method Room Air Intake Visit Reasons: PE Radiology Aide Required: No Accompanied by: Self / Same As Patient Allergies cat dander Allergy (Intermediate, Verified 08/09/25 15:26) Hives dog dander Allergy (Intermediate, Verified 08/09/25 15:26) sneezing shell fish Allergy (Severe, Uncoded 08/09/25 15:26) swelling, hives enviromental Allergy (Unknown, Uncoded 08/09/25 15:26) sneezing Medication List - Last Reconciled 08/09/25 by TROY MccannP- albuterol sulfate 90 mcg/actuation 2 puffs inhalation Q4H PRN aripiprazole 5 mg PO DAILY atorvastatin 20 mg PO BEDTIME buspirone 10 mg PO TID 90 days dexmethylphenidate ER 20 mg PO QAM dupilumab (Dupixent) 300 mg subcut Q2W epinephrine IM escitalopram oxalate 10 mg PO DAILY fexofenadine 180 mg PO Q24H fluticasone propionate 50 mcg/actuation 1 spray intranasal Q12H guanfacine ER 1 mg PO QAM levothyroxine 50 mcg PO DAILY melatonin 5 mg PO BEDTIME PRN MDD 5mg prazosin 1 mg PO BEDTIME tirzepatide (weight loss) (Zepbound) 12.5 mg (0.5 mL) subcut QWEEK Tobacco use date assessed: 08/09/25 Dental Screening Dental Screen Date: 08/09/25 Did you have a dental visit in the last 12 months?: Yes Did you have a dental problem in the last 6 months where you did not have access to dental care?: No Was dental information given to patient?: Patient has dentist HPI PE HPI Details History of Present Illness The patient is a 55-year-old male presenting for a follow-up physical examina tion. He underwent a gastric sleeve procedure approximately 3 to 3.5 years ago. Since then, he has been experiencing fatigue, which was evaluated earlier and ? to be associated with a positive antinuclear antibody (ROX) test an sleep apnea. The patient has a history of sleep apnea and reports difficulty with consistent use of the CPAP mask, wearing it intermittently. He is under the care of a sleep management team and is being evaluated as a potential candidate for Inspire therapy. He reports that his colonoscopy is up to date, having been performed approximately three years ago, prior to his gastric sleeve procedure. He denies any urinary symptoms and is currently not following up with urology. A systolic murmur was noted during the examination, and an echocardiogram is planned for further evaluation. The patient denies chest pain, dyspnea, abdominal pain, gastrointestinal bleeding, constipation, diarrhea, and any psychiatric symptoms such as suicidal or homicidal ideation. Health Maintenance - Colonoscopy: Up to date, performed padmini roximately three years ago Social History Review of Systems - General: Reports fatigue - Cardiovascular: Denies chest pain - Respiratory: Denies dyspnea - Gastrointestinal: Denies abdominal raul n, blood in stool, constipation, diarrhea - Psychiatric: Denies suicidal ideation, denies homicidal ideation Physical Exam General: Cooperative, healthy appearing, comfortable, no acute distress and well developed Orientation: Patient oriented x3 Limitations: No limitations Head: Normal to inspection Ears: Hearing grossly normal bilaterally Nose: Normal external nose present Face and sinus: Normal facial exam Eyes: Appearance normal, both eyes and all related structures Neck: Normal visual inspection and Yes full ROM Respiratory: Normal respiratory effort and able to speak in complete sentences. Clear to auscultation bilaterally Cardiovascular: Regular rate and rhythm. Normal S1 and S2, faint systolic murmur noted GI: Normal to inspection. Soft to palpation and nontender Skin: No rashes or lesions noted Neuro: Patient oriented x3 Extremities: Normal to inspection Results Plan 1. Fatigue The patient's fatigue is being evaluated with consideration of his positive ROX and history of gastric sleeve procedure, which may suggest nutritional deficiencies. Laboratory tests will be conducted to assess for potential vitamin or electrolyte deficiencies. though may refer back to bariatrics for further eval. Awaiting rheum visit as well. 2. Sleep Apnea The patient has a history of sleep apnea and is experiencing difficulty with CPAP adherence. He is being evaluated for Inspire therapy as a potential alternative treatment, which also may help with his fatigue 3. Systolic Murmur A faint systolic murmur was detected during the examination, and an echocardiogram is planned to further evaluate the cardiac function. 4. Positive Rox The positive ROX finding is being monitored, and a referral to different accounts payable payroll coordinator is planned for further evaluation, although the current appointment with rheum is delayed until March 2026. Discussion Notes I discussed with the patient the potential causes of his fatigue, including the positive ROX and possible nutritional deficiencies post-gastric sleeve surgery, sleep apnea. We plan to conduct laboratory tests to investigate these possibilities further. Regarding his sleep apnea, we talked about the challenges with CPAP adherence and the potential for Inspire therapy as an alternative. An echocardiogram is scheduled to evaluate the detected a faint systolic murmur. Patient Instructions - Follow up with laboratory tests as ord ered to assess for vitamin or electrolyte deficiencies. - Continue using CPAP as tolerated and d iscuss Inspire therapy with the sleep management team. - Attend the scheduled echocardiogram to evaluate the systolic murmur. FOR[facility]LY [facility], [facility] Medical History Snoring Hypogonadism in male Nightmare disorder Hyperpigmented skin lesion H/O nephrolithotomy with removal of calculi History of concussion Kidney stone BPH (benign prostatic hyperplasia) Restless leg syndrome Steatosis, liver PTSD (post-traumatic stress disorder) Arthritis BMI 35.0-35.9,adult Pre-op evaluation Complex posttraumatic stress disorder MDD (major depressive disorder) History of herniated intervertebral disc History of high cholesterol History of hypothyroidism History of depression Hx of acute eczema History of asthma Hx of sleep apnea Surgical History Status post total hip replacement, right Status post sleeve gastrectomy History of anal fissures History of prostate surgery Hx of cystoscopy Hx of adenoidectomy History of lumbar discectomy History of left hip replacement Family History Mother Hx of glaucoma Hx of heat stroke Hypertension Father Hx of heat stroke Sister Obese Substance use disorder Sister No problems noted. Sister Depression Thyroid condition Brother Substance use disorder Brother Diabetes Substance use disorder Brother History of hip replacement Brother Family history of prostate problems Brother No problems noted. Social History Household Members: Spouse and Family Household Members Other:: Gt lives with his 3 daughters and the spouse he is from Housing: House Are you a primary hospice spiritual care coordinator to a significant other at home: No Do you presently have visiting nurse or other home services: No Alcohol intake: current Alcohol intake frequency: does not drink Comment: Gt's discharge date has been extended from 09/30/24 to 10/04/24. Patient Tobacco Use Status: Never used Tobacco e-Cigarette/Vaping Use: Currently Using service: No Current occupational status: employed Cognitive needs: No Hearing needs: No Vision needs: No Questionnaire PHQ-9 Over the last 2 weeks, how often have you been bothered by any of the following problems? 1. Little interest or pleasure in doing things: nearly every day 2. Feeling down, depressed, or hopeless: more than half the days 3. Trouble falling or staying asleep, or sleeping too much: nearly every day 4. Feeling tired or having little energy: nearly every day 5. Poor appetite or overeating: more than half the days 6. Feeling bad about yourself - or that you are a failure or have let yourself or your family down: several days 7. Trouble concentrating on things, such as reading the newspaper or watching television: several days 8. Moving or speaking so slowly that other people could have noticed. Or the opposite - being so fidgety or restless that you have been moving around a lot more than usual: not at all 9. Thoughts that you would be better off or of hurting yourself in some way: not at all Total score: 15 Depression Screening Interpretation: Positive (denies any si or hi, has a therapist and psychiatrist) Depression Screening Follow-up: Existing condition and In treatment Depression Screening Done: Yes 79445 - PHQ-9 Billing: Yes Source: Developed by Drs. Eh Lopez, Rena Otero, Frank Russell and colleagues, with an educational dale from [employer]. Thrive Questionnaire Date Thrive assessed: 08/05/24 I am a: Patient What is your living situation today?: I have a place to live, but I am worried about losing it in the future Within the past 12 months, did the food you bought not last and you didn't have the money to get more?: Often true Within the past 12 months, did you worry whether your food would run out before you got money to buy more?: Often true Do you have trouble paying for medicines?: Yes Do you have trouble getting transportation to medical appointments?: No Do you have trouble paying your heating and electricity bill?: Yes Do you have trouble taking care of your child, family member or friend?: No Do you have trouble with day-to-day activities such as bathing, preparing meals, shopping, managing finances, etc.?: Yes Are you currently unemployed and looking for a job?: Yes Are you interested in more education?: Yes Please select the resources that you would like help with: Housing/Snf, Food, Paying for medicine, Utilities, Care for elder or disabled, Job search/training and Education Currently or been in a relationship where the following occur: No concerns reported THRIVE Score: 4 AUDIT C Alcohol Use Questionnaire (AUDIT-C) 1. How often do you have a drink containing alcohol?: 2-4 times a month Total Score: 2 Score Reviewed/Action Taken: Yes SADIQ-7 AMB Questionnaire SADIQ-7 Date SADIQ - 7 assessed: 08/09/25 Feeling nervous, anxious, or on edge: 2 = More than half the days Not being able to stop or control worryin = More than half the days Worrying too much about different things: 2 = More than half the days Trouble relaxin = More than half the days Being so restless that it is hard to sit still: 2 = More than half the days Becoming easily annoyed or irritable: 1 = Several days Feeling afraid as if something awful might happen: 2 = More than half the days Total SADIQ-7 score (0-4 normal; 5-9 mild; 10-14 moderate; 15-21 severe): 13 Source: Developed by Drs. Eh Lopez, Rena Otero, Frank Russell and colleagues, with an educational dale from [employer]. SADIQ-7 Assessment Billing SADIQ-7 Assessment Tool: SADIQ-7 Assessment 37651 Physical exam (Primary Care) Vital Signs: Last Vital Signs Pulse 75 08/09/25 15:09 BP 114/70 08/09/25 15:09 Pulse Ox 99 08/09/25 15:09 Oxygen Delivery Method Room Air 08/09/25 15:09 BMI result Body Mass Index 33.6 Tobacco/Smoking Status: Tobacco use Status Tobacco use date assessed 08/09/25 08/09/25 15:16 Patient Tobacco Use Status Never used Tobacco 08/09/25 15:13 e-Cigarette/Vaping Use Currently Using 08/09/25 15:13 PHQ-9: PHQ-9 Score PHQ-9: Total score 15 08/09/25 15:16 Depression Screening Interpretation: Positive (denies any si or hi, has a therapist and psychiatrist) Depression Screening Follow-up: Existing condition and In treatment Thrive Assessment: Date of Thrive Assessment Date Thrive assessed 08/05/24 08/09/25 15:13 Currently or been in a relationship where the following occur: No concerns reported Coding Level of Care Code Est Pt Level 3 (11349) Est Pt Prev Care 40-64y(15499) Diagnoses Encounter for routine adult physical exam with abnormal findings Z00. Other fatigue R53.83 Fatigue type: other Screening PSA (prostate specific antigen) Z12.5 ROX positive R76.8 Systolic murmur R01.1 Additional Codes SADIQ-7 Assessment Billing - SADIQ-7 Assessment Tool: SADIQ-7 Assessment 17396 ([id number]) PHQ-9 - 02987 - PHQ-9 Billing: Yes ([id number]) Assessment & Plan Assessment & Plan (1) Encounter for routine adult physical exam with abnormal findings: Code(s): Z00.01 - Encounter for general adult medical examination with abnormal findings Category: Medical (2) Fatigue: Code(s): R53.83 - Other fatigue Category: Medical Qualifiers: Fatigue type: other Qualified Code(s): R53.83 - Other fatigue (3) Screening PSA (prostate specific antigen): Code(s): Z12.5 - Encounter for screening for malignant neoplasm of prostate Category: Medical (4) ROX positive: Code(s): R76.8 - Other specified abnormal immunological findings in serum Category: Medical (5) Systolic murmur: Code(s): R01.1 - Cardiac murmur, unspecified Category: Medical Plan . Orders: Orders Comprehensive Seth. Panel Fast Today Z00.01 - Encounter for general adult medical examination with abnormal findings IRON PROFILE Today R53.83 - Other fatigue Ferritin Today R53.83 - Other fatigue Vitamin B12 and Folate Today R53.83 - Other fatigue Prostate Specific Antigen Scr Today Z12.5 - Encounter for screening for malignant neoplasm of prostate Complete Blood Count Auto Diff Today Z00.01 - Encounter for general adult medical examination with abnormal findings TSH reflex Free T4 Today Z00.01 - Encounter for general adult medical examination with abnormal findings UA CC w/rflx Micro + Cult Today Z00.01 - Encounter for general adult medical examination with abnormal findings Lipid Panel Today Z00.01 - Encounter for general adult medical examination with abnormal findings Vitamin D 25-OH Total Today R53.83 - Other fatigue CA echo transthoracic complete Today R01.1 - Cardiac murmur, unspecified Referrals Rheumatology Referral R53.83 - Other fatigue, R76.8 - Other specified abnormal immunological findings in serum
[2025-08-09 15:09] VITALS: BP 114/70; PULSE 75; O2SAT 99; BMI 33.6
--- OUTSIDE RECORDS SUMMARY | 2025-08-09 18:00 | XMS_ITS | Clinical Summary ---
Author Organization [employer] Address [address] [facility] [address] [place] [address] Care Team Providers Care Compressor Station Operator Name Role Phone Unavailable Primary Care Provider [...] 05/25/2024 05/25/2014, 11/10/2008 COVID-19 Vaccine ( season) 2025 12/07/2022, 10/16/2021, 03/29/2021, Additional history exists Influenza [...]
--- OUTSIDE RECORDS SUMMARY | 2025-08-09 18:00 | XMS_ITS | Clinical Summary ---
Author Organization [facility] Address [address] [place] [address] Care Team Providers Care Petroleum Plant Operator Name Role Phone Shweta Todd MD Primary Care Provider [phone] Allergies No known active allergies Medications buPROPion [...] Vaccine (1 of 2) 2020 Influenza Vaccine 05/27/2025 COVID-19 Vaccine ( - season) 2025 Insurance [facility] Care Teams Petroleum Plant Operator Relationship Specialty Start Date End Date Shweta Todd MD [address] [facility] [address] [place] [address] PCP - General Internal Medicine 11/13/16
--- OUTSIDE RECORDS SUMMARY | 2025-08-09 18:00 | XMS_ITS | Clinical Summary ---
Author Organization [facility] Address [address] [place] [phone] Phone Care Team Providers Care Lien Searcher Name Role Phone Artemio Arambula NP Primary [...] Description 05/25/2025 10:00 AM EDT Office Visit [facility] Plastic Surgery [address] [place] [address] Helena Forte PA-C Gynecomastia, male (Primary Dx) from Last 3 Months Family History Medical [...] 2020 ZOSTER VACCINES (1 of 2) 2020 INFLUENZA VACCINE (#1) 2025 COVID-19 VACCINE (1 - 2024-2 6 season) 2025 RSV VACCINE (1 - 1-dose 75+ series) 2045 SMOKING STATUS SCREENING (On ce After 26 [...] topic Medical Devices Not on file Insurance [facility] NON NSPG PCP [place] [facility] CONNECTORCARE [facility] NON NSPG PCP [place] CLARITY CONNE[employer]CARE [employer] NON NSPG PCP SILVER [employer] NON NSPG PCP S[place] [employer] CONNE[employer]ARE [employer] NON NSPG PCP S[place]VER [employer] CONNECTORCARE [employer] NON NSPG [facility]CP [facility] Care Teams Lien Searcher Relationship Specialty Start Date End Date Artemio Arambula NP [address] [place] [address] PCP - General Nurse Practitioner 12/28/24 Additional Source Comments The information contained in this document represents components of the legal health record. It is not the complete legal health record.[facility]
--- OUTSIDE RECORDS SUMMARY | 2025-08-09 18:00 | XMS_ITS | Encounter Summary ---
Author Organization [facility] Address [address] [place] [address] Care Team Providers Care Senior Process Control Tech Name Role Phone Shweta Todd MD Primary Care Provider [phone] Reason for Visit * Reason Comments Medication Refill Encounter Details Date Type Department Care Team (Late st Contact Info) Description 12/02/2016 Refill [facility] Urologic Surgery [place] [address] [place] [address] Shmuel Link MD [address] [place] [phone] Benign prostatic hyperplasia (BPH) with urinary urgency [...] urgency documented in this encounter Care Teams Senior Process Control Tech Relationship Specialty Start Date End Date Shweta Todd MD [address] [facility] [address] [place] [address] PCP - General Internal Medicine 11/13/16 documented as of this encounter
== END 2025-08-09 16:18 | disposition home or self-care (01) ==
LOC: HO.HMCC 15:07
PROVIDERS: PCP Nurse Practitioner Family; Visit Provider Nurse Practitioner Family
DX: Z00.01 Encounter for general adult medical examination with abnormal findings (principal); R01.1 Cardiac murmur, unspecified; R53.83 Other fatigue; Z12.5 Encounter for screening for malignant neoplasm of prostate; R76.89 Other specified abnormal immunological findings in serum

== ENCOUNTER → 2025-08-09 15:06 | Outpatient (BNVA) | payer OTHER, SELFPAY | PROVIDERS: PCP Nurse Practitioner Family; Visit Provider Nurse Practitioner Family | DX: Z00.01 Encounter for general adult medical examination with abnormal findings (principal); G47.30 Sleep apnea, unspecified; R01.1 Cardiac murmur, unspecified; R53.83 Other fatigue; R76.89 Other specified abnormal immunological findings in serum; Z99.89 Dependence on other enabling machines and devices; Z98.84 Bariatric surgery status | CPT/HCPCS: 96127; 99212; 99396 ==

== ENCOUNTER 2025-09-01 10:31 | Outpatient (REF) | payer OTHER, SELFPAY ==
--- OUTSIDE RECORDS SUMMARY | 2025-09-01 12:35 | XMS_ITS | Encounter Summary ---
Author Organization [facility] Address [address] [place] [phone] Phone Care Team Providers Care Frame Changer Name Role Phone Artemio Arambula NP Primary Care Provider + Reason for Visit * Reason Onset Date Comments Gynecomastia Denial 12/30/2024 Encounter Details Date Type Department Care Team (Late st Contact Info) Description 12/30/2024 Telephone Outcome Referrals [facility] Plastic Surgery [address] [place] [address] Haroldo Arellano MD [address] [place] [phone] [email or web address] Gynecomastia Denial Social History Tobacco Use Types [...] encounter Progress Notes * Darshana Durant - 08/29/2025 10:38 AM EST Letter mailed 08/29 - cancelled 09/27 surgery hold. * Darshana Durant - 08/25/2025 10:45 AM EDT LVM - advising again deadline of tomorrow 08/26 to be able to submit to insurance. If I do not hearfrom pt by EOD 08/26 I will cancel 09/27 surgery date. Advised if pt wanted to discuss cosmetic, we can, kramer quote previously emailed twice to pt. If he does want to explore this option I do still need a call back by EOD tomorrow. Waiting product support consultant, otherwise will cancel and release block to other pts. * Darshana Durant - 08/18/2025 11:30 AM EDT LVM - advised I am checking in on status of additional documentation from his provider. We still donot have anything. Advised since we ask for 1 month notice for cancellations, we need to finalize this by end of the month. If we are going to submit to insurance then I'd like to do so by the end ofnext week. Otherwise we'll have to cancel 09/27 date or convert it to a cosmetic surgery. Waiting product support consultant back to discuss further. Followed up with an email as well. * Darshana Durant - 07/14/2025 10:42 AM EDT Spoke w/ pt to see how the progress was going with obtaining additional information through his weight management provider. Patient states they forgot and ask I resend all info to them that is neededfor insurance. They will get working on this now. Re-emailed kramer quote and denial letter to patient with message stating: Here is that previous email and I am reattaching the kramer quote and the denial letter for you as well. Let me know if you have any questions or how the conversation goes with your provider. The deadline for an appeal was June 27 so at this point we will need to submit a whole new authorization request which gives usa little more flexibility on the time frame, but like we discussed over the phone, the sooner the better so we can ensure everything is all set well in advance of the surgery date itself. Will wait on patient to follow-up with me so we know how to move forward. * Darshana Durant - 05/26/2025 9:42 AM EDT Pt saw Helena 05/25: Helena stated he has new insurance and is wondering if we could resubmit to seeif they will cover it now. LVM for pt - our system still listed [employer] as his insurance. It looks like maybe it was changedfrom [facility] to [facility]. Both still fall under [employer] which means the medical criteria is all the same. Asked pt if they were able to review the email I sent back in December with the denial letter attached so they could discuss it with their weight management surgeon and see if any additional letter and/or imaging could be ordered to help support our case. Waiting product support consultant back to discuss further. * Darshana Durant - 04/15/2025 1:53 PM EDT Patient called in - wanted to r/s the April appt w/ Helena due to his insurance changing to [employer] likely in April. Pt aware to call [...] here. I???ve also attached the denial from [employer] so that you can share it with your doctor and discuss with them how to go about getting these items completed so we can submit an appeal. Per [employer],we have until June 27 to submit the [...] 8:53 AM EST Received a denial from [facility] for gynecomastia surgery. Denied because pt [...] documented in this encounter Plan of Treatment Upcoming Encounters Date Type Department Care Team (Late st Contact Info) Description 10/11/2025 3:00 PM EST Office Visit [facility] Rheumatology [address] [place] [address] Christi Otero DO [address] [facility] [address] [facility], [address] [place] [address] [email or web address] documented as of this encounter Visit Diagnoses Not on filedocumented in this encounter Care Teams Frame Changer Relationship Specialty Start Date End Date Artemio Arambula NP [address] [place] [address] PCP - General Nurse Practitioner 12/28/24 documented as of this encounter Additional Source Comments The information contained in this document represents components of the legal health record. It is not the complete legal health record.[facility]
--- OUTSIDE RECORDS SUMMARY | 2025-09-01 12:35 | XMS_ITS | Clinical Summary ---
Author Organization [facility] Address [address] [place] [address] Care Team Providers Care Jive Developer Name Role Phone Samuel Gomez MD Primary Care Provider Un available Surgical History Surgery Date Site/Laterality Comments BACK [...] Health Maintenance Due Date Last Done Comments Colorectal Cancer Screening: Colonoscopy 1970 Hepatitis B Vaccines (1 of 3 - 19+ 3-dose series) 1989 Pneumococcal Vaccine: 50+ Years (2 of 2 - PCV) 06/24/2018 06/24/2017 RSV Immunization Adult Patients (1 - Risk 50-74 years 1-dose series) 2020 Zoster Vaccines (1 of 2) 2020 Cholesterol Screening (Lipid Panel) 09/25/2022 HIV Screening 09/25/2022 Hepatitis C Screening 09/25/2022 Social Influencers of Health Screening 09/25/2022 Depression Screening 10/27/2024 COVID-19 Vaccine (1 - 2023-2 5 season) 2025 Influenza Vaccine (#1) 2025 7, 11/23/2009 DTaP,Tdap,and [...] age to complete this topic Care Teams Jive Developer Relationship Specialty Start Date End Date Samuel Gomez MD PCP - General Internal Medicine 04/25/17
--- OUTSIDE RECORDS SUMMARY | 2025-09-01 12:35 | XMS_ITS | Clinical Summary ---
Author Organization [employer] Address [address] [facility] 7t [place] [address] Care Team Providers Care Outside Sales Name Role Phone Unavailable Primary Care Provider [...]
--- OUTSIDE RECORDS SUMMARY | 2025-09-01 12:35 | XMS_ITS | Clinical Summary ---
Author Organization [facility] Address [address] [facility] [address] [place] [phone] Phone Care Team Providers Care Stretching Machine Tender Frame Name Role Phone Artemio Arambula NP Primary [...] Encounters Date Type Department Care Team Description 08/23/2025 Transcribe Orders [facility] Rheumatology - Virtual Department [address] [place] [address] Artemio Arambula, BRANDO Positive ANSLEY (antinuclear antibody) (Primary Dx) 08/17/2025 Telephone [facility] Rheumatology [address] [place] [address] Unknown, Unknown, Referral from Last 3 Months Family History Medical [...] 05/25/2025 10:25 AM EDT Plan of Treatment Upcoming Encounters Date Type Department Care Team (Late st Contact Info) Description 10/11/2025 3:00 PM EST Office Visit [facility] Rheumatology [address] [place] [address] Christi Otero, DO [address] [facility], [address] [place] [address] Health Maintenance Due Date Last Done Comments [...] topic Medical Devices Not on file Insurance [facility] NON NSPG PCP ELENA B[employer] CONNE[employer]CARE [employer] NON NSPG PCP SILVER CLARITY CONNECTORCARE WELL[employer]ENSE NON NSPG PCP SILVER CLARITY CONNECTORCARE WELLSENSE NON NSPG PCP SILVER CLARITY CONNECTORCARE WELL[place]ENSE NON NSPG PCP SILVER CLARITY CONNECTORCARE WELLSENSE NON NSPG PCP [place] [employer] CONNECTORCARE Care Teams Stretching Machine Tender Frame Relationship Specialty Start Date End Date Artemio Arambula NP [facility] [place] [address] PCP - General Nurse Practitioner 12/28/24 Additional Source Comments The information contained in this document represents components of the legal health record. It is not the complete legal health record.[facility]
--- OUTSIDE RECORDS SUMMARY | 2025-09-01 12:35 | XMS_ITS | Clinical Summary ---
Author Organization [facility] Address [address] [place] [address] Care Team Providers Care Mussel Farmer Name Role Phone Shweta Todd MD Primary Care Provider [phone] Allergies No known active allergies Medications buPROPion [...] 2) 2020 Influenza Vaccine 05/27/2025 COVID-19 Vaccine (1 - 2023- season) 2025 RSV Vaccine 50 years and old er and Patients (1 - 1-dose 75+ series) 2045 Insurance [facility] Care Teams Mussel Farmer Relationship Specialty Start Date End Date Shweta Todd MD [address] [facility] [address] [place] [address] PCP - General Internal Medicine 11/13/16
[2025-09-01 12:59] LABS: MANUAL DIFF FLAG NO
[2025-09-01 13:08] LABS: Hematocrit 42.6 % (42.0-52.0); Hemoglobin 14.2 g/dl (14.0-18.0); Imm Gran Abs Auto 0.01 X10*3/uL (0.00-0.03); Imm Gran Pct Auto 0.2 % (0.0-0.4); Lymphocytes Absolute Auto 1.4 X10*3/uL (1.2-4.9); Mean Corpuscular HGB Conc 33.3 g/dl (31.0-36.0); Mean Corpuscular Hemoglobin 30.5 pg (27.0-33.0); Mean Corpuscular Volume 91.6 fL (80.0-98.0); NRBC Abs Auto 0.000 X10*3/uL (0.0-0.012); NRBC Pct Auto 0.0 /100WBC (0.0-0.2); Platelet Count 277 X10*3/uL (160-400); Red Blood Count 4.65 X10*6/uL (4.60-5.80); White Blood Count 5.1 X10*3/uL (4.8-10.8)
[2025-09-01 13:39] LABS: Appearance Urine Clear; Glucose Urine UA Negative (Negative); PH 5.5 (5.0-9.0); Specific Gravity - Urine 1.025 (1.005-1.025)
[2025-09-01 13:59] LABS: Alanine Aminotransferase 37 U/L (0-40); Albumin Level 4.7 g/dL (3.5-5.0); Alkaline Phosphatase 56 U/L (39-117); Anion Gap 10 (12-20); Aspartate Amino Transferase 39 U/L (5-37); Blood Urea Nitrogen 13 mg/dL (9-16); Calcium 9.5 mg/dL (8.4-10.2); Carbon Dioxide 30 mmol/L (22-29); Chloride 106 mmol/L (96-108); Cholesterol 187 mg/dL (<200); Estimated Glomerular Filt Rate > 60; Ferritin 45 ng/mL (20-250); HDL Cholesterol 57 mg/dL (>40); Iron 88 mcg/dL (45-160); Percent Iron Saturation 27 % (15-50); Potassium 4.1 mmol/L (3.3-5.1); Sodium 142 mmol/L (135-145); Total Iron Binding Capacity 323 mcg/dL (228-428); Total Protein 7.9 g/dL (6.5-8.0); Triglycerides 107 mg/dL (<150); Unsaturated Iron Binding 235 ug/dL
[2025-09-01 14:04] LABS: Folate 10.7 ng/mL (> or = 4.0); Vitamin B12 538 pg/mL (200-900)
[2025-09-01 14:44] LABS: Free T4 (Free Thyroxine) 1.05 ng/dL (0.71-1.85)
== END 2025-09-01 10:32 | disposition home or self-care (01) ==
LOC: HO.HKASLDS 10:31
PROVIDERS: PCP Nurse Practitioner Family; Visit Provider Nurse Practitioner Family
DX: Z00.01 Encounter for general adult medical examination with abnormal findings (principal); R53.83 Other fatigue; Z12.5 Encounter for screening for malignant neoplasm of prostate
CPT/HCPCS: 36415; 80053; 80061; 81003; 82306; 82607; 82728; 82746; 83540; 84153; 84439; 84443; 85025

== ENCOUNTER → 2025-09-16 10:10 | Outpatient (REF) | payer OTHER, SELFPAY ==
--- NOTE | 2025-09-16 10:12 | CA_ITS ---
Transthoracic Echocardiogram Patient (Last, First, Middle): Gt Austin W Gender: Male Date of : 1970 Age: 55 Procedure Date: 09/16/2025 Procedure Type: Transthoracic Echocardiogram Location: OP Height: 167. cm Weight: 90.72 kg BSA: 1.99 m2 Heart Rate: 59 bpm BP: 126 / 80 mmHg Head Of Design: LEVAR Referring MD: Artemio Arambula [facility] Symptoms: R01.1 - Cardiac murmur, unspecified Study Quality: Adequate ECG Rhythm: Bradycardia Conclusions: - The left ventricular systolic function is normal. The calculated ejection fraction is 64% by biplane method. - No obvious valvular pathology seen on this study. Findings Left Ventricle Normal left ventricular cavity size. The left ventricular systolic function is normal. The calculated ejection fraction is 64% by biplane method. There is no evidence of regional wall motion abnormalities. Diastolic function is normal for age. Focal hypertrophy of the basal septum. Right Ventricle Normal right ventricular cavity size and systolic function. Atria Both atria are normal in size. Aortic Valve There is a normal trileaflet aortic valve. There is no aortic valve stenosis. There is no aortic valve regurgitation. Mitral Valve The mitral valve appears normal. There is no mitral valve regurgitation. There is no mitral valve stenosis. Pulmonic Valve The pulmonic valve is likely normal. Tricuspid Valve Normal tricuspid valve structure. There is no tricuspid valve regurgitation. There is no evidence of pulmonary hypertension. Great Vessels The asc aorta and aortic arch are normal in size. Venous The inferior vena cava is normal in size and collapses greater than 50% with inspiration. Pericardium/Pleural There is no evidence of pericardial effusion. Prior Study Comparison No prior study available for comparison. Recommendations, Care & Conclusions No obvious valvular pathology seen on this study. Measurements 2D Linear Measurements IVSd: 1.28 0.6-0.9/0.6-1.0 cm LVIDd: 4.06 3.9-5.3/4.2-5.9 cm LVIDd Index: 2.04 2.4-3.2/2.2-3.1 cm/m2 LVIDs: 2.62 2.0-3.6 cm LVPWd: 0.82 0.7-1.1 cm LA Diam: 4.10 2.7-3.8/3.0-4.0 cm LAIDs Index: 2.06 1.5-2.3 cm/m2 LV Mass: 173.73 67-162/88-224 g LV Mass Index: 87.30 43-95/49-115 g/m2 LVOT Diam: 2.10 3.0+(-)1.3 cm 2D Systolic Function EF 4C: 61.60 >55% EF 2C: 65.70 >55% EF BiP: 63.80 >55% Mitral Valve MV Pk E: 0.70 MV PK A: 0.54 MV Decel Time: 213.00 E/A: 1.30 E'Lateral: 9.79 E'Medial: 6.53 E/E' Med: 10.80 E/E' Lat: 7.20 PHT: 62.00 MVA PHT: 3.55 Decel Payne: 3.31 Aortic Valve AoV Pk Erasmo: 1.46 AoV Mn Erasmo: 1.06 AoV VTI: 0.32 AoV Pk Grad: 9.00 Aov Mn Grad: 5.00 LEONID Cont.VTI: 2.83 LVOT LVOT Pk Erasmo: 1.29 LVOT Mn Erasmo: 0.85 LVOT VTI: 0.26 LVOT Pk Grad: 7.00 LVOT Mn Grad: 3.00 LVOT Diam: 2.10 LVOT Area: 3.46 Diastolic Function MV Pk E: 0.70 MV Pk A: 0.54 E/A: 1.30 E'Medial: 6.53 E/E' Med: 10.80 E' Laterial: 9.79 E/E' Lat: 7.20 Right Ventricle TAPSE (mm): 21.00 TVS' Erasmo: 10.20 Tricuspid Valve TR Pk Erasmo: 2.02 TR Pk Grad: 16.00 RA Press: 3.00 RVSP: 19.00 Great Vessels Aorta Sinus of Valsalva: 3.30 2.0-3.5 cm Ao Asc: 3.20 2.1-3.4 cm Ao Arch: 2.90 Pulmonary Veins Pulm Vein S/D 1.50 Pulmonary Valve PV Pk Erasmo: 0.94 Peak PV Grad: 4.00 Updated in Other Vendor System with Status of Final Jake Lomeli MD electronically signed on 09/17/2025 11:40:20 AM with status of Final
--- OUTSIDE RECORDS SUMMARY | 2025-09-16 10:45 | XMS_ITS | Clinical Summary ---
Author Organization [employer] Address [address] [facility] 7[address] [place] [address] Care Team Providers Care Dry Mixer Name Role Phone Unavailable Primary Care Provider [...] of 2 - PCV) 06/24/2018 06/24/2017 RSV Patients and Patients Aged 60 years or older (1 - Risk 50-74 years 1-dose series) 2020 Zoster Vaccines (1 of 2) 2020 DTaP/Tdap/Td Vaccines (3 - Td or Tdap) 05/25/2024 05/25/2014, 11/10/2008 COVID-19 Vaccine ( - season) 2025 12/07/2022, 10/16/2021, 03/29/2021, Additional history exists Influenza Vaccine (#1) 2025 2, 10/16/2021, 10/16/2021, Additional history exists HIB Vaccines Aged Out No longer eligi [...]
--- OUTSIDE RECORDS SUMMARY | 2025-09-16 10:46 | XMS_ITS | Clinical Summary ---
Author Organization [facility] Address [address] [facility] [address] [place] [address] Phone Care Team Providers Care Nuclear Chemistry Technician Name Role Phone Artemio Arambula NP Primary [...] Department Care Team Description 08/23/2025 Transcribe Orders [facility] Rheumatology - Virtual Department [address] [place] [address] Artemio Arambula, BRANDO Positive ANSLEY (antinuclear antibody) (Primary Dx) 08/17/2025 Telephone [facility] [address] [place] [address] Unknown, Unknown, Referral from Last 3 Months [...] Description 10/11/2025 3:00 PM EST Office Visit [facility] [address] [place] [address] Christi Otero, DO [address] [facility], [address] [place] [address] Health Maintenance Due Date Last Done Comments [...] patient's age to complete this topic IPV VACCINES Aged Out No longer eligi ble based on patient's age to complete this topic MENINGOCOCCAL VACCINES (ACWY) Aged Out No longer eligible based on patient's age to complete this topic MENINGOCOCCAL VACCINES (B) Aged Out N o longer eligible based on patient's age to complete this topic Medical Devices Not on file Insurance [facility] NON NSPG PCP SILVER [place] CONNECTORCARE WELLSENSE NON NSPG PCP SILVER CLARITY CONNECTORCARE WELLSENSE NON NSPG PCP S[place]VER CLARITY CONNECTORCARE WELLSENSE NON NSPG PCP S[place] CLARITY CONNECTORCARE WELLSENSE NON NSPG PCP S[employer]VER CLARITY CONNECTORCARE [place] NON NSPG PCP [employer]ARITY CONNECTORCARE Care Teams Nuclear Chemistry Technician Relationship Specialty Start Date End Date Artemio Arambula NP [address] [facility] [place] [address] PCP - General Nurse Practitioner 12/28/24 Additional Source Comments The information contained in this document represents components of the legal health record. It is not the complete legal health record.[facility]
--- OUTSIDE RECORDS SUMMARY | 2025-09-16 10:46 | XMS_ITS | Clinical Summary ---
Author Organization [facility] Address [address] [place] [id number] Care Team Providers Care Reporting Developer Name Role Phone Samuel Gomez MD Primary Care Provider [phone] Surgical History Surgery Date Site/Laterality Comments BACK [...] Depression Screening 10/27/2024 COVID-19 Vaccine (1 - 2024-2 6 season) 2025 Influenza Vaccine (#1) 2025 7, [...] age to complete this topic Care Teams Reporting Developer Relationship Specialty Start Date End Date Samuel Gomez MD PCP - General Internal Medicine 04/25/17
--- OUTSIDE RECORDS SUMMARY | 2025-09-16 10:46 | XMS_ITS | Clinical Summary ---
Author Organization [facility] Address [address] [place] [address] Care Team Providers Care Fuel House Attendant Name Role Phone Shweta Todd MD Primary Care Provider [phone] Allergies No known active allergies Medications buPROPion [...] (1 - 1-dose 75+ series) 2045 Insurance [facility] Care Teams Fuel House Attendant Relationship Specialty Start Date End Date Shweta Todd MD [address] [facility] [address] [place] [address] PCP - General Internal Medicine 11/13/16
== END ==
LOC: HO.CARD 10:10
PROVIDERS: PCP Nurse Practitioner Family; Visit Provider Nurse Practitioner Family
DX: R01.1 Cardiac murmur, unspecified (principal)
CPT/HCPCS: 93306

== ENCOUNTER → 2025-09-16 10:12 | Outpatient (BNV) | payer OTHER, SELFPAY | PROVIDERS: PCP Nurse Practitioner Family; Visit Provider Internal Medicine | DX: R01.1 Cardiac murmur, unspecified (principal); I42.2 Other hypertrophic cardiomyopathy | CPT/HCPCS: 93306 ==

== ENCOUNTER 2025-09-27 08:51 | Outpatient (REF) | payer OTHER, SELFPAY ==
--- NOTE | ~2025-09-27 | US_ITS ---
CLINICAL HISTORY: R74.8 - Abnormal levels of other serum enzymes US abdomen complete Comparison: US/NM - US ABDOMEN COMPLETE - 12/22/24 11:29 EST Findings: The visualized part of pancreas head is normal, remaining pancreas is obscured by bowel gas. The visualized aorta and inferior vena cava are normal caliber. The liver is normal in size, right lobe length is 16.4 cm. Left hepatic lobe is not well seen due to limited acoustic window, right hepatic lobe is echogenicity, no suspicious lesion, 5 mm simple cyst is noted. No intrahepatic bile duct dilatation. The common duct is 3 mm in diameter. The gallbladder is normal. Negative sonographic Huggins sign. The main portal vein is patent with antegrade flow. The right kidney is normal, 10.3 cm in length. The left kidney is normal, 10.8 cm in length. The spleen is not well visualized, grossly normal, 9.1 cm in length. No free fluid in the abdomen. Impression: 1. Subcentimeter benign hepatic cyst, otherwise normal exam. 2. Majority of pancreas and left hepatic lobe are not well seen. This document has been electronically signed by: Amita Pop MD on 09/27/2025 11:22:34
--- OUTSIDE RECORDS SUMMARY | 2025-09-27 09:06 | XMS_ITS | Clinical Summary ---
Author Organization [facility] Address [address] [facility] [address] [place] [address] Phone Care Team Providers Care Php Lamp Developer Name Role Phone Artemio Arambula NP Primary [...] Department Care Team Description 08/23/2025 Transcribe Orders [facility] Rheumatology - Virtual Department [address] [place] [address] Artemio Arambula, BRANDO Positive ANSLEY (antinuclear antibody) (Primary Dx) 08/17/2025 Telephone [facility] Rheumatology [address] [place] [address] Unknown, Unknown, Referral from Last 3 Months [...] Description 10/11/2025 3:00 PM EST Office Visit [facility] Rheumatology [address] [place] [address] Christi Otero, DO [address] [facility], [address] [place] [address] Health Maintenance Due Date Last Done Comments [...] topic Medical Devices Not on file Insurance [facility] NON NSPG PCP ELENA BENITEZ CONNECTORCARE WELLSENSE NON NSPG PCP SILVER CLARITY CONNECTORCARE WELL[employer]ENSE NON NSPG PCP SILVER CLARITY CONNECTORCARE WELLSENSE NON NSPG PCP SILVER CLARITY CONNECTORCARE WELLSENSE NON NSPG PCP SILVER CLARITY CONNECTORCARE WELLSENSE NON NSPG PCP [place] CL[employer]ITY CONNECTORCARE Care Teams Php Lamp Developer Relationship Specialty Start Date End Date Artemio Arambula NP [facility] [place] [address] PCP - General Nurse Practitioner 12/28/24 Additional Source Comments The information contained in this document represents components of the legal health record. It is not the complete legal health record.[facility]
--- OUTSIDE RECORDS SUMMARY | 2025-09-27 09:06 | XMS_ITS | Clinical Summary ---
Author Organization [facility] Address [address] [place] [address] Care Team Providers Care Local Area Network Systems Adminstrator Name Role Phone Shweta Todd MD Primary Care Provider [phone] Allergies No known active allergies Medications buPROPion [...] (1 - 1-dose 75+ series) 2045 Insurance [facility] [employer] Care Teams Local Area Network Systems Adminstrator Relationship Specialty Start Date End Date Shweta Todd MD [address] [facility] [address] [place] [address] PCP - General Internal Medicine 11/13/16
--- OUTSIDE RECORDS SUMMARY | 2025-09-27 09:06 | XMS_ITS | Clinical Summary ---
Author Organization [employer] Address [address] [facility] 7t [place] [address] Care Team Providers Care Passenger Service Representative Name Role Phone Unavailable Primary Care Provider [...]
--- OUTSIDE RECORDS SUMMARY | 2025-09-27 09:06 | XMS_ITS | Clinical Summary ---
Author Organization [facility] Address [address] [place] [phone] Care Team Providers Care Lifestyle Block Farmer Name Role Phone Samuel Gomez MD Primary Care Provider [phone] Surgical History Surgery Date Site/Laterality Comments BACK SURGERY PROCEDURE: HISTORICAL BACK SURGERY OTHER SURGICAL HISTORY PROCEDURE: [place] ADENOIDECTOMY PRIMARY <AGE 12 Medical History Medical [...] Screening 09/25/2022 Depression Screening 10/27/2024 COVID-19 Vaccine (4 - season) 2025 10/16/2021, 03/29/2021, 03/04/2021 Influenza Vaccine (#1) 2025 2, 10/16/2021, 10/16/2020, Additional history exists DTaP,Tdap,and Td Vaccines (4 - Td or Tdap) 04/18/2028 04/18/2018, 05/25/2014, 11/10/2008 HIB Vaccines Aged Out No longer [...] 20 months Aged Out No longer eligible based on patient's age to complete this topic Varicella Vaccines Aged Out No longer eligible based on patient's age to complete this topic Care Teams Lifestyle Block Farmer Relationship Specialty Start Date End Date Samuel Gomez MD PCP - General Internal Medicine 04/25/17
== END 2025-09-27 08:52 | disposition home or self-care (01) ==
LOC: HO.US 08:51
PROVIDERS: PCP Nurse Practitioner Family; Visit Provider Nurse Practitioner Family
DX: G47.19 Other hypersomnia (principal); R74.8 Abnormal levels of other serum enzymes
CPT/HCPCS: 76700; 95806

== ENCOUNTER → 2025-09-27 08:56 | Outpatient (BNV) | payer OTHER, SELFPAY | PROVIDERS: PCP Nurse Practitioner Family; Visit Provider Radiology Diagnostic Radiology | DX: K76.89 Other specified diseases of liver (principal) | CPT/HCPCS: 76700 ==

== ENCOUNTER → 2025-09-28 09:56 | Outpatient (BNV) | payer OTHER, SELFPAY | PROVIDERS: PCP Nurse Practitioner Family; Visit Provider Psychiatry & Neurology Neurology | DX: G47.33 Obstructive sleep apnea (adult) (pediatric) (principal) | CPT/HCPCS: 95806 ==

== ENCOUNTER 2025-10-12 10:41 | Outpatient (REF) | payer OTHER, SELFPAY ==
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
--- OUTSIDE RECORDS SUMMARY | 2025-10-12 13:37 | XMS_ITS | Clinical Summary ---
Author Organization [facility] Address [address] [place] [address] Phone Care Team Providers Care Cyanide Pot Hardener Name Role Phone Artemio Arambula NP Primary Care Provider Encounters Date Type Department Care Team Description 09/28/2025 Lab Requisition [facility] - Main Lab [address] [place] [address] Darron Baker PA Testicular hypofunction from Last 3 Months Surgical History Surgery Date Site/Laterality Comments BACK SURGERY PROCEDURE: HISTORICAL BACK SURGERY OTHER SURGICAL HISTORY PROCEDURE: [place] ADENOIDECTOMY PRIMARY <AGE 12 Medical History Medical [...] on file Sexual Orientation Not on file Plan of Treatment Health Maintenance Due Date [...] 10/16/2021, 03/29/2021, 03/04/2021 Influenza Vaccine (#1) 2025 , 10/16/2021, 10/16/2020, Additional history exists DTaP,Tdap,and Td [...] on patient's age to complete this topic Procedures Procedure Name Priority Date/Time Associated Diagnosis Comments LUTEINIZING HORMONE Routine 09/28/2025 8 :11 AM EST Testicular hypofunction FOLLICLE STIMULATING HORMONE Routine 09/28/2025 8:11 AM EST Testicular hypofunction PROLACTIN Routine 09/28/2025 8:11 AM EST Testicular hypofunction HEPATIC FUNCTION PANEL Routine 09/28/2025 8:11 AM EST Testicular hypofunction from Last 3 Months Results * Prolactin (09/28/2025 8:11 AM EST) Prolactin 11.00 2.10 - 17.70 ng/mL 09/28/2025 9:40 PM EST [facility] Blood Venous blood specimen / Unknown 09/28/2025 8:11 AM EST 09/28/2025 11:45 AM EST Darron REY LAB BLOOD ORDERABLES Final Res ult Performing Organization Address [facility]/ZIP Co de Phone Number [facility] [address] [place] [address], [place] [phone] * Luteinizing hormone (09/28/2025 8:11 AM EST) Luteinizing Hormone 2.3 1.5 - 9.3 mIU/mL 09/28/2025 9:40 PM EST [facility] Blood Venous blood specimen / Unknown 09/28/2025 8:11 AM EST 09/28/2025 11:45 AM EST Darron REY LAB BLOOD ORDERABLES Final Res ult [facility] [address] [place] [address], [place] [phone] * Follicle stimulating hormone (09/28/2025 8:11 AM EST) Follicle Stimulating Hormone 5.9 1.4 - 18.1 mIU/mL 09/28/2025 9:39 PM EST [facility] Blood Venous blood specimen / Unknown 09/28/2025 8:11 AM EST 09/28/2025 11:45 AM EST us Darron REY LAB BLOOD ORDERABLES Final Res ult [facility] [address] [place] [address], [place] [phone] * (ABNORMAL) Hepatic function panel (09/28/2025 8:11 AM EST) Total Protein 7.0 6.0 - 8.0 g/dL 09/28/2025 12:20 PM EST [facility] Albumin 4.4 3.2 - 5.0 g/dL 09/28/2025 12:20 PM EST [facility] Total Bilirubin 0.4 0.0 - 1.4 mg/dL 09/28/2025 12:[address] [facility] Bilirubin, Direct 0.1 0.0 - 0.3 mg/dL 09/28/2025 12:[address] [facility] Bilirubin, Indirect 0.3 0.0 - 1.1 mg/dL 09/28/2025 12:[address] [facility] ALT (SGPT) 39 10 - 60 unit/L 09/28/2025 12:[address] [facility] AST (SGOT) 44(H) 10 - 42 unit/L 09/28/2025 12:[address] [facility] Alkaline Phosphatase 56 42 - 121 unit/L 09/28/2025 12:[address] [facility] Blood Venous blood specimen / Unknown 09/28/2025 8:11 AM EST 09/28/2025 11:45 AM EST us Darron REY LAB BLOOD ORDERABLES Final Res ult [facility] [address] [place] [address], from Last 3 Months Insurance [facility] Care Teams Cyanide Pot Hardener Relationship Specialty Start Date End Date Artemio Arambula NP [address], [place] PCP - General Family Medicine 09/28/25
--- OUTSIDE RECORDS SUMMARY | 2025-10-12 13:37 | XMS_ITS | Clinical Summary ---
Author Organization [employer] Address [address] [place] [address] Care Team Providers Care Resource Conservation Specialist Name Role Phone Unavailable Primary Care Provider [...]
--- OUTSIDE RECORDS SUMMARY | 2025-10-12 13:37 | XMS_ITS | Encounter Summary ---
Author Organization [facility] Address [address] [place] [address] Care Team Providers Care Narrow Gauge Engineer Name Role Phone Artemio Arambula NP Primary Care Provider Encounter Details Date Type Department Care Team (Late st Contact Info) Description 09/28/2025 Lab Requisition [facility] - Main Lab [address] [facility] [place] [address] Darron Baker PA [address] [place] [address] Testicular hypofunction Social History Tobacco Use Types Packs/Day Years [...] on file documented as of this encounter Plan of Treatment Not on file documented as of this encounter Procedures Procedure Name Priority Date/Time Associated Diagnosis Comments PROLACTIN Routine 09/28/2025 8:11 AM EST Testicular hypofunction LUTEINIZING HORMONE Routine 09/28/2025 8 :11 AM EST Testicular hypofunction FOLLICLE STIMULATING HORMONE Routine 09/28/2025 8:11 AM EST Testicular hypofunction HEPATIC FUNCTION PANEL Routine 09/28/2025 8:11 AM EST Testicular hypofunction documented in this encounter Results * Luteinizing hormone (09/28/2025 8:11 AM EST) Luteinizing Hormone 2.3 1.5 - 9.3 mIU/mL 09/28/2025 9:40 PM EST [facility] Blood Venous blood specimen / Unknown 09/28/2025 8:11 AM EST 09/28/2025 11:45 AM EST us Darron REY LAB BLOOD ORDERABLES Final Res ult [facility] [address] [place] [address], [place] [phone] * Follicle stimulating hormone (09/28/2025 8:11 AM EST) Follicle Stimulating Hormone 5.9 1.4 - 18.1 mIU/mL 09/28/2025 9:39 PM EST [facility] Blood Venous blood specimen / Unknown 09/28/2025 8:11 AM EST 09/28/2025 11:45 AM EST us Darron REY LAB BLOOD ORDERABLES Final Res ult Performing Organization Address City/[facility]/ZIP Co de Phone Number [facility] [address] [place] [address], [place] [phone] * Prolactin (09/28/2025 8:11 AM EST) Prolactin 11.00 2.10 - 17.70 ng/mL 09/28/2025 9:40 PM EST [facility] Blood Venous blood specimen / Unknown 09/28/2025 8:11 AM EST 09/28/2025 11:45 AM EST us Darron REY LAB BLOOD ORDERABLES Final Res ult [facility] [address] [place] [address], [place] [phone] * (ABNORMAL) Hepatic function panel (09/28/2025 8:11 AM EST) Total Protein 7.0 6.0 - 8.0 g/dL 09/28/2025 12:20 PM [facility] Albumin 4.4 3.2 - 5.0 g/dL 09/28/2025 12:20 PM [facility] Total Bilirubin 0.4 0.0 - 1.4 mg/dL 09/28/2025 12:20 PM [facility] Bilirubin, Direct 0.1 0.0 - 0.3 mg/dL 09/28/2025 12:20 PM [facility] Bilirubin, Indirect 0.3 0.0 - 1.1 mg/dL 09/28/2025 12:20 PM [facility] ALT (SGPT) 39 10 - 60 unit/L 09/28/2025 12:20 PM [facility] AST (SGOT) 44(H) 10 - 42 unit/L 09/28/2025 12:20 PM [facility] Alkaline Phosphatase 56 42 - 121 unit/L 09/28/2025 12:20 PM [facility] Blood Venous blood specimen / Unknown 09/28/2025 8:11 AM EST 09/28/2025 11:45 AM EST us Darron REY LAB BLOOD ORDERABLES Final Res ult [facility] [address] [place] [address], documented in this encounter Visit Diagnoses Diagnosis Testicular hypofunction Other testicular hypofunction documented in this encounter Care Teams Narrow Gauge Engineer Relationship Specialty Start Date End Date Artemio Arambula NP [address] [place], [place] PCP - General Family Medicine 09/28/25 documented as of this encounter
--- OUTSIDE RECORDS SUMMARY | 2025-10-12 13:37 | XMS_ITS | Clinical Summary ---
Author Organization [facility] Address [address] [place] [address] Care Team Providers Care Vapor Coater Name Role Phone Shweta Todd MD Primary Care Provider [phone] Allergies No known active allergies Medications buPROPion [...] Influenza Vaccine 05/27/2025 COVID-19 Vaccine (1 - 2024- season) 2025 RSV Vaccine 50 years and old er and Patients (1 - 1-dose 75+ series) 2045 Insurance [facility] [place] [facility] Care Teams Vapor Coater Relationship Specialty Start Date End Date Shweta Todd MD [address] [facility] [address] [place] [address] PCP - General Internal Medicine 11/13/16
--- OUTSIDE RECORDS SUMMARY | 2025-10-12 13:37 | XMS_ITS | Clinical Summary ---
Author Organization [facility] Address [address] [facility] [address] [place] [id number] Phone Care Team Providers Care Highway Maintainer Name Role Phone Artemio Arambula NP Primary [...] escitalopram oxalate (LEXAPRO) 10 MG tablet Active fluticasone propionate (FLONASE NASL) FLONASE 50 MCG/ACT SUSP 8 Active melatonin 5 mg Tab 5 Active mometasone-dimet hicone 0.1-5 % Crea 4 Active prazosin (MINIPRESS) 1 MG capsule Take 1 mg by mouth nightly at bedtime. Active ARIPiprazole (ABILIFY) 5 MG tablet Take 5 mg by mouth daily. Active atorvastatin (LIPITOR) 20 MG tablet Take 20 mg by mouth daily. Active busPIRone (BUSPAR) 10 MG tablet Take 10 mg by mouth 3 (three) times a day. Active clobetasol (TEMOVATE) 0.05 % ointment Apply topically 2 (two) times a day. 5 Active clobetasol (CLOBEX) 0.05 % shampoo Apply topically. 5 Active FOCALIN XR 20 mg 24 hr capsule Take 20 mg by mouth daily. 2 Active levothyroxine (SYNTHROID, LEVOTHROID) 75 MCG tablet Take 1 tablet by mouth every morning. 5 Active guanFACINE (INTUNIV) 1 mg Tb24 Take 1 mg by mouth every morning. 10/11/20 25 Discontin ued(No longer taking) levothyroxine (SYNTHROID) 125 MCG tablet 7 10/11/20 25 Discontin ued(No longer taking) tirzepatide, weight loss, (ZEPBOUND) 12.5 mg/0.5 mL subcutaneous pen Inject 12.5 mg under the skin every 7 days. 10/11/20 Discontin ued(No longer taking) Encounters Date Type Department Care Team Description 10/11/2025 3:00 PM EST Office Visit [facility] [address] [place] [address] [place] [address] Christi Otero DO Autoantibody titer elevated (Primary Dx); Muscle weakness; Elevated CPK; Tinel sign present 10/11/2025 Telephone [facility] [address] [place] [address] [address] [place] [address] Christi Otero DO Appointment 08/23/2025 Transcribe Orders [facility] Rheumatology - Virtual Department [address] [place] [id number] Artemio Arambula NP Positive ANSLEY (antinuclear antibody) (Primary Dx) 08/17/2025 Telephone [facility] [address] [place] [address] [address] [place] [address] Unknown, Unknown, Referral from Last 3 Months Family History Medical History Relation Comments Multiple sclerosis Daughter Cancer Father Hypertension Mother Stroke Mother Relation Status Comments Daughter Father Mother Alive Social History Tobacco Use [...] (208 lb) 10/11/2025 3:22 PM EST Height 166.4 cm (5' 5.5 ) 05/25/2025 10:25 AM ED T Body Mass Index 34.09 05/25/2025 10:25 AM EDT Plan of Treatment Health Maintenance Due Date Last Done Comments LIPID PANEL 1970 TSH LEVEL 1970 DEPRESSION SCREENING 1982 HEPATITIS C SCREENING 1988 HIV ONE-TIME SCREENING (18-65 YEARS) 1988 SCREENING FOR DIABETES 2005 COLOGUARD 2015 COLONOSCOPY 2015 COLORECTAL CANCER SCREENING 2015 FIT TEST 2015 FOBT 2015 SIGMOIDOSCOPY 2015 VIRTUAL COLONOSCOPY 2015 Adult Td,Tdap Booster 11/10/2018 11/10/2008 PNEUMOCOCCAL VACCINES (50+ years) (2 of 2 - PCV) 2020 06/24/2017 INFLUENZA VACCINE (#1) 2025 , 10/16/2021, 10/16/2020, Additional history exists COVID-19 VACCINE (5 - 2024- season) 2025 12/07/2022, 10/16/2021, 03/29/2021, Additional history exists ZOSTER VACCINES (2 of 2) 10/12/2025 08/17/2025 RSV VACCINE (1 - 1-dose 75+ series) 2045 SMOKING STATUS SCREENING (Once After 26 Yrs) Completed 10/11/2025 HEPATITIS A VACCINES Aged Out No long [...] topic Medical Devices Not on file Insurance [employer] [address] [place] [address] [facility] [address] [place] [address] [place] [address] [employer] [facility] [place] [address] Maintainer Relationship Specialty Start Date End Date Artemio Arambula NP [address] [place] [address] PCP - General Nurse Practitioner 12/28/24 Additional Source Comments The information contained in this document represents components of the legal health record. It is not the complete legal health record.[facility]
--- OUTSIDE RECORDS SUMMARY | 2025-10-12 13:37 | XMS_ITS | Encounter Summary ---
Author Organization [facility] Address [address] [facility] [address] [place] [address] Phone Care Team Providers Care Anesthesiology Physician Name Role Phone Artemio Arambula CAR FERRIER Primary Care Provider + Reason for Visit * Reason Onset Date Comments Appointment 10/11/2025 Encounter Details Date Type Department Care Team ([facility] st Contact Info) Description 10/11/2025 Telephone [facility] [address] [place] [address] Christi Otero, DO [address] [facility], [address] [place] [address] [email or web address] Appointment Social History Tobacco Use Types Packs/Day Years [...] as of this encounter Progress Notes * Angelica Ibanez - 10/11/2025 4:01 PM EST Pt needs 4 week f/u but Dr. Otero does not have openings; Pt advise they would get a call to schedule documented in this encounter Plan of Treatment Not on file documented as of this encounter Visit Diagnoses Not on filedocumented in this encounter Care Teams Anesthesiology Physician Relationship Specialty Start Date End Date Artemio Arambula NP [facility] [place] [address] PCP - General Nurse Practitioner 12/28/24 documented as of this encounter Additional Source Comments The information contained in this document represents components of the legal health record. It is not the complete legal health record.[facility]
[2025-10-12 14:32] LABS: Appearance Urine Turbid; Glucose Urine UA Negative (Negative); PH 5.5 (5.0-9.0); Specific Gravity - Urine 1.025 (1.005-1.025)
[2025-10-12 15:07] LABS: Thyroid Stimulating Hormone 2.04 uIU/mL (0.32-4.0)
[2025-10-13 13:24] LABS: Thyroglobulin 11.1 ng/mL
[2025-10-14 13:13] LABS: Antibody to SS-A Antigen <1.0 NEG AI (<1.0 NEG); Antibody to SS-B Antigen <1.0 NEG AI (<1.0 NEG); SM/Ribonucleoprotein Ab <1.0 NEG AI (<1.0 NEG); Smith Protein <1.0 NEG AI (<1.0 NEG)
== END 2025-10-12 10:42 | disposition home or self-care (01) ==
LOC: HO.HKASLDS 10:41
PROVIDERS: PCP Nurse Practitioner Family
DX: Z01.84 Encounter for antibody response examination (principal); M62.81 Muscle weakness (generalized); R76.89 Other specified abnormal immunological findings in serum
CPT/HCPCS: 36415; 81003; 82550; 84432; 84443; 86038; 86160; 86225; 86235; 86376; 86431